=== PATIENT | male | born 1975 | race Hispanic/Latino ===

== ENCOUNTER 2017-02-05 20:37 | Inpatient (IN) | payer OTHER ==
[2017-02-05 20:38] VITALS: BMI 32.7
[2017-02-05] MEDS ORDERED: Albuterol-Ipratrop 3 mg / 0.5 (3 ml) UD ONE (20:44)
--- NOTE | 2017-02-05 20:50 | C.PDOC ---
History Of Present Illness Patient presents to the emergency room with worsening shortness of breath and wheezing that started today. Patient has been intubated 5x previously for acute asthma. Patient denies any chest pain, headaches, dizziness, fever, chills, nausea, vomiting, diarrhea, or any other complaints. Time Seen by Provider: 02/05/17 20:46 Chief Complaint (Nursing): Respiratory Distress History Per: Patient History/Exam Limitations: no limitations Onset/Duration Of Symptoms: Hrs (Today) Current Symptoms Are (Timing): Worse Associated Symptoms: denies: Sputum Production, Fever, Hives, Itching, Chest Pain Preciptating Factors: Other (History of Asthma). denies: Fever Severity: Severe Pain Scale Rating Of: 9 Recent travel outside of the [place]: No Past Medical History Reviewed: Historical Data, Nursing Documentation, Vital Signs Vital Signs: Last Vital Signs Temp 99.7 F H 02/05/17 21:03 Pulse 112 H 02/05/17 21:25 Resp 21 02/05/17 21:03 BP 134/73 02/05/17 21:03 Pulse Ox 98 02/05/17 21:20 - Medical History PMH: Asthma, Bronchitis, Fractures (8 ACL reconstructions), Hypothyroidism, Kidney Stones, Peripheral Edema, Pneumonia, Pulmonary Embolism, Chronic Kidney Disease, Seizures, Sleep Apnea, TIA Denies: HIV - [facility] Procedures CENTRAL VENOUS CATHETER PLACEMENT WITH GUIDANCE (06/27/15) INJECT/INFUSE NEC (05/01/15) INSERTION OF INFUSION DEV INTO SUP VENA CAVA, PERC APPROACH (06/04/16) INSPECTION OF LARYNX, ENDO (06/04/16) INTRODUCTION OF ANTI-INFLAM INTO RESP TRACT, VIA OPENING (11/07/16) NEBULIZER THERAPY (06/27/15) REMOVAL OF INFUSION DEV FROM GREAT VESSEL, PARTY HOST APPROACH (11/07/16) Family History: States: Unknown Family Hx - Social History Hx Tobacco Use: No Hx Alcohol Use: No Hx Substance Use: No - Immunization History Hx Tetanus Toxoid Vaccination: No Hx Influenza Vaccination: No Hx Pneumococcal Vaccination: No Review Of Systems Constitutional: Negative for: Fever, Chills Cardiovascular: Negative for: Chest Pain Respiratory: Positive for: Shortness of Breath, Wheezing Gastrointestinal: Negative for: Nausea, Vomiting, Diarrhea Neurological: Negative for: Headache, Dizziness Physical Exam - Physical Exam Appears: In Acute Distress (Acute respiratory distress) Skin: Warm, Dry Neck: Normal ROM, No Midline Cervical Tenderness, No Paracervical Tenderness, Supple Chest: Symmetrical, No Deformity, No Tenderness Cardiovascular: Other (Tachycardic) Respiratory: Decreased Breath Sounds, Wheezing (Throughout) Gastrointestinal/Abdominal: Soft, No Tenderness, No Guarding, No Rebound Extremity: Normal ROM, No Tenderness, Pedal Edema, No Calf Tenderness (Trace), No Deformity Neurological/Psych: Oriented x3, Normal Speech, Normal Cognition ED Course And Treatment - Laboratory Results Result Diagrams: 02/05/17 20:57 02/05/17 20:57 ECG: Interpreted By Me, Viewed By Me ECG Rhythm: Sinus Rhythm (100), Nonspecific Changes O2 Sat by Pulse Oximetry: 98 Pulse Ox Interpretation: Normal - Radiology CXR: Interpreted by Me, Viewed By Me CXR Interpretation: Yes: Other (unuchanged from 11/21/16). No: Infiltrates, Fracture, Pnemothorax Progress Note: blood work, nebs, steroids, bipap. spoke with dr abbasi - icu- will came and see the pt at bedside. dr abbasi will take the pt to icu Critical Care Time - Critical Care Note Total Time (in mins): 30 Documented critical care: time excludes all time spent performing seperately billable procedures. Disposition Discussed With : Ella Perez Comment: accepted the pt on his service and took over the care at 10:21 PM Doctor Will See Patient In The: ED Counseled Patient/Family Regarding: Studies Performed, Diagnosis - Disposition Disposition: HOSPITALIZED Disposition Time: 20:51 Condition: CRITICAL - POA Present On Arrival: Poor Glycemic Control - Clinical Impression Clinical Impression: Asthma with status asthmaticus - Scribe Statement The provider has reviewed the documentation as recorded by the Chalo Vazquez Provider Scribe Attestation: All medical record entries made by the Roxanaibsharifa were at my direction and personally dictated by me. I have reviewed the chart and agree that the record accurately reflects my personal performance of the history, physical exam, medical decision making, and the department course for this patient. I have also personally directed, reviewed, and agree with the discharge instructions and disposition. Decision To Admit - Pt Status Changed To: Hospital Disposition Of: Inpatient - Admit Certification Admit to Inpatient:: After my assessment, the patient will require hospitalization for at least two midnights. This is because of the severity of symptoms shown, intensity of services needed, and/or the medical risk in this patient being treated as an outpatient. - InPatient: Physician Admission Certification:: After my assessment, the patient will require hospitalization for at least two midnights. This is because of the severity of symptoms shown, intensity of services needed, and/or the medical risk in this patient being treated as an outpatient. - . Bed Request Type: ICU Admitting Physician: Ella Perez Patient Diagnosis: Asthma with status asthmaticus
[2017-02-05] MEDS ORDERED: Sodium Chloride 0.9% 1,000 ML IV ONE (20:51)
[2017-02-05 21:04] LABS: BASO # 0.1 K/uL (0.0-0.2); BASO % 0.8 % (0.0-2.0); EOS # 0.7 K/uL (0.0-0.7); EOS % 6.6 % (0.0-4.0); HEMATOCRIT 44.3 % (35.0-51.0); LYMPH # 3.7 K/uL (1.0-4.3); LYMPH % 34.5 % (20.0-40.0); MEAN CELL VOLUME 87.6 fL (80.0-94.0); MEAN CORPUSCULAR HEMOGLOBIN 29.2 pg (27.0-31.0); MEAN CORPUSCULAR HGB CONC 33.3 g/dL (33.0-37.0); MEAN PLATELET VOLUME 8.9 fL (7.2-11.7); MONO % 9.5 % (0.0-10.0); RED CELL DISTRIBUTION WIDTH 13.8 % (11.5-14.5); WHITE BLOOD COUNT 10.9 K/uL (4.8-10.8)
[2017-02-05 21:09] LABS: CHLORIDE 97 mmol/L (98-107)
[2017-02-05 21:10] LABS: POTASSIUM 3.7 mmol/L (3.6-5.2); SODIUM 134 mmol/L (132-148)
[2017-02-05] MEDS: Albuterol-Ipratrop 3 mg / 0.5 (3 ml) UD IH SCH ×3 (21:10→21:20)
[2017-02-05 21:12] LABS: ALB/GLOB RATIO 1.4 (1.0-2.1); AST/SGOT 26 U/L (17-59); BILIRUBIN,TOTAL 0.7 mg/dL (0.2-1.3); CARBON DIOXIDE 25 mmol/L (22-30); GFR AFRICAN-AMERICAN > 60; TOTAL PROTEIN 7.6 g/dL (6.3-8.3)
[2017-02-05 21:13] LABS: ALKALINE PHOSPHATASE 60 U/L (38-126); ALT/SGPT 29 U/L (21-72); BLOOD UREA NITROGEN 11 mg/dL (9-20); CALCIUM 8.8 mg/dl (8.6-10.4); GLUCOSE,RANDOM 154 mg/dL (75-110); MAGNESIUM 2.2 mg/dL (1.6-2.3)
[2017-02-05 21:56] LABS: VENOUS BLOOD GAS PCO2 38 mmHg (40-60); VENOUS BLOOD PH 7.43 (7.32-7.43)
--- NOTE | 2017-02-05 22:25 | CP.PCM.CON ---
History of Present Illness - History of Present Illness History of Present Illness: 41 YOM with h/o B asthma with 6 intubations in the past came to ER with c/o SOB which was getting worse for almost a week. N fever, mild dry cough , non- productive. He was tachypnic in ER, wheezing, was put on BiPAP and received dueneb and steroid, slightly better but still SOB. Review of Systems - Review of Systems Systems not reviewed;Unavailable: Respiratory Distress - Constitutional Constitutional: As Per HPI - EENT Eyes: As Per HPI Nose/Mouth/Throat: As Per HPI - Cardiovascular Cardiovascular: As Per HPI - Respiratory Respiratory: Dyspnea - Gastrointestinal Gastrointestinal: As Per HPI Past Patient History - Tetanus Immunizations Tetanus Immunization: Unknown - Past Medical History & Family History Past Medical History?: Yes - Past Social History Smoking Status: Never Smoked - CARDIAC Hx Peripheral Edema: Yes - PULMONARY Hx Asthma: Yes Hx Bronchitis: Yes Hx Pneumonia: Yes Hx Pulmonary Embolism: Yes Hx Sleep Apnea: Yes - NEUROLOGICAL Hx Seizures: Yes Hx Transient Ischemic Attacks (TIA): Yes - HEENT Hx HEENT Problems: No - RENAL Hx Chronic Kidney Disease: Yes Hx Kidney Stones: Yes - ENDOCRINE/METABOLIC Hx Hypothyroidism: Yes - HEMATOLOGICAL/ONCOLOGICAL Hx Human Immunodeficiency Virus (HIV): No - INTEGUMENTARY Hx Dermatological Problems: No - MUSCULOSKELETAL/RHEUMATOLOGICAL Hx Fractures: Yes (8 ACL reconstructions) - GASTROINTESTINAL Hx Gastrointestinal Disorders: No - GENITOURINARY/GYNECOLOGICAL Hx Genitourinary Disorders: No - PSYCHIATRIC Hx Substance Use: No - SURGICAL HISTORY Hx Musculoskeletal Surgery: Yes (R knee, L knee (8 knee sx)) Hx Thyroidectomy: Yes (CA+) Other/Comment: CA removal, tracheostomy x3, intubation - ANESTHESIA Hx Anesthesia: Yes Hx Anesthesia Reactions: No Hx Malignant Hyperthermia: No Meds Allergies/Adverse Reactions: Allergies Allergy/AdvReac Type Severity Reaction Status Date / Time aspirin Allergy ANAPHYLAXIS Verified 06/26/16 19:18 onions Allergy Severe throat Uncoded 06/26/16 19:18 swelling Physical Exam - Head Exam Head Exam: ATRAUMATIC - Eye Exam Eye Exam: Normal appearance - ENT Exam ENT Exam: Mucous Membranes Moist - Neck Exam Neck exam: Positive for: Full Rom - Respiratory Exam Respiratory Exam: Prolonged Expiratory Phase, Rhonchi, Wheezes - Cardiovascular Exam Cardiovascular Exam: Tachycardia, REGULAR RHYTHM Results - Vital Signs Recent Vital Signs: Last Vital Signs Temp 99.7 F H 02/05/17 21:03 Pulse 112 H 02/05/17 21:25 Resp 21 02/05/17 21:03 BP 134/73 02/05/17 21:03 Pulse Ox 98 02/05/17 21:20 - Labs Result Diagrams: 02/05/17 20:57 02/05/17 20:57 Labs: Laboratory Results - last 24 hr 02/05/17 02/05/17 20:57 21:50 WBC 10.9 H RBC 5.06 Hgb 14.8 Hct 44.3 MCV 87.6 MCH 29.2 MCHC 33.3 RDW 13.8 Plt Count 272 MPV 8.9 Neut % (Auto) 48.6 L Lymph % (Auto) 34.5 [place] % (Auto) 9.5 Eos % (Auto) 6.6 H Baso % (Auto) 0.8 Neut # 5.3 Lymph # 3.7 [place] # 1.0 H Eos # 0.7 Baso # 0.1 PT 11.4 INR 1.0 pO2 111 H VBG pH 7.43 VBG pCO2 38 L VBG HCO3 25.7 VBG Total CO2 26.4 VBG O2 Sat (Calc) 98.2 H VBG Base Excess 1.0 VBG Potassium 3.4 L Glucose 201 H Lactate 1.9 FiO2 21.0 Sodium 134 136.0 Potassium 3.7 Chloride 97 L 104.0 Carbon Dioxide 25 Anion Gap 16 BUN 11 Creatinine 1.1 Est GFR ( Amer) > 60 Est GFR (Non-Af Amer) > 60 Random Glucose 154 H Calcium 8.8 Magnesium 2.2 Total Bilirubin 0.7 AST 26 ALT 29 Alkaline Phosphatase 60 Total Protein 7.6 Albumin 4.5 Globulin 3.2 Albumin/Globulin Ratio 1.4 Venous Blood Potassium 3.4 L Assessment & Plan - Assessment and Plan (Free Text) Assessment: Resp failure Exacerbation of Bronchial asthma h/o PE Plan: Bipap CXR and labs reviewed Transfer to ICU Duoneb In steroids Mag sulphate 2 gm DVT prophylaxis, Lovenox.
--- NOTE | 2017-02-05 23:11 | CP.PCM.HP ---
History of Present Illness - History of Present Illness History of Present Illness: 41 with asthma, ? thyroid malignancy, presented with progressive dyspnea, impending respiratory failure, multiple intubation in the past, advised the ICU team, the pt should be transfered to the hospitalist, was admitted under my name by mistake, will be transferred as per protocol Present on Admission - Present on Admission Any Indicators Present on Admission: No Review of Systems - Constitutional Constitutional: Anorexia, Weakness - EENT Eyes: absent: Discharge Ears: absent: Ear Discharge Nose/Mouth/Throat: Nasal Congestion. absent: Epistaxis - Cardiovascular Cardiovascular: absent: Acrocyanosis, Chest Pain, Diaphoresis, Palpitations, Syncope - Respiratory Respiratory: Cough, Dyspnea. absent: Hemoptysis - Gastrointestinal Gastrointestinal: absent: Abdominal Pain, Diarrhea, Vomiting - Genitourinary Genitourinary: absent: Change in Urinary Stream Past Patient History - Tetanus Immunizations Tetanus Immunization: Unknown - Past Medical History & Family History Past Medical History?: Yes - Past Social History Smoking Status: Never Smoked - CARDIAC Hx Peripheral Edema: Yes - PULMONARY Hx Asthma: Yes Hx Bronchitis: Yes Hx Pneumonia: Yes Hx Pulmonary Embolism: Yes Hx Sleep Apnea: Yes - NEUROLOGICAL Hx Seizures: Yes Hx Transient Ischemic Attacks (TIA): Yes - HEENT Hx HEENT Problems: No - RENAL Hx Chronic Kidney Disease: Yes Hx Kidney Stones: Yes - ENDOCRINE/METABOLIC Hx Hypothyroidism: Yes - HEMATOLOGICAL/ONCOLOGICAL Hx Human Immunodeficiency Virus (HIV): No - INTEGUMENTARY Hx Dermatological Problems: No - MUSCULOSKELETAL/RHEUMATOLOGICAL Hx Fractures: Yes (8 ACL reconstructions) - GASTROINTESTINAL Hx Gastrointestinal Disorders: No - GENITOURINARY/GYNECOLOGICAL Hx Genitourinary Disorders: No - PSYCHIATRIC Hx Substance Use: No - SURGICAL HISTORY Hx Musculoskeletal Surgery: Yes (R knee, L knee (8 knee sx)) Hx Thyroidectomy: Yes (CA+) Other/Comment: CA removal, tracheostomy x3, intubation - ANESTHESIA Hx Anesthesia: Yes Hx Anesthesia Reactions: No Hx Malignant Hyperthermia: No Meds Allergies/Adverse Reactions: Allergies Allergy/AdvReac Type Severity Reaction Status Date / Time aspirin Allergy ANAPHYLAXIS Verified 06/26/16 19:18 onions Allergy Severe throat Uncoded 06/26/16 19:18 swelling Physical Exam - Constitutional Appears: Non-toxic - Head Exam Head Exam: ATRAUMATIC - Eye Exam Eye Exam: EOMI - ENT Exam ENT Exam: Mucous Membranes Moist - Neck Exam Neck exam: Negative for: Lymphadenopathy, Thyromegaly - Respiratory Exam Respiratory Exam: Clear to Auscultation Bilateral. absent: Rales - Cardiovascular Exam Cardiovascular Exam: REGULAR RHYTHM. absent: Systolic Murmur - GI/Abdominal Exam GI & Abdominal Exam: Normal Bowel Sounds. absent: Organomegaly - Rectal Exam Rectal Exam: Deferred - Extremities Exam Extremities exam: Positive for: normal capillary refill. Negative for: calf tenderness - Neurological Exam Neurological exam: Alert, Oriented x3 - Psychiatric Exam Psychiatric exam: Normal Mood - Skin Skin Exam: Dry Results - Vital Signs Recent Vital Signs: Last Vital Signs Temp 97.8 F 02/05/17 22:36 Pulse 74 02/05/17 22:36 Resp 18 02/05/17 22:36 BP 125/82 02/05/17 22:36 Pulse Ox 97 02/05/17 22:36 - Labs Result Diagrams: 02/06/17 13:00 02/06/17 13:00 Assessment & Plan (1) Asthma with status asthmaticus Status: Acute (2) Asthma exacerbation Status: Acute Priority: High (3) Respiratory failure Status: Acute Decision To Admit - Pt Status Changed To: Hospital Disposition Of: Inpatient - Admit Certification Admit to Inpatient:: After my assessment, the patient will require hospitalization for at least two midnights. This is because of the severity of symptoms shown, intensity of services needed, and/or the medical risk in this patient being treated as an outpatient. - InPatient: Physician Admission Certification:: yes - . Bed Request Type: ICU
[2017-02-05] MEDS: MethylPREDNISolone 40 mg Vial IVP SCH (23:48)
[2017-02-06] MEDS: Albuterol-Ipratrop 3 mg / 0.5 (3 ml) UD INH PRN ×3 (00:12→07:52)
[2017-02-06] MEDS: MethylPREDNISolone 40 mg Vial IVP SCH (05:05)
--- NOTE | 2017-02-06 07:37 | CP.CCUPN ---
<Cj Hayes - Last Filed: 02/06/17 19:40> CCU Subjective - Physician Review Subjective (Free Text): 02/06/17 07:37 Pt seen and examined at bedside. Pt found sitting up in chair without Bipap attached. Pt reports breathing greatly improved from last night. It should be noted pt has been very difficult with staff. Last night he refused bipap, cannula on presentation. During the day he refused blood draws and accuchecks. Pt admits not taking diabetes medications for 6 months. He will be restarted on Metformin, with accuchecks Q4H. He denies shortness of breath, chest pain, abdominal, nausea, or vomiting. Critical Care Time Spent (in minutes): 30 CCU Objective - Vital Signs / Intake & Output Vital Signs (Last 4 hours): Vital Signs Temp Pulse Resp BP Pulse Ox 02/06/17 06:02 97 F L 02/06/17 05:40 94 H 25 H 117/94 H 02/06/17 05:02 99 H 22 98 02/06/17 05:00 98 H 14 98 02/06/17 04:38 95 H 25 H 120/71 02/06/17 04:23 92 H 21 100 02/06/17 04:18 89 21 135/81 100 02/06/17 04:10 89 Intake and Output (Last 8hrs): Intake & Output 02/05/17 02/06/17 02/06/17 22:59 06:59 14:59 Intake Total 680 100 Balance 680 100 Weight 254 lb Intake: Oral 680 100 Other: # Voids Urine, Voided 1 - Physical Exam Narrative Physical Exam (Free Text): 02/06/17 20:06 Overweight body habitus noted Head: Positive for: Atraumatic, Normocephalic Pupils: Positive for: PERRL Extroacular Muscles: Positive for: EOMI Conjunctiva: Positive for: Normal Mouth: Positive for: Moist Mucous Membranes Respiratory/Chest: Positive for: Good Air Exchange, Wheezes (improved, expiratory, lung multani). Negative for: Respiratory Distress, Accessory Muscle Use, Rales Cardiovascular: Positive for: Regular Rate and Rhythm, Normal S1, S2 Abdomen: Positive for: Normal Bowel Sounds. Negative for: Tenderness, Distention Upper Extremity: Positive for: Normal Inspection Lower Extremity: Positive for: Normal Inspection Neurological: Positive for: CN II-XII Intact, Speech Normal Skin: Positive for: Warm, Dry Psychiatric: Positive for: Alert, Oriented x 3 - Medications Active Medications: Active Medications Generic Name Dose Route Start Last Admin Trade Name Freq PRN Reason Stop Dose Admin Acetaminophen 650 mg 02/06/17 00:41 Tylenol 325mg Tab PO Q4 PRN Pain, moderate (4-7) Albuterol/Ipratropium 3 ml 02/05/17 22:51 02/06/17 04:14 Duoneb 3 Mg/0.5 Mg (3 Ml) Ud INH 3 ml RQ2 PRN Administration Shortness of Breath Enoxaparin Sodium 40 mg 02/06/17 10:00 Lovenox SC DAILY ALON Famotidine 20 mg 02/06/17 10:00 Pepcid PO BID ALON Methylprednisolone 40 mg 02/06/17 00:00 02/06/17 05:05 Solu-Medrol IVP 40 mg Q6 ALON Administration Review of Systems - Constitutional Constitutional: absent: Fever, Chills - EENT Eyes: absent: Change in Vision Ears: absent: Decreased Hearing - Cardiovascular Cardiovascular: absent: Chest Pain, Chest Pain at Rest, Dyspnea, Dyspnea on Exertion - Respiratory Respiratory: absent: Dyspnea, Dyspnea on Exertion, Wheezing (minor, much improved) - Gastrointestinal Gastrointestinal: absent: Vomiting - Genitourinary Genitourinary: absent: Dysuria - Musculoskeletal Musculoskeletal: absent: Back Pain, Numbness, Tingling - Integumentary Integumentary: absent: Wounds - Neurological Neurological: absent: Dizziness, Tingling, Weakness - Psychiatric Psychiatric: absent: Anxiety, Depression - Endocrine Endocrine: absent: Fatigue Critical Care Progress Note - Nutrition Nutrition: Nutrition Category Date Time Status Heart Healthy Diet [DIET] Diets 02/06/17 Breakfast Active Assessment/Plan - Assessment and Plan (Free Text) Assessment: 41 year old male, with PMHx of asthma, bronchitis, hypothyroidism, PE, who presents to in ED with exacerbation of asthma. Pt has history of 5 intubations, with 3 prior trachs. Placed on Bipap, duoneb and steroids. Plan: Neuro: AAOx3 Pulm: History of PE - Restart home Xarelto Asthma exacerbation: - history of 5 prior intubations CXR (02/05/17): mild venous congestion. Right hilar prominence. 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 Gauthier Plan discussed with Dr. Mosley on Rounds Cj Hayes, PGY-1 <Olman Mosley - Last Filed: 02/07/17 23:37> CCU Objective - Vital Signs / Intake & Output Vital Signs (Last 4 hours): Vital Signs Temp Pulse Resp BP Pulse Ox 02/07/17 20:51 104 H 02/07/17 19:45 98.9 F 106 H 20 131/74 96 Intake and Output (Last 8hrs): Intake & Output 02/07/17 02/07/17 02/08/17 14:59 22:59 06:59 Intake Total 1105 1190 Balance 1105 1190 Intake: IV 0 Intake, IV Amount 505 300 Right Hand 505 300 Oral 600 240 Tube Feeding 650 - Medications Active Medications: Active Medications Generic Name Dose Route Start Last Admin Trade Name Freq PRN Reason Stop Dose Admin Acetaminophen 650 mg 02/06/17 00:41 Tylenol 325mg Tab PO Q4 PRN Pain, moderate (4-7) Albuterol Sulfate 2.5 mg 02/06/17 10:29 02/06/17 14:47 Albuterol 0.083% Inhal [place] (2.5 Mg/3 Ml) Ud IH 2.5 mg RQ4 PRN Administration Shortness of Breath Albuterol/Ipratropium 3 ml 02/06/17 12:00 02/07/17 20:03 Duoneb 3 Mg/0.5 Mg (3 Ml) Ud INH 3 ml RQ4 ALON Administration Famotidine 20 mg 02/06/17 10:00 02/07/17 18:04 Pepcid PO 20 mg BID ALON Administration Fluticasone Propionate 1 spr 02/07/17 16:30 02/07/17 21:47 Flonase DYLAN 1 spr Q12 ALON Administration Glipizide 10 mg 02/06/17 16:30 Glucotrol Xl PO ACBD ALON Sodium Chloride 1,000 mls @ 100 mls/hr 02/07/17 09:45 02/07/17 21:00 Sodium Chloride 0.9% IV 100 mls/hr .Q10H ALON Administration Insulin Glargine 20 unit 02/07/17 13:30 02/07/17 13:30 Lantus SC 20 u ACB ALON Administration Insulin Glargine 30 unit 02/07/17 22:00 02/07/17 21:48 Lantus SC 30 units HS ALON Administration Insulin Human Regular 0 unit 02/06/17 19:16 02/07/17 21:53 Novolin R SC 3 unit ACHS ALON Administration Protocol Levothyroxine Sodium 400 mcg 02/06/17 10:30 02/07/17 07:37 Synthroid PO 400 mcg DAILY@0630 ALON Administration Metformin HCl 1,000 mg 02/06/17 19:00 02/07/17 18:03 Glucophage PO 1,000 mg BID ALON Administration Methylprednisolone 20 mg 02/07/17 08:00 02/07/17 21:55 Solu-Medrol IVP 20 mg Q8 ALON Administration Mometasone Furoate 2 puff 02/06/17 10:30 02/07/17 20:02 Asmanex Twisthaler 220 Mcg IH 2 puff RQ12 ALON Administration Rivaroxaban 20 mg 02/06/17 10:45 02/07/17 10:13 Xarelto PO 20 mg DAILY ALON Administration Fluticasone/Salmeterol 1 puff 02/06/17 10:00 02/07/17 20:02 Advair Diskus 250/50 INH 1 puff RQ12 ALON Administration - Patient Studies Lab Studies: Microbiology Studies 02/05/17 22:43 MRSA Culture (Admit) - Final Nose MRSA NOT DETECTED Lab Studies 04/02/07/17 02/07/17 Range/Units 21:10 16:45 11:34 WBC (4.8-10.8) K/uL RBC (4.40-5.90) Mil/uL Hgb (12.0-18.0) g/dL Hct (35.0-51.0) % MCV (80.0-94.0) fL MCH (27.0-31.0) pg MCHC (33.0-37.0) g/dL RDW (11.5-14.5) % Plt Count (130-400) K/uL MPV (7.2-11.7) fL Neut % (Auto) (50.0-75.0) % Lymph % (Auto) (20.0-40.0) % [place] % (Auto) (0.0-10.0) % Eos % (Auto) (0.0-4.0) % Baso % (Auto) (0.0-2.0) % Neut # (1.8-7.0) K/uL Lymph # (1.0-4.3) K/uL [place] # (0.0-0.8) K/uL Eos # (0.0-0.7) K/uL Baso # (0.0-0.2) K/uL Neutrophils % (Manual) (50-75) % Lymphocytes % (Manual) (20-40) % Monocytes % (Manual) (0-10) % Platelet Estimate (NORMAL) Large Platelets Sodium (132-148) mmol/L Potassium (3.6-5.2) mmol/L Chloride (98-107) mmol/L Carbon Dioxide (22-30) mmol/L Anion Gap (10-20) BUN (9-20) mg/dL Creatinine (0.8-1.5) MG/DL Est GFR ( Amer) Est GFR (Non-Af Amer) POC Glucose (mg/dL) 367 H 374 H 418 H* (65-110) mg/dL Random Glucose (75-110) mg/dL Calcium (8.6-10.4) mg/dl Phosphorus (2.5-4.5) mg/dL Magnesium (1.6-2.3) mg/dL Total Bilirubin (0.2-1.3) mg/dL AST (17-59) U/L ALT (21-72) U/L Alkaline Phosphatase (38-126) U/L Total Protein (6.3-8.3) g/dL Albumin (3.5-5.0) g/dL Globulin (2.2-3.9) gm/dL Albumin/Globulin Ratio (1.0-2.1) 02/07/17 02/07/17 02/07/17 Range/Units 09:38 06:44 05:29 WBC 18.0 H D (4.8-10.8) K/uL RBC 5.23 (4.40-5.90) Mil/uL Hgb 15.0 (12.0-18.0) g/dL Hct 46.5 (35.0-51.0) % MCV 89.0 (80.0-94.0) fL MCH 28.8 (27.0-31.0) pg MCHC 32.3 L (33.0-37.0) g/dL RDW 14.1 (11.5-14.5) % Plt Count 285 (130-400) K/uL MPV 9.4 (7.2-11.7) fL Neut % (Auto) 86.6 H (50.0-75.0) % Lymph % (Auto) 9.2 L (20.0-40.0) % [place] % (Auto) 3.6 (0.0-10.0) % Eos % (Auto) 0.0 (0.0-4.0) % Baso % (Auto) 0.6 (0.0-2.0) % Neut # 15.6 H (1.8-7.0) K/uL Lymph # 1.7 (1.0-4.3) K/uL [place] # 0.7 (0.0-0.8) K/uL Eos # 0.0 (0.0-0.7) K/uL Baso # 0.1 (0.0-0.2) K/uL Neutrophils % (Manual) 87 H (50-75) % Lymphocytes % (Manual) 9 L (20-40) % Monocytes % (Manual) 4 (0-10) % Platelet Estimate Normal (NORMAL) Large Platelets Present Sodium 135 (132-148) mmol/L Potassium 4.2 (3.6-5.2) mmol/L Chloride 99 (98-107) mmol/L Carbon Dioxide 18 L (22-30) mmol/L Anion Gap 22 H (10-20) BUN 18 (9-20) mg/dL Creatinine 1.2 (0.8-1.5) MG/DL Est GFR ( Amer) > 60 Est GFR (Non-Af Amer) > 60 POC Glucose (mg/dL) 345 H 371 H (65-110) mg/dL Random Glucose 354 H (75-110) mg/dL Calcium 10.3 (8.6-10.4) mg/dl Phosphorus 3.8 (2.5-4.5) mg/dL Magnesium 2.4 H (1.6-2.3) mg/dL Total Bilirubin 0.7 (0.2-1.3) mg/dL AST 24 (17-59) U/L ALT 32 (21-72) U/L Alkaline Phosphatase 64 (38-126) U/L Total Protein 8.3 (6.3-8.3) g/dL Albumin 4.9 (3.5-5.0) g/dL Globulin 3.4 (2.2-3.9) gm/dL Albumin/Globulin Ratio 1.4 (1.0-2.1) 02/07/17 02/07/17 02/07/17 Range/Units 03:35 01:21 00:26 WBC (4.8-10.8) K/uL RBC (4.40-5.90) Mil/uL Hgb (12.0-18.0) g/dL Hct (35.0-51.0) % MCV (80.0-94.0) fL MCH (27.0-31.0) pg MCHC (33.0-37.0) g/dL RDW (11.5-14.5) % Plt Count (130-400) K/uL MPV (7.2-11.7) fL Neut % (Auto) (50.0-75.0) % Lymph % (Auto) (20.0-40.0) % [place] % (Auto) (0.0-10.0) % Eos % (Auto) (0.0-4.0) % Baso % (Auto) (0.0-2.0) % Neut # (1.8-7.0) K/uL Lymph # (1.0-4.3) K/uL [place] # (0.0-0.8) K/uL Eos # (0.0-0.7) K/uL Baso # (0.0-0.2) K/uL Neutrophils % (Manual) (50-75) % Lymphocytes % (Manual) (20-40) % Monocytes % (Manual) (0-10) % Platelet Estimate (NORMAL) Large Platelets Sodium (132-148) mmol/L Potassium (3.6-5.2) mmol/L Chloride (98-107) mmol/L Carbon Dioxide (22-30) mmol/L Anion Gap (10-20) BUN (9-20) mg/dL Creatinine (0.8-1.5) MG/DL Est GFR ( Amer) Est GFR (Non-Af Amer) POC Glucose (mg/dL) 364 H 361 H 307 H (65-110) mg/dL Random Glucose (75-110) mg/dL Calcium (8.6-10.4) mg/dl Phosphorus (2.5-4.5) mg/dL Magnesium (1.6-2.3) mg/dL Total Bilirubin (0.2-1.3) mg/dL AST (17-59) U/L ALT (21-72) U/L Alkaline Phosphatase (38-126) U/L Total Protein (6.3-8.3) g/dL Albumin (3.5-5.0) g/dL Globulin (2.2-3.9) gm/dL Albumin/Globulin Ratio (1.0-2.1) Laboratory Results - last 24 hr 02/07/17 02/07/17 02/07/17 00:26 01:21 03:35 WBC RBC Hgb Hct MCV MCH MCHC RDW Plt Count MPV Neut % (Auto) Lymph % (Auto) [place] % (Auto) Eos % (Auto) Baso % (Auto) Neut # Lymph # [place] # Eos # Baso # Neutrophils % (Manual) Lymphocytes % (Manual) Monocytes % (Manual) Platelet Estimate Large Platelets Sodium Potassium Chloride Carbon Dioxide Anion Gap BUN Creatinine Est GFR ( Amer) Est GFR (Non-Af Amer) POC Glucose (mg/dL) 307 H 361 H 364 H Random Glucose Calcium Phosphorus Magnesium Total Bilirubin AST ALT Alkaline Phosphatase Total Protein Albumin Globulin Albumin/Globulin Ratio 02/07/17 02/07/17 02/07/17 05:29 06:44 09:38 WBC 18.0 H D RBC 5.23 Hgb 15.0 Hct 46.5 MCV 89.0 MCH 28.8 MCHC 32.3 L RDW 14.1 Plt Count 285 MPV 9.4 Neut % (Auto) 86.6 H Lymph % (Auto) 9.2 L [place] % (Auto) 3.6 Eos % (Auto) 0.0 Baso % (Auto) 0.6 Neut # 15.6 H Lymph # 1.7 [place] # 0.7 Eos # 0.0 Baso # 0.1 Neutrophils % (Manual) 87 H Lymphocytes % (Manual) 9 L Monocytes % (Manual) 4 Platelet Estimate Normal Large Platelets Present Sodium 135 Potassium 4.2 Chloride 99 Carbon Dioxide 18 L Anion Gap 22 H BUN 18 Creatinine 1.2 Est GFR ( Amer) > 60 Est GFR (Non-Af Amer) > 60 POC Glucose (mg/dL) 371 H 345 H Random Glucose 354 H Calcium 10.3 Phosphorus 3.8 Magnesium 2.4 H Total Bilirubin 0.7 AST 24 ALT 32 Alkaline Phosphatase 64 Total Protein 8.3 Albumin 4.9 Globulin 3.4 Albumin/Globulin Ratio 1.4 02/07/17 02/07/17 02/07/17 11:34 16:45 21:10 WBC RBC Hgb Hct MCV MCH MCHC RDW Plt Count MPV Neut % (Auto) Lymph % (Auto) [place] % (Auto) Eos % (Auto) Baso % (Auto) Neut # Lymph # [place] # Eos # Baso # Neutrophils % (Manual) Lymphocytes % (Manual) Monocytes % (Manual) Platelet Estimate Large Platelets Sodium Potassium Chloride Carbon Dioxide Anion Gap BUN Creatinine Est GFR ( Amer) Est GFR (Non-Af Amer) POC Glucose (mg/dL) 418 H* 374 H 367 H Random Glucose Calcium Phosphorus Magnesium Total Bilirubin AST ALT Alkaline Phosphatase Total Protein Albumin Globulin Albumin/Globulin Ratio Critical Care Progress Note - Nutrition Nutrition: Nutrition Category Date Time Status Heart Healthy Diet [DIET] Diets 02/06/17 Breakfast Active Attending/Attestation - Attestation I have personally seen and examined this patient.: Yes I have fully participated in the care of the patient.: Yes I have reviewed all pertinent clinical information: Yes Notes (Text): Today: Monday, February 06, 2017 The Patient was seen and examined at the bedside, Medical records reviewed, all clinical/lab/hemodynamic/radiographic data were reviewed and management issues were discussed and formulated, Events reviewed Pain issues, skin care, head of the bed elevation, glycemic control were addressed. Agree with above treatment plans as transcribed in Dr. Hayes note
--- NOTE | 2017-02-06 08:26 | RAD ---
PROCEDURE: CHEST RADIOGRAPH, 1 VIEW HISTORY: SOB COMPARISON: 11/21/2016 FINDINGS: LUNGS: Mild venous congestion. Right hilar prominence. PLEURA: No pneumothorax or pleural fluid seen. CARDIOVASCULAR: Normal. OSSEOUS STRUCTURES: No significant abnormalities. VISUALIZED UPPER ABDOMEN: Normal. OTHER FINDINGS: None. IMPRESSION: Mild venous congestion. Right hilar prominence.
[2017-02-06] MEDS: Enoxaparin 40 mg Syringe SC SCH ×2 (10:26→10:49)
[2017-02-06] MEDS ORDERED: Albuterol 0.083% Inhal Sol (2.5 mg/3 mL) UD IH PRN (10:29)
[2017-02-06] MEDS: Mometasone 220 mcg/puff-14 puff Inh IH SCH ×2 (11:34→19:53)
[2017-02-06] MEDS: Albuterol-Ipratrop 3 mg / 0.5 (3 ml) UD INH SCH ×3 (11:35→23:52)
[2017-02-06] MEDS: Fluticasone-Salmeterol 250-50mcg Diskus INH SCH ×2 (11:37→19:53)
--- NOTE | 2017-02-06 11:46 | CARD ---
APPROVED REPORT EKG Measurement Heart [id number] <Conclusion> Normal sinus rhythm Septal infarct, age undetermined Abnormal ECG
[2017-02-06] MEDS: Levothyroxine 200 MCG TAB PO SCH (12:03)
[2017-02-06] MEDS: (Novolin R) Insulin Human Regular 100 units/ml vial SC SCH ×3 (12:15→21:28)
[2017-02-06 13:07] LABS: BASO % 0.4 % (0.0-2.0); HEMATOCRIT 47.6 % (35.0-51.0); LYMPH # 1.1 K/uL (1.0-4.3); LYMPH % 9.6 % (20.0-40.0); MEAN CORPUSCULAR HEMOGLOBIN 29.1 pg (27.0-31.0); MEAN CORPUSCULAR HGB CONC 32.5 g/dL (33.0-37.0); MONO # 0.3 K/uL (0.0-0.8); MONO % 2.3 % (0.0-10.0); PLATELET COUNT 279 K/uL (130-400)
[2017-02-06 13:08] LABS: MEAN CELL VOLUME 89.7 fL (80.0-94.0)
[2017-02-06 13:19] LABS: CHLORIDE 96 mmol/L (98-107); POTASSIUM 4.4 mmol/L (3.6-5.2); SODIUM 133 mmol/L (132-148)
[2017-02-06 13:21] LABS: ALB/GLOB RATIO 1.4 (1.0-2.1); ALKALINE PHOSPHATASE 69 U/L (38-126); AST/SGOT 33 U/L (17-59); BILIRUBIN,TOTAL 0.8 mg/dL (0.2-1.3); CARBON DIOXIDE 15 mmol/L (22-30); GFR AFRICAN-AMERICAN > 60; TOTAL PROTEIN 8.7 g/dL (6.3-8.3)
[2017-02-06 13:22] LABS: ALT/SGPT 33 U/L (21-72); BLOOD UREA NITROGEN 12 mg/dL (9-20); CALCIUM 10.3 mg/dl (8.6-10.4); MAGNESIUM 2.4 mg/dL (1.6-2.3); PHOSPHOROUS 3.6 mg/dL (2.5-4.5)
[2017-02-06 13:29] LABS: GLUCOSE,RANDOM 572 mg/dL (75-110)
[2017-02-06 14:00] LABS: NEUTROPHIL 87 % (50-75); TOTAL CELLS COUNTED 100
[2017-02-06] MEDS ORDERED: GlipiZIDE 10 mg SR Tab PO SCH (16:30)
[2017-02-06] MEDS ORDERED: Insulin Human Regular 100 UNIT in Sodium Chloride 0.9% 99 ML IV SCH (20:15)
[2017-02-06] MEDS ORDERED: Insulin Detemir 100 units/ml Vial (Levemir) SC SCH (22:00)
[2017-02-07] MEDS: Albuterol-Ipratrop 3 mg / 0.5 (3 ml) UD INH SCH ×5 (03:14→20:03)
[2017-02-07] MEDS: (Novolin R) Insulin Human Regular 100 units/ml vial SC SCH ×4 (07:30→21:53)
[2017-02-07] MEDS: Levothyroxine 200 MCG TAB PO SCH (07:37)
[2017-02-07] MEDS: Fluticasone-Salmeterol 250-50mcg Diskus INH SCH ×2 (08:23→20:02)
[2017-02-07] MEDS: Mometasone 220 mcg/puff-14 puff Inh IH SCH ×2 (08:24→20:02)
[2017-02-07] MEDS: MethylPREDNISolone 40 mg Vial IVP SCH ×3 (08:30→21:55)
[2017-02-07 09:41] LABS: BASO # 0.1 K/uL (0.0-0.2); BASO % 0.6 % (0.0-2.0); HEMATOCRIT 46.5 % (35.0-51.0); LYMPH # 1.7 K/uL (1.0-4.3); LYMPH % 9.2 % (20.0-40.0); MEAN CORPUSCULAR HEMOGLOBIN 28.8 pg (27.0-31.0); MEAN CORPUSCULAR HGB CONC 32.3 g/dL (33.0-37.0); MEAN PLATELET VOLUME 9.4 fL (7.2-11.7); MONO # 0.7 K/uL (0.0-0.8); MONO % 3.6 % (0.0-10.0); PLATELET COUNT 285 K/uL (130-400); RED CELL DISTRIBUTION WIDTH 14.1 % (11.5-14.5)
--- NOTE | 2017-02-07 09:43 | CP.CCUPN ---
CCU Subjective - Physician Review Events Since Last Encounter (Free Text): 02/07/17 09:41 Patient was refusing any drips at this time, and he was refusing also today blood works. After multiple discussions with the patient he agreed to have a PICC line. Urgent PICC line was done on the right forearm, but there was some problem in positioning the PICC line in mid chest. With the use of positioning device the PICC line was not able to advance to be on the midchest region. But the PICC line was left in place, and a good blood return noted, chest x-ray ordered Currently patient is blood sugar is still elevated, the drip is off, labs ordered today, we'll wait for the blood works and after that we will decide whether should the patient be on insulin. We'll check the x-ray. Spoke to the patient in details will follow the patient CCU Objective - Vital Signs / Intake & Output Vital Signs (Last 4 hours): Vital Signs Temp Pulse Resp BP Pulse Ox 02/07/17 08:00 96.9 F L 110 H 17 140/74 99 02/07/17 07:00 72 15 02/07/17 06:11 60 16 02/07/17 06:00 100 H 20 Intake and Output (Last 8hrs): Intake & Output 02/06/17 02/07/17 02/07/17 22:59 06:59 14:59 Intake Total 1200 200 0 Output Total 600 Balance 600 200 0 Intake: IV 0 0 0 Oral 1200 200 Output: Urine 600 Urine, Voided 600 Other: # Voids Urine, Voided 1 1 # Bowel Movements 0 - Physical Exam Head: Positive for: Atraumatic, Normocephalic Pupils: Positive for: PERRL Extroacular Muscles: Positive for: EOMI Conjunctiva: Positive for: Normal Mouth: Positive for: Moist Mucous Membranes Respiratory/Chest: Positive for: Good Air Exchange, Wheezes (improved, expiratory, lung multani). Negative for: Respiratory Distress, Accessory Muscle Use, Rales Cardiovascular: Positive for: Regular Rate and Rhythm, Normal S1, S2 Abdomen: Positive for: Normal Bowel Sounds. Negative for: Tenderness, Distention Upper Extremity: Positive for: Normal Inspection Lower Extremity: Positive for: Normal Inspection Neurological: Positive for: CN II-XII Intact, Speech Normal Skin: Positive for: Warm, Dry Psychiatric: Positive for: Alert, Oriented x 3 - Medications Active Medications: Active Medications Generic Name Dose Route Start Last Admin Trade Name Freq PRN Reason Stop Dose Admin Acetaminophen 650 mg 02/06/17 00:41 Tylenol 325mg Tab PO Q4 PRN Pain, moderate (4-7) Albuterol Sulfate 2.5 mg 02/06/17 10:29 02/06/17 14:47 Albuterol 0.083% Inhal [place]ille (2.5 Mg/3 Ml) Ud IH 2.5 mg RQ4 PRN Administration Shortness of Breath Albuterol/Ipratropium 3 ml 02/06/17 12:00 02/07/17 08:24 Duoneb 3 Mg/0.5 Mg (3 Ml) Ud INH 3 ml RQ4 ALON Administration Famotidine 20 mg 02/06/17 10:00 02/06/17 18:59 Pepcid PO Not Given BID ALON Glipizide 10 mg 02/06/17 16:30 Glucotrol Xl PO ACBD ALON Insulin Human Regular 100 unit 100 mls @ 2 mls/hr 02/06/17 20:15 02/07/17 07:16 / Sodium Chloride IV 0 units/kg/min .Q24H ALON Titration Protocol Sodium Chloride 1,000 mls @ 100 mls/hr 02/07/17 09:45 Sodium Chloride 0.9% IV .Q10H ALON Insulin Detemir 30 unit 02/06/17 22:00 02/06/17 22:50 Levemir SC 30 unit HS ALON Administration Insulin Human Regular 0 unit 02/06/17 19:16 02/06/17 21:28 Novolin R SC Not Given ACHS ALON Protocol Levothyroxine Sodium 400 mcg 02/06/17 10:30 02/07/17 07:37 Synthroid PO 400 mcg DAILY@0630 ALON Administration Metformin HCl 1,000 mg 02/06/17 19:00 02/06/17 19:04 Glucophage PO 1,000 mg BID ALON Administration Methylprednisolone 20 mg 02/07/17 08:00 Solu-Medrol IVP Q8 ALON Mometasone Furoate 2 puff 02/06/17 10:30 02/07/17 08:24 Asmanex Twisthaler 220 Mcg IH 2 puff RQ12 ALON Administration Rivaroxaban 20 mg 02/06/17 10:45 02/06/17 12:15 Xarelto PO 20 mg DAILY ALON Administration Fluticasone/Salmeterol 1 puff 02/06/17 10:00 02/07/17 08:23 Advair Diskus 250/50 INH 1 puff RQ12 ALON Administration - Patient Studies Lab Studies: Lab Studies 02/07/17 02/07/17 02/07/17 Range/Units 06:44 05:29 03:35 WBC (4.8-10.8) K/uL RBC (4.40-5.90) Mil/uL Hgb (12.0-18.0) g/dL Hct (35.0-51.0) % MCV (80.0-94.0) fL MCH (27.0-31.0) pg MCHC (33.0-37.0) g/dL RDW (11.5-14.5) % Plt Count (130-400) K/uL MPV (7.2-11.7) fL Neut % (Auto) (50.0-75.0) % Lymph % (Auto) (20.0-40.0) % [place] % (Auto) (0.0-10.0) % Eos % (Auto) (0.0-4.0) % Baso % (Auto) (0.0-2.0) % Neut # (1.8-7.0) K/uL Lymph # (1.0-4.3) K/uL [place] # (0.0-0.8) K/uL Eos # (0.0-0.7) K/uL Baso # (0.0-0.2) K/uL Neutrophils % (Manual) (50-75) % Lymphocytes % (Manual) (20-40) % Monocytes % (Manual) (0-10) % Platelet Estimate (NORMAL) RBC Morphology Sodium (132-148) mmol/L Potassium (3.6-5.2) mmol/L Chloride (98-107) mmol/L Carbon Dioxide (22-30) mmol/L Anion Gap (10-20) BUN (9-20) mg/dL Creatinine (0.8-1.5) MG/DL Est GFR ( Amer) Est GFR (Non-Af Amer) POC Glucose (mg/dL) 345 H 371 H 364 H (65-110) mg/dL Random Glucose (75-110) mg/dL Hemoglobin A1c (4.2-6.5) % Calcium (8.6-10.4) mg/dl Phosphorus (2.5-4.5) mg/dL Magnesium (1.6-2.3) mg/dL Total Bilirubin (0.2-1.3) mg/dL AST (17-59) U/L ALT (21-72) U/L Alkaline Phosphatase (38-126) U/L Total Protein (6.3-8.3) g/dL Albumin (3.5-5.0) g/dL Globulin (2.2-3.9) gm/dL Albumin/Globulin Ratio (1.0-2.1) Free T4 (0.78-2.19) ng/dL TSH 3rd Generation (0.46-4.68) mIU/L 02/07/17 02/07/17 02/06/17 Range/Units 01:21 00:26 23:17 WBC (4.8-10.8) K/uL RBC (4.40-5.90) Mil/uL Hgb (12.0-18.0) g/dL Hct (35.0-51.0) % MCV (80.0-94.0) fL MCH (27.0-31.0) pg MCHC (33.0-37.0) g/dL RDW (11.5-14.5) % Plt Count (130-400) K/uL MPV (7.2-11.7) fL Neut % (Auto) (50.0-75.0) % Lymph % (Auto) (20.0-40.0) % [place] % (Auto) (0.0-10.0) % Eos % (Auto) (0.0-4.0) % Baso % (Auto) (0.0-2.0) % Neut # (1.8-7.0) K/uL Lymph # (1.0-4.3) K/uL [place] # (0.0-0.8) K/uL Eos # (0.0-0.7) K/uL Baso # (0.0-0.2) K/uL Neutrophils % (Manual) (50-75) % Lymphocytes % (Manual) (20-40) % Monocytes % (Manual) (0-10) % Platelet Estimate (NORMAL) RBC Morphology Sodium (132-148) mmol/L Potassium (3.6-5.2) mmol/L Chloride (98-107) mmol/L Carbon Dioxide (22-30) mmol/L Anion Gap (10-20) BUN (9-20) mg/dL Creatinine (0.8-1.5) MG/DL Est GFR ( Amer) Est GFR (Non-Af Amer) POC Glucose (mg/dL) 361 H 307 H 345 H (65-110) mg/dL Random Glucose (75-110) mg/dL Hemoglobin A1c (4.2-6.5) % Calcium (8.6-10.4) mg/dl Phosphorus (2.5-4.5) mg/dL Magnesium (1.6-2.3) mg/dL Total Bilirubin (0.2-1.3) mg/dL AST (17-59) U/L ALT (21-72) U/L Alkaline Phosphatase (38-126) U/L Total Protein (6.3-8.3) g/dL Albumin (3.5-5.0) g/dL Globulin (2.2-3.9) gm/dL Albumin/Globulin Ratio (1.0-2.1) Free T4 (0.78-2.19) ng/dL TSH 3rd Generation (0.46-4.68) mIU/L 02/06/17 02/06/17 02/06/17 Range/Units 22:15 20:01 13:00 WBC 11.0 H (4.8-10.8) K/uL RBC 5.31 (4.40-5.90) Mil/uL Hgb 15.5 (12.0-18.0) g/dL Hct 47.6 (35.0-51.0) % MCV 89.7 D (80.0-94.0) fL MCH 29.1 (27.0-31.0) pg MCHC 32.5 L (33.0-37.0) g/dL RDW 14.0 (11.5-14.5) % Plt Count 279 (130-400) K/uL MPV 9.0 (7.2-11.7) fL Neut % (Auto) 87.7 H (50.0-75.0) % Lymph % (Auto) 9.6 L (20.0-40.0) % [place] % (Auto) 2.3 (0.0-10.0) % Eos % (Auto) 0.0 (0.0-4.0) % Baso % (Auto) 0.4 (0.0-2.0) % Neut # 9.7 H (1.8-7.0) K/uL Lymph # 1.1 (1.0-4.3) K/uL [place] # 0.3 (0.0-0.8) K/uL Eos # 0.0 (0.0-0.7) K/uL Baso # 0.0 (0.0-0.2) K/uL Neutrophils % (Manual) 87 H (50-75) % Lymphocytes % (Manual) 12 L (20-40) % Monocytes % (Manual) 1 (0-10) % Platelet Estimate Normal (NORMAL) RBC Morphology Normal Sodium 133 (132-148) mmol/L Potassium 4.4 (3.6-5.2) mmol/L Chloride 96 L (98-107) mmol/L Carbon Dioxide 15 L (22-30) mmol/L Anion Gap 26 H (10-20) BUN 12 (9-20) mg/dL Creatinine 1.1 (0.8-1.5) MG/DL Est GFR ( Amer) > 60 Est GFR (Non-Af Amer) > 60 POC Glucose (mg/dL) 364 H 433 H* (65-110) mg/dL Random Glucose 572 H* D (75-110) mg/dL Hemoglobin A1c 8.3 H (4.2-6.5) % Calcium 10.3 (8.6-10.4) mg/dl Phosphorus 3.6 (2.5-4.5) mg/dL Magnesium 2.4 H (1.6-2.3) mg/dL Total Bilirubin 0.8 (0.2-1.3) mg/dL AST 33 (17-59) U/L ALT 33 (21-72) U/L Alkaline Phosphatase 69 (38-126) U/L Total Protein 8.7 H (6.3-8.3) g/dL Albumin 5.1 H (3.5-5.0) g/dL Globulin 3.6 (2.2-3.9) gm/dL Albumin/Globulin Ratio 1.4 (1.0-2.1) Free T4 0.34 L (0.78-2.19) ng/dL TSH 3rd Generation 75.50 H (0.46-4.68) mIU/L 02/06/17 Range/Units 12:08 WBC (4.8-10.8) K/uL RBC (4.40-5.90) Mil/uL Hgb (12.0-18.0) g/dL Hct (35.0-51.0) % MCV (80.0-94.0) fL MCH (27.0-31.0) pg MCHC (33.0-37.0) g/dL RDW (11.5-14.5) % Plt Count (130-400) K/uL MPV (7.2-11.7) fL Neut % (Auto) (50.0-75.0) % Lymph % (Auto) (20.0-40.0) % [place] % (Auto) (0.0-10.0) % Eos % (Auto) (0.0-4.0) % Baso % (Auto) (0.0-2.0) % Neut # (1.8-7.0) K/uL Lymph # (1.0-4.3) K/uL [place] # (0.0-0.8) K/uL Eos # (0.0-0.7) K/uL Baso # (0.0-0.2) K/uL Neutrophils % (Manual) (50-75) % Lymphocytes % (Manual) (20-40) % Monocytes % (Manual) (0-10) % Platelet Estimate (NORMAL) RBC Morphology Sodium (132-148) mmol/L Potassium (3.6-5.2) mmol/L Chloride (98-107) mmol/L Carbon Dioxide (22-30) mmol/L Anion Gap (10-20) BUN (9-20) mg/dL Creatinine (0.8-1.5) MG/DL Est GFR ( Amer) Est GFR (Non-Af Amer) POC Glucose (mg/dL) 445 H* (65-110) mg/dL Random Glucose (75-110) mg/dL Hemoglobin A1c (4.2-6.5) % Calcium (8.6-10.4) mg/dl Phosphorus (2.5-4.5) mg/dL Magnesium (1.6-2.3) mg/dL Total Bilirubin (0.2-1.3) mg/dL AST (17-59) U/L ALT (21-72) U/L Alkaline Phosphatase (38-126) U/L Total Protein (6.3-8.3) g/dL Albumin (3.5-5.0) g/dL Globulin (2.2-3.9) gm/dL Albumin/Globulin Ratio (1.0-2.1) Free T4 (0.78-2.19) ng/dL TSH 3rd Generation (0.46-4.68) mIU/L Laboratory Results - last 24 hr 02/06/17 02/06/17 02/06/17 12:08 13:00 20:01 WBC 11.0 H RBC 5.31 Hgb 15.5 Hct 47.6 MCV 89.7 D MCH 29.1 MCHC 32.5 L RDW 14.0 Plt Count 279 MPV 9.0 Neut % (Auto) 87.7 H Lymph % (Auto) 9.6 L [place] % (Auto) 2.3 Eos % (Auto) 0.0 Baso % (Auto) 0.4 Neut # 9.7 H Lymph # 1.1 [place] # 0.3 Eos # 0.0 Baso # 0.0 Neutrophils % (Manual) 87 H Lymphocytes % (Manual) 12 L Monocytes % (Manual) 1 Platelet Estimate Normal RBC Morphology Normal Sodium 133 Potassium 4.4 Chloride 96 L Carbon Dioxide 15 L Anion Gap 26 H BUN 12 Creatinine 1.1 Est GFR ( Amer) > 60 Est GFR (Non-Af Amer) > 60 POC Glucose (mg/dL) 445 H* 433 H* Random Glucose 572 H* D Hemoglobin A1c 8.3 H Calcium 10.3 Phosphorus 3.6 Magnesium 2.4 H Total Bilirubin 0.8 AST 33 ALT 33 Alkaline Phosphatase 69 Total Protein 8.7 H Albumin 5.1 H Globulin 3.6 Albumin/Globulin Ratio 1.4 Free T4 0.34 L TSH 3rd Generation 75.50 H 02/06/17 02/06/17 02/07/17 22:15 23:17 00:26 WBC RBC Hgb Hct MCV MCH MCHC RDW Plt Count MPV Neut % (Auto) Lymph % (Auto) [place] % (Auto) Eos % (Auto) Baso % (Auto) Neut # Lymph # [place] # Eos # Baso # Neutrophils % (Manual) Lymphocytes % (Manual) Monocytes % (Manual) Platelet Estimate RBC Morphology Sodium Potassium Chloride Carbon Dioxide Anion Gap BUN Creatinine Est GFR ( Amer) Est GFR (Non-Af Amer) POC Glucose (mg/dL) 364 H 345 H 307 H Random Glucose Hemoglobin A1c Calcium Phosphorus Magnesium Total Bilirubin AST ALT Alkaline Phosphatase Total Protein Albumin Globulin Albumin/Globulin Ratio Free T4 TSH 3rd Generation 02/07/17 02/07/17 02/07/17 01:21 03:35 05:29 WBC RBC Hgb Hct MCV MCH MCHC RDW Plt Count MPV Neut % (Auto) Lymph % (Auto) [place] % (Auto) Eos % (Auto) Baso % (Auto) Neut # Lymph # [place] # Eos # Baso # Neutrophils % (Manual) Lymphocytes % (Manual) Monocytes % (Manual) Platelet Estimate RBC Morphology Sodium Potassium Chloride Carbon Dioxide Anion Gap BUN Creatinine Est GFR ( Amer) Est GFR (Non-Af Amer) POC Glucose (mg/dL) 361 H 364 H 371 H Random Glucose Hemoglobin A1c Calcium Phosphorus Magnesium Total Bilirubin AST ALT Alkaline Phosphatase Total Protein Albumin Globulin Albumin/Globulin Ratio Free T4 TSH 3rd Generation 02/07/17 06:44 WBC RBC Hgb Hct MCV MCH MCHC RDW Plt Count MPV Neut % (Auto) Lymph % (Auto) [place] % (Auto) Eos % (Auto) Baso % (Auto) Neut # Lymph # [place] # Eos # Baso # Neutrophils % (Manual) Lymphocytes % (Manual) Monocytes % (Manual) Platelet Estimate RBC Morphology Sodium Potassium Chloride Carbon Dioxide Anion Gap BUN Creatinine Est GFR ( Amer) Est GFR (Non-Af Amer) POC Glucose (mg/dL) 345 H Random Glucose Hemoglobin A1c Calcium Phosphorus Magnesium Total Bilirubin AST ALT Alkaline Phosphatase Total Protein Albumin Globulin Albumin/Globulin Ratio Free T4 TSH 3rd Generation Fingerstick Blood Sugar Results: 345 Critical Care Progress Note - Nutrition Nutrition: Nutrition Category Date Time Status Heart Healthy Diet [DIET] Diets 02/06/17 Breakfast Active
[2017-02-07 09:53] LABS: CHLORIDE 99 mmol/L (98-107); SODIUM 135 mmol/L (132-148)
[2017-02-07 09:54] LABS: POTASSIUM 4.2 mmol/L (3.6-5.2)
[2017-02-07 09:56] LABS: ALB/GLOB RATIO 1.4 (1.0-2.1); ALKALINE PHOSPHATASE 64 U/L (38-126); AST/SGOT 24 U/L (17-59); BILIRUBIN,TOTAL 0.7 mg/dL (0.2-1.3); BLOOD UREA NITROGEN 18 mg/dL (9-20); CARBON DIOXIDE 18 mmol/L (22-30); GFR AFRICAN-AMERICAN > 60; GLUCOSE,RANDOM 354 mg/dL (75-110); PHOSPHOROUS 3.8 mg/dL (2.5-4.5); TOTAL PROTEIN 8.3 g/dL (6.3-8.3)
[2017-02-07 09:57] LABS: ALT/SGPT 32 U/L (21-72); CALCIUM 10.3 mg/dl (8.6-10.4); MAGNESIUM 2.4 mg/dL (1.6-2.3)
--- NOTE | 2017-02-07 09:57 | RAD ---
HISTORY: picc COMPARISON: Comparison 02/05/2017 FINDINGS: LUNGS: Right-sided PICC line present which terminates over the medial aspect right clavicle. No active pulmonary disease. PLEURA: No significant pleural effusion identified, no pneumothorax apparent. CARDIOVASCULAR: Normal. OSSEOUS STRUCTURES: No significant abnormalities. VISUALIZED UPPER ABDOMEN: Normal. OTHER FINDINGS: None. IMPRESSION: Right-sided PICC line present which terminates over the medial aspect right clavicle. No active pulmonary disease.
[2017-02-07] MEDS: Sodium Chloride 0.9% 1,000 ML IV SCH ×2 (10:14→21:00)
[2017-02-07 10:20] LABS: NEUTROPHIL 87 % (50-75); TOTAL CELLS COUNTED 100
[2017-02-07 10:21] LABS: LARGE PLATELETS PRESENT
--- NOTE | 2017-02-07 11:20 | CP.PCM.PN ---
<Vinod Atkinson H - Last Filed: 02/07/17 15:19> Subjective - Date & Time of Evaluation Date of Evaluation: 02/07/17 Time of Evaluation: 13:00 - Subjective Subjective: Dr. Alfaro service: Patient seen and examined during rounds with primary medical attending. He is sitting up in chair comfortable. A PICC line was placed this morning. He is complaining of having multiple admissions to ICU and intubation for asthma. He says he was doing well for about 2 months until recently when the wheather changed. He is also complaining that "no finds out why he has asthma triggers" . He says his asthma is triggered by any changes in the weather. He complains of pain from the PICC line insertion site as well. Objective - Vital Signs/Intake and Output Vital Signs (last 24 hours): Temp Pulse Resp BP Pulse Ox 96.9 F L 110 H 17 140/74 99 02/07/17 08:00 02/07/17 08:00 02/07/17 08:00 02/07/17 08:00 02/07/17 08:00 Intake and Output: 02/07/17 02/07/17 06:59 18:59 Intake Total 900 5 Balance 900 5 - Medications Medications: Current Medications Acetaminophen (Tylenol 325mg Tab) 650 mg PO Q4 PRN PRN Reason: Pain, moderate (4-7) Albuterol Sulfate (Albuterol 0.083% Inhal [place] (2.5 Mg/3 Ml) Ud) 2.5 mg IH RQ4 PRN PRN Reason: Shortness of Breath Last Admin: 02/06/17 14:47 Dose: 2.5 mg Albuterol/Ipratropium (Duoneb 3 Mg/0.5 Mg (3 Ml) Ud) 3 ml INH RQ4 ALON Last Admin: 02/07/17 08:24 Dose: 3 ml Famotidine (Pepcid) 20 mg PO BID ALON Last Admin: 02/07/17 10:13 Dose: 20 mg Glipizide (Glucotrol Xl) 10 mg PO ACBD [facility] Insulin Human Regular 100 unit (/ Sodium Chloride) 100 mls @ 2 mls/hr IV .Q24H ALON PRN Reason: Protocol Last Titration: 02/07/17 07:16 Dose: 0 units/kg/min Sodium Chloride (Sodium Chloride 0.9%) 1,000 mls @ 100 mls/hr IV .Q10H [facility] Last Admin: 02/07/17 10:14 Dose: 100 mls/hr Insulin Detemir (Levemir) 30 unit SC HS [facility] Last Admin: 02/06/17 22:50 Dose: 30 unit Insulin Human Regular (Novolin R) 0 unit SC ACHS [facility] PRN Reason: Protocol Last Admin: 02/07/17 07:30 Dose: Not Given Levothyroxine Sodium (Synthroid) 400 mcg PO DAILY@0630 [facility] Last Admin: 02/07/17 07:37 Dose: 400 mcg Metformin HCl (Glucophage) 1,000 mg PO BID [facility] Last Admin: 02/07/17 10:13 Dose: 1,000 mg Methylprednisolone (Solu-Medrol) 20 mg IVP Q8 [facility] Last Admin: 02/07/17 08:30 Dose: Not Given Mometasone Furoate (Asmanex Twisthaler 220 Mcg) 2 puff IH RQ12 [facility] Last Admin: 02/07/17 08:24 Dose: 2 puff Rivaroxaban (Xarelto) 20 mg PO DAILY [facility] Last Admin: 02/07/17 10:13 Dose: 20 mg Fluticasone/Salmeterol (Advair Diskus 250/50) 1 puff INH RQ12 [facility] Last Admin: 02/07/17 08:23 Dose: 1 puff - Labs Labs: 02/07/17 09:38 02/07/17 09:38 PT 11.4 SECONDS (9.7-12.2) 02/05/17 20:57 INR 1.0 02/05/17 20:57 - Constitutional Appears: Non-toxic, No Acute Distress - Head Exam Head Exam: ATRAUMATIC, NORMAL INSPECTION, NORMOCEPHALIC - Eye Exam Eye Exam: Normal appearance Pupil Exam: NORMAL ACCOMODATION - Respiratory Exam Respiratory Exam: Clear to Ausculation Bilateral. absent: Rales, Rhonchi Additional comments: speaking in complete sentences - Cardiovascular Exam Cardiovascular Exam: REGULAR RHYTHM, RRR, +S1, +S2. absent: Gallop, Rubs - GI/Abdominal Exam GI & Abdominal Exam: Soft. absent: Tenderness - Extremities Exam Extremities Exam: Normal Inspection - Back Exam Back Exam: NORMAL INSPECTION - Neurological Exam Neurological Exam: Alert, Awake, Oriented x3 - Psychiatric Exam Psychiatric exam: Normal Affect, Normal Mood - Skin Skin Exam: Normal Color, Warm Assessment and Plan - Assessment and Plan (Free Text) Assessment: 1. [place] exerbation Transferred out of ICU yesterday, on Tele. Patient was transferred to ICU on IV steroids, duoneb 3ml, Advair. Seems to be controlled now, he was talking loud and in full sentences. 2. History of PE Patient is on Xarelto. 3. Hypothryoidism continue his home thyroid medicine, synthroid 440mcg 4. DM Continue current medication, patient is on Lantus twice a day, metformin 1000mg bid, and glipizide 10mg, accu checks with sliding scale. blood sugars have been high in part due the IV steroids 4. Prophylatic measure on Xarelto On pepcid <Alberto Alfaro - Last Filed: 03/11/17 15:16> Objective - Vital Signs/Intake and Output Vital Signs (last 24 hours): Temp Pulse Resp BP Pulse Ox 97.1 F L 98 H 21 150/90 96 02/18/17 15:15 02/18/17 15:15 02/18/17 15:15 02/18/17 15:15 02/18/17 15:15 - Labs Labs: 02/17/17 12:10 02/17/17 12:10 PT 11.4 SECONDS (9.7-12.2) 02/05/17 20:57 INR 1.0 02/05/17 20:57 Attending/Attestation - Attestation I have personally seen and examined this patient.: Yes I have fully participated in the care of the patient.: Yes I have reviewed all pertinent clinical information, including history, physical exam and plan: Yes Notes (Text): Patient seen and examined with the resident. Agree with the resident's evaluation, assessment and plan. Asthma exacerbation Transferred out of ICU yesterday, on Tele. controlled now, he was talking loud and in full sentences. History of PE Patient is on Xarelto.
[2017-02-07] MEDS ORDERED: Insulin Detemir 100 units/ml Vial (Levemir) SC ONE (13:00)
[2017-02-07] MEDS: (Lantus) Insulin Glargine, Recombinant SC SCH ×2 (13:30→21:48)
[2017-02-07] MEDS: Fluticasone Nasal 50 mcg/Spray NAS SCH ×2 (16:33→21:47)
[2017-02-08] MEDS: Albuterol-Ipratrop 3 mg / 0.5 (3 ml) UD INH SCH ×6 (00:14→20:26)
[2017-02-08] MEDS: Sodium Chloride 0.9% 1,000 ML IV SCH ×2 (05:45→15:45)
[2017-02-08] MEDS: MethylPREDNISolone 40 mg Vial IVP SCH ×3 (06:05→21:52)
[2017-02-08] MEDS: Levothyroxine 200 MCG TAB PO SCH ×2 (06:58→07:00)
[2017-02-08] MEDS: (Novolin R) Insulin Human Regular 100 units/ml vial SC SCH ×4 (07:30→21:50)
[2017-02-08] MEDS: (Lantus) Insulin Glargine, Recombinant SC SCH ×2 (07:30→21:51)
[2017-02-08] MEDS: Fluticasone-Salmeterol 250-50mcg Diskus INH SCH (07:49)
[2017-02-08] MEDS: Mometasone 220 mcg/puff-14 puff Inh IH SCH ×2 (07:49→20:26)
--- NOTE | 2017-02-08 09:20 | CP.PCM.PN ---
Subjective - Date & Time of Evaluation Date of Evaluation: 02/08/17 Time of Evaluation: 09:10 - Subjective Subjective: Medical Attending Note Follow-up: Asthma, severe persistent, status asthmaticus, Hurthle cell malignancy, pulmonary embolus, uncontrolled diabetes Patient seen and examined. Patient transferred out from the ICU yesterday. Patient has PICC line over the right upper extremity. Patient reports his asthma has been uncontrolled, was free of hospitalizations for 2 months, but has been hospitalized at least 5 times this year and requiring intubations. Patient reports his asthma acts up, which he believes is due to weather change. 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 Patient reports he has two clots in the lung. Patient reports he is not diabetic but needs further education given is constant hospitalizations requiring IV use. ROS: denies headache, productive, non-bloody cough, shortness of breathe, pleuritic chest pain, denies nausea, denies vomitting, denies abdominal pain, denies nausea, denies vomitting, denies constipation, denies diarrhea. Objective - Vital Signs/Intake and Output Vital Signs (last 24 hours): Temp Pulse Resp BP Pulse Ox 98.7 F 68 20 138/75 97 02/08/17 08:00 02/08/17 08:00 02/08/17 08:00 02/08/17 08:00 02/08/17 08:00 Intake and Output: 02/08/17 02/08/17 06:59 18:59 Intake Total 880 Balance 880 - Medications Medications: Current Medications Acetaminophen (Tylenol 325mg Tab) 650 mg PO Q4 PRN PRN Reason: Pain, moderate (4-7) Albuterol Sulfate (Albuterol 0.083% Inhal [place] (2.5 Mg/3 Ml) Ud) 2.5 mg IH RQ4 PRN PRN Reason: Shortness of Breath Last Admin: 02/06/17 14:47 Dose: 2.5 mg Albuterol/Ipratropium (Duoneb 3 Mg/0.5 Mg (3 Ml) Ud) 3 ml INH RQ4 ALON Last Admin: 02/08/17 07:49 Dose: Not Given Famotidine (Pepcid) 20 mg PO BID ALON Last Admin: 02/08/17 09:04 Dose: 20 mg Glipizide (Glucotrol Xl) 10 mg PO ACBD [facility] Sodium Chloride (Sodium Chloride 0.9%) 1,000 mls @ 100 mls/hr IV .Q10H [facility] Last Admin: 02/08/17 05:45 Dose: Not Given Insulin Glargine (Lantus) 20 unit SC ACB [facility] Last Admin: 02/08/17 07:30 Dose: 20 u Insulin Glargine (Lantus) 30 unit SC HS [facility] Last Admin: 02/07/17 21:48 Dose: 30 units Insulin Human Regular (Novolin R) 0 unit SC ACHS [facility] PRN Reason: Protocol Last Admin: 02/08/17 07:30 Dose: 12 unit Levothyroxine Sodium (Synthroid) 400 mcg PO DAILY@0630 [facility] Last Admin: 02/08/17 07:00 Dose: 400 mcg Metformin HCl (Glucophage) 1,000 mg PO BID [facility] Last Admin: 02/08/17 09:03 Dose: 1,000 mg Methylprednisolone (Solu-Medrol) 20 mg IVP Q8 [facility] Last Admin: 02/08/17 06:05 Dose: 20 mg Mometasone Furoate (Asmanex Twisthaler 220 Mcg) 2 puff IH RQ12 [facility] Last Admin: 02/08/17 07:49 Dose: Not Given Rivaroxaban (Xarelto) 20 mg PO DAILY [facility] Last Admin: 02/08/17 09:04 Dose: 20 mg Fluticasone/Salmeterol (Advair Diskus 500/50) 1 puff INH RQ12 [facility] - Labs Labs: 02/07/17 09:38 02/07/17 09:38 PT 11.4 SECONDS (9.7-12.2) 02/05/17 20:57 INR 1.0 02/05/17 20:57 - Constitutional Appears: Non-toxic, In Acute Distress, Older Than Stated Age - Head Exam Head Exam: NORMAL INSPECTION - Eye Exam Eye Exam: EOMI Pupil Exam: PERRL - ENT Exam ENT Exam: Mucous Membranes Dry - Respiratory Exam Respiratory Exam: Decreased Breath Sounds, Rhonchi, Wheezes. absent: Respiratory Distress, Stridor - Cardiovascular Exam Cardiovascular Exam: REGULAR RHYTHM, +S1, +S2 - GI/Abdominal Exam GI & Abdominal Exam: Soft, Normal Bowel Sounds. absent: Distended, Firm, Guarding, Rigid, Tenderness, Rebound - Extremities Exam Extremities Exam: absent: Pedal Edema, Tenderness Additional comments: right upper extremity-PICC line - Neurological Exam Neurological Exam: Alert, Awake, Oriented x3 - Psychiatric Exam Psychiatric exam: Agitated, Normal Affect, Normal Mood - Skin Skin Exam: Dry, Normal Color, Warm Assessment and Plan - Assessment and Plan (Free Text) Assessment: 1) Status Asthmaticus Severe persistent asthma * History of multiple intubations * Patient's asthma uncontrolled by nebulizer treatments * Solumedrol 20mg IV Q 8 hours * Increase Advair 500/50 Q 12hours * Duonebs Q4hour PRN * Momentsone 2 puff inhaled Q 12hours * Transferred out from ICU, 02/07/17 2) Pulmonary Embolus * Xarelto 20mg PO daily 3) Steroid induced diabetes * [id number]: 8.7 * Uncontrolled * Metformin 1000mg PO Bid * Patient refuses to have accuechecks QAC and HS; he does not want to have finger pricks for blood; will allow for after lunch and after dinner to adjust his levemir * Geological Engineer referral 4) Hypothyroidism * Synthroid 400mcg PO qAM 5) Prophylactic measure * Xarelto 20mg PO daily for DVT ppx * Pepcid 20mg PO bid for gi ppx * PT eval * PICC line- RIGHT upper extremity (prior hx of cocaine use- patient inappropriate for port consideration)
[2017-02-08] MEDS ORDERED: Insulin Detemir 100 units/ml Vial (Levemir) SC SCH (12:45)
--- NOTE | 2017-02-08 13:16 | RAD ---
HISTORY: picc line COMPARISON: No prior. FINDINGS: LUNGS: Right-sided PICC line with tip seen overlying the medial aspect of the right clavicle Mild bibasilar atelectasis PLEURA: No significant pleural effusion identified, no pneumothorax apparent. CARDIOVASCULAR: Normal. OSSEOUS STRUCTURES: No significant abnormalities. VISUALIZED UPPER ABDOMEN: Normal. OTHER FINDINGS: None. IMPRESSION: Right-sided PICC line with tip seen overlying the medial aspect of the right clavicle Mild bibasilar atelectasis
[2017-02-08] MEDS: Fluticasone-Salmeterol 500-50mcg Diskus INH SCH (20:25)
[2017-02-09] MEDS: Albuterol-Ipratrop 3 mg / 0.5 (3 ml) UD INH SCH ×8 (00:14→23:50)
[2017-02-09] MEDS: Sodium Chloride 0.9% 1,000 ML IV SCH ×2 (01:45→11:48)
[2017-02-09] MEDS: MethylPREDNISolone 40 mg Vial IVP SCH (06:35)
[2017-02-09] MEDS: Levothyroxine 200 MCG TAB PO SCH (06:40)
[2017-02-09] MEDS: (Lantus) Insulin Glargine, Recombinant SC SCH ×2 (07:36→22:21)
[2017-02-09] MEDS: (Novolin R) Insulin Human Regular 100 units/ml vial SC SCH ×4 (07:37→22:20)
[2017-02-09] MEDS: Fluticasone-Salmeterol 500-50mcg Diskus INH SCH ×2 (10:27→19:52)
[2017-02-09] MEDS: Mometasone 220 mcg/puff-14 puff Inh IH SCH ×2 (10:29→19:52)
[2017-02-09] MEDS ORDERED: Lidocaine 1% Inj (20ml) ONE (12:39)
--- NOTE | 2017-02-09 12:42 | CP.PCM.PN ---
<Maagly Kwongeverton - Last Filed: 02/09/17 17:49> Subjective - Date & Time of Evaluation Date of Evaluation: 02/09/17 Time of Evaluation: 09:12 - Subjective Subjective: PGY 1 Medicine Note- Dr. Gutierres's service Pt seen and examined in no apparent disterss. Patient agitated over malfunctioning PICC line. He states that the line stopped functioning whereupon the nursing team was unable to draw blood or flush the line. Patient was reassured that the matter would be looked into and settled. Patient still having difficultly taking in deep breaths. Patient has a cough associated with taking in deep breaths. Patient admits to shortness of breath at rest and with activity. Patient denies fevers, chills, n/v/d/c/cp,palpitations, paresthesias or headaches at this time. Objective - Vital Signs/Intake and Output Vital Signs (last 24 hours): Temp Pulse Resp BP Pulse Ox 98.2 F 82 20 118/78 95 02/09/17 02:50 02/09/17 02:50 02/09/17 02:50 02/09/17 02:50 02/09/17 02:50 Intake and Output: 02/09/17 02/09/17 06:59 18:59 Intake Total 850 Balance 850 - Medications Medications: Current Medications Acetaminophen (Tylenol 325mg Tab) 650 mg PO Q4 PRN PRN Reason: Pain, moderate (4-7) Albuterol Sulfate (Albuterol 0.083% Inhal Tenn[place] (2.5 Mg/3 Ml) Ud) 2.5 mg IH RQ4 PRN PRN Reason: Shortness of Breath Last Admin: 02/06/17 14:47 Dose: 2.5 mg Albuterol/Ipratropium (Duoneb 3 Mg/0.5 Mg (3 Ml) Ud) 3 ml INH RQ4 [facility] Last Admin: 02/09/17 11:28 Dose: 3 ml Famotidine (Pepcid) 20 mg PO BID [facility] Last Admin: 02/09/17 10:59 Dose: Not Given Glipizide (Glucotrol Xl) 10 mg PO ACBD [facility] Sodium Chloride (Sodium Chloride 0.9%) 1,000 mls @ 100 mls/hr IV .Q10H [facility] Last Admin: 02/09/17 11:48 Dose: Not Given Insulin Glargine (Lantus) 20 unit SC ACB [facility] Last Admin: 02/09/17 07:36 Dose: Not Given Insulin Glargine (Lantus) 30 unit SC HS [facility] Last Admin: 02/08/17 21:51 Dose: 30 units Insulin Human Regular (Novolin R) 0 unit SC ACHS [facility] PRN Reason: Protocol Last Admin: 02/09/17 11:22 Dose: Not Given Levothyroxine Sodium (Synthroid) 400 mcg PO DAILY@0630 [facility] Last Admin: 02/09/17 06:40 Dose: 400 mcg Metformin HCl (Glucophage) 1,000 mg PO BID [facility] Last Admin: 02/09/17 10:57 Dose: 1,000 mg Methylprednisolone (Solu-Medrol) 20 mg IVP Q8 [facility] Last Admin: 02/09/17 06:35 Dose: 20 mg Mometasone Furoate (Asmanex Twisthaler 220 Mcg) 2 puff IH RQ12 [facility] Last Admin: 02/09/17 10:29 Dose: 2 puff Prednisone (Prednisone Tab) 40 mg PO DAILY [facility] Last Admin: 02/09/17 12:16 Dose: 40 mg Rivaroxaban (Xarelto) 20 mg PO DAILY [facility] Last Admin: 02/09/17 10:57 Dose: 20 mg Fluticasone/Salmeterol (Advair Diskus 500/50) 1 puff INH RQ12 [facility] Last Admin: 02/09/17 10:27 Dose: 1 puff - Labs Labs: 02/07/17 09:38 02/07/17 09:38 PT 11.4 SECONDS (9.7-12.2) 02/05/17 20:57 INR 1.0 02/05/17 20:57 - Constitutional Appears: No Acute Distress - Head Exam Head Exam: ATRAUMATIC, NORMAL INSPECTION, NORMOCEPHALIC - Eye Exam Eye Exam: EOMI, Normal appearance, PERRL Pupil Exam: NORMAL ACCOMODATION - ENT Exam ENT Exam: Mucous Membranes Moist, Normal Exam - Neck Exam Neck Exam: Full ROM - Respiratory Exam Respiratory Exam: Rhonchi, Wheezes. absent: NORMAL BREATHING PATTERN - Cardiovascular Exam Cardiovascular Exam: +S1, +S2 - GI/Abdominal Exam GI & Abdominal Exam: Soft, Normal Bowel Sounds - Extremities Exam Extremities Exam: Full ROM, Normal Capillary Refill - Back Exam Back Exam: Full ROM - Neurological Exam Neurological Exam: Alert, Awake, CN II-XII Intact, Oriented x3 - Psychiatric Exam Psychiatric exam: Normal Affect, Normal Mood - Skin Skin Exam: Intact, Normal Color, Warm Assessment and Plan - Assessment and Plan (Free Text) Assessment: 1) Severe persistent asthma * History of multiple intubations * Patient's asthma uncontrolled by nebulizer treatments * Solumedrol 20mg IV Q 8 hours held due to malfunctioning PICC line. Patient given Prednisone 40 mg daily. Will switch back to Solumedrol once line is functioning * Increase Advair 500/50 Q 12hours * Duonebs Q4hour PRN * Mometasone 2 puff inhaled Q 12hours * Transferred out from ICU, 02/07/17 * Consult to Dr. Gauthier (Pulm) - F/U recommendations 2) Pulmonary Embolus * Xarelto 20mg PO daily 3) Steroid induced diabetes * [id number]: 8.7 * Uncontrolled * Metformin 1000mg PO Bid * Patient refuses to have accuchecks QAC and HS; he does not want to have finger pricks for blood; will allow for after lunch and after dinner to adjust his levemir. Patient states that his sugar is elevated solely because of corticosteroid administration. * Lantus 20 units ACB and 30 units SC HS * [employer] referral 4) Hypothyroidism * Synthroid 400mcg PO qAM 5) Prophylactic measure * Xarelto 20mg PO daily for DVT ppx * Pepcid 20mg PO bid for gi ppx * PT eval * PICC line- RIGHT upper extremity changed by IR 02/09/17 <Markel Gutierres - Last Filed: 02/10/17 16:20> Objective - Vital Signs/Intake and Output Vital Signs (last 24 hours): Temp Pulse Resp BP Pulse Ox 98.2 F 82 20 129/74 97 02/10/17 00:00 02/10/17 00:46 02/10/17 00:00 02/10/17 00:00 02/10/17 00:00 Intake and Output: 02/10/17 02/10/17 06:59 18:59 Intake Total 1015 Balance 1015 - Medications Medications: Current Medications Acetaminophen (Tylenol 325mg Tab) 650 mg PO Q4 PRN PRN Reason: Pain, moderate (4-7) Albuterol Sulfate (Albuterol 0.083% Inhal [place] (2.5 Mg/3 Ml) Ud) 2.5 mg IH RQ4 PRN PRN Reason: Shortness of Breath Last Admin: 02/06/17 14:47 Dose: 2.5 mg Albuterol/Ipratropium (Duoneb 3 Mg/0.5 Mg (3 Ml) Ud) 3 ml INH RQ4 [facility] Last Admin: 02/10/17 11:19 Dose: 3 ml Budesonide (Pulmicort Respules) 0.5 mg INH RQ12 [facility] Famotidine (Pepcid) 20 mg PO BID [facility] Last Admin: 02/10/17 10:45 Dose: Not Given Glipizide (Glucotrol Xl) 10 mg PO ACBD [facility] Insulin Glargine (Lantus) 20 unit SC ACB [facility] Last Admin: 02/10/17 08:50 Dose: 20 u Insulin Glargine (Lantus) 30 unit SC HS [facility] Last Admin: 02/09/17 22:21 Dose: 30 units Insulin Human Regular (Novolin R) 0 unit SC ACHS [facility] PRN Reason: Protocol Last Admin: 02/10/17 12:12 Dose: 10 unit Levothyroxine Sodium (Synthroid) 400 mcg PO DAILY@0630 [facility] Last Admin: 02/09/17 06:40 Dose: 400 mcg Metformin HCl (Glucophage) 1,000 mg PO BID [facility] Last Admin: 02/10/17 10:43 Dose: 1,000 mg Methylprednisolone (Solu-Medrol) 20 mg IVP Q8 [facility] Last Admin: 02/10/17 14:50 Dose: 20 mg Mometasone Furoate (Asmanex Twisthaler 220 Mcg) 2 puff IH RQ12 [facility] Last Admin: 02/10/17 10:00 Dose: 2 puff Montelukast Sodium (Singulair) 10 mg PO HS [facility] Rivaroxaban (Xarelto) 20 mg PO DAILY [facility] Last Admin: 02/10/17 10:43 Dose: 20 mg - Labs Labs: 02/10/17 07:10 02/10/17 07:10 PT 11.4 SECONDS (9.7-12.2) 02/05/17 20:57 INR 1.0 02/05/17 20:57 Attending/Attestation - Attestation I have personally seen and examined this patient.: Yes I have fully participated in the care of the patient.: Yes I have reviewed all pertinent clinical information, including history, physical exam and plan: Yes Notes (Text): 02/10/17 16:19 Patient was seen and examined at bedside with the resident Patient still having extensive wheezing. We will continue IV steroids PICC line to be replaced. We will request pulmonary evaluation Continue Xarelto for history for PE I discussed the plan of care with the resident and agree with the above history and physical and assessment/plan by the resident.
--- NOTE | 2017-02-09 13:02 | PCM.SURG1 ---
Surgeon's Initial Post Op Note - Surgeon's Notes Surgeon: Jerry Solis MD Teacher Vocal: NONE Type of Anesthesia: Local Pre-Operative Diagnosis: Non functional PICC, poor venous access Operative Findings: Right basilic vein picc, tip in subclavian. Post-Operative Diagnosis: Non functional PICC, poor venous access Operation Performed: Right picc exchange. A new single lumen picc placed, 44 cm. Tip in SVC. Specimen/Specimens Removed: NONE Estimated Blood Loss: EBL {In ML}: 0 Blood Products Given: N/A Drains Used: No Drains Post-Op Condition: Fair Date of Surgery/Procedure: 02/09/17 Time of Surgery/Procedure: 13:00
--- NOTE | 2017-02-09 14:37 | RAD ---
PROCEDURE: Date of procedure: 02/09/2017 Procedure: 1. Right arm PICC exchange for a new single-lumen PICC 2. PICC tip confirmation with spot radiograph and is in the superior vena cava Medications: 4cc 1 percent lidocaine Total Fluoro time: 11.2 seconds Radiation: 0.5627 mGym2 EBL: 0 cc HISTORY: Poor venous access, nonfunctional right arm PICC TECHNIQUE: Following informed consent and procedure time-out, the patient was placed supine on the interventional table. The right arm the existing dual-lumen PICC were prepped and draped in the usual sterile fashion. Fluoroscopic image showed the existing PICC within the subclavian vein. The PICC was removed over a guidewire exchanged for a peel-away sheath. The length of the new single-lumen PICC was cut to 44 centimeters and advanced through the peel-away sheath over the wire. There is some difficulty advancing the PICC centrally. With some effort, the PICC was position with tip of the PICC in the superior vena cava. The PICC was functional. The PICC was secured to patient's skin. A dressing was applied. IMPRESSION: Exchange of right arm PICC for a new single-lumen 4 Divehi PICC trimmed to 44 centimeters. Tip of PICC is in the superior vena cava.
[2017-02-09 20:30] LABS: BASO # 0.1 K/uL (0.0-0.2); BASO % 0.3 % (0.0-2.0); HEMATOCRIT 44.1 % (35.0-51.0); LYMPH # 1.5 K/uL (1.0-4.3); LYMPH % 10.2 % (20.0-40.0); MEAN CELL VOLUME 88.6 fL (80.0-94.0); MEAN CORPUSCULAR HGB CONC 32.7 g/dL (33.0-37.0); MEAN PLATELET VOLUME 9.5 fL (7.2-11.7); MONO # 0.7 K/uL (0.0-0.8); RED CELL DISTRIBUTION WIDTH 14.4 % (11.5-14.5); WHITE BLOOD COUNT 14.7 K/uL (4.8-10.8)
[2017-02-09 20:34] LABS: CHLORIDE 90 mmol/L (98-107); POTASSIUM 4.1 mmol/L (3.6-5.2); SODIUM 134 mmol/L (132-148)
[2017-02-09 20:36] LABS: GFR AFRICAN-AMERICAN > 60
[2017-02-09 20:37] LABS: ALB/GLOB RATIO 1.5 (1.0-2.1); ALKALINE PHOSPHATASE 60 U/L (38-126); ALT/SGPT 35 U/L (21-72); AST/SGOT 17 U/L (17-59); BILIRUBIN,TOTAL 0.8 mg/dL (0.2-1.3); BLOOD UREA NITROGEN 25 mg/dL (9-20); CALCIUM 9.6 mg/dl (8.6-10.4); CARBON DIOXIDE 27 mmol/L (22-30); TOTAL PROTEIN 7.6 g/dL (6.3-8.3)
[2017-02-09 20:38] LABS: MAGNESIUM 2.2 mg/dL (1.6-2.3)
[2017-02-09 20:40] LABS: GLUCOSE,RANDOM 418 mg/dL (75-110)
[2017-02-10] MEDS: Albuterol-Ipratrop 3 mg / 0.5 (3 ml) UD INH SCH ×6 (00:41→19:39)
[2017-02-10] MEDS: Levothyroxine 200 MCG TAB PO SCH (06:30)
[2017-02-10 07:36] LABS: BASO % 0.1 % (0.0-2.0); EOS % 0.2 % (0.0-4.0); LYMPH # 3.3 K/uL (1.0-4.3); LYMPH % 26.5 % (20.0-40.0); MEAN CELL VOLUME 88.2 fL (80.0-94.0); MEAN CORPUSCULAR HEMOGLOBIN 29.3 pg (27.0-31.0); MEAN CORPUSCULAR HGB CONC 33.2 g/dL (33.0-37.0); MEAN PLATELET VOLUME 9.2 fL (7.2-11.7); MONO # 0.9 K/uL (0.0-0.8); MONO % 7.5 % (0.0-10.0); RED CELL DISTRIBUTION WIDTH 14.1 % (11.5-14.5); WHITE BLOOD COUNT 12.3 K/uL (4.8-10.8)
--- NOTE | 2017-02-10 07:42 | CP.PCM.PN ---
<Sandra Kwong - Last Filed: 02/10/17 21:21> Subjective - Date & Time of Evaluation Date of Evaluation: 02/10/17 Time of Evaluation: 06:22 - Subjective Subjective: PGY 1 Medicine Progress Note- Dr. Gutierres's service Pt seen and examined in no apparent acute distress. Patient's PICC line was exchanged yesterday and now functioning. Patient states that he has trouble sleeping through the night due to shortness of breath and cough. Otherwise, patient denies chest pain, palpitations, nausea, vomiting, diarrhea, constipation or urinary changes at this time. Objective - Vital Signs/Intake and Output Vital Signs (last 24 hours): Temp Pulse Resp BP Pulse Ox 98.2 F 82 20 129/74 97 02/10/17 00:00 02/10/17 00:46 02/10/17 00:00 02/10/17 00:00 02/10/17 00:00 Intake and Output: 02/10/17 02/10/17 06:59 18:59 Intake Total 700 Balance 700 - Medications Medications: Current Medications Acetaminophen (Tylenol 325mg Tab) 650 mg PO Q4 PRN PRN Reason: Pain, moderate (4-7) Albuterol Sulfate (Albuterol 0.083% Inhal [place] (2.5 Mg/3 Ml) Ud) 2.5 mg IH RQ4 PRN PRN Reason: Shortness of Breath Last Admin: 02/06/17 14:47 Dose: 2.5 mg Albuterol/Ipratropium (Duoneb 3 Mg/0.5 Mg (3 Ml) Ud) 3 ml INH RQ4 [facility] Last Admin: 02/10/17 07:31 Dose: 3 ml Famotidine (Pepcid) 20 mg PO BID [facility] Last Admin: 02/09/17 18:35 Dose: Not Given Glipizide (Glucotrol Xl) 10 mg PO ACBD [facility] Insulin Glargine (Lantus) 20 unit SC ACB [facility] Last Admin: 02/09/17 07:36 Dose: Not Given Insulin Glargine (Lantus) 30 unit SC HS [facility] Last Admin: 02/09/17 22:21 Dose: 30 units Insulin Human Regular (Novolin R) 0 unit SC ACHS [facility] PRN Reason: Protocol Last Admin: 02/09/17 22:20 Dose: 2 unit Levothyroxine Sodium (Synthroid) 400 mcg PO DAILY@0630 [facility] Last Admin: 02/09/17 06:40 Dose: 400 mcg Metformin HCl (Glucophage) 1,000 mg PO BID [facility] Last Admin: 02/09/17 18:30 Dose: 1,000 mg Methylprednisolone (Solu-Medrol) 20 mg IVP Q8 [facility] Last Admin: 02/09/17 06:35 Dose: 20 mg Mometasone Furoate (Asmanex Twisthaler 220 Mcg) 2 puff IH RQ12 [facility] Last Admin: 02/09/17 19:52 Dose: 2 puff Prednisone (Prednisone Tab) 40 mg PO DAILY [facility] Last Admin: 02/09/17 12:16 Dose: 40 mg Rivaroxaban (Xarelto) 20 mg PO DAILY [facility] Last Admin: 02/09/17 10:57 Dose: 20 mg Fluticasone/Salmeterol (Advair Diskus 500/50) 1 puff INH RQ12 [facility] Last Admin: 02/09/17 19:52 Dose: 1 puff - Labs Labs: 02/09/17 20:18 02/09/17 20:18 PT 11.4 SECONDS (9.7-12.2) 02/05/17 20:57 INR 1.0 02/05/17 20:57 - Constitutional Appears: Non-toxic, No Acute Distress - Head Exam Head Exam: ATRAUMATIC, NORMAL INSPECTION, NORMOCEPHALIC - Eye Exam Eye Exam: EOMI, Normal appearance, PERRL Pupil Exam: NORMAL ACCOMODATION, PERRL - ENT Exam ENT Exam: Mucous Membranes Moist - Neck Exam Neck Exam: Full ROM, Normal Inspection - Respiratory Exam Respiratory Exam: Decreased Breath Sounds, Wheezes. absent: Chest Wall Tenderness, Respiratory Distress, Stridor - Cardiovascular Exam Cardiovascular Exam: +S1, +S2 - GI/Abdominal Exam GI & Abdominal Exam: Soft, Normal Bowel Sounds - Extremities Exam Extremities Exam: Full ROM, Normal Capillary Refill, Normal Inspection - Back Exam Back Exam: Full ROM - Neurological Exam Neurological Exam: Alert, Awake, CN II-XII Intact, Oriented x3 - Psychiatric Exam Psychiatric exam: Anxious, Normal Affect, Normal Mood - Skin Skin Exam: Dry, Intact, Normal Color, Warm Assessment and Plan - Assessment and Plan (Free Text) Assessment: 1) Severe persistent asthma * History of multiple intubations * Patient's asthma uncontrolled by nebulizer treatments * Solumedrol 20mg IV Q 8 hours continued * Advair 500/50 Q 12hours * Duonebs Q4hour PRN * Mometasone 2 puff inhaled Q 12hours * Transferred out from ICU, 02/07/17 * Consult to Dr. Gauthier (Pulm) - Patient to begin budesonide and singulair and check IgE levels. F/U 2) Pulmonary Embolus * Xarelto 20mg PO daily 3) Steroid induced diabetes * [id number]: 8.7 * Uncontrolled * Metformin 1000mg PO Bid * Patient refuses to have accuchecks QAC and HS; he does not want to have finger pricks for blood; will allow for after lunch and after dinner to adjust his levemir. Patient states that his sugar is elevated solely because of corticosteroid administration. * Lantus 20 units ACB and 30 units SC HS * Crypt[employer] Support Specialist referral * Endocrinology consult placed for further management 4) Hypothyroidism * Synthroid 400mcg PO qAM * F/U Endocrinology recommendations 5) Prophylactic measure * Xarelto 20mg PO daily for DVT ppx * Pepcid 20mg PO bid * PICC line- RIGHT upper extremity changed by IR 02/09/17 <Markel Gutierres - Last Filed: 02/11/17 17:56> Objective - Vital Signs/Intake and Output Vital Signs (last 24 hours): Temp Pulse Resp BP Pulse Ox 98.2 F 78 20 151/97 H 20 L 02/11/17 08:19 02/11/17 10:31 02/10/17 00:00 02/11/17 08:19 02/11/17 08:19 Intake and Output: 02/11/17 02/11/17 06:59 18:59 Intake Total 2415 400.5 Balance 2415 400.5 - Medications Medications: Current Medications Acetaminophen (Tylenol 325mg Tab) 650 mg PO Q4 PRN PRN Reason: Pain, moderate (4-7) Last Admin: 02/11/17 11:39 Dose: 650 mg Albuterol/Ipratropium (Duoneb 3 Mg/0.5 Mg (3 Ml) Ud) 3 ml INH RQ4 [facility] Last Admin: 02/11/17 16:31 Dose: 3 ml Budesonide (Pulmicort Respules) 0.5 mg INH RQ12 [facility] Last Admin: 02/11/17 09:06 Dose: 0.5 mg Famotidine (Pepcid) 20 mg PO BID [facility] Last Admin: 02/11/17 09:31 Dose: Not Given Glipizide (Glucotrol Xl) 10 mg PO ACBD [facility] Insulin Aspart (Novolog) 0 unit SC ACHS [facility] PRN Reason: Protocol Last Admin: 02/11/17 16:48 Dose: 5 unit Insulin Aspart (Novolog) 20 unit SC AC [facility] Last Admin: 02/11/17 16:47 Dose: 20 unit Insulin Glargine (Lantus) 44 unit SC HS [facility] Levothyroxine Sodium (Synthroid) 400 mcg PO DAILY@0630 [facility] Last Admin: 02/11/17 06:15 Dose: 400 mcg Metformin HCl (Glucophage) 1,000 mg PO BID [facility] Last Admin: 02/11/17 09:31 Dose: Not Given Methylprednisolone (Solu-Medrol) 20 mg IVP Q8 [facility] Last Admin: 02/11/17 14:00 Dose: 20 mg Mometasone Furoate (Asmanex Twisthaler 220 Mcg) 2 puff IH RQ12 [facility] Last Admin: 02/11/17 09:05 Dose: 2 puff Montelukast Sodium (Singulair) 10 mg PO HS [facility] Last Admin: 02/10/17 21:44 Dose: 10 mg Rivaroxaban (Xarelto) 20 mg PO DAILY [facility] Last Admin: 02/11/17 09:31 Dose: 20 mg - Labs Labs: 02/11/17 06:30 02/11/17 06:30 PT 11.4 SECONDS (9.7-12.2) 02/05/17 20:57 INR 1.0 02/05/17 20:57 Attending/Attestation - Attestation I have personally seen and examined this patient.: Yes I have fully participated in the care of the patient.: Yes I have reviewed all pertinent clinical information, including history, physical exam and plan: Yes Notes (Text): 02/11/17 17:55 Patient was seen and examined at bedside with the resident Still complains of wheezing Pulmonary evaluation seen and appreciated Continue current management I discussed the plan of care with the resident and I agree with the above history and physical and assessment/plan but the resident.
[2017-02-10 08:18] LABS: CHLORIDE 92 mmol/L (98-107); POTASSIUM 3.8 mmol/L (3.6-5.2); SODIUM 134 mmol/L (132-148)
[2017-02-10 08:19] LABS: GFR AFRICAN-AMERICAN > 60
[2017-02-10 08:20] LABS: ALB/GLOB RATIO 1.4 (1.0-2.1); ALKALINE PHOSPHATASE 60 U/L (38-126); ALT/SGPT 30 U/L (21-72); BLOOD UREA NITROGEN 23 mg/dL (9-20); GLUCOSE,RANDOM 305 mg/dL (75-110); PHOSPHOROUS 4.5 mg/dL (2.5-4.5); TOTAL PROTEIN 7.1 g/dL (6.3-8.3)
[2017-02-10 08:21] LABS: CALCIUM 9.4 mg/dl (8.6-10.4); MAGNESIUM 2.3 mg/dL (1.6-2.3)
[2017-02-10 08:42] LABS: AST/SGOT 16 U/L (17-59); BILIRUBIN,TOTAL 0.5 mg/dL (0.2-1.3); CARBON DIOXIDE 30 mmol/L (22-30)
[2017-02-10] MEDS: (Novolin R) Insulin Human Regular 100 units/ml vial SC SCH ×5 (08:49→21:42)
[2017-02-10] MEDS: (Lantus) Insulin Glargine, Recombinant SC SCH ×2 (08:50→21:40)
[2017-02-10] MEDS: Mometasone 220 mcg/puff-14 puff Inh IH SCH ×2 (10:00→19:41)
[2017-02-10] MEDS: Fluticasone-Salmeterol 500-50mcg Diskus INH SCH (10:00)
[2017-02-10] MEDS: MethylPREDNISolone 40 mg Vial IVP SCH ×2 (14:50→21:27)
--- NOTE | 2017-02-10 16:53 | CP.PCM.CON ---
History of Present Illness - History of Present Illness History of Present Illness: Reason for consultation: Asthma extubation 41 year old male, with PMHx of asthma, bronchitis, hypothyroidism, PE, who presented to ED with exacerbation of asthma. Pt has history of 5 intubations, with 3 prior trachs. Initially admitted to ICU and Placed on Bipap, duoneb and steroids. Patient was later transferred to floor as he was refusing BiPAP and blood work and was hindering treatment. Patient states that his breathing is better but still has dry cough and on and off shortness of breath and wheezing. Review of Systems - Review of Systems All systems: reviewed and no additional remarkable complaints except (Shortness of breath and dry cough) Past Patient History - Tetanus Immunizations Tetanus Immunization: Unknown - Past Medical History & Family History Past Medical History?: Yes - Past Social History Smoking Status: Never Smoked - CARDIAC Hx Peripheral Edema: Yes - PULMONARY Hx Asthma: Yes Hx Bronchitis: Yes Hx Pneumonia: Yes Hx Pulmonary Embolism: Yes Hx Sleep Apnea: Yes - NEUROLOGICAL Hx Seizures: Yes Hx Transient Ischemic Attacks (TIA): Yes - HEENT Hx HEENT Problems: No - RENAL Hx Chronic Kidney Disease: Yes Hx Kidney Stones: Yes - ENDOCRINE/METABOLIC Hx Hypothyroidism: Yes - HEMATOLOGICAL/ONCOLOGICAL Hx Human Immunodeficiency Virus (HIV): No - INTEGUMENTARY Hx Dermatological Problems: No - MUSCULOSKELETAL/RHEUMATOLOGICAL Hx Fractures: Yes (8 ACL reconstructions) - GASTROINTESTINAL Hx Gastrointestinal Disorders: No - GENITOURINARY/GYNECOLOGICAL Hx Genitourinary Disorders: No - PSYCHIATRIC Hx Substance Use: No - SURGICAL HISTORY Hx Musculoskeletal Surgery: Yes (R knee, L knee (8 knee sx)) Hx Thyroidectomy: Yes (CA+) Other/Comment: CA removal, tracheostomy x3, intubation - ANESTHESIA Hx Anesthesia: Yes Hx Anesthesia Reactions: No Hx Malignant Hyperthermia: No Meds Allergies/Adverse Reactions: Allergies Allergy/AdvReac Type Severity Reaction Status Date / Time aspirin Allergy ANAPHYLAXIS Verified 06/26/16 19:18 onions Allergy Severe throat Uncoded 06/26/16 19:18 swelling - Medications Medications: Current Medications Acetaminophen (Tylenol 325mg Tab) 650 mg PO Q4 PRN PRN Reason: Pain, moderate (4-7) Albuterol Sulfate (Albuterol 0.083% Inhal [place] (2.5 Mg/3 Ml) Ud) 2.5 mg IH RQ4 PRN PRN Reason: Shortness of Breath Last Admin: 04/21/17 14:47 Dose: 2.5 mg Albuterol/Ipratropium (Duoneb 3 Mg/0.5 Mg (3 Ml) Ud) 3 ml INH RQ4 [facility] Last Admin: 02/10/17 16:22 Dose: 3 ml Budesonide (Pulmicort Respules) 0.5 mg INH RQ12 [facility] Famotidine (Pepcid) 20 mg PO BID [facility] Last Admin: 02/10/17 10:45 Dose: Not Given Glipizide (Glucotrol Xl) 10 mg PO ACBD [facility] Insulin Glargine (Lantus) 20 unit SC ACB [facility] Last Admin: 02/10/17 08:50 Dose: 20 u Insulin Glargine (Lantus) 30 unit SC HS [facility] Last Admin: 02/09/17 22:21 Dose: 30 units Insulin Human Regular (Novolin R) 0 unit SC ACHS [facility] PRN Reason: Protocol Last Admin: 02/10/17 12:12 Dose: 10 unit Levothyroxine Sodium (Synthroid) 400 mcg PO DAILY@0630 [facility] Last Admin: 02/09/17 06:40 Dose: 400 mcg Metformin HCl (Glucophage) 1,000 mg PO BID [facility] Last Admin: 02/10/17 10:43 Dose: 1,000 mg Methylprednisolone (Solu-Medrol) 20 mg IVP Q8 [facility] Last Admin: 02/10/17 14:50 Dose: 20 mg Mometasone Furoate (Asmanex Twisthaler 220 Mcg) 2 puff IH RQ12 [facility] Last Admin: 02/10/17 10:00 Dose: 2 puff Montelukast Sodium (Singulair) 10 mg PO HS [facility] Rivaroxaban (Xarelto) 20 mg PO DAILY [facility] Last Admin: 02/10/17 10:43 Dose: 20 mg Physical Exam - Constitutional Appears: No Acute Distress - Head Exam Head Exam: ATRAUMATIC, NORMOCEPHALIC - Eye Exam Eye Exam: Normal appearance - ENT Exam ENT Exam: Mucous Membranes Moist - Neck Exam Neck exam: Positive for: Normal Inspection - Respiratory Exam Respiratory Exam: Clear to Auscultation Bilateral - Cardiovascular Exam Cardiovascular Exam: REGULAR RHYTHM - GI/Abdominal Exam GI & Abdominal Exam: Normal Bowel Sounds, Soft - Extremities Exam Extremities exam: Positive for: normal inspection - Neurological Exam Neurological exam: Alert, Oriented x3 Results - Vital Signs Recent Vital Signs: Last Vital Signs Temp 98.2 F 02/10/17 00:00 Pulse 82 02/10/17 00:46 Resp 20 02/10/17 00:00 BP 129/74 02/10/17 00:00 Pulse Ox 97 02/10/17 00:00 - Labs Result Diagrams: 02/10/17 07:10 02/10/17 07:10 Labs: Laboratory Results - last 24 hr 02/09/17 02/09/17 02/09/17 17:04 20:18 20:18 WBC 14.7 H RBC 4.98 Hgb 14.4 Hct 44.1 MCV 88.6 MCH 29.0 MCHC 32.7 L RDW 14.4 Plt Count 266 MPV 9.5 Neut % (Auto) 84.5 H Lymph % (Auto) 10.2 L [place] % (Auto) 5.0 Eos % (Auto) 0.0 Baso % (Auto) 0.3 Neut # 12.4 H Lymph # 1.5 [place] # 0.7 Eos # 0.0 Baso # 0.1 Sodium 134 Potassium 4.1 Chloride 90 L Carbon Dioxide 27 Anion Gap 21 H BUN 25 H Creatinine 1.2 Est GFR ( Amer) > 60 Est GFR (Non-Af Amer) > 60 POC Glucose (mg/dL) 410 H* Random Glucose 418 H* Calcium 9.6 Phosphorus Magnesium 2.2 Total Bilirubin 0.8 AST 17 D ALT 35 Alkaline Phosphatase 60 Total Protein 7.6 Albumin 4.5 Globulin 3.0 Albumin/Globulin Ratio 1.5 Free T4 Total T3 TSH 3rd Generation 02/09/17 02/10/17 02/10/17 22:01 06:27 07:10 WBC RBC Hgb Hct MCV MCH MCHC RDW Plt Count MPV Neut % (Auto) Lymph % (Auto) [place] % (Auto) Eos % (Auto) Baso % (Auto) Neut # Lymph # [place] # Eos # Baso # Sodium 134 Potassium 3.8 Chloride 92 L Carbon Dioxide 30 Anion Gap 16 BUN 23 H Creatinine 0.9 Est GFR ( Amer) > 60 Est GFR (Non-Af Amer) > 60 POC Glucose (mg/dL) 308 H 297 H Random Glucose 305 H Calcium 9.4 Phosphorus 4.5 Magnesium 2.3 Total Bilirubin 0.5 AST 16 L ALT 30 Alkaline Phosphatase 60 Total Protein 7.1 Albumin 4.1 Globulin 3.0 Albumin/Globulin Ratio 1.4 Free T4 Total T3 1.05 L TSH 3rd Generation 56.20 H 02/10/17 02/10/17 02/10/17 07:10 11:26 11:45 WBC 12.3 H RBC 4.77 Hgb 13.9 Hct 42.0 MCV 88.2 MCH 29.3 MCHC 33.2 RDW 14.1 Plt Count 220 MPV 9.2 Neut % (Auto) 65.7 Lymph % (Auto) 26.5 [place] % (Auto) 7.5 Eos % (Auto) 0.2 Baso % (Auto) 0.1 Neut # 8.1 H Lymph # 3.3 [place] # 0.9 H Eos # 0.0 Baso # 0.0 Sodium Potassium Chloride Carbon Dioxide Anion Gap BUN Creatinine Est GFR ( Amer) Est GFR (Non-Af Amer) POC Glucose (mg/dL) 373 H Random Glucose Calcium Phosphorus Magnesium Total Bilirubin AST ALT Alkaline Phosphatase Total Protein Albumin Globulin Albumin/Globulin Ratio Free T4 1.11 Total T3 TSH 3rd Generation 02/10/17 16:28 WBC RBC Hgb Hct MCV MCH MCHC RDW Plt Count MPV Neut % (Auto) Lymph % (Auto) [place] % (Auto) Eos % (Auto) Baso % (Auto) Neut # Lymph # [place] # Eos # Baso # Sodium Potassium Chloride Carbon Dioxide Anion Gap BUN Creatinine Est GFR ( Amer) Est GFR (Non-Af Amer) POC Glucose (mg/dL) 378 H Random Glucose Calcium Phosphorus Magnesium Total Bilirubin AST ALT Alkaline Phosphatase Total Protein Albumin Globulin Albumin/Globulin Ratio Free T4 Total T3 TSH 3rd Generation Assessment & Plan (1) Asthma exacerbation Status: Acute Priority: High Comment: Continue IV steroids, nebulizer treatment. Started on budesonide and Singulair. Check IgE level. Consider psychiatric evaluation (2) Pulmonary emboli Status: Chronic Comment: Continue xarelto
[2017-02-10] MEDS: Budesonide 0.5 mg/2 ml Inhal Susp UD INH SCH (19:39)
[2017-02-11] MEDS: Albuterol-Ipratrop 3 mg / 0.5 (3 ml) UD INH SCH ×7 (00:23→23:31)
[2017-02-11] MEDS: Levothyroxine 200 MCG TAB PO SCH (06:15)
[2017-02-11] MEDS: MethylPREDNISolone 40 mg Vial IVP SCH ×3 (06:15→21:39)
[2017-02-11 06:51] LABS: BASO # 0.1 K/uL (0.0-0.2); BASO % 0.4 % (0.0-2.0); LYMPH # 2.5 K/uL (1.0-4.3); LYMPH % 15.7 % (20.0-40.0); MEAN CELL VOLUME 88.3 fL (80.0-94.0); MEAN CORPUSCULAR HEMOGLOBIN 28.8 pg (27.0-31.0); MEAN CORPUSCULAR HGB CONC 32.6 g/dL (33.0-37.0); MEAN PLATELET VOLUME 9.1 fL (7.2-11.7); MONO % 6.4 % (0.0-10.0); RED CELL DISTRIBUTION WIDTH 14.2 % (11.5-14.5); WHITE BLOOD COUNT 15.7 K/uL (4.8-10.8)
--- NOTE | 2017-02-11 07:25 | CP.PCM.PN ---
<ElenitaAnavicky - Last Filed: 02/11/17 15:06> Subjective - Date & Time of Evaluation Date of Evaluation: 02/11/17 Time of Evaluation: 07:52 - Subjective Subjective: PGY 1 Medicine Note- Dr. Gutierres's service Pt seen and examined in no acute distress. Patient states that he is still having breathing discomfort. He states that he is having trouble using duonebs because his nostrils are blocked. He states that his Purchasing And Fiscal Clerk Dr. Leos was present yesterday to see him. Patient denies subjective fevers or chills, chest pain, nausea, vomiting, diarrhea, constipation, urinary changes or headaches at this time. Objective - Vital Signs/Intake and Output Vital Signs (last 24 hours): Temp Pulse Resp BP Pulse Ox 98.2 F 82 20 129/74 97 02/10/17 00:00 02/11/17 00:23 02/10/17 00:00 02/10/17 00:00 02/10/17 00:00 Intake and Output: 02/11/17 02/11/17 06:59 18:59 Intake Total 1999 Balance 1999 - Medications Medications: Current Medications Acetaminophen (Tylenol 325mg Tab) 650 mg PO Q4 PRN PRN Reason: Pain, moderate (4-7) Albuterol Sulfate (Albuterol 0.083% Inhal [place] (2.5 Mg/3 Ml) Ud) 2.5 mg IH RQ4 PRN PRN Reason: Shortness of Breath Last Admin: 02/06/17 14:47 Dose: 2.5 mg Albuterol/Ipratropium (Duoneb 3 Mg/0.5 Mg (3 Ml) Ud) 3 ml INH RQ4 [facility] Last Admin: 02/11/17 04:00 Dose: Not Given Budesonide (Pulmicort Respules) 0.5 mg INH RQ12 [facility] Last Admin: 02/10/17 19:39 Dose: 0.5 mg Famotidine (Pepcid) 20 mg PO BID [facility] Last Admin: 02/10/17 17:49 Dose: Not Given Glipizide (Glucotrol Xl) 10 mg PO ACBD [facility] Insulin Aspart (Novolog) 12 unit SC AC [facility] Insulin Aspart (Novolog) 0 unit SC ACHS [facility] PRN Reason: Protocol Insulin Glargine (Lantus) 44 unit SC HS [facility] Levothyroxine Sodium (Synthroid) 400 mcg PO DAILY@0630 [facility] Last Admin: 02/11/17 06:15 Dose: 400 mcg Metformin HCl (Glucophage) 1,000 mg PO BID [facility] Last Admin: 02/10/17 18:24 Dose: 1,000 mg Methylprednisolone (Solu-Medrol) 20 mg IVP Q8 [facility] Last Admin: 02/11/17 06:15 Dose: 20 mg Mometasone Furoate (Asmanex Twisthaler 220 Mcg) 2 puff IH RQ12 [facility] Last Admin: 02/10/17 19:41 Dose: 2 puff Montelukast Sodium (Singulair) 10 mg PO HS [facility] Last Admin: 02/10/17 21:44 Dose: 10 mg Rivaroxaban (Xarelto) 20 mg PO DAILY [facility] Last Admin: 02/10/17 10:43 Dose: 20 mg - Labs Labs: 02/11/17 06:30 02/10/17 07:10 PT 11.4 SECONDS (9.7-12.2) 02/05/17 20:57 INR 1.0 02/05/17 20:57 - Constitutional Appears: Non-toxic, No Acute Distress - Head Exam Head Exam: ATRAUMATIC, NORMAL INSPECTION, NORMOCEPHALIC - Eye Exam Eye Exam: EOMI, Normal appearance, PERRL Pupil Exam: NORMAL ACCOMODATION, PERRL - ENT Exam ENT Exam: Mucous Membranes Moist, Normal Exam - Neck Exam Neck Exam: Full ROM, Normal Inspection - Respiratory Exam Respiratory Exam: absent: Chest Wall Tenderness, Decreased Breath Sounds, Rales , Wheezes, Respiratory Distress, Stridor Additional comments: decreased inspiratory efforts - Cardiovascular Exam Cardiovascular Exam: REGULAR RHYTHM, +S1, +S2 - GI/Abdominal Exam GI & Abdominal Exam: Soft, Normal Bowel Sounds - Extremities Exam Extremities Exam: Full ROM, Normal Capillary Refill, Normal Inspection - Back Exam Back Exam: Full ROM, NORMAL INSPECTION - Neurological Exam Neurological Exam: Alert, Awake, CN II-XII Intact, Oriented x3 - Psychiatric Exam Psychiatric exam: Anxious, Normal Affect, Normal Mood - Skin Skin Exam: Dry, Intact, Normal Color, Warm Assessment and Plan - Assessment and Plan (Free Text) Assessment: 1) Severe persistent asthma * History of multiple intubations * Patient's asthma uncontrolled by nebulizer treatments * Solumedrol 20mg IV Q 8 hours * Advair 500/50 Q 12hours * Duonebs Q4hour PRN * Mometasone 2 puff inhaled Q 12hours * Transferred out from ICU, 02/07/17 * Consult to Dr. Gauthier (Pulm) - Patient to begin budesonide and singulair and check IgE levels. F/U 2) Pulmonary Embolus * Xarelto 20mg PO daily 3) Steroid induced diabetes * [id number]: 8.7 * Uncontrolled * Metformin 1000mg PO Bid * Insulin combination modified: Novolog 12 units SC TID before meals; 44 units SC HS. Thyroid studies, Low dose ISS as well. * Automated [employer] Instructor referral for diabetic education regarding diet and exercise. * F/U Dr. Leos recommendations 4) Hypothyroidism * Synthroid 400mcg PO qAM * F/U Endocrinology recommendations 5) Prophylactic measure * Xarelto 20mg PO daily for DVT ppx * Pepcid 20mg PO bid * PICC line- RIGHT upper extremity changed by IR 02/09/17 <Markel Gutierres - Last Filed: 02/11/17 18:12> Objective - Vital Signs/Intake and Output Vital Signs (last 24 hours): Temp Pulse Resp BP Pulse Ox 98.2 F 78 20 151/97 H 20 L 02/11/17 08:19 02/11/17 10:31 02/10/17 00:00 02/11/17 08:19 02/11/17 08:19 Intake and Output: 02/11/17 02/11/17 06:59 18:59 Intake Total 2415 400.5 Balance 2415 400.5 - Medications Medications: Current Medications Acetaminophen (Tylenol 325mg Tab) 650 mg PO Q4 PRN PRN Reason: Pain, moderate (4-7) Last Admin: 02/11/17 11:39 Dose: 650 mg Albuterol/Ipratropium (Duoneb 3 Mg/0.5 Mg (3 Ml) Ud) 3 ml INH RQ4 [facility] Last Admin: 02/11/17 16:31 Dose: 3 ml Budesonide (Pulmicort Respules) 0.5 mg INH RQ12 [facility] Last Admin: 02/11/17 09:06 Dose: 0.5 mg Famotidine (Pepcid) 20 mg PO BID [facility] Last Admin: 02/11/17 18:10 Dose: Not Given Glipizide (Glucotrol Xl) 10 mg PO ACBD [facility] Insulin Aspart (Novolog) 0 unit SC ACHS [facility] PRN Reason: Protocol Last Admin: 02/11/17 16:48 Dose: 5 unit Insulin Aspart (Novolog) 20 unit SC AC [facility] Last Admin: 02/11/17 16:47 Dose: 20 unit Insulin Glargine (Lantus) 44 unit SC HS [facility] Levothyroxine Sodium (Synthroid) 400 mcg PO DAILY@0630 [facility] Last Admin: 02/11/17 06:15 Dose: 400 mcg Metformin HCl (Glucophage) 1,000 mg PO BID [facility] Last Admin: 02/11/17 18:09 Dose: Not Given Methylprednisolone (Solu-Medrol) 20 mg IVP Q8 [facility] Last Admin: 02/11/17 14:00 Dose: 20 mg Mometasone Furoate (Asmanex Twisthaler 220 Mcg) 2 puff IH RQ12 [facility] Last Admin: 02/11/17 09:05 Dose: 2 puff Montelukast Sodium (Singulair) 10 mg PO HS [facility] Last Admin: 02/10/17 21:44 Dose: 10 mg Rivaroxaban (Xarelto) 20 mg PO DAILY [facility] Last Admin: 02/11/17 09:31 Dose: 20 mg - Labs Labs: 02/11/17 06:30 02/11/17 06:30 PT 11.4 SECONDS (9.7-12.2) 02/05/17 20:57 INR 1.0 02/05/17 20:57 Attending/Attestation - Attestation I have personally seen and examined this patient.: Yes I have fully participated in the care of the patient.: Yes I have reviewed all pertinent clinical information, including history, physical exam and plan: Yes Notes (Text): 02/11/17 18:12 Patient was seen and examined at bedside with the resident Pulmonary and endocrinology evaluation seen in appreciated Patient's blood sugars still uncontrolled However patient is noncompliant with some medication and refuses to take the them Discharge planning likely in the next 24 hours if the patient is medically stable
[2017-02-11 07:39] LABS: CHLORIDE 90 mmol/L (98-107)
[2017-02-11 07:40] LABS: POTASSIUM 4.2 mmol/L (3.6-5.2); SODIUM 134 mmol/L (132-148)
[2017-02-11 07:41] LABS: ALB/GLOB RATIO 1.4 (1.0-2.1); BILIRUBIN,TOTAL 0.7 mg/dL (0.2-1.3); CARBON DIOXIDE 30 mmol/L (22-30); CHOLESTEROL 218 mg/dL (0-199); GFR AFRICAN-AMERICAN > 60; TOTAL PROTEIN 7.6 g/dL (6.3-8.3)
[2017-02-11 07:42] LABS: ALKALINE PHOSPHATASE 64 U/L (38-126); ALT/SGPT 30 U/L (21-72); AST/SGOT 19 U/L (17-59); BLOOD UREA NITROGEN 24 mg/dL (9-20); CALCIUM 9.7 mg/dl (8.6-10.4); PHOSPHOROUS 4.9 mg/dL (2.5-4.5)
[2017-02-11 07:43] LABS: MAGNESIUM 2.5 mg/dL (1.6-2.3); T4 7.92 ug/dL (5.5-11.0)
[2017-02-11 08:13] LABS: GLUCOSE,RANDOM 429 mg/dL (75-110)
[2017-02-11] MEDS: (Novolog) Insulin Aspart, Recombinant 100 u/ml 10 ml vial SC SCH ×7 (08:26→21:37)
[2017-02-11] MEDS: Mometasone 220 mcg/puff-14 puff Inh IH SCH ×2 (09:05→19:59)
[2017-02-11] MEDS: Budesonide 0.5 mg/2 ml Inhal Susp UD INH SCH ×2 (09:06→19:56)
--- NOTE | 2017-02-11 09:57 | CON ---
DATE: 02/10/2017 ROOM: 351 This is a 41-year-old male with known history of type 2 diabetes and hypertension and underlying thyr oid carcinoma and presenting here with progressive shortness of breath and evaluated to have acute re spiratory insufficiency and was admitted to ICU and followed closely for hemodynamic monitoring, and is being referred now for endocrine evaluation of recent marked hyperglycemic accelerations related t o the intercurrent IV steroid therapy as given. PAST MEDICAL HISTORY: As mentioned above, history of type 2 diabetes, controlled on a dual oral hypo glycemic drug therapy taken at home. He was actually seen by me at [facility] a few months ago. As mentioned, he is currently on Invokamet taken twice daily and Onglyza at 5 mg once daily. 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 History of chronic asthmatic bronchitis and has had multiple admissions for acute respiratory failure and multiple endotracheal intubations. History of hypertension, mostly noted in the hospital, but i s not on any kind of antihypertensive medication at this time. History of obstructive sleep apnea, c urrently not using his CPAP mask at home, history of seizure disorder, again off his anti-seizure med ications. Admits to a prior transient ischemic attack with no residual weakness. Also, history of m ultiple knee surgeries including reconstructive surgery from multiple ACL tears and repairs. FAMILY HISTORY: Positive for hypertension and diabetes. SOCIAL HISTORY: The patient has a supportive family. No known substance use. REVIEW OF SYSTEMS: As mentioned above, admits to generalized body weakness with easy fatigability an d tiredness and suboptimal energy level. Also admits to episodic dizziness and lightheadedness with bifrontal headaches, worse in the last few days prior to admission. No recent visual changes noted o therwise. No chest pains or palpitations, but admits to progressive shortness of breath initially on exertion and then at rest with associated bronchorrhea and upper respiratory congestion and pleuriti c pain as noted. His oral intake is variable and suboptimal, especially with recent nausea, dyspepsi a, and vague upper abdominal pains. Also, admits to persistent nocturia and polyuria as noted. PHYSICAL EXAMINATION: GENERAL: This is an overweight male, in no apparent distress. VITAL SIGNS: Blood pressure of 140/80, pulse of 88 beats per minute, regular, temperature 99, respir ations 20. Height is 5 feet 11 inches, weight is 254 pounds. HEENT: Head normocephalic. Eyes anicteric with pink conjunctivae. Fundoscopy not possible at this time. Ears, nose and throat otherwise normal. NECK: Supple. The thyroid bed is flat with no palpable thyroid mass or nodule and no cervical adeno fortunato noted. HEART: Adynamic precordium. S1, S2 is rapid and regular. LUNGS: Show scattered rhonchi. ABDOMEN: Obese, soft with positive bowel sounds. EXTREMITIES: No peripheral edema. Pulses are +2 bilaterally. LABORATORIES: His hemoglobin is 13.9, hematocrit of 42, MCV 88, platelets 220, WBCs 12.3. Chemistri es showed a BUN of 23, sodium 134, potassium 3.8, chloride 92, CO2 is 30, glucose is 305, creatinine is 0.9. His TSH is 56.20 with a free T4 of 1.11. His hemoglobin A1c was 8.3%. ASSESSMENT: This is a 41-year-old male with uncontrolled and decompensated type 2 insulin-requiring diabetes related to the intercurrent IV steroid therapy with expected increased insulin resistance an d further impaired glucose tolerance thereof on the background of suboptimal metabolic control of his diabetic condition on a dual oral hypoglycemic drug therapy as given and taken on the outpatient. Vannessa skaggs presents here with acute exacerbation of asthmatic bronchitis and with underlying chronic obstructi ve pulmonary disease and obstructive sleep apnea with underlying morbid obesity as noted. He also cabrera s significant history of surgical hypothyroidism related to a total thyroidectomy undertaken for benito huber of thyroid carcinoma, i.e., Hurthle cell carcinoma and received radioactive iodine ablation po stoperatively as noted. At this time, he continues to be overtly hypothyroid, both historically, cli nically, and biochemically as noted thereof, either related to a poor adherence to his levothyroxine replacement therapy or a subtherapeutic thyroid replacement therapy. PLAN OF MANAGEMENT: As discussed with the patient and the staff, we will modify his current insulin regimen and he usually gets insulin therapy only for inpatient diabetic management with the intercurr ent IV steroid therapy as given. Although with the elevated A1c levels, he may need basal insulin ov ernight for outpatient diabetic management. We will switch him over to a more physiologic insulin dr ug combination for inpatient diabetic management and add prandial insulin with NovoLog to be given as 12 units subQ t.i.d. before meals as ordered. We will modify the coverage scale using NovoLog insul in to obviate hypoglycemia and detailed orders have been given. We will discontinue the morning Lant us and keep him only on the bedtime Lantus as basal insulin given at the higher dose of 44 units subQ at bedtime daily as ordered. We will obtain serial chemistries and supplement accordingly as needed . We will also obtain a thyroglobulin panel with repeat thyroid studies and adjust his dose regimen accordingly. We will initiate diabetic education and dietary instructions also at the time of this a dmission, especially to emphasize weight loss efforts and healthier food choices accordingly. We tomas hightower follow. Torrie Leos MD cc: [id number] TT: 02/11/2017 09:56:52 Confirmation # [id number] Dictation # [id number] en
[2017-02-11] MEDS: (Lantus) Insulin Glargine, Recombinant SC SCH (21:38)
[2017-02-12] MEDS: Albuterol-Ipratrop 3 mg / 0.5 (3 ml) UD INH SCH ×6 (03:15→23:36)
[2017-02-12] MEDS: Levothyroxine 200 MCG TAB PO SCH (06:30)
[2017-02-12] MEDS: MethylPREDNISolone 40 mg Vial IVP SCH ×2 (06:32→13:17)
--- NOTE | 2017-02-12 07:11 | PN ---
DATE: 02/11/2017 LOCATION: Room 351. This is a 41-year-old male with recent uncontrolled type 2 insulin-requiring diabetes mellitus now be ing followed closely for metabolic management because of supervening hyperglycemic accelerations with the initiation of IV steroid therapy for management of acute asthmatic bronchitis and with underlyin g bronchospasm. His glycemic levels today have ranged from 367-400 mg/dL. It was 302 at bedtime las t night. The latest chemistries showed a BUN of 24, sodium 134, potassium 4.2, chloride 90, CO2 30, glucose 429 and creatinine 0.9. His latest thyroid study showed a T4 of 7.92 with a TSH of 22.80, mu ch lower as noted thereof. He admits to ____ DICTATION ENDS HERE. Torrie Leos MD cc: [id number] TT: 02/11/2017 16:45:40 Confirmation # [id number] Dictation # [id number] tn
--- NOTE | 2017-02-12 07:12 | PN ---
DATE: 02/11/2017 ROOM: 351. ASSESSMENT: This is a 41-year-old male with uncontrolled type 2 insulin-requiring diabetes related t o the intercurrent IV steroid therapy with supervening hyperglycemic accelerations from the increased insulin resistance thereof. He also has significant history of surgical hypothyroidism related to a prior total thyroidectomy and radioactive iodine ablation postoperatively. He is currently hypothyr oid clinically and biochemically related to poor adherence to his levothyroxine medication. PLAN OF MANAGEMENT: We will modify his basal and bolus insulin regimen and increase the NovoLog to 2 0 units subQ t.i.d. before meals to start at dinnertime today as ordered. We will also increase the basal insulin with Lantus to be given as 44 units subQ at bedtime daily as ordered. We will titrate incrementally as indicated to optimize metabolic control. We will also continue the low-dose correct ion scale using NovoLog insulin as given. We will obtain serial chemistries and supplement according ly as needed. We will follow. Torrie Leos MD cc: [id number] TT: 02/11/2017 16:49:00 Confirmation # [id number] Dictation # [id number] tn
[2017-02-12 07:26] LABS: CHLORIDE 92 mmol/L (98-107); POTASSIUM 4.1 mmol/L (3.6-5.2); SODIUM 133 mmol/L (132-148)
[2017-02-12 07:28] LABS: AST/SGOT 16 U/L (17-59); BILIRUBIN,TOTAL 0.9 mg/dL (0.2-1.3); CARBON DIOXIDE 27 mmol/L (22-30); GFR AFRICAN-AMERICAN > 60
[2017-02-12 07:29] LABS: ALB/GLOB RATIO 1.3 (1.0-2.1); ALKALINE PHOSPHATASE 78 U/L (38-126); ALT/SGPT 30 U/L (21-72); BLOOD UREA NITROGEN 25 mg/dL (9-20); CALCIUM 9.5 mg/dl (8.6-10.4); PHOSPHOROUS 4.7 mg/dL (2.5-4.5); TOTAL PROTEIN 7.9 g/dL (6.3-8.3)
[2017-02-12 07:30] LABS: MAGNESIUM 2.5 mg/dL (1.6-2.3)
[2017-02-12 07:35] LABS: BASO # 0.1 K/uL (0.0-0.2); BASO % 0.5 % (0.0-2.0); HEMATOCRIT 46.2 % (35.0-51.0); LYMPH # 2.5 K/uL (1.0-4.3); MEAN CELL VOLUME 88.9 fL (80.0-94.0); MEAN CORPUSCULAR HEMOGLOBIN 29.5 pg (27.0-31.0); MEAN CORPUSCULAR HGB CONC 33.1 g/dL (33.0-37.0); MEAN PLATELET VOLUME 9.5 fL (7.2-11.7); MONO # 0.9 K/uL (0.0-0.8); RED CELL DISTRIBUTION WIDTH 14.3 % (11.5-14.5)
[2017-02-12] MEDS: Budesonide 0.5 mg/2 ml Inhal Susp UD INH SCH ×2 (07:37→19:02)
[2017-02-12 07:38] LABS: GLUCOSE,RANDOM 415 mg/dL (75-110)
[2017-02-12] MEDS: (Novolog) Insulin Aspart, Recombinant 100 u/ml 10 ml vial SC SCH ×7 (08:28→21:51)
[2017-02-12] MEDS: Mometasone 220 mcg/puff-14 puff Inh IH SCH ×2 (11:15→19:02)
--- NOTE | 2017-02-12 11:25 | CP.PCM.PN ---
Subjective - Date & Time of Evaluation Date of Evaluation: 02/12/17 Time of Evaluation: 11:20 - Subjective Subjective: Patient seen and examined. Sitting comfortably in no acute distress but complaining of dyspnea on minimal activity, laughing, talking Patient concerned about elevated glucose and frequent urination Denies fever or chills, denies chest pain Objective - Vital Signs/Intake and Output Vital Signs (last 24 hours): Temp Pulse Resp BP Pulse Ox 97.6 F 101 H 20 141/90 98 02/12/17 08:07 02/12/17 08:07 02/12/17 08:07 02/12/17 08:07 02/12/17 08:07 Intake and Output: 02/12/17 02/12/17 06:59 18:59 Intake Total 315 Balance 315 - Medications Medications: Current Medications Acetaminophen (Tylenol 325mg Tab) 650 mg PO Q4 PRN PRN Reason: Pain, moderate (4-7) Last Admin: 02/11/17 11:39 Dose: 650 mg Albuterol/Ipratropium (Duoneb 3 Mg/0.5 Mg (3 Ml) Ud) 3 ml INH RQ4 [facility] Last Admin: 02/12/17 11:15 Dose: 3 ml Budesonide (Pulmicort Respules) 0.5 mg INH RQ12 [facility] Last Admin: 02/12/17 07:37 Dose: Not Given Famotidine (Pepcid) 20 mg PO BID [facility] Last Admin: 02/12/17 09:57 Dose: Not Given Glipizide (Glucotrol Xl) 10 mg PO ACBD [facility] Insulin Aspart (Novolog) 0 unit SC ACHS [facility] PRN Reason: Protocol Last Admin: 02/12/17 08:28 Dose: 5 unit Insulin Aspart (Novolog) 20 unit SC AC [facility] Last Admin: 02/12/17 08:28 Dose: 20 unit Insulin Glargine (Lantus) 44 unit SC HS [facility] Last Admin: 02/11/17 21:38 Dose: 44 units Levothyroxine Sodium (Synthroid) 400 mcg PO DAILY@0630 [facility] Last Admin: 02/12/17 06:30 Dose: 400 mcg Metformin HCl (Glucophage) 1,000 mg PO BID [facility] Last Admin: 02/12/17 09:57 Dose: Not Given Methylprednisolone (Solu-Medrol) 20 mg IVP Q8 [facility] Last Admin: 02/12/17 06:32 Dose: 20 mg Mometasone Furoate (Asmanex Twisthaler 220 Mcg) 2 puff IH RQ12 [facility] Last Admin: 02/12/17 11:15 Dose: Not Given Montelukast Sodium (Singulair) 10 mg PO HS [facility] Last Admin: 02/11/17 21:43 Dose: 10 mg Rivaroxaban (Xarelto) 20 mg PO DAILY [facility] Last Admin: 02/12/17 10:43 Dose: 20 mg - Labs Labs: 02/12/17 06:51 02/12/17 06:51 PT 11.4 SECONDS (9.7-12.2) 02/05/17 20:57 INR 1.0 02/05/17 20:57 - Head Exam Head Exam: ATRAUMATIC, NORMOCEPHALIC - Eye Exam Eye Exam: Normal appearance - ENT Exam ENT Exam: Mucous Membranes Moist - Neck Exam Neck Exam: Normal Inspection - Respiratory Exam Respiratory Exam: Decreased Breath Sounds - Cardiovascular Exam Cardiovascular Exam: REGULAR RHYTHM - GI/Abdominal Exam GI & Abdominal Exam: Soft, Normal Bowel Sounds - Extremities Exam Extremities Exam: Normal Inspection - Neurological Exam Neurological Exam: Alert, Oriented x3 Assessment and Plan (1) Asthma exacerbation Assessment & Plan: Change IV steroids to by mouth prednisone Continue Singulair nebulizer treatment and inhaled steroids Patient is candidate for monoclonal antibody treatment as outpatient and will need Ige level and allergy test Patient advised to follow-up with his administrative hearing officer Glycemic control Status: Acute (2) Pulmonary emboli Status: Chronic
--- NOTE | 2017-02-12 13:50 | PN ---
DATE: 02/12/2017 ROOM: 351 This is a 41-year-old male with recent uncontrolled type 2 insulin-requiring diabetes, now being foll owed closely for metabolic management because of marked hyperglycemic accelerations with the intercur rent IV steroid therapy as given for management of acute bronchospasm from underlying asthmatic bronc hitis and obstructive sleep apnea. His glycemic levels are fluctuating as noted and the glucose values have ranged from 258-373 and 412 mg/dL. His latest chemistries include a BUN of 25, sodium 133, potassium 4.1, chloride 92, CO2 27 an d glucose 415 as noted. So at this time, we will hold off modifying his basal and bolus insulin regimen to allow for dose equ ilibration and keep him on the same NovoLog given as 20 units subQ t.i.d. before meals as ordered. W e will continue the Lantus given as 44 units subQ at bedtime daily as given. We will titrate increme ntally as indicated to optimize metabolic control. We will obtain serial chemistries and supplement accordingly as needed. Moreover, we will also continue his levothyroxine replacement therapy given a t the higher dose of 400 mcg daily, although may increase the dosing regimen as the remaining of the thyroid preparation has been started in advance. We will obtain serial chemistries and supplement ac cordingly as needed. We will follow. Torrie Leos MD cc: [id number] TT: 02/12/2017 13:50:11 Confirmation # [id number] Dictation # [id number] en
--- NOTE | 2017-02-12 18:08 | CP.PCM.PN ---
<Sandra Kwong - Last Filed: 02/12/17 21:24> Subjective - Date & Time of Evaluation Date of Evaluation: 02/12/17 Time of Evaluation: 10:52 - Subjective Subjective: PGY 1 Medicine Note- Dr. Gutierres's service Patient seen and examined bedside. Patient states that he still has trouble taking in deep breaths. He states that he has spontaneous spasms at any given moment. Patient argumentative and interruptive at times during conversation. Medical management discussed with patient who angrily demanded to know why he would be discharged so soon. Patient agitated over not being able to keep PICC line in place at the appropriate discharge time. It was explained to patient, hospital policy regarding who can and cannot be discharged with PICC lines. Patient denies symptoms other than that associated with dyspnea off and on. Objective - Vital Signs/Intake and Output Vital Signs (last 24 hours): Temp Pulse Resp BP Pulse Ox 98 F 101 H 22 167/81 H 95 02/12/17 15:05 02/12/17 15:05 02/12/17 15:05 02/12/17 15:05 02/12/17 15:05 Intake and Output: 02/12/17 02/12/17 06:59 18:59 Intake Total 315 365 Balance 315 365 - Medications Medications: Current Medications Acetaminophen (Tylenol 325mg Tab) 650 mg PO Q4 PRN PRN Reason: Pain, moderate (4-7) Last Admin: 02/11/17 11:39 Dose: 650 mg Albuterol/Ipratropium (Duoneb 3 Mg/0.5 Mg (3 Ml) Ud) 3 ml INH RQ4 [facility] Last Admin: 02/12/17 16:01 Dose: 3 ml Budesonide (Pulmicort Respules) 0.5 mg INH RQ12 [facility] Last Admin: 02/12/17 07:37 Dose: Not Given Famotidine (Pepcid) 20 mg PO BID [facility] Last Admin: 02/12/17 18:00 Dose: Not Given Glipizide (Glucotrol Xl) 10 mg PO ACBD [facility] Insulin Aspart (Novolog) 0 unit SC ACHS [facility] PRN Reason: Protocol Last Admin: 02/12/17 16:57 Dose: 4 unit Insulin Aspart (Novolog) 20 unit SC AC [facility] Last Admin: 02/12/17 16:50 Dose: 20 unit Insulin Glargine (Lantus) 44 unit SC HS [facility] Last Admin: 02/11/17 21:38 Dose: 44 units Levothyroxine Sodium (Synthroid) 400 mcg PO DAILY@0630 [facility] Last Admin: 02/12/17 06:30 Dose: 400 mcg Metformin HCl (Glucophage) 1,000 mg PO BID [facility] Last Admin: 02/12/17 18:01 Dose: Not Given Mometasone Furoate (Asmanex Twisthaler 220 Mcg) 2 puff IH RQ12 [facility] Last Admin: 02/12/17 11:15 Dose: Not Given Montelukast Sodium (Singulair) 10 mg PO HS [facility] Last Admin: 02/11/17 21:43 Dose: 10 mg Prednisone (Prednisone Tab) 40 mg PO DAILY [facility] Last Admin: 02/12/17 17:56 Dose: 40 mg Rivaroxaban (Xarelto) 20 mg PO DAILY [facility] Last Admin: 02/12/17 10:43 Dose: 20 mg - Labs Labs: 02/12/17 06:51 02/12/17 06:51 PT 11.4 SECONDS (9.7-12.2) 02/05/17 20:57 INR 1.0 02/05/17 20:57 - Constitutional Appears: No Acute Distress - Head Exam Head Exam: ATRAUMATIC, NORMAL INSPECTION, NORMOCEPHALIC - Eye Exam Eye Exam: EOMI, Normal appearance, PERRL - ENT Exam ENT Exam: Mucous Membranes Moist - Neck Exam Neck Exam: Full ROM - Respiratory Exam Respiratory Exam: NORMAL BREATHING PATTERN. absent: Rales, Rhonchi, Wheezes, Respiratory Distress Additional comments: decreased inspiratory effort - Cardiovascular Exam Cardiovascular Exam: +S1, +S2 - GI/Abdominal Exam GI & Abdominal Exam: Soft, Normal Bowel Sounds - Extremities Exam Extremities Exam: Full ROM, Normal Inspection - Back Exam Back Exam: Full ROM - Neurological Exam Neurological Exam: Alert, Awake, Normal Gait, Oriented x3 - Skin Skin Exam: Dry, Intact, Normal Color, Warm Assessment and Plan - Assessment and Plan (Free Text) Assessment: 1) Severe persistent asthma * History of multiple intubations * Patient's asthma uncontrolled by nebulizer treatments * Solumedrol 20mg IV Q 8 hours tapered to Prednisone 40 mg PO daily * Advair 500/50 Q 12hours * Duonebs Q4hour PRN * Mometasone 2 puff inhaled Q 12hours * Consult to Dr. Gauthier (Pulm) - Patient to begin budesonide and singulair and check IgE levels. F/U * Patient is candidate for monoclonal antibody treatment as outpatient and will need Ige level and allergy test and follow up with [employer] 2) Pulmonary Embolus * Xarelto 20mg PO daily 3) Steroid induced diabetes * [id number]: 8.7 * Uncontrolled * Metformin 1000mg PO Bid * Insulin combination modified: Novolog 12 units SC TID before meals; 44 units SC HS. Thyroid studies, Low dose ISS as well. * Poultry Scalder referral for diabetic education regarding diet and exercise. * F/U Dr. Leos recommendations 4) Hypothyroidism * Synthroid 400mcg PO qAM * F/U Endocrinology recommendations 5) Prophylactic measure * Xarelto 20mg PO daily for DVT ppx * Pepcid 20mg PO bid * PICC line- RIGHT upper extremity changed by IR 02/09/17 Discharge planning considerations. <Markel Gutierres - Last Filed: 02/13/17 16:28> Objective - Vital Signs/Intake and Output Vital Signs (last 24 hours): Temp Pulse Resp BP Pulse Ox 97.5 F L 115 H 20 147/101 H 95 02/13/17 08:33 02/13/17 15:55 02/13/17 08:33 02/13/17 08:33 02/13/17 08:33 Intake and Output: 02/13/17 02/13/17 06:59 18:59 Intake Total 240 280 Balance 240 280 - Medications Medications: Current Medications Acetaminophen (Tylenol 325mg Tab) 650 mg PO Q4 PRN PRN Reason: Pain, moderate (4-7) Last Admin: 02/13/17 14:46 Dose: 650 mg Albuterol/Ipratropium (Duoneb 3 Mg/0.5 Mg (3 Ml) Ud) 3 ml INH RQ4 [facility] Last Admin: 02/13/17 15:53 Dose: 3 ml Budesonide (Pulmicort Respules) 0.5 mg INH RQ12 [facility] Last Admin: 02/13/17 09:03 Dose: 0.5 mg Famotidine (Pepcid) 20 mg PO BID [facility] Last Admin: 02/13/17 09:39 Dose: Not Given Glipizide (Glucotrol Xl) 10 mg PO ACBD [facility] Insulin Aspart (Novolog) 0 unit SC ACHS [facility] PRN Reason: Protocol Last Admin: 02/13/17 11:57 Dose: 6 unit Insulin Aspart (Novolog) 24 unit SC AC [facility] Insulin Glargine (Lantus) 50 unit SC HS [facility] Levothyroxine Sodium (Synthroid) 400 mcg PO DAILY@0630 [facility] Last Admin: 02/13/17 06:04 Dose: 400 mcg Metformin HCl (Glucophage) 1,000 mg PO BID [facility] Last Admin: 02/13/17 09:39 Dose: Not Given Mometasone Furoate (Asmanex Twisthaler 220 Mcg) 2 puff IH RQ12 [facility] Last Admin: 02/13/17 10:24 Dose: 2 puff Montelukast Sodium (Singulair) 10 mg PO HS [facility] Last Admin: 02/12/17 21:47 Dose: 10 mg Prednisone (Prednisone Tab) 40 mg PO DAILY [facility] Last Admin: 02/13/17 09:39 Dose: 40 mg Rivaroxaban (Xarelto) 20 mg PO DAILY [facility] Last Admin: 02/13/17 09:39 Dose: 20 mg - Labs Labs: 02/13/17 06:20 02/13/17 06:20 PT 11.4 SECONDS (9.7-12.2) 02/05/17 20:57 INR 1.0 02/05/17 20:57 Attending/Attestation - Attestation I have personally seen and examined this patient.: Yes I have fully participated in the care of the patient.: Yes I have reviewed all pertinent clinical information, including history, physical exam and plan: Yes Notes (Text): 02/13/17 16:22 Patient was seen and examined at bedside with the resident. This is a late computer entry Patient appeared comfortable without any shortness of breath. Patient is ambulating in the hallway all day long. On examination patient has poor inspiratory effort but he is unwilling to take deep breaths. Patient does not have any wheezing on auscultation. He is able to communicate in full sentences. Patient was informed that as per the recommendations of [employer] he will be started on oral prednisone and IV steroids will be stopped Patient became very argumentative and the he wanted to know why he would not be able to stay in the hospital for a much longer period Patient was also informed the PICC line will be removed upon discharge at which patient became very argumentative and stated that he wants to go with a PICC line Patient informed me that he has had this issue at other hospitals also and at one of the hospitals Police was called when he refused the PICC line to be taken out. It was explained to the patient in detail that he cannot be discharged with a PICC line unless it is indicated. I discussed with the pulmonology and patient is stable for starting on oral prednisone and possible discharge if remains stable. I discussed the plan of care with the resident and agree with the above history and physical and assessment/plan by the resident
[2017-02-12] MEDS: (Lantus) Insulin Glargine, Recombinant SC SCH (21:46)
[2017-02-13] MEDS ORDERED: (Novolog) Insulin Aspart, Recombinant 100 u/ml 10 ml vial SC SCH (02:50)
[2017-02-13] MEDS: Albuterol-Ipratrop 3 mg / 0.5 (3 ml) UD INH SCH ×7 (03:17→23:48)
[2017-02-13] MEDS: Levothyroxine 200 MCG TAB PO SCH (06:04)
[2017-02-13 06:42] LABS: BASO % 0.1 % (0.0-2.0); HEMATOCRIT 43.8 % (35.0-51.0); LYMPH # 2.4 K/uL (1.0-4.3); LYMPH % 14.3 % (20.0-40.0); MEAN CELL VOLUME 88.5 fL (80.0-94.0); MEAN CORPUSCULAR HEMOGLOBIN 29.4 pg (27.0-31.0); MEAN CORPUSCULAR HGB CONC 33.2 g/dL (33.0-37.0); MONO % 6.1 % (0.0-10.0); RED CELL DISTRIBUTION WIDTH 14.4 % (11.5-14.5); WHITE BLOOD COUNT 16.5 K/uL (4.8-10.8)
[2017-02-13 07:31] LABS: CHLORIDE 92 mmol/L (98-107); POTASSIUM 4.2 mmol/L (3.6-5.2); SODIUM 133 mmol/L (132-148)
[2017-02-13 07:33] LABS: GFR AFRICAN-AMERICAN > 60
[2017-02-13 07:34] LABS: ALB/GLOB RATIO 1.3 (1.0-2.1); ALKALINE PHOSPHATASE 62 U/L (38-126); ALT/SGPT 26 U/L (21-72); AST/SGOT 20 U/L (17-59); BILIRUBIN,TOTAL 0.7 mg/dL (0.2-1.3); BLOOD UREA NITROGEN 25 mg/dL (9-20); CALCIUM 9.3 mg/dl (8.6-10.4); CARBON DIOXIDE 27 mmol/L (22-30); MAGNESIUM 2.5 mg/dL (1.6-2.3); PHOSPHOROUS 4.8 mg/dL (2.5-4.5); TOTAL PROTEIN 6.8 g/dL (6.3-8.3)
[2017-02-13] MEDS: (Novolog) Insulin Aspart, Recombinant 100 u/ml 10 ml vial SC SCH ×7 (08:14→21:29)
[2017-02-13 08:17] LABS: GLUCOSE,RANDOM 469 mg/dL (75-110)
[2017-02-13] MEDS: Budesonide 0.5 mg/2 ml Inhal Susp UD INH SCH ×2 (09:03→19:17)
[2017-02-13] MEDS: Mometasone 220 mcg/puff-14 puff Inh IH SCH ×2 (10:24→19:17)
--- NOTE | 2017-02-13 13:30 | PN ---
DATE: 02/13/2017 ROOM: 351 This is a 41-year-old male with recent uncontrolled type 2 insulin-requiring diabetes, now being foll owed closely for metabolic management. He was previously on IV steroid therapy and today has been sw itched over to oral steroids with prednisone given as 40 mg once daily as noted. Supervening hypergl ycemic accelerations have been noted and has been given insulin therapy only for inpatient diabetic m anagement. His glucose values today have ranged from 294-301 and 392 mg/dL. His latest chemistry showed a BUN o f 25, sodium 133, potassium 4.2, chloride 92, CO2 27, glucose 469 and creatinine 0.9. So at this time, we will modify once again his basal and bolus insulin regimen and increase the NovoL og to 24 units subQ t.i.d. before meals to start today as ordered. We will also increase the Lantus to 50 units subQ at bedtime daily to start tonight. We will obtain serial chemistries and supplement accordingly as needed. We will repeat the thyroid studies and if he continues to be moderately hypo thyroid, then we will titrate his dose once again to a higher regimen of 475 mcg daily as indicated f or the levothyroxine replacement therapy. We will follow and advise accordingly. Torrie Leos MD cc: [phone] TT: 02/13/2017 13:29:43 Confirmation # [id number] Dictation # [id number] en
[2017-02-13] MEDS: (Lantus) Insulin Glargine, Recombinant SC SCH (21:28)
--- NOTE | 2017-02-13 21:37 | CP.PCM.PN ---
<ElenitaAnavicky - Last Filed: 02/13/17 21:38> Subjective - Date & Time of Evaluation Date of Evaluation: 02/13/17 Time of Evaluation: 11:25 - Subjective Subjective: PGY 1 Medicine Note- Dr. Gutierres's service Patient seen and examined in no acute distress. Patient stated that he was experiencing bronchospasms. Patient was administered duonebs treatment to help facilitate breathing. Patient complained of pain in his side associated with bronchospasms for which he was asked to request pain medication ( tylenol). Patient did not ask until being spoken to by the medical team. Patient continued to complain about not receiving adequate treatment. Patient witnessed walking around the floor continuously all throughout the day. When patient was approached about discharge planning, patient stated that he did not want to leave because he still felt that he needed more therapy. Patient was made aware that medical workup and treatment from a hospital standpoint was complete. Patient refused to be discharged. Patient stated that he was planning on leaving with PICC line. Patient was instructed that he no longer has need for a PICC line; however he adamantly stated that he would end up in another hospital within a matter of 48-72 hours and would need the use of a PICC. Hospital policy was relayed to the patient on at least three occasions regarding criteria for patient being discharged with use of a PICC line. Nurse night supervisor , head nurse, charge nurse and security made aware. Patient refused to allow removal of PICC line. Patient denied any other associated symptoms besides that of bronchospasm. Objective - Vital Signs/Intake and Output Vital Signs (last 24 hours): Temp Pulse Resp BP Pulse Ox 98.4 F 109 H 20 149/85 96 02/13/17 16:00 02/13/17 16:00 02/13/17 16:00 02/13/17 16:00 02/13/17 16:00 Intake and Output: 02/13/17 02/14/17 18:59 06:59 Intake Total 280 Balance 280 - Medications Medications: Current Medications Acetaminophen (Tylenol 325mg Tab) 650 mg PO Q4 PRN PRN Reason: Pain, moderate (4-7) Last Admin: 02/13/17 14:46 Dose: 650 mg Albuterol/Ipratropium (Duoneb 3 Mg/0.5 Mg (3 Ml) Ud) 3 ml INH RQ4 [facility] Last Admin: 02/13/17 19:17 Dose: 3 ml Budesonide (Pulmicort Respules) 0.5 mg INH RQ12 [facility] Last Admin: 02/13/17 19:17 Dose: 0.5 mg Famotidine (Pepcid) 20 mg PO BID [facility] Last Admin: 02/13/17 17:37 Dose: Not Given Glipizide (Glucotrol Xl) 10 mg PO ACBD [facility] Insulin Aspart (Novolog) 0 unit SC ACHS [facility] PRN Reason: Protocol Last Admin: 02/13/17 21:29 Dose: Not Given Insulin Aspart (Novolog) 24 unit SC AC [facility] Last Admin: 02/13/17 17:36 Dose: 24 unit Insulin Glargine (Lantus) 50 unit SC HS [facility] Last Admin: 02/13/17 21:28 Dose: 50 u Levothyroxine Sodium (Synthroid) 400 mcg PO DAILY@0630 [facility] Last Admin: 02/13/17 06:04 Dose: 400 mcg Metformin HCl (Glucophage) 1,000 mg PO BID [facility] Last Admin: 02/13/17 17:37 Dose: Not Given Mometasone Furoate (Asmanex Twisthaler 220 Mcg) 2 puff IH RQ12 [facility] Last Admin: 02/13/17 19:17 Dose: 2 puff Montelukast Sodium (Singulair) 10 mg PO HS [facility] Last Admin: 02/13/17 21:29 Dose: 10 mg Prednisone (Prednisone Tab) 40 mg PO DAILY [facility] Last Admin: 02/13/17 09:39 Dose: 40 mg Rivaroxaban (Xarelto) 20 mg PO DAILY [facility] Last Admin: 02/13/17 09:39 Dose: 20 mg - Labs Labs: 02/13/17 06:20 02/13/17 06:20 PT 11.4 SECONDS (9.7-12.2) 02/05/17 20:57 INR 1.0 02/05/17 20:57 - Constitutional Appears: Non-toxic, No Acute Distress - Head Exam Head Exam: ATRAUMATIC, NORMAL INSPECTION, NORMOCEPHALIC - Eye Exam Eye Exam: EOMI, Normal appearance, PERRL - ENT Exam ENT Exam: Mucous Membranes Moist - Neck Exam Neck Exam: Full ROM - Respiratory Exam Respiratory Exam: NORMAL BREATHING PATTERN. absent: Decreased Breath Sounds, Rales, Rhonchi, Wheezes, Respiratory Distress - Cardiovascular Exam Cardiovascular Exam: +S1, +S2 - GI/Abdominal Exam GI & Abdominal Exam: Soft, Normal Bowel Sounds - Extremities Exam Extremities Exam: Full ROM, Normal Capillary Refill - Neurological Exam Neurological Exam: Alert, Awake, CN II-XII Intact, Oriented x3 - Psychiatric Exam Psychiatric exam: Agitated, Anxious - Skin Skin Exam: Dry, Intact, Normal Color, Warm Assessment and Plan - Assessment and Plan (Free Text) Assessment: 1) Severe persistent asthma * History of multiple intubations * Patient's asthma uncontrolled by nebulizer treatments * Patient currently not symptomatic on examination * Solumedrol 20mg IV Q 8 hours tapered to Prednisone 40 mg PO daily * Advair 500/50 Q 12hours * Duonebs Q4hour PRN * Mometasone 2 puff inhaled Q 12hours * Consult to Dr. Gauthier (Pulm) - Patient to begin budesonide and singulair and check IgE levels. F/U * Patient is candidate for monoclonal antibody treatment as outpatient and will need Ige level and allergy test and follow up with manager benefit * Tylenol PRN for pain relief 2) Pulmonary Embolus * Xarelto 20mg PO daily 3) Steroid induced diabetes * [id number]: 8.7 * Uncontrolled * Metformin 1000mg PO Bid * Insulin combination modified: Novolog 12 units SC TID before meals; 44 units SC HS. Thyroid studies, Low dose ISS as well. * Diamond Merchant referral for diabetic education regarding diet and exercise. * F/U Dr. Leos recommendations 4) Hypothyroidism * Synthroid 400mcg PO qAM * F/U Endocrinology recommendations 5) Prophylactic measure * Xarelto 20mg PO daily for DVT ppx * Pepcid 20mg PO bid * PICC line- RIGHT upper extremity changed by IR 02/09/[address] however patient refusing to leave without PICC line. Nursing night supervisor alerted. <Markel Gutierres - Last Filed: 02/14/17 08:47> Objective - Vital Signs/Intake and Output Vital Signs (last 24 hours): Temp Pulse Resp BP Pulse Ox 98.4 F 72 20 122/76 97 02/14/17 08:14 02/14/17 08:14 02/14/17 08:14 02/14/17 08:14 02/14/17 08:14 - Medications Medications: Current Medications Acetaminophen (Tylenol 325mg Tab) 650 mg PO Q4 PRN PRN Reason: Pain, moderate (4-7) Last Admin: 02/13/17 14:46 Dose: 650 mg Albuterol/Ipratropium (Duoneb 3 Mg/0.5 Mg (3 Ml) Ud) 3 ml INH RQ4 [facility] Last Admin: 02/14/17 08:24 Dose: 3 ml Budesonide (Pulmicort Respules) 0.5 mg INH RQ12 [facility] Last Admin: 02/14/17 08:24 Dose: 0.5 mg Famotidine (Pepcid) 20 mg PO BID [facility] Last Admin: 02/13/17 17:37 Dose: Not Given Glipizide (Glucotrol Xl) 10 mg PO ACBD [facility] Insulin Aspart (Novolog) 0 unit SC ACHS [facility] PRN Reason: Protocol Last Admin: 02/13/17 21:29 Dose: Not Given Insulin Aspart (Novolog) 24 unit SC AC [facility] Last Admin: 02/13/17 17:36 Dose: 24 unit Insulin Glargine (Lantus) 50 unit SC [facility] Last Admin: 02/13/17 21:28 Dose: 50 u Levothyroxine Sodium (Synthroid) 400 mcg PO DAILY@0630 [facility] Last Admin: 02/14/17 05:53 Dose: 400 mcg Metformin HCl (Glucophage) 1,000 mg PO BID [facility] Last Admin: 02/13/17 17:37 Dose: Not Given Mometasone Furoate (Asmanex Twisthaler 220 Mcg) 2 puff IH RQ12 [facility] Last Admin: 02/14/17 08:24 Dose: 2 puff Montelukast Sodium (Singulair) 10 mg PO HS [facility] Last Admin: 02/13/17 21:29 Dose: 10 mg Prednisone (Prednisone Tab) 40 mg PO DAILY [facility] Last Admin: 02/13/17 09:39 Dose: 40 mg Rivaroxaban (Xarelto) 20 mg PO DAILY [facility] Last Admin: 02/13/17 09:39 Dose: 20 mg - Labs Labs: 02/13/17 06:20 02/13/17 06:20 PT 11.4 SECONDS (9.7-12.2) 02/05/17 20:57 INR 1.0 02/05/17 20:57 Assessment and Plan (1) Asthma exacerbation Assessment & Plan: Clinically improving. Patient is on oral prednisone. Patient is on DuoNeb treatment as needed. Patient is ambulating in the hallway without any problems. He is able to speak in full sentences No wheezing on auscultation. Pulmonary signed off. Status: Acute (2) DM2 (diabetes mellitus, type 2) Assessment & Plan: Patient continues to have hyperglycemia. He is noncompliant with his medication. Refuses the some medication. Endocrinology is on board. Status: Chronic (3) Pulmonary emboli Assessment & Plan: Patient is on Xarelto. Status: Chronic - Assessment and Plan (Free Text) Plan: Patient is cleared for discharge. Discharge order was placed. All prescriptions given to the patient. However patient refused to leave because he wants to leave with the PICC line. Patient was counseled that there is no indication to send him home with the PICC line. Security was called because patient was disruptive and refused to take the PICC line out. However patient adamantly refused and did not want anybody to touch him to take the PICC line out. Patient refused to be discharged. Hospital administration notified.
[2017-02-14] MEDS: Albuterol-Ipratrop 3 mg / 0.5 (3 ml) UD INH SCH ×5 (04:45→19:57)
[2017-02-14] MEDS: Levothyroxine 200 MCG TAB PO SCH (05:53)
[2017-02-14] MEDS: Budesonide 0.5 mg/2 ml Inhal Susp UD INH SCH ×2 (08:24→19:57)
[2017-02-14] MEDS: Mometasone 220 mcg/puff-14 puff Inh IH SCH ×2 (08:24→19:55)
--- NOTE | 2017-02-14 09:23 | CP.PCM.PN ---
<RocMartha winchester - Last Filed: 02/14/17 09:48> Subjective - Date & Time of Evaluation Date of Evaluation: 02/14/17 Time of Evaluation: 09:23 - Subjective Subjective: Patient seen and examined at bedside. Per nursing, patient refusing accuchecks. He is requesting accuchecks be done through the PICC line in place. Patient also is refusing all oral agents inclusing Glucophage and Glipizide. Patient states he continues to experience cough and and spasms of his chest upon taking deep breaths. He denies chest andrews. Patient states he is able to ambulate without issue but needs to take short breaths. He is able to talk comfortably at bedside and appears to exaggerate cough when asked to deeply inspire. It was mentioned to the patient that PICC line would need to be removed upon discharge. Patient became quite agitated when subject was discussed and refused to explain why he does not want PICC line removed. Will decrease prednisone dose today. Objective - Vital Signs/Intake and Output Vital Signs (last 24 hours): Temp Pulse Resp BP Pulse Ox 98.4 F 72 20 122/76 97 02/14/17 08:14 02/14/17 08:14 02/14/17 08:14 02/14/17 08:14 02/14/17 08:14 - Medications Medications: Current Medications Acetaminophen (Tylenol 325mg Tab) 650 mg PO Q4 PRN PRN Reason: Pain, moderate (4-7) Last Admin: 02/13/17 14:46 Dose: 650 mg Albuterol/Ipratropium (Duoneb 3 Mg/0.5 Mg (3 Ml) Ud) 3 ml INH RQ4 [facility] Last Admin: 02/14/17 08:24 Dose: 3 ml Budesonide (Pulmicort Respules) 0.5 mg INH RQ12 [facility] Last Admin: 02/14/17 08:24 Dose: 0.5 mg Famotidine (Pepcid) 20 mg PO BID [facility] Last Admin: 02/14/17 09:15 Dose: Not Given Glipizide (Glucotrol Xl) 10 mg PO ACBD [facility] Insulin Aspart (Novolog) 0 unit SC ACHS [facility] PRN Reason: Protocol Last Admin: 02/13/17 21:29 Dose: Not Given Insulin Aspart (Novolog) 24 unit SC AC [facility] Last Admin: 02/13/17 17:36 Dose: 24 unit Insulin Glargine (Lantus) 50 unit SC HS [facility] Last Admin: 02/13/17 21:28 Dose: 50 u Levothyroxine Sodium (Synthroid) 400 mcg PO DAILY@0630 [facility] Last Admin: 02/14/17 05:53 Dose: 400 mcg Metformin HCl (Glucophage) 1,000 mg PO BID [facility] Last Admin: 02/14/17 09:15 Dose: Not Given Mometasone Furoate (Asmanex Twisthaler 220 Mcg) 2 puff IH RQ12 [facility] Last Admin: 02/14/17 08:24 Dose: 2 puff Montelukast Sodium (Singulair) 10 mg PO HS [facility] Last Admin: 02/13/17 21:29 Dose: 10 mg Prednisone (Prednisone Tab) 40 mg PO DAILY [facility] Last Admin: 02/13/17 09:39 Dose: 40 mg Rivaroxaban (Xarelto) 20 mg PO DAILY [facility] Last Admin: 02/13/17 09:39 Dose: 20 mg - Labs Labs: 02/13/17 06:20 02/13/17 06:20 PT 11.4 SECONDS (9.7-12.2) 02/05/17 20:57 INR 1.0 02/05/17 20:57 - Constitutional Appears: Non-toxic, No Acute Distress - Head Exam Head Exam: ATRAUMATIC, NORMAL INSPECTION, NORMOCEPHALIC - Eye Exam Eye Exam: EOMI, Normal appearance - ENT Exam ENT Exam: Mucous Membranes Moist - Neck Exam Neck Exam: Full ROM, Normal Inspection - Respiratory Exam Respiratory Exam: Wheezes. absent: Decreased Breath Sounds Additional comments: mild expiratory wheezing. - Cardiovascular Exam Cardiovascular Exam: Tachycardia, +S1, +S2 - GI/Abdominal Exam GI & Abdominal Exam: Soft, Normal Bowel Sounds. absent: Guarding, Tenderness - Extremities Exam Extremities Exam: Normal Inspection - Neurological Exam Neurological Exam: Alert, Awake, Oriented x3 - Psychiatric Exam Psychiatric exam: Agitated - Skin Skin Exam: Intact, Normal Color Assessment and Plan - Assessment and Plan (Free Text) Assessment: (1) Asthma exacerbation Assessment & Plan: Clinically improved. Patient is ambulating in the hallway without issue and able to speak in full sentences. Minimal expiratory wheeze on examination. Plan to decrease prednisone to 20 mg po daily Continue Duoneb INH RQ4 [facility] for shortness of breath Continue on Pulmicort 0.5 mg INH RQ12 [facility], Asmanez Twisthaler 220 mcg 1 puff IH RQ12 [facility], and Singulair 10 mg po HS [facility] Pulmonology, Dr. Gauthier, signed off case. Will continue to monitor Status: Acute (2) DM2 (diabetes mellitus, type 2) Assessment & Plan: Most recent blood sugar 286 (02/13/17 at 21:13) Patient refusing accuchecks and requesting they be performed through PICC line. Patient also refusing Glucophage. Novolog 24 unit SC AC [facility] unable to be administered Also on Novolog sliding scale, Lantus 50 U SC HS, Glipizide 10 mg po ACBD, and Glucophage 1000 mg po BID [facility] Status: Chronic (3) Pulmonary emboli Assessment & Plan: Patient is on Xarelto 20 mg po daily. Status: Chronic (4) Prophylaxis On Xarelto Pepcid 20 mg po BID (5) Dispo Patient medically stable for discharge. Prescriptions in the chart. Patient refusing to leave as he wants to be discharged with PICC line. Patient continues to become agitated when PICC line issue is discussed. Instructed nursing to document if patient giving issues. <Willie Garcia - Last Filed: 02/14/17 11:01> Objective - Vital Signs/Intake and Output Vital Signs (last 24 hours): Temp Pulse Resp BP Pulse Ox 98.4 F 72 20 122/76 97 02/14/17 08:14 02/14/17 08:14 02/14/17 08:14 02/14/17 08:14 02/14/17 08:14 - Medications Medications: Current Medications Acetaminophen (Tylenol 325mg Tab) 650 mg PO Q4 PRN PRN Reason: Pain, moderate (4-7) Last Admin: 02/13/17 14:46 Dose: 650 mg Albuterol/Ipratropium (Duoneb 3 Mg/0.5 Mg (3 Ml) Ud) 3 ml INH RQ4 [facility] Last Admin: 02/14/17 08:24 Dose: 3 ml Budesonide (Pulmicort Respules) 0.5 mg INH RQ12 [facility] Last Admin: 02/14/17 08:24 Dose: 0.5 mg Famotidine (Pepcid) 20 mg PO BID [facility] Last Admin: 02/14/17 09:15 Dose: Not Given Glipizide (Glucotrol Xl) 10 mg PO ACBD [facility] Insulin Aspart (Novolog) 0 unit SC ACHS [facility] PRN Reason: Protocol Last Admin: 02/13/17 21:29 Dose: Not Given Insulin Aspart (Novolog) 24 unit SC AC [facility] Last Admin: 02/13/17 17:36 Dose: 24 unit Insulin Glargine (Lantus) 50 unit SC HS [facility] Last Admin: 02/13/17 21:28 Dose: 50 u Levothyroxine Sodium (Synthroid) 400 mcg PO DAILY@0630 [facility] Last Admin: 02/14/17 05:53 Dose: 400 mcg Metformin HCl (Glucophage) 1,000 mg PO BID [facility] Last Admin: 02/14/17 09:15 Dose: Not Given Mometasone Furoate (Asmanex Twisthaler 220 Mcg) 2 puff IH RQ12 [facility] Last Admin: 02/14/17 08:24 Dose: 2 puff Montelukast Sodium (Singulair) 10 mg PO [facility] Last Admin: 02/13/17 21:29 Dose: 10 mg Prednisone (Prednisone Tab) 40 mg PO DAILY [facility] Last Admin: 02/14/17 09:28 Dose: 40 mg Rivaroxaban (Xarelto) 20 mg PO DAILY [facility] Last Admin: 02/14/17 09:28 Dose: 20 mg - Labs Labs: 02/13/17 06:20 02/13/17 06:20 PT 11.4 SECONDS (9.7-12.2) 02/05/17 20:57 INR 1.0 02/05/17 20:57 Attending/Attestation - Attestation I have personally seen and examined this patient.: Yes I have fully participated in the care of the patient.: Yes I have reviewed all pertinent clinical information, including history, physical exam and plan: Yes Notes (Text): 02/14/17 10:54 Medical Attending: Patient was seen and examined by me. I saw the patient with the emergency medical service manager. The patient was on his lab top computer watching a movie. He did not appear to be in any acute distress when we walked into the room and as we began talking and discussing he started to have coughing and reported he did not feel well. On exam he was not wheezing and he was moving air very well. Per my understanding the patient has been observed walking on the floor without any problems. Patient reports he is also walking and doing ok. From what I am being told, the patient is refusing lab work and refusing most medications except for prednisone PO as well as his anticoagulation. There is concern with reguard to the PICC - line - the patient is not allowing for the removal of the PICC line. He wants to leave WITH the PICC line and previously we explained that it would not be safe to leave with the PICC line. Currently he is not on any IV medications, he is not allowing lab draws. He wants the PICC left in and is refusing to leave. I explained to the patient that this is very concerning. Patient explained he was very frustrated with this as it has been an issue raised up before and he didn't want to talk more about it. Because this is a weekend and I am not here tommorow will not further discuss the issue today. He is NOT in any acute distress when I saw him. Not wheezing and appears very stable on exam. He wanted to watch his movie on his laptop. Will need advise of case workers. Also need help of psychiatrist as well. thank you Willie Garcia
[2017-02-14] MEDS: (Novolog) Insulin Aspart, Recombinant 100 u/ml 10 ml vial SC SCH ×6 (12:26→21:40)
--- NOTE | 2017-02-14 12:42 | PN ---
DATE: 02/14/2017 ROOM: 351. SUBJECTIVE: This is a 41-year-old male with recent uncontrolled type 2 insulin-requiring diabetes no w being followed closely for metabolic management. His glycemic levels are fluctuating, but much imp roved at this time and the latest chemistries showed a BUN of 25, sodium 133, potassium 4.2, chloride 92, CO2 27, glucose 469 and creatinine 0.9. His glucose values today have ranged from 172-286 mg/dL . So at this time, we will continue the same modified basal and bolus insulin regimen as the patient has been taken off IV steroid therapy and switched over to prednisone given as 40 mg once daily as o rdered. We will continue his Lantus given at 50 units subQ at bedtime daily as given. We will also continue the NovoLog given as 24 units subQ t.i.d. before meals as ordered. We will titrate incremen tally as indicated to optimize metabolic control. We will follow. Torrie Leos MD cc: [id number] TT: 02/14/2017 12:42:02 Confirmation # [id number] Dictation # [id number]
[2017-02-14] MEDS: (Lantus) Insulin Glargine, Recombinant SC SCH (21:39)
[2017-02-15] MEDS: Albuterol-Ipratrop 3 mg / 0.5 (3 ml) UD INH SCH ×6 (00:35→19:40)
--- NOTE | 2017-02-15 05:03 | CP.PCM.PN ---
<Ayad Garcia - Last Filed: 02/15/17 04:59> Subjective - Date & Time of Evaluation Date of Evaluation: 02/15/17 Time of Evaluation: 04:59 - Subjective Subjective: PGY-1 Medicine Progress Note for Dr. Gutierres/ Patient seen and examined at bedside. Patient refusing accuchecks and all oral medications. Patient continues to complain of cough. Patient likes to exaggerate cough during exam. PICC line will need to be removed upon discharge but patient becomes agitated when discussing this issue. ROS limited due to cooperation from patient. Objective - Vital Signs/Intake and Output Vital Signs (last 24 hours): Temp Pulse Resp BP Pulse Ox 98.1 F 109 H 20 106/69 96 02/15/17 00:00 02/15/17 00:00 02/15/17 00:00 02/15/17 00:00 02/15/17 00:00 Intake and Output: 02/14/17 02/15/17 18:59 06:59 Intake Total 500 Balance 500 - Medications Medications: Current Medications Acetaminophen (Tylenol 325mg Tab) 650 mg PO Q4 PRN PRN Reason: Pain, moderate (4-7) Last Admin: 02/13/17 14:46 Dose: 650 mg Albuterol/Ipratropium (Duoneb 3 Mg/0.5 Mg (3 Ml) Ud) 3 ml INH RQ4 [facility] Last Admin: 02/15/17 04:18 Dose: Not Given Budesonide (Pulmicort Respules) 0.5 mg INH RQ12 [facility] Last Admin: 02/14/17 19:57 Dose: 0.5 mg Famotidine (Pepcid) 20 mg PO BID [facility] Last Admin: 02/14/17 17:45 Dose: Not Given Glipizide (Glucotrol Xl) 10 mg PO ACBD [facility] Insulin Aspart (Novolog) 0 unit SC ACHS [facility] PRN Reason: Protocol Last Admin: 02/14/17 21:40 Dose: Not Given Insulin Aspart (Novolog) 24 unit SC AC [facility] Last Admin: 02/14/17 17:10 Dose: Not Given Insulin Glargine (Lantus) 50 unit SC HS [facility] Last Admin: 02/14/17 21:39 Dose: Not Given Levothyroxine Sodium (Synthroid) 400 mcg PO DAILY@0630 [facility] Last Admin: 02/14/17 05:53 Dose: 400 mcg Metformin HCl (Glucophage) 1,000 mg PO BID [facility] Last Admin: 02/14/17 17:45 Dose: Not Given Mometasone Furoate (Asmanex Twisthaler 220 Mcg) 2 puff IH RQ12 [facility] Last Admin: 02/14/17 19:55 Dose: 2 puff Montelukast Sodium (Singulair) 10 mg PO [facility] Last Admin: 02/14/17 21:35 Dose: 10 mg Prednisone (Prednisone Tab) 40 mg PO DAILY [facility] Last Admin: 02/14/17 09:28 Dose: 40 mg Rivaroxaban (Xarelto) 20 mg PO DAILY [facility] Last Admin: 02/14/17 09:28 Dose: 20 mg - Labs Labs: 02/13/17 06:20 02/13/17 06:20 PT 11.4 SECONDS (9.7-12.2) 02/05/17 20:57 INR 1.0 02/05/17 20:57 - Constitutional Appears: No Acute Distress - Head Exam Head Exam: ATRAUMATIC, NORMOCEPHALIC - Eye Exam Eye Exam: EOMI, Normal appearance Pupil Exam: PERRL - ENT Exam ENT Exam: Mucous Membranes Moist - Neck Exam Neck Exam: Normal Inspection - Respiratory Exam Respiratory Exam: Wheezes, NORMAL BREATHING PATTERN - Cardiovascular Exam Cardiovascular Exam: Tachycardia, +S1, +S2 - GI/Abdominal Exam GI & Abdominal Exam: Soft, Normal Bowel Sounds. absent: Tenderness - Extremities Exam Extremities Exam: Normal Inspection - Back Exam Back Exam: absent: CVA tenderness (L), CVA tenderness (R) - Neurological Exam Neurological Exam: Alert, Awake, Oriented x3 - Psychiatric Exam Psychiatric exam: Agitated - Skin Skin Exam: Dry, Intact, Warm Assessment and Plan - Assessment and Plan (Free Text) Plan: (1) Asthma exacerbation Assessment & Plan: Clinically improved. Patient is ambulating in the hallway without issue and able to speak in full sentences. Minimal expiratory wheeze on examination. Plan to decrease prednisone to 20 mg po daily Continue Duoneb INH RQ4 [facility] for shortness of breath Continue on Pulmicort 0.5 mg INH RQ12 [facility], Asmanez Twisthaler 220 mcg 1 puff IH RQ12 [facility], and Singulair 10 mg po [facility] Pulmonology, Dr. Gauthier, signed off case. Will continue to monitor (2) DM2 (diabetes mellitus, type 2) Assessment & Plan: Most recent blood sugar 286 (02/13/17 at 21:13) Patient refusing accuchecks and requesting they be performed through PICC line. Patient also refusing Glucophage. Novolog 24 unit SC AC [facility] unable to be administered Also on Novolog sliding scale, Lantus 50 U SC HS, Glipizide 10 mg po ACBD, and Glucophage 1000 mg po BID [facility] (3) Pulmonary emboli Assessment & Plan: Patient is on Xarelto 20 mg po daily. (4) Prophylaxis On Xarelto Pepcid 20 mg po BID Disposition Patient medically stable for discharge. Prescriptions in the chart. Patient refusing to leave as he wants to be discharged with PICC line. Patient continues to become agitated when PICC line issue is discussed. Instructed nursing to document if patient giving issues. <Tara Montanez V - Last Filed: 02/15/17 14:47> Objective - Vital Signs/Intake and Output Vital Signs (last 24 hours): Temp Pulse Resp BP Pulse Ox 97.8 F 108 H 20 153/92 H 98 02/15/17 08:00 02/15/17 08:00 02/15/17 08:00 02/15/17 08:00 02/15/17 08:00 Intake and Output: 02/15/17 02/15/17 06:59 18:59 Intake Total 500 Balance 500 - Medications Medications: Current Medications Acetaminophen (Tylenol 325mg Tab) 650 mg PO Q4 PRN PRN Reason: Pain, moderate (4-7) Last Admin: 02/13/17 14:46 Dose: 650 mg Albuterol/Ipratropium (Duoneb 3 Mg/0.5 Mg (3 Ml) Ud) 3 ml INH RQ4 [facility] Last Admin: 02/15/17 12:56 Dose: 3 ml Budesonide (Pulmicort Respules) 0.5 mg INH RQ12 [facility] Last Admin: 02/15/17 08:46 Dose: 0.5 mg Famotidine (Pepcid) 20 mg PO BID [facility] Last Admin: 02/15/17 09:19 Dose: Not Given Glipizide (Glucotrol Xl) 10 mg PO ACBD [facility] Insulin Aspart (Novolog) 0 unit SC ACHS [facility] PRN Reason: Protocol Last Admin: 02/15/17 12:26 Dose: Not Given Insulin Aspart (Novolog) 24 unit SC AC [facility] Last Admin: 02/15/17 12:26 Dose: Not Given Insulin Glargine (Lantus) 50 unit SC HS [facility] Last Admin: 02/14/17 21:39 Dose: Not Given Levothyroxine Sodium (Synthroid) 400 mcg PO DAILY@0630 [facility] Last Admin: 02/15/17 06:32 Dose: 400 mcg Metformin HCl (Glucophage) 1,000 mg PO BID [facility] Last Admin: 02/15/17 09:19 Dose: Not Given Mometasone Furoate (Asmanex Twisthaler 220 Mcg) 2 puff IH RQ12 [facility] Last Admin: 02/15/17 08:46 Dose: 2 puff Montelukast Sodium (Singulair) 10 mg PO HS [facility] Last Admin: 02/14/17 21:35 Dose: 10 mg Prednisone (Prednisone Tab) 40 mg PO DAILY [facility] Stop: 02/16/17 23:59 Last Admin: 02/15/17 12:21 Dose: 40 mg - Labs Labs: 02/13/17 06:20 02/15/17 06:52 PT 11.4 SECONDS (9.7-12.2) 02/05/17 20:57 INR 1.0 02/05/17 20:57 Attending/Attestation - Attestation I have personally seen and examined this patient.: Yes I have fully participated in the care of the patient.: Yes I have reviewed all pertinent clinical information, including history, physical exam and plan: Yes Notes (Text): Patient seen, examined, and case discussed with day-time resident. Patient seen this morning. Patient is quite comfortable at bedside. I had a madeleine discussion with the patient this morning regarding his asthma, pulmonary embolus, diabetes, and hypothyroidism as well as his PICC line. Discussed with patient, that if he continues to keep the PICC line in spite of not needing it, he poses risks to himself including bacteremia, sepsis, and clots and those clots dislodging and spreading to other parts of the body. He reports understanding that risk. He reports "I need to protect myself. I know my body. When I leave the hospital, I will come back in 24-36 hours because of my asthma." I discussed with him, he is currently on PO steroid and he is much stabilized compared to my last meeting with him last Thursday. Essence also explained to him if we can try to make his outpatient pulmonary appointment such that he feels comfortable leaving the hospital, he permits us to do so in order to remove the PICC. I have specifically told him, he cannot leave with the PICC line. I have also explained to the patient, regardless on how he believes he has gotten diabetes "I am not born with it", I explained to him we need to treat him as a diabetic and there are risk factors associated including immunocomprised, stroke, heart attack, kidney failure, neuropathy, and blindness and he is has a strong associated given his obesity, family hx, and needing IV steroids. Patient has showed me the bottle which he takes a Invokana with Metfomin combination and with Januvia. In terms of his asthma, I have also clearly stated to him, as per pulmonary he is stable for discharge, but he may need a medication called omalizumab and further allergy testing as outpatient. Patient understands. Will follow-up with his pulm (Dr. Ryder) to see if possible to obtain pulm appointment for outpatient. Patient reports he will permit us to remove PICC line if he has an appointment in hand. 1) Status Asthmaticus Severe persistent asthma * History of multiple intubations * Patient's asthma uncontrolled by nebulizer treatments * Solumedrol 20mg IV Q 8 hours * Increase Advair 500/50 Q 12hours * Duonebs 3ml Q4hour lennie * Pulmicort 0.5mg inhaled Q 12hours * Momentsone 2 puff inhaled Q 12hours * Transferred out from ICU, 02/07/17 * Dr. Gauthier (pulm) on board-->help appreciated * Start Claritin 10mg PO daily * Prednisone 40mg PO daily (active since 02/12-02/16) 2) Pulmonary Embolus * Xarelto 20mg PO daily 3) Steroid induced diabetes * [id number]: 8.7 * Uncontrolled * Metformin 1000mg PO Bid * Novolog 24 units subq AC * Novolog sliding scale * Lantus 50 units subqHS * Patient refuses to have accuechecks QAC and HS; he does not want to have finger pricks for blood; will allow for after lunch and after dinner to adjust his levemir * [employer] referral * Patient does not believe he has diabetes. Believes it is all due to steroids. 4) Hypothyroidism * Synthroid 400mcg PO qAM * TSH elevated 5) Prophylactic measure * Xarelto 20mg PO daily for DVT ppx * Pepcid 20mg PO bid for gi ppx * PICC line- RIGHT upper extremity (prior hx of cocaine use- patient inappropriate for port consideration) Disposition: * Patient has been uncooperative during hospitalization. * Patient has been formally discharged since 02/13/17. * Patient will not permit us to remove PICC from right upper extremity; in- spite of discussing risks associated with PICC line to the point in which secruity had to be involved. * Patient cannot leave with PICC line. Will attempt to schedule pulm appointment outpatient.
[2017-02-15] MEDS: Levothyroxine 200 MCG TAB PO SCH (06:32)
[2017-02-15 07:17] LABS: CHLORIDE 92 mmol/L (98-107); SODIUM 134 mmol/L (132-148)
[2017-02-15 07:18] LABS: POTASSIUM 4.3 mmol/L (3.6-5.2)
[2017-02-15 07:20] LABS: ALB/GLOB RATIO 1.3 (1.0-2.1); ALKALINE PHOSPHATASE 68 U/L (38-126); AST/SGOT 17 U/L (17-59); BILIRUBIN,TOTAL 0.7 mg/dL (0.2-1.3); BLOOD UREA NITROGEN 23 mg/dL (9-20); CARBON DIOXIDE 31 mmol/L (22-30); GFR AFRICAN-AMERICAN > 60; TOTAL PROTEIN 7.3 g/dL (6.3-8.3)
[2017-02-15 07:21] LABS: ALT/SGPT 31 U/L (21-72); CALCIUM 9.1 mg/dl (8.6-10.4); GLUCOSE,RANDOM 397 mg/dL (75-110)
[2017-02-15 07:35] LABS: T4 9.19 ug/dL (5.5-11.0)
[2017-02-15] MEDS: (Novolog) Insulin Aspart, Recombinant 100 u/ml 10 ml vial SC SCH ×7 (08:20→21:42)
[2017-02-15] MEDS: Mometasone 220 mcg/puff-14 puff Inh IH SCH ×2 (08:46→19:40)
[2017-02-15] MEDS: Budesonide 0.5 mg/2 ml Inhal Susp UD INH SCH ×2 (08:46→19:40)
--- NOTE | 2017-02-15 10:59 | PN ---
DATE: 02/15/2017 ENDO FOLLOWUP NOTE ROOM: 351. SUBJECTIVE: This is a 41-year-old male with recent uncontrolled type 2 insulin-requiring diabetes re lated to the intercurrent IV steroid therapy, which has since then been switched to oral steroids, an d is now being followed closely for metabolic management. The patient also has been extremely uncoop erative and belligerent in terms of adherence to the prescribed insulin regimen in the hospital. He actually has been refusing the insulin therapy despite the hyperglycemic fluctuations related to the transient surge from the steroid therapy as given. LABORATORY DATA: His glucose values have ranged from 286-344 mg/dL. The latest chemistry showed a B UN of 23, sodium 134, potassium 4.3, chloride 92, CO2 of 31, glucose 397, and creatinine 0.9. So, at this time, we will hold off the insulin dose modifications, as the patient actually has been u ncooperative with insulin dosing regimen as recommended. We will continue the NovoLog given as 24 un its a.c. meals as ordered with Lantus given at 50 units subQ at bedtime daily as given. We will resu me his oral hypoglycemic therapy on the outpatient as his glycemic levels improve accordingly. We wi ll follow. Torrie Leos MD cc: [id number] TT: 02/15/2017 10:59:07 Confirmation # [id number] Dictation # [id number]
[2017-02-15] MEDS: (Lantus) Insulin Glargine, Recombinant SC SCH (21:41)
[2017-02-16] MEDS: Albuterol-Ipratrop 3 mg / 0.5 (3 ml) UD INH SCH ×7 (01:20→23:51)
[2017-02-16] MEDS ORDERED: DiphenhydrAMINE 12.5 mg/5 ml LIQ UD (5 ml) PO STA (03:36)
[2017-02-16] MEDS: Levothyroxine 200 MCG TAB PO SCH (06:06)
[2017-02-16] MEDS: (Novolog) Insulin Aspart, Recombinant 100 u/ml 10 ml vial SC SCH ×7 (08:05→23:21)
[2017-02-16] MEDS: Mometasone 220 mcg/puff-14 puff Inh IH SCH ×2 (11:20→19:13)
[2017-02-16] MEDS: Budesonide 0.5 mg/2 ml Inhal Susp UD INH SCH ×2 (11:20→19:11)
--- NOTE | 2017-02-16 11:47 | CP.PCM.PN ---
<Martha Faulkner - Last Filed: 02/16/17 18:48> Subjective - Date & Time of Evaluation Date of Evaluation: 02/16/17 Time of Evaluation: 11:47 - Subjective Subjective: Patient seen and examined at bedside. Patient reports swelling and discomfort to his left ear and throat. He states it is significantly tender when pressure is applied and reports throbbing pain. Patient admits to discomfort with eating solid food. He is tolerating liquid fine. He denies fever and chills but is concerned due to his clinical presentation. Patient is able to speak in full sentences without difficulty. He denies chest pain, shortness of breath, wheezing, abdominal pain, nausea, vomiting, and lower extremity edema. Objective - Vital Signs/Intake and Output Vital Signs (last 24 hours): Temp Pulse Resp BP Pulse Ox 98.3 F 89 20 133/93 H 100 02/16/17 00:00 02/16/17 00:00 02/16/17 00:00 02/16/17 00:00 02/16/17 00:00 Intake and Output: 02/16/17 02/16/17 06:59 18:59 Intake Total 450 Balance 450 - Medications Medications: Current Medications Acetaminophen (Tylenol 325mg Tab) 650 mg PO Q4 PRN PRN Reason: Pain, moderate (4-7) Last Admin: 02/15/17 20:27 Dose: 650 mg Albuterol/Ipratropium (Duoneb 3 Mg/0.5 Mg (3 Ml) Ud) 3 ml INH RQ4 ALON Last Admin: 02/16/17 11:20 Dose: 3 ml Budesonide (Pulmicort Respules) 0.5 mg INH RQ12 ALON Last Admin: 02/16/17 11:20 Dose: 0.5 mg Famotidine (Pepcid) 20 mg PO BID ALON Last Admin: 02/16/17 10:53 Dose: Not Given Glipizide (Glucotrol Xl) 10 mg PO ACBD ALON Insulin Aspart (Novolog) 0 unit SC ACHS ALON PRN Reason: Protocol Last Admin: 02/16/17 11:15 Dose: 4 unit Insulin Aspart (Novolog) 24 unit SC AC ALON Last Admin: 02/16/17 11:15 Dose: 24 unit Insulin Glargine (Lantus) 50 unit SC HS [facility] Last Admin: 02/15/17 21:41 Dose: Not Given Levothyroxine Sodium (Synthroid) 400 mcg PO DAILY@0630 [facility] Last Admin: 02/16/17 06:06 Dose: 400 mcg Loratadine (Claritin) 10 mg PO DAILY [facility] Last Admin: 02/16/17 10:53 Dose: 10 mg Metformin HCl (Glucophage) 1,000 mg PO BID [facility] Last Admin: 02/16/17 10:53 Dose: Not Given Mometasone Furoate (Asmanex Twisthaler 220 Mcg) 2 puff IH RQ12 [facility] Last Admin: 02/16/17 11:20 Dose: 2 puff Montelukast Sodium (Singulair) 10 mg PO HS [facility] Last Admin: 02/15/17 21:38 Dose: 10 mg Prednisone (Prednisone Tab) 40 mg PO DAILY [facility] Stop: 02/16/17 23:59 Last Admin: 02/16/17 10:54 Dose: 40 mg Rivaroxaban (Xarelto) 20 mg PO DAILY [facility] Last Admin: 02/16/17 11:02 Dose: 20 mg - Labs Labs: 02/13/17 06:20 02/15/17 06:52 PT 11.4 SECONDS (9.7-12.2) 02/05/17 20:57 INR 1.0 02/05/17 20:57 - Constitutional Appears: Non-toxic, No Acute Distress - Head Exam Head Exam: ATRAUMATIC, NORMAL INSPECTION, NORMOCEPHALIC - Eye Exam Eye Exam: EOMI, Normal appearance, PERRL - ENT Exam ENT Exam: Mucous Membranes Moist - Neck Exam Neck Exam: Lymphadenopathy, Tenderness Additional comments: significant tender lymphadenopathy to left submandibular region - Respiratory Exam Respiratory Exam: Clear to Ausculation Bilateral, NORMAL BREATHING PATTERN. absent: Rales, Rhonchi, Wheezes - Cardiovascular Exam Cardiovascular Exam: +S1, +S2. absent: Tachycardia - GI/Abdominal Exam GI & Abdominal Exam: Soft, Normal Bowel Sounds. absent: Tenderness - Extremities Exam Extremities Exam: Normal Inspection. absent: Pedal Edema, Tenderness - Back Exam Back Exam: NORMAL INSPECTION - Neurological Exam Neurological Exam: Alert, Awake, Oriented x3 - Psychiatric Exam Psychiatric exam: Normal Affect, Normal Mood - Skin Skin Exam: Intact, Normal Color, Warm Assessment and Plan - Assessment and Plan (Free Text) Assessment: (1) Asthma exacerbation Clinically improved. Patient is ambulating in the hallway without issue and able to speak in full sentences. Minimal expiratory wheeze on examination. Started Claritin 10 mg po daily Prednisone to 20 mg po daily (started on 02/14). Patient was on Prednisone 40 mg po daily (started on 02/12) Continue Duoneb INH RQ4 ALON for shortness of breath Continue on Pulmicort 0.5 mg INH RQ12 ALON, Asmanez Twisthaler 220 mcg 1 puff IH RQ12 [facility], and Singulair 10 mg po HS [facility] Pulmonology, Dr. Gauthier, signed off case. Will continue to monitor (2) DM2 (diabetes mellitus, type 2) Most recent blood sugar 297 Patient refusing accuchecks and requesting they be performed through PICC line. Patient also refusing Glucophage. Novolog 24 unit SC AC ALON unable to be administered On Novolog sliding scale, Lantus 60U SC HS, Novolog 30 unit SC AC, Glipizide 10 mg po ACBD, and Glucophage 1000 mg po BID ALON Patient believes diabetes is secondary to steroids Carpet Repairer referral (3) Hypothyroidism TSH 40.40 Discussed with Lighting Technician consulted, Dr. Leos, who knows patient well. Recommended Synthroid 475 mcg po AM. (4) Painful Lymphadenopathy Leukocytosis of 12.0, LDH 494, CRP elevated to 10.41, ESR 15 Started on Zosyn 3.375 gm IVPB Q6H Start Cepachol lozenges PRN Consulted ENT, Dr. Matta, to assess patient f/u Soft Tissue Neck CT (5) Pulmonary emboli Patient is on Xarelto 20 mg po daily. (6) Prophylaxis On Xarelto Pepcid 20 mg po BID Disposition Uncooperative patient throughout hospitalization. Patient agreeable to leave when medically stable. Follow-up appointment with Credit Verification Clerk, Dr. Ryder scheduled for February 23 at 2: 15 PM. <Tara Montanez V - Last Filed: 05/18/17 20:29> Objective - Vital Signs/Intake and Output Vital Signs (last 24 hours): Temp Pulse Resp BP Pulse Ox 98 F 100 H 21 134/85 96 02/16/17 17:34 02/16/17 17:34 02/16/17 17:34 02/16/17 17:34 02/16/17 17:34 - Medications Medications: Current Medications Acetaminophen (Tylenol 325mg Tab) 650 mg PO Q4 PRN PRN Reason: Pain, moderate (4-7) Last Admin: 02/16/17 17:25 Dose: 650 mg Albuterol/Ipratropium (Duoneb 3 Mg/0.5 Mg (3 Ml) Ud) 3 ml INH RQ4 [facility] Last Admin: 02/16/17 19:10 Dose: 3 ml Benzocaine/Menthol (Cepacol Sore Throat) 1 brad MT Q6H PRN PRN Reason: Sore Throat Budesonide (Pulmicort Respules) 0.5 mg INH RQ12 [facility] Last Admin: 02/16/17 19:11 Dose: 0.5 mg Famotidine (Pepcid) 20 mg PO BID [facility] Last Admin: 02/16/17 19:31 Dose: Not Given Glipizide (Glucotrol Xl) 10 mg PO ACBD [facility] Piperacillin Sod/Tazobactam (Sod 3.375 gm/ Sodium Chloride) 100 mls @ 200 mls/ hr IVPB Q6 [facility] Last Admin: 02/16/17 19:31 Dose: 200 mls/hr Insulin Aspart (Novolog) 0 unit SC ACHS [facility] PRN Reason: Protocol Last Admin: 02/16/17 18:12 Dose: 6 unit Insulin Aspart (Novolog) 30 unit SC AC [facility] Last Admin: 02/16/17 18:13 Dose: 30 unit Insulin Glargine (Lantus) 60 unit SC [facility] Levothyroxine Sodium (Synthroid) 400 mcg PO DAILY@0630 [facility] Levothyroxine Sodium (Synthroid) 75 mcg PO DAILY@0630 [facility] Loratadine (Claritin) 10 mg PO DAILY [facility] Last Admin: 02/16/17 10:53 Dose: 10 mg Metformin HCl (Glucophage) 1,000 mg PO BID [facility] Last Admin: 02/16/17 19:31 Dose: Not Given Mometasone Furoate (Asmanex Twisthaler 220 Mcg) 2 puff IH RQ12 [facility] Last Admin: 02/16/17 19:13 Dose: 2 puff Montelukast Sodium (Singulair) 10 mg PO HS [facility] Last Admin: 02/15/17 21:38 Dose: 10 mg Prednisone (Prednisone Tab) 40 mg PO DAILY [facility] Stop: 02/16/17 23:59 Last Admin: 02/16/17 10:54 Dose: 40 mg Rivaroxaban (Xarelto) 20 mg PO DAILY [facility] Last Admin: 02/16/17 11:02 Dose: 20 mg - Labs Labs: 02/16/17 11:45 02/16/17 11:45 PT 11.4 SECONDS (9.7-12.2) 02/05/17 20:57 INR 1.0 02/05/17 20:57 Attending/Attestation - Attestation I have personally seen and examined this patient.: Yes I have fully participated in the care of the patient.: Yes I have reviewed all pertinent clinical information, including history, physical exam and plan: Yes Notes (Text): This is a late computer entry for 02/16/17. Patient seen, examined, and case discussed with day-time resident. Discussed and agree with the assessment/plan by the resident. Patient noting painful lymphadenopathy on exam. ENT consult. Ordered for imaging CT neck and started on IV abx. Patient has pulmonary appointment setup for discharge planning. Assessment/Plan (1) Asthma exacerbation (2) DM2 (diabetes mellitus, type 2) (3) Hypothyroidism (4) Painful Lymphadenopathy (5) Pulmonary emboli
[2017-02-16 13:17] LABS: BASO % 0.3 % (0.0-2.0); EOS # 0.2 K/uL (0.0-0.7); EOS % 1.4 % (0.0-4.0); HEMATOCRIT 46.2 % (35.0-51.0); LYMPH # 3.6 K/uL (1.0-4.3); LYMPH % 29.9 % (20.0-40.0); MEAN CELL VOLUME 87.6 fL (80.0-94.0); MEAN CORPUSCULAR HEMOGLOBIN 29.1 pg (27.0-31.0); MEAN CORPUSCULAR HGB CONC 33.2 g/dL (33.0-37.0); MONO # 0.7 K/uL (0.0-0.8); MONO % 6.2 % (0.0-10.0)
[2017-02-16 13:28] LABS: CHLORIDE 93 mmol/L (98-107)
[2017-02-16 13:29] LABS: POTASSIUM 4.1 mmol/L (3.6-5.2); SODIUM 133 mmol/L (132-148)
[2017-02-16 13:31] LABS: ALB/GLOB RATIO 1.2 (1.0-2.1); ALKALINE PHOSPHATASE 71 U/L (38-126); AST/SGOT 20 U/L (17-59); BILIRUBIN,TOTAL 0.8 mg/dL (0.2-1.3); BLOOD UREA NITROGEN 24 mg/dL (9-20); CARBON DIOXIDE 27 mmol/L (22-30); GFR AFRICAN-AMERICAN > 60; TOTAL PROTEIN 7.5 g/dL (6.3-8.3)
[2017-02-16 13:32] LABS: ALT/SGPT 26 U/L (21-72); CALCIUM 8.8 mg/dl (8.6-10.4); GLUCOSE,RANDOM 366 mg/dL (75-110)
[2017-02-16] MEDS: Piperacillin/Tazobact 3.375 GM in Sodium Chloride 100 ML IVPB SCH ×2 (13:55→19:31)
[2017-02-16] MEDS ORDERED: Iodixanol 320 MG/ML 100 ML BOTTLE IV ONE (16:18)
[2017-02-16] MEDS: (Lantus) Insulin Glargine, Recombinant SC SCH (23:20)
[2017-02-17] MEDS: Piperacillin/Tazobact 3.375 GM in Sodium Chloride 100 ML IVPB SCH ×4 (00:15→18:00)
[2017-02-17] MEDS: Albuterol-Ipratrop 3 mg / 0.5 (3 ml) UD INH SCH ×5 (03:08→20:29)
[2017-02-17] MEDS: Levothyroxine 75 MCG TAB PO SCH (06:30)
[2017-02-17] MEDS: Levothyroxine 200 MCG TAB PO SCH (06:30)
[2017-02-17] MEDS: (Novolog) Insulin Aspart, Recombinant 100 u/ml 10 ml vial SC SCH ×7 (08:11→22:00)
[2017-02-17] MEDS: Mometasone 220 mcg/puff-14 puff Inh IH SCH ×2 (08:32→20:28)
[2017-02-17] MEDS: Budesonide 0.5 mg/2 ml Inhal Susp UD INH SCH ×2 (08:33→20:29)
--- NOTE | 2017-02-17 09:12 | CP.PCM.PN ---
Addendum entered and electronically signed by Phuc Egan DO 02/17/17 18:23 : spoke with Dr. Disla who states there is no evidence of swelling on CT and is likely sinusitis. Pt. can go home on appropriate antibiotics. Original Note: <LucieMartha - Last Filed: 02/17/17 16:31> Subjective - Date & Time of Evaluation Date of Evaluation: 02/17/17 Time of Evaluation: 09:09 - Subjective Subjective: Patient seen and examined at bedside. He continues to complain of throbbing pain to his left mandible. Patient states he can only tolerate eating soft foods. He states his breathing is comfortable and denies shortness of breath. Patient also complains of right sided chest pain exacerbated with raising his right arm where PICC line is placed. He denies fever, chills, weakness, abdominal pain, nausea, vomiting, diarrhea, and constipation. Patient states he is ambulating well. He is agreeable to have PICC line discontinued following his last dose of IV antibiotics. Objective - Vital Signs/Intake and Output Vital Signs (last 24 hours): Temp Pulse Resp BP Pulse Ox 97.9 F 80 20 139/82 98 02/17/17 07:37 02/17/17 07:37 02/17/17 07:37 02/17/17 07:37 02/17/17 07:37 Intake and Output: 02/17/17 02/17/17 06:59 18:59 Intake Total 600 Balance 600 - Medications Medications: Current Medications Acetaminophen (Tylenol 325mg Tab) 650 mg PO Q4 PRN PRN Reason: Pain, moderate (4-7) Last Admin: 02/16/17 17:25 Dose: 650 mg Albuterol/Ipratropium (Duoneb 3 Mg/0.5 Mg (3 Ml) Ud) 3 ml INH RQ4 ALON Last Admin: 02/17/17 08:33 Dose: 3 ml Benzocaine/Menthol (Cepacol Sore Throat) 1 brad MT Q6H PRN PRN Reason: Sore Throat Budesonide (Pulmicort Respules) 0.5 mg INH RQ12 [facility] Last Admin: 02/17/17 08:33 Dose: 0.5 mg Famotidine (Pepcid) 20 mg PO BID [facility] Last Admin: 02/16/17 19:31 Dose: Not Given Glipizide (Glucotrol Xl) 10 mg PO ACBD [facility] Piperacillin Sod/Tazobactam (Sod 3.375 gm/ Sodium Chloride) 100 mls @ 200 mls/ hr IVPB Q6 [facility] Last Admin: 02/17/17 05:00 Dose: 200 mls/hr Insulin Aspart (Novolog) 0 unit SC ACHS [facility] PRN Reason: Protocol Last Admin: 02/17/17 08:11 Dose: 3 unit Insulin Aspart (Novolog) 30 unit SC AC [facility] Last Admin: 02/17/17 08:13 Dose: 30 unit Insulin Glargine (Lantus) 60 unit SC [facility] Last Admin: 02/16/17 23:20 Dose: 60 u Levothyroxine Sodium (Synthroid) 400 mcg PO DAILY@0630 [facility] Last Admin: 02/17/17 06:30 Dose: 400 mcg Levothyroxine Sodium (Synthroid) 75 mcg PO DAILY@0630 [facility] Last Admin: 02/17/17 06:30 Dose: 75 mcg Loratadine (Claritin) 10 mg PO DAILY [facility] Last Admin: 02/16/17 10:53 Dose: 10 mg Metformin HCl (Glucophage) 1,000 mg PO BID [facility] Last Admin: 02/16/17 19:31 Dose: Not Given Mometasone Furoate (Asmanex Twisthaler 220 Mcg) 2 puff IH RQ12 [facility] Last Admin: 02/17/17 08:32 Dose: 2 puff Montelukast Sodium (Singulair) 10 mg PO [facility] Last Admin: 02/16/17 22:52 Dose: 10 mg Rivaroxaban (Xarelto) 20 mg PO DAILY [facility] Last Admin: 02/16/17 11:02 Dose: 20 mg - Labs Labs: 02/16/17 11:45 02/16/17 11:45 PT 11.4 SECONDS (9.7-12.2) 02/05/17 20:57 INR 1.0 02/05/17 20:57 - Constitutional Appears: Non-toxic, No Acute Distress - Head Exam Head Exam: ATRAUMATIC, NORMAL INSPECTION, NORMOCEPHALIC - Eye Exam Eye Exam: EOMI, Normal appearance - ENT Exam ENT Exam: Mucous Membranes Moist - Neck Exam Additional comments: fullness noted to left mandible, no nodularity noted, tender to palpation. - Respiratory Exam Respiratory Exam: Clear to Ausculation Bilateral, NORMAL BREATHING PATTERN. absent: Rales, Rhonchi, Wheezes - Cardiovascular Exam Cardiovascular Exam: +S1, +S2. absent: Tachycardia - GI/Abdominal Exam GI & Abdominal Exam: Soft, Normal Bowel Sounds. absent: Tenderness - Extremities Exam Extremities Exam: Normal Inspection. absent: Pedal Edema, Tenderness - Neurological Exam Neurological Exam: Alert, Awake, Oriented x3 - Psychiatric Exam Psychiatric exam: Normal Affect, Normal Mood - Skin Skin Exam: Intact, Normal Color Assessment and Plan - Assessment and Plan (Free Text) Assessment: (1) Asthma exacerbation Clinically improved. Patient is ambulating in the hallway without issue and able to speak in full sentences. Minimal expiratory wheeze on examination. Started Claritin 10 mg po daily Prednisone to 20 mg po daily (started on 02/14). Patient was on Prednisone 40 mg po daily (started on 02/12) Continue Duoneb INH RQ4 [facility]ON for shortness of breath Continue on Pulmicort 0.5 mg INH RQ12 [facility], Asmanez Twisthaler 220 mcg 1 puff IH RQ12 [facility], and Singulair 10 mg po HS [facility] Pulmonology, Dr. Gauthier, signed off case. Will continue to monitor (2) Uncontrolled DM2 (diabetes mellitus, type 2) Related to intercurrent IV steroid therapy Most recent blood sugar 246 Patient refusing accuchecks and requesting they be performed through PICC line. Patient also refusing Glucophage. Continue Novolog 30 unit SC AC ALON and Lantus 60 U SC HS Hold oral agents Glipizide 10 mg po ACBD and Glucophage 1000 mg po BID ALON. Will restart as outpatient Patient believes diabetes is secondary to steroids Storage Worker referral (3) Hypothyroidism TSH 40.40 Discussed with Poultry Farmer Meat consulted, Dr. Leos, who knows patient well. Recommended Synthroid 475 mcg po AM. Consider PET Scan as outpatient as patient has history of thyroid cancer (4) Painful Lymphadenopathy Afebrile. Leukocytosis of 16.2 LDH 494, CRP elevated to 10.41, ESR 15 (02/16) Started on Zosyn 3.375 gm IVPB Q6H Start Cepachol lozenges PRN Consulted ENT, Dr. Matta, to assess patient Soft Tissue Neck CT - Thpo-dj-tqhddlvo symmetrical enlargement of the palatine tonsils without evidence of phlegmon or abscess formation. Mild diffuse mucosal thickening and enhancement seen in the nasopharynx. Mild thickening of the retropharyngeal soft tissue without evidence of fluid collection/abscess. Almost complete opacification of the right maxillary sinus and partial opacification of the right ethmoid. No evidence of mass lesion or significant lymphadenopathy in the neck. (5) Pulmonary emboli Patient is on Xarelto 20 mg po daily. (6) Right Chest Pain STAT EKG - sinus tachycardia rte of 116 STAT RAFY - negative CXR: Right PICC line with tip extending to the cavoatrial junction. Mild venous congestion. Right hilar prominence. discontinue PICC line after last dose of antibiotics (7) Prophylaxis On Xarelto Pepcid 20 mg po BID Disposition Uncooperative patient throughout hospitalization. Patient agreeable to leave when medically stable. Follow-up appointment with Hot Metal Mixer Operator, Dr. Ryder scheduled for February 23 at 2: 15 PM. <Alberto Alfaro - Last Filed: 03/20/17 10:20> Objective - Vital Signs/Intake and Output Vital Signs (last 24 hours): Temp Pulse Resp BP Pulse Ox 97.1 F L 98 H 21 150/90 96 02/18/17 15:15 02/18/17 15:15 02/18/17 15:15 02/18/17 15:15 02/18/17 15:15 - Labs Labs: 02/17/17 12:10 02/17/17 12:10 PT 11.4 SECONDS (9.7-12.2) 02/05/17 20:57 INR 1.0 02/05/17 20:57 Attending/Attestation - Attestation I have personally seen and examined this patient.: Yes I have fully participated in the care of the patient.: Yes I have reviewed all pertinent clinical information, including history, physical exam and plan: Yes Notes (Text): Patient seen and examined with the resident. Agree with the resident's evaluation, assessment and plan. Asthma exacerbation Uncontrolled DM2 (diabetes mellitus, type 2) Sinusitis
[2017-02-17] MEDS: Benzocaine/Menthol (Cepacol) Lozenge MT PRN (10:03)
--- NOTE | 2017-02-17 12:06 | CT ---
PROCEDURE: CT NECK WITH CONTRAST HISTORY: neck swelling COMPARISON: None TECHNIQUE: CT of the neck with intravenous contrast. Coronal and sagittal reformats generated. Intravenous contrast dose: 100 mL of Visipaque 320 Radiation dose: DLP 550.4 mGy-cm This CT exam was performed using one or more of the following dose reduction techniques: Automated exposure control, adjustment of the mA and/or kV according to patient size, and/or use of iterative reconstruction technique. FINDINGS: NASOPHARYNX: Mild thickening of the posterior wall of the nasopharynx is noted. SUPRAHYOID NECK: Ugmp-bv-dpnslhww symmetrical enlargement of the tonsils. Mild thickening of the retropharyngeal soft tissue associated with mild edema. No evidence of discrete abscess formation. Mild mucosal thickening and enhancement of the oropharynx. INFRAHYOID NECK: Mild diffuse mucosal thickening of the larynx, hypopharynx, and supraglottic space. Vocal cords intact. MASS: No evidence of discrete mass or abscess formation. GLANDS: Parotid and submandibular glands unremarkable. Normal size thyroid gland, without nodule. LYMPH NODES: Normal. No lymphadenopathy. CERVICAL SPINE: No fracture or focal lesion. VASCULAR STRUCTURES: Unremarkable. OTHER FINDINGS: There is almost complete opacification of the right mastoid and mucosal thickening of the right ethmoid sinuses. IMPRESSION: Vxui-xd-jmgrrwom symmetrical enlargement of the palatine tonsils without evidence of phlegmon or abscess formation. Mild diffuse mucosal thickening and enhancement seen in the nasopharynx. Correlate clinically for infectious process. Mild thickening of the retropharyngeal soft tissue without evidence of fluid collection/abscess. Almost complete opacification of the right maxillary sinus and partial opacification of the right ethmoid. Correlate clinically for sinusitis. No evidence of mass lesion or significant lymphadenopathy in the neck. Preliminary report was submitted by virtual Radiology.
--- NOTE | 2017-02-17 12:08 | CON ---
DATE: 02/17/2017 REASON FOR CONSULTATION: Left neck pain. HISTORY OF PRESENT ILLNESS: This is a 41-year-old male who complains of a multiple day history of le ft neck pain with edema, is constant, moderate in intensity with some dysphagia. PAST MEDICAL HISTORY: As noted in the chart by me. MEDICATIONS: As noted on the chart by me. The pain is constant. PHYSICAL EXAMINATION: EXTERNAL NOSE AND EARS: No masses, no lesions, no erythema, no edema. INTERNAL NOSE: Deviated septum. No masses, no lesions, no erythema, no edema. HEAD: Atraumatic, normocephalic. FACE: Good facial movements bilaterally. CONSTITUTIONAL: Well developed, well nourished. COMMUNICATION: Communicates very appropriately. ORAL CAVITY AND OROPHARYNX: No masses, no lesions, no erythema, no edema. LIPS AND GUMS: No masses, no lesions, no erythema, no edema. NECK: Supple, no edema palpated. The patient has pain behind the angle of the mandible on the left . He states that his face is swollen; however, I cannot palpate any difference between the left face and the right face as far as swelling goes and no overlying erythema. LYMPH NODES: No lymphadenopathy of the neck. THYROID: No thyromegaly, no goiter. ASSESSMENT: 1. Neck pain. 2. Deviated septum. PLAN: The patient had a CAT scan, awaiting the CAT scan results to see if there is any pathology in the neck on the CAT scan. Luis Alberto Matta MD cc: [id number] TT: 02/17/2017 12:08:38 Confirmation # [id number] Dictation # [id number]
[2017-02-17 12:17] LABS: BASO # 0.1 K/uL (0.0-0.2); BASO % 0.7 % (0.0-2.0); EOS # 0.2 K/uL (0.0-0.7); HEMATOCRIT 45.1 % (35.0-51.0); LYMPH % 18.3 % (20.0-40.0); MEAN CELL VOLUME 87.3 fL (80.0-94.0); MEAN CORPUSCULAR HEMOGLOBIN 29.3 pg (27.0-31.0); MEAN CORPUSCULAR HGB CONC 33.5 g/dL (33.0-37.0); MEAN PLATELET VOLUME 8.8 fL (7.2-11.7); MONO # 1.1 K/uL (0.0-0.8); MONO % 6.8 % (0.0-10.0); RED CELL DISTRIBUTION WIDTH 14.2 % (11.5-14.5); WHITE BLOOD COUNT 16.2 K/uL (4.8-10.8)
[2017-02-17 12:25] LABS: CHLORIDE 96 mmol/L (98-107); SODIUM 134 mmol/L (132-148)
[2017-02-17 12:28] LABS: ALB/GLOB RATIO 1.3 (1.0-2.1); ALKALINE PHOSPHATASE 64 U/L (38-126); ALT/SGPT 33 U/L (21-72); AST/SGOT 19 U/L (17-59); BILIRUBIN,TOTAL 0.7 mg/dL (0.2-1.3); BLOOD UREA NITROGEN 20 mg/dL (9-20); CARBON DIOXIDE 27 mmol/L (22-30); GFR AFRICAN-AMERICAN > 60; GLUCOSE,RANDOM 305 mg/dL (75-110); TOTAL PROTEIN 7.5 g/dL (6.3-8.3)
[2017-02-17 12:29] LABS: CALCIUM 8.9 mg/dl (8.6-10.4)
[2017-02-17] MEDS ORDERED: Dexamethasone 4 mg/1 ml IV ONE (14:31)
--- NOTE | 2017-02-17 15:11 | RAD ---
HISTORY: PICC line placement COMPARISON: 02/08/2017 FINDINGS: LUNGS: Right PICC line with tip extending to the cavoatrial junction. Mild venous congestion. Right hilar prominence. PLEURA: No significant pleural effusion identified, no pneumothorax apparent. CARDIOVASCULAR: Normal. OSSEOUS STRUCTURES: No significant abnormalities. VISUALIZED UPPER ABDOMEN: Normal. OTHER FINDINGS: None. IMPRESSION: Right PICC line with tip extending to the cavoatrial junction. Mild venous congestion. Right hilar prominence.
[2017-02-17] MEDS ORDERED: Albuterol-Ipratrop 3 mg / 0.5 (3 ml) UD INH STA (15:15)
--- NOTE | 2017-02-17 15:27 | PN ---
DATE: 02/17/2017 ROOM: 351 This is a 41-year-old male with recent uncontrolled type 2 insulin-requiring diabetes, now being leon la for asthmatic bronchitis with IV steroid therapy and expected hyperglycemic accelerations as note d thereof. 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 He continues to have persistent hypothyroidism and recent dose adjustments hav e been undertaken for his levothyroxine replacement therapy. His latest chemistries showed a BUN of 20, sodium 134, potassium 4.0, chloride 96, CO2 27, glucose 30 5 and creatinine 0.8. His glucose levels have ranged from 246-297 mg/dL. So at this time, will continue the same basal and bolus insulin regimen as given with Lantus given at the modified dose of 60 units subQ at bedtime daily as ordered. Will continue the NovoLog given as 30 units subQ t.i.d. before meals as given. He also has modified levothyroxine dosing at 475 mcg onc e every morning as given and ordered. Will continue the low-dose correction scale using NovoLog insu viral as given. His IV steroids actually have been discontinued at this time and should expect near no rmalization of his glycemic fluctuations over the next few days as noted. Will follow and advise acc ordingly. ADDENDUM: Actually the patient does not use any insulin therapy at home and actually uses a dual ora l hypoglycemic drug combination as mentioned in the previous progress note. So will obtain serial ch emistries and supplement accordingly as needed. Will follow. Torrie Leos MD cc: [id number] TT: 02/17/2017 15:27:21 Confirmation # [id number] Dictation # [id number] roselia
--- NOTE | 2017-02-17 19:30 | OP ---
PROCEDURE DATE: 02/17/2017 PREOPERATIVE DIAGNOSIS: Sinusitis. POSTOPERATIVE DIAGNOSIS: Sinusitis. PROCEDURE: Nasal endoscopy. SIGNIFICANT FINDINGS: Pus noted coming from the right middle meatus. DESCRIPTION OF PROCEDURE: The patient was placed in a seated position. The nose was decongested using Afrin. The scope was inserted in the right and left nasal cavity, passed along the inferior and middle meatus on both sides. Yellow discharge was noted coming from the right middle meatus. There is erythema and edema of the tissue on the right. No masses or lesions were noted. The scope was removed. The patient tolerated procedure well. Luis Alberto Matta MD cc: [id number] TT: 02/17/2017 19:29:47 nelson ORTIZ
[2017-02-17] MEDS: (Lantus) Insulin Glargine, Recombinant SC SCH (22:00)
[2017-02-18] MEDS: Piperacillin/Tazobact 3.375 GM in Sodium Chloride 100 ML IVPB SCH ×3 (00:06→13:05)
[2017-02-18] MEDS: Albuterol-Ipratrop 3 mg / 0.5 (3 ml) UD INH SCH ×4 (00:53→11:27)
[2017-02-18] MEDS: Benzocaine/Menthol (Cepacol) Lozenge MT PRN (04:52)
[2017-02-18] MEDS: Levothyroxine 200 MCG TAB PO SCH (05:30)
[2017-02-18] MEDS: Levothyroxine 75 MCG TAB PO SCH (05:30)
[2017-02-18] MEDS: (Novolog) Insulin Aspart, Recombinant 100 u/ml 10 ml vial SC SCH ×4 (09:30→12:51)
--- NOTE | 2017-02-18 10:50 | CARD ---
APPROVED REPORT EKG Measurement Heart [id number] <Conclusion> Sinus tachycardia Nonspecific T wave abnormality Abnormal ECG
[2017-02-18] MEDS: Mometasone 220 mcg/puff-14 puff Inh IH SCH (11:23)
[2017-02-18] MEDS: Budesonide 0.5 mg/2 ml Inhal Susp UD INH SCH (11:26)
--- NOTE | 2017-02-18 15:31 | PN ---
DATE: 02/18/2017 ROOM: 351. SUBJECTIVE: This is a 41-year-old male with recent uncontrolled type 2 insulin-requiring diabetes, p resenting here with acute exacerbation of COPD and asthmatic bronchitis and was started on IV steroid therapy and has since then been taken off steroids at this time. He also has significant history of surgical hypothyroidism related to a prior total thyroidectomy and radioactive iodine ablation for m anagement of thyroid carcinoma. He remains clinically and biochemically hypothyroid at this time and the latest thyroid study showed a T4 of 9.19 with a TSH of 40.40. The latest chemistries showed a B UN of 20, sodium 134, potassium 4.0, chloride 96, CO2 27, glucose 305 and creatinine 0.8. So, at thi s time, we will continue the same basal and bolus insulin regimen to allow for dose equilibration and keep him on the Lantus taken as 60 units subQ at bedtime daily as ordered. We will continue the Nov oLog given as 30 units subQ t.i.d. before meals as given. We will titrate incrementally as indicated to optimize metabolic control. We will follow. Torrie Leos MD cc: [id number] TT: 02/18/2017 15:30:49 Confirmation # [id number] Dictation # [id number] nelson
[2017-02-18 16:48] VITALS: BP 150/90; PULSE 98; RESP 21; TEMP 97.1; O2SAT 96
--- NOTE | 2017-02-18 20:58 | CP.PCM.DIS ---
<Martha Faulkner - Last Filed: 02/18/17 21:12> Provider - Provider Date of Admission: 02/05/17 22:19 Attending physician: Markel Gutierres MD Consults: Endocrinology: Dr. Leos Interventional Radiology: Dr. Solis ENT: Dr. Matta Pulmonology: Dr. Gauthier Time Spent in preparation of Discharge (in minutes): 31 Diagnosis - Discharge Diagnosis (1) Asthma exacerbation Status: Acute Priority: High (2) Asthma with status asthmaticus Status: Acute (3) Respiratory failure Status: Acute (4) DM2 (diabetes mellitus, type 2) Status: Chronic (5) Hypothyroidism Status: Chronic (6) Pulmonary emboli Status: Chronic Hospital Course - Lab Results Lab Results: Micro Results 02/07/17 20:20 Naris MRSA Culture - Final MRSA NOT DETECTED 02/05/17 22:43 Nose MRSA Culture (Admit) - Final MRSA NOT DETECTED Most Recent Lab Values WBC 16.2 K/uL (4.8-10.8) H 02/17/17 12:10 RBC 5.17 Mil/uL (4.40-5.90) 02/17/17 12:10 Hgb 15.1 g/dL (12.0-18.0) 02/17/17 12:10 Hct 45.1 % (35.0-51.0) 02/17/17 12:10 MCV 87.3 fL (80.0-94.0) 02/17/17 12:10 MCH 29.3 pg (27.0-31.0) 02/17/17 12:10 MCHC 33.5 g/dL (33.0-37.0) 02/17/17 12:10 RDW 14.2 % (11.5-14.5) 02/17/17 12:10 Plt Count 249 K/uL (130-400) 02/17/17 12:10 MPV 8.8 fL (7.2-11.7) 02/17/17 12:10 Neut % (Auto) 73.2 % (50.0-75.0) 02/17/17 12:10 Lymph % (Auto) 18.3 % (20.0-40.0) L 02/17/17 12:10 [place] % (Auto) 6.8 % (0.0-10.0) 02/17/17 12:10 Eos % (Auto) 1.0 % (0.0-4.0) 02/17/17 12:10 Baso % (Auto) 0.7 % (0.0-2.0) 02/17/17 12:10 Neut # 11.8 K/uL (1.8-7.0) H 02/17/17 12:10 Lymph # 3.0 K/uL (1.0-4.3) 02/17/17 12:10 [place] # 1.1 K/uL (0.0-0.8) H 02/17/17 12:10 Eos # 0.2 K/uL (0.0-0.7) 02/17/17 12:10 Baso # 0.1 K/uL (0.0-0.2) 02/17/17 12:10 Neutrophils % (Manual) 87 % (50-75) H 02/07/17 09:38 Lymphocytes % (Manual) 9 % (20-40) L 02/07/17 09:38 Monocytes % (Manual) 4 % (0-10) 02/07/17 09:38 Platelet Estimate Normal (NORMAL) 02/07/17 09:38 Large Platelets Present 02/07/17 09:38 RBC Morphology Normal 02/06/17 13:00 ESR 15 mm/hr (0-15) 02/16/17 11:45 PT 11.4 SECONDS (9.7-12.2) 02/05/17 20:57 INR 1.0 02/05/17 20:57 pO2 111 mm/Hg (30-55) H 02/05/17 21:50 VBG pH 7.43 (7.32-7.43) 02/05/17 21:50 VBG pCO2 38 mmHg (40-60) L 02/05/17 21:50 VBG HCO3 25.7 mmol/L 02/05/17 21:50 VBG Total CO2 26.4 mmol/L (22-28) 02/05/17 21:50 VBG O2 Sat (Calc) 98.2 % (40-65) H 02/05/17 21:50 VBG Base Excess 1.0 mmol/L (0.0-2.0) 02/05/17 21:50 VBG Potassium 3.4 mmol/L (3.6-5.2) L 02/05/17 21:50 Sodium 136.0 mmol/l (132-148) 02/05/17 21:50 Chloride 104.0 mmol/L (98-107) 02/05/17 21:50 Glucose 201 mg/dl (75-110) H 02/05/17 21:50 Lactate 1.9 mmol/L (0.7-2.1) 02/05/17 21:50 FiO2 21.0 % 02/05/17 21:50 Sodium 134 mmol/L (132-148) 02/17/17 12:10 Potassium 4.0 mmol/L (3.6-5.2) 02/17/17 12:10 Chloride 96 mmol/L (98-107) L 02/17/17 12:10 Carbon Dioxide 27 mmol/L (22-30) 02/17/17 12:10 Anion Gap 15 (10-20) 02/17/17 12:10 BUN 20 mg/dL (9-20) 02/17/17 12:10 Creatinine 0.8 MG/DL (0.8-1.5) 02/17/17 12:10 Est GFR ( Amer) > 60 02/17/17 12:10 Est GFR (Non-Af Amer) > 60 02/17/17 12:10 POC Glucose (mg/dL) 297 mg/dL (65-110) H 02/17/17 11:58 Random Glucose 305 mg/dL (75-110) H 02/17/17 12:10 Hemoglobin A1c 8.3 % (4.2-6.5) H 02/06/17 13:00 Calcium 8.9 mg/dl (8.6-10.4) 02/17/17 12:10 Phosphorus 4.8 mg/dL (2.5-4.5) H 02/13/17 06:20 Magnesium 2.5 mg/dL (1.6-2.3) H 02/13/17 06:20 Total Bilirubin 0.7 mg/dL (0.2-1.3) 02/17/17 12:10 AST 19 U/L (17-59) 02/17/17 12:10 ALT 33 U/L (21-72) 02/17/17 12:10 Alkaline Phosphatase 64 U/L (38-126) 02/17/17 12:10 Lactate Dehydrogenase 494 U/L (313-618) 02/16/17 11:45 Total Creatine Kinase 29 U/L (55-170) L 02/17/17 14:44 CK-MB (Mass) < 0.22 ng/mL (0.0-3.38) 02/17/17 14:44 Troponin I, Quant < 0.0120 ng/mL (0.00-0.120) 02/17/17 14:44 C-React Prot High Sens 10.41 mg/L (1.00-3.00) H 02/16/17 11:45 Total Protein 7.5 g/dL (6.3-8.3) 02/17/17 12:10 Albumin 4.2 g/dL (3.5-5.0) 02/17/17 12:10 Globulin 3.3 gm/dL (2.2-3.9) 02/17/17 12:10 Albumin/Globulin Ratio 1.3 (1.0-2.1) 02/17/17 12:10 Triglycerides 136 mg/dL (0-149) 02/11/17 06:30 Cholesterol 218 mg/dL (0-199) H 02/11/17 06:30 LDL Cholesterol Direct 121 mg/dL (0-129) 02/11/17 06:30 HDL Cholesterol 69 mg/dL (30-70) 02/11/17 06:30 Free T4 1.11 ng/dL (0.78-2.19) 02/10/17 11:45 Thyroxine (T4) 9.19 ug/dL (5.5-11.0) 02/15/17 06:52 Total T3 1.05 nmol/L (1.49-2.60) L 02/10/17 07:10 Thyroglobulin, Quant <0.1 ng/mL (2.8-40.9) L 02/11/17 06:30 TSH 3rd Generation 40.40 mIU/L (0.46-4.68) H 02/15/17 06:52 Venous Blood Potassium 3.4 mmol/L (3.6-5.2) L 02/05/17 21:50 IgE 38 kU/L (<dh=677) 02/11/17 13:45 Thyroglobulin Antibody <1 IU/mL (< OR = 1) 02/11/17 06:30 - Hospital Course Hospital Course: On initial presentation: 41 with asthma, ? thyroid malignancy, presented with progressive dyspnea, impending respiratory failure, multiple intubation in the past, advised the ICU team, the pt should be transfered to the hospitalist, was admitted under my name by mistake, will be transferred as per protocol Hospital course was complicated due to patient being difficult and refusing proper care. Hospital Day 1 - ICU: Pt found sitting up in chair without Bipap attached. Pt reports breathing greatly improved from last night. It should be noted pt has been very difficult with staff. Last night he refused bipap, cannula on presentation. During the day he refused blood draws and accuchecks. Pt admits to not taking diabetes medications for 6 months. He will be restarted on Metformin, with accuchecks Q4H. He denies shortness of breath, chest pain, abdominal, nausea, or vomiting. Patient was transferred out of ICU on 02/07/17. Hospital Day 2 - Patient was refusing any drips at this time, and he was refusing also today blood works. After multiple discussions with the patient he agreed to have a PICC line. Urgent PICC line was done on the right forearm, but there was some problem in positioning the PICC line in mid chest. With the use of positioning device the PICC line was not able to advance to be on the midchest region. But the PICC line was left in place, and a good blood return noted, chest x-ray ordered Hospital Day 5 - Patient agitated over malfunctioning PICC line. He states that the line stopped functioning whereupon the nursing team was unable to draw blood or flush the line. Patient was reassured that the matter would be looked into and settled. Patient still having difficultly taking in deep breaths. Patient has a cough associated with taking in deep breaths. Patient admits to shortness of breath at rest and with activity. PICC line was changed by IR. Hospital Day 8 - Patient states that he still has trouble taking in deep breaths. He states that he has spontaneous spasms at any given moment. Patient argumentative and interruptive at times during conversation. Medical management discussed with patient who angrily demanded to know why he would be discharged so soon. Patient agitated over not being able to keep PICC line in place at the appropriate discharge time. It was explained to patient, hospital policy regarding who can and cannot be discharged with PICC lines. Patient denies symptoms other than that associated with dyspnea off and on. Hospital Day 9 - When patient was approached about discharge planning, patient stated that he did not want to leave because he still felt that he needed more therapy. Patient was made aware that medical workup and treatment from a hospital standpoint was complete. Patient refused to be discharged. Patient stated that he was planning on leaving with PICC line. Patient was instructed that he no longer has need for a PICC line; however he adamantly stated that he would end up in another hospital within a matter of 48-72 hours and would need the use of a PICC. Hospital policy was relayed to the patient on at least three occasions regarding criteria for patient being discharged with use of a PICC line. Nurse retail chain store area supervisor, head nurse, charge nurse and security made aware. Patient refused to allow removal of PICC line. Hospital Day 10 - Patient seen and examined at bedside. Per nursing, patient refusing accuchecks. He is requesting accuchecks be done through the PICC line in place. Patient also is refusing all oral agents inclusing Glucophage and Glipizide. Patient states he continues to experience cough and and spasms of his chest upon taking deep breaths. He denies chest andrews. Patient states he is able to ambulate without issue but needs to take short breaths. He is able to talk comfortably at bedside and appears to exaggerate cough when asked to deeply inspire. It was mentioned to the patient that PICC line would need to be removed upon discharge. Patient became quite agitated when subject was discussed and refused to explain why he does not want PICC line removed. Will decrease prednisone dose today. Hospital Day 11 - Patient is agreeable to have PICC line removed once a follow- up appointment is made with his engine service repairer, Dr. Jerry Ryder. Asthma exacerbation Patient has a history of 5 prior intubations CXR (02/05/17): mild venous congestion. Right hilar prominence. (see full report) 02 sat: 98% on Room Air Admitted to ICU. He was started on Duonebs Q4H, Solu-medrol IV (tapered slowly), Advair 250/[address] of home Symbicort, and restarted on home medicine Asmanex 220mcg 2 puff Q12H. Patient eventually was taken off IV steroids and started on oral prednisone taper. Patient was transferred out of ICU and to telemetry on 02/07/17. Budesonide and Singulair started on 02/10/17 per engine service repairer, Dr. Gauthier. IgE levels ordered. It was determined patient is candidate for monoclonal antibody treatment as outpatient and will need follow-up with his engine service repairer for IgE level and allergy testing. 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 Random glucose of 572. Was restarted on Metformin 1000 mg po BID and RISS high protocol Accuchecks q4h As sugars continued to be elevated, patient was placed on Lantus BID, Novolog ACTID, and Glipizide 20 mg po daily. Levels were increased per Payroll Examiner, Dr. Leos's recommendations. Line Supervisor referral Patient refused accuchecks. Patient believes his sugars are elevated solely due to glucocorticosteroid administration. Patient to see Dr. Leos following discharge. Sinusitis Afebrile. Leukocytosis of 16.2 LDH 494, CRP elevated to 10.41, ESR 15 (5/1) Started on Zosyn 3.375 gm IVPB Q6H Start Cepachol lozenges PRN Consulted ENT, Dr. Matta, to assess patient Nasal endoscopy was performed by Dr. Matta. Recommended discharge with 10 day course of Augmentin. Soft Tissue Neck CT - [id number] symmetrical enlargement of the palatine tonsils without evidence of phlegmon or abscess formation. Mild diffuse mucosal thickening and enhancement seen in the nasopharynx. Mild thickening of the retropharyngeal soft tissue without evidence of fluid collection/abscess. Almost complete opacification of the right maxillary sinus and partial opacification of the right ethmoid. No evidence of mass lesion or significant lymphadenopathy in the neck. History of Hurthle Cell Malignancy of Thyroid Gland Patient was restarted on Thyroxine 400 mcg daily Had multiple therapies including chemotherapy and clinical trials. TSH 40.40. Per Dr. Leos, Synthroid dose increased to 475 mcg daily. History of Pulmonary Embolism Patient restarted on home medication Xarelto Please note this is a summary of hospital course. For full details, please see patient chart. Discharge Instructions Patient is medically stable for discharge. Patient instructed to go to follow-up appointment with Diet Attendant, Dr. Ryder , scheduled for February 23 at 2:15 PM. Patient instructed to follow-up with Payroll Examiner, Dr. Leos, outpatient within one week of discharge. Instructions explained to patient on several occasions. Patient instructed to follow-up with Ear, Nose and Throat, Dr. Matta, within one week of discharge from hospital to re-evaluate sinusitis. Patient provided with prescriptions for Advair diskus, Singulair, Metformin, Levothyroxine, Claritin, and Augmentin. Patient instructed to take Augmentin 875 mg-125 mg tab by mouth twice daily for 10 days (total of 20 pills) Patient instructed to take Synthroid 475 mg tab by mouth daily as per Payroll Examiner, Dr. Leos. Patient was ambulating without difficulty to and from room with no signs of apparent respiratory distress. Patient instructed to return to the emergency room if recur. Patient given detailed instructions at bedside. Patient understands and agrees. - Date & Time of H&P Date of H&P: 02/05/17 Time of H&P: 07:37 Discharge Exam - Head Exam Head Exam: ATRAUMATIC, NORMAL INSPECTION, NORMOCEPHALIC - Eye Exam Eye Exam: EOMI, Normal appearance, PERRL Pupil Exam: PERRL - ENT Exam ENT Exam: Mucous Membranes Moist Additional comments: swelling to left jaw, no lymphadenopathy - Neck Exam Additional comments: surgical scar present s/p thyroidectomy - Respiratory Exam Respiratory Exam: Clear to PA & Lateral, NORMAL BREATHING PATTERN. absent: Rales, Rhonchi, Wheezes - Cardiovascular Exam Cardiovascular Exam: Tachycardia, +S1, +S2 - GI/Abdominal Exam GI & Abdominal Exam: Normal Bowel Sounds, Soft, Unremarkable - Extremities Exam Extremities exam: full ROM, pedal pulses present - Neurological Exam Neurological exam: Alert, CN II-XII Intact, Oriented x3 - Psychiatric Exam Psychiatric exam: Normal Affect - Skin Skin Exam: Intact, Warm Discharge Plan - Discharge Medications Prescriptions: Amoxicillin/Clavulanate [Augmentin 875 MG-125 MG] 1 tab PO BID #20 tab Fluticasone/Salmeterol 500/50 [Advair Diskus 500/50] 1 puff INH RQ12 #1 unit Levothyroxine [Synthroid] 75 mcg PO DAILY@0630 #30 tab Levothyroxine [Synthroid] 400 mcg PO ACB #30 tab Loratadine [Claritin] 10 mg PO DAILY #30 tab MetFORMIN [glucoPHAGE] 1,000 mg PO BIDWM #60 tab Montelukast [Singulair] 10 mg PO HS #30 tab predniSONE [predniSONE Tab] See Taper PO DAILY #30 tab - Follow Up Plan Condition: CRITICAL Disposition: HOME/ ROUTINE Instructions: Prednisone (By mouth), Montelukast (By mouth), Fluticasone/ Salmeterol (By breathing), Asthma (DC), Diabetic Foot Care (DC), Meal Planning with Diabetes Exchanges (DC) Additional Instructions: Patient is medically stable for discharge. Patient instructed to go to follow-up appointment with Diet Attendant, Dr. Ryder , scheduled for February 23 at 2:15 PM. Patient instructed to follow-up with Payroll Examiner, Dr. Leos, outpatient within one week of discharge. Instructions explained to patient on several occasions. Patient instructed to follow-up with Ear, Nose and Throat, Dr. Matta, within one week of discharge from hospital to re-evaluate sinusitis. Patient provided with prescriptions for Advair diskus, Singulair, Metformin, Levothyroxine, Claritin, and Augmentin. Patient instructed to take Augmentin 875 mg-125 mg tab by mouth twice daily for 10 days (total of 20 pills) Patient instructed to take Synthroid 475 mg tab by mouth daily as per Payroll Examiner, Dr. Leos. Patient was ambulating without difficulty to and from room with no signs of apparent respiratory distress. Patient instructed to return to the emergency room if recur. Patient given detailed instructions at bedside. Patient understands and agrees. Referrals: Brandon Gauthier MD [Staff Provider] - Torrie Leos MD [Medical Doctor] - <Alberto Alfaro - Last Filed: 03/20/17 10:32> Provider - Provider Date of Admission: 02/05/17 22:19 Attending physician: Markel Gutierres MD Hospital Course - Lab Results Lab Results: Micro Results 02/07/17 20:20 Naris MRSA Culture - Final MRSA NOT DETECTED 02/05/17 22:43 Nose MRSA Culture (Admit) - Final MRSA NOT DETECTED Most Recent Lab Values WBC 16.2 K/uL (4.8-10.8) H 02/17/17 12:10 RBC 5.17 Mil/uL (4.40-5.90) 02/17/17 12:10 Hgb 15.1 g/dL (12.0-18.0) 02/17/17 12:10 Hct 45.1 % (35.0-51.0) 02/17/17 12:10 MCV 87.3 fL (80.0-94.0) 02/17/17 12:10 MCH 29.3 pg (27.0-31.0) 02/17/17 12:10 MCHC 33.5 g/dL (33.0-37.0) 02/17/17 12:10 RDW 14.2 % (11.5-14.5) 02/17/17 12:10 Plt Count 249 K/uL (130-400) 02/17/17 12:10 MPV 8.8 fL (7.2-11.7) 02/17/17 12:10 Neut % (Auto) 73.2 % (50.0-75.0) 02/17/17 12:10 Lymph % (Auto) 18.3 % (20.0-40.0) L 02/17/17 12:10 [place] % (Auto) 6.8 % (0.0-10.0) 02/17/17 12:10 Eos % (Auto) 1.0 % (0.0-4.0) 02/17/17 12:10 Baso % (Auto) 0.7 % (0.0-2.0) 02/17/17 12:10 Neut # 11.8 K/uL (1.8-7.0) H 02/17/17 12:10 Lymph # 3.0 K/uL (1.0-4.3) 02/17/17 12:10 [place] # 1.1 K/uL (0.0-0.8) H 02/17/17 12:10 Eos # 0.2 K/uL (0.0-0.7) 02/17/17 12:10 Baso # 0.1 K/uL (0.0-0.2) 02/17/17 12:10 Neutrophils % (Manual) 87 % (50-75) H 02/07/17 09:38 Lymphocytes % (Manual) 9 % (20-40) L 02/07/17 09:38 Monocytes % (Manual) 4 % (0-10) 02/07/17 09:38 Platelet Estimate Normal (NORMAL) 02/07/17 09:38 Large Platelets Present 02/07/17 09:38 RBC Morphology Normal 02/06/17 13:00 ESR 15 mm/hr (0-15) 02/16/17 11:45 PT 11.4 SECONDS (9.7-12.2) 02/05/17 20:57 INR 1.0 02/05/17 20:57 pO2 111 mm/Hg (30-55) H 02/05/17 21:50 VBG pH 7.43 (7.32-7.43) 02/05/17 21:50 VBG pCO2 38 mmHg (40-60) L 02/05/17 21:50 VBG HCO3 25.7 mmol/L 02/05/17 21:50 VBG Total CO2 26.4 mmol/L (22-28) 02/05/17 21:50 VBG O2 Sat (Calc) 98.2 % (40-65) H 02/05/17 21:50 VBG Base Excess 1.0 mmol/L (0.0-2.0) 02/05/17 21:50 VBG Potassium 3.4 mmol/L (3.6-5.2) L 02/05/17 21:50 Sodium 136.0 mmol/l (132-148) 02/05/17 21:50 Chloride 104.0 mmol/L (98-107) 02/05/17 21:50 Glucose 201 mg/dl (75-110) H 02/05/17 21:50 Lactate 1.9 mmol/L (0.7-2.1) 02/05/17 21:50 FiO2 21.0 % 02/05/17 21:50 Sodium 134 mmol/L (132-148) 02/17/17 12:10 Potassium 4.0 mmol/L (3.6-5.2) 02/17/17 12:10 Chloride 96 mmol/L (98-107) L 02/17/17 12:10 Carbon Dioxide 27 mmol/L (22-30) 02/17/17 12:10 Anion Gap 15 (10-20) 02/17/17 12:10 BUN 20 mg/dL (9-20) 02/17/17 12:10 Creatinine 0.8 MG/DL (0.8-1.5) 02/17/17 12:10 Est GFR ( Amer) > 60 02/17/17 12:10 Est GFR (Non-Af Amer) > 60 02/17/17 12:10 POC Glucose (mg/dL) 297 mg/dL (65-110) H 02/17/17 11:58 Random Glucose 305 mg/dL (75-110) H 02/17/17 12:10 Hemoglobin A1c 8.3 % (4.2-6.5) H 02/06/17 13:00 Calcium 8.9 mg/dl (8.6-10.4) 02/17/17 12:10 Phosphorus 4.8 mg/dL (2.5-4.5) H 02/13/17 06:20 Magnesium 2.5 mg/dL (1.6-2.3) H 02/13/17 06:20 Total Bilirubin 0.7 mg/dL (0.2-1.3) 02/17/17 12:10 AST 19 U/L (17-59) 02/17/17 12:10 ALT 33 U/L (21-72) 02/17/17 12:10 Alkaline Phosphatase 64 U/L (38-126) 02/17/17 12:10 Lactate Dehydrogenase 494 U/L (313-618) 02/16/17 11:45 Total Creatine Kinase 29 U/L (55-170) L 02/17/17 14:44 CK-MB (Mass) < 0.22 ng/mL (0.0-3.38) 02/17/17 14:44 Troponin I, Quant < 0.0120 ng/mL (0.00-0.120) 02/17/17 14:44 C-React Prot High Sens 10.41 mg/L (1.00-3.00) H 02/16/17 11:45 Total Protein 7.5 g/dL (6.3-8.3) 02/17/17 12:10 Albumin 4.2 g/dL (3.5-5.0) 02/17/17 12:10 Globulin 3.3 gm/dL (2.2-3.9) 02/17/17 12:10 Albumin/Globulin Ratio 1.3 (1.0-2.1) 02/17/17 12:10 Triglycerides 136 mg/dL (0-149) 02/11/17 06:30 Cholesterol 218 mg/dL (0-199) H 02/11/17 06:30 LDL Cholesterol Direct 121 mg/dL (0-129) 02/11/17 06:30 HDL Cholesterol 69 mg/dL (30-70) 02/11/17 06:30 Free T4 1.11 ng/dL (0.78-2.19) 02/10/17 11:45 Thyroxine (T4) 9.19 ug/dL (5.5-11.0) 02/15/17 06:52 Total T3 1.05 nmol/L (1.49-2.60) L 02/10/17 07:10 Thyroglobulin, Quant <0.1 ng/mL (2.8-40.9) L 02/11/17 06:30 TSH 3rd Generation 40.40 mIU/L (0.46-4.68) H 02/15/17 06:52 Venous Blood Potassium 3.4 mmol/L (3.6-5.2) L 02/05/17 21:50 IgE 38 kU/L (<rl=174) 02/11/17 13:45 Thyroglobulin Antibody <1 IU/mL (< OR = 1) 02/11/17 06:30 Attending/Attestation - Attestation I have personally seen and examined this patient.: Yes I have fully participated in the care of the patient.: Yes I have reviewed all pertinent clinical information, including history, physical exam and plan: Yes Notes (Text): Patient seen and examined with the resident. Agree with the resident's evaluation, assessment and plan. Follow-up with Dr. Jerry Ryder. 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 Leos following discharge. Sinusitis Nasal endoscopy was performed by Dr. Matta. Recommended discharge with 10 day course of Augmentin.
--- NOTE | 2017-02-20 07:08 | PN ---
DATE: 02/16/2017 ROOM: ____ This is a 41-year-old male with recent uncontrolled type 2 insulin-requiring diabetes, related to the ____ steroid therapy as given and at this time, ____ switched over to oral steroids ____ given as __ __ mg once daily as given as noted. ____ levels are fluctuating ____ 281-297 mg/dL. ____. ____ repeat thyroid ____ for ____ 9.19 ____. ____ modify ____ levothyroxine replacement therapy to a higher dose of ____ mcg once daily as ordered. We will titrate incrementally as indicated to optimi ze ____ highly recommended that patient follow up ____ initial ____ thyroidectomy and followed by ___ _ ablation therapy. The patient ____ procedure ____ and ____ underlying ____ thyroid ____. We will also modify his basal and bolus insulin regimen and increase the Lantus to ____ bedtime daily ____. We will also increase the Novolin to ____ units subQ t.i.d. before meals as ordered. We will titrate incrementally as indicated to optimize metabolic control. We will follow. Torrie Leos MD cc: [id number] TT: 02/16/2017 15:44:56 Confirmation # [id number] Dictation # [id number]
== END 2017-02-18 20:08 | disposition home or self-care (01) | DRG 538 ==
LOC: C.ER 20:37 → C.9I 22:19 → C.3T 02-07 19:45
PROVIDERS: ADMIT Internal Medicine; ATTEND Internal Medicine
PROC: 5A09557 Assistance with Respiratory Ventilation, Greater than 96 Consecutive Hours, Continuous Positive Airway Pressure (ICD-10-PCS; 2017-02-05)
PROC: 02HV33Z Insertion of Infusion Device into Superior Vena Cava, Percutaneous Approach (ICD-10-PCS; 2017-02-07)
PROC: 02PY33Z Removal of Infusion Device from Great Vessel, Percutaneous Approach (ICD-10-PCS; 2017-02-09)
PROC: 02HV33Z Insertion of Infusion Device into Superior Vena Cava, Percutaneous Approach (ICD-10-PCS; 2017-02-09)
PROC: 09JY4ZZ Inspection of Sinus, Percutaneous Endoscopic Approach (ICD-10-PCS; principal; 2017-02-17)
DX: J96.90 Respiratory failure, unspecified, unspecified whether with hypoxia or hypercapnia (principal); I26.99 Other pulmonary embolism without acute cor pulmonale; J45.52 Severe persistent asthma with status asthmaticus; J45.902 Unspecified asthma with status asthmaticus; E11.22 Type 2 diabetes mellitus with diabetic chronic kidney disease; J44.1 Chronic obstructive pulmonary disease with (acute) exacerbation; N18.9 Chronic kidney disease, unspecified; E11.65 Type 2 diabetes mellitus with hyperglycemia; T82.598A Other mechanical complication of other cardiac and vascular devices and implants, initial encounter; J32.8 Other chronic sinusitis; I12.9 Hypertensive chronic kidney disease with stage 1 through stage 4 chronic kidney disease, or unspecified chronic kidney disease; E03.9 Hypothyroidism, unspecified; Z86.73 Personal history of transient ischemic attack (TIA), and cerebral infarction without residual deficits; G47.30 Sleep apnea, unspecified; Z79.4 Long term (current) use of insulin; Z85.850 Personal history of malignant neoplasm of thyroid; J34.2 Deviated nasal septum; Y83.8 Other surgical procedures as the cause of abnormal reaction of the patient, or of later complication, without mention of misadventure at the time of the procedure; Z91.14 Patient's other noncompliance with medication regimen

== ENCOUNTER 2018-01-06 17:18 | Inpatient (IN) | payer OTHER ==
[2018-01-06] MEDS ORDERED: Sodium Chloride 0.9% 1,000 ML IV ONE ×2 (17:35→20:08)
[2018-01-06] MEDS ORDERED: Albuterol-Ipratrop 3 mg / 0.5 (3 ml) UD INH STA ×4 (17:35→18:06)
[2018-01-06] MEDS ORDERED: Magnesium Sulfate 1 gm in D5W 1 GM/100 ML BAG IVPB ONE ×2 (17:36→18:04)
--- NOTE | 2018-01-06 17:49 | C.PDOC ---
History Of Present Illness 42-year-old male, PMHx includes Follicular cell carcinoma (currently not on any chemo or radiation), Asthma and prior intubations, presents to the emergency department with complaints of shortness of breath. Patient states he has been experiencing three-day duration of shortness of breath and chest tightness that has been gradually worsening, resulting in him coming to ED today for evaluation. States this feels like prior asthma exacerbations. Denies nausea/ vomiting, fevers, chills, back pain or any other associated symptoms. No other complaints at this time. Time Seen by Provider: 01/06/18 17:25 Chief Complaint (Nursing): Shortness Of Breath History Per: Patient History/Exam Limitations: no limitations Past Medical History Reviewed: Historical Data, Nursing Documentation, Vital Signs Vital Signs: Last Vital Signs Temp 97.8 F 01/07/18 08:13 Pulse 87 01/07/18 09:05 Resp 20 01/07/18 08:13 BP 104/61 01/07/18 08:13 Pulse Ox 100 01/07/18 08:13 - Medical History PMH: Asthma, Bronchitis, Fractures (8 ACL reconstructions), Hypercholesterolemia , Hypothyroidism, Kidney Stones, Malignancy (Throat), Peripheral Edema, Pneumonia, Pulmonary Embolism, Chronic Kidney Disease, Seizures, Sleep Apnea, TIA - [facility] Procedures ASSISTANCE WITH RESPIRATORY VENTILATION, >96 HRS, CPAP (02/05/17) CENTRAL VENOUS CATHETER PLACEMENT WITH GUIDANCE (06/27/15) INJECT/INFUSE NEC (05/01/15) INSERTION OF ENDOTRACHEAL AIRWAY INTO TRACHEA, VIA OPENING (04/13/17) INSERTION OF INFUSION DEV INTO SUP VENA CAVA, PERC APPROACH (02/05/17) INSPECTION OF LARYNX, ENDO (06/04/16) INSPECTION OF SINUS, PERCUTANEOUS ENDOSCOPIC APPROACH (02/05/17) INTRODUCTION OF ANTI-INFLAM INTO RESP TRACT, VIA OPENING (07/23/17) INTRODUCTION OF SERUM/TOX/VACCINE INTO MUSCLE, PERC APPROACH (07/23/17) NEBULIZER THERAPY (06/27/15) REMOVAL OF INFUSION DEV FROM GREAT VESSEL, PATIENT ACCESS REGISTRAR APPROACH (11/07/16) REMOVAL OF INFUSION DEVICE FROM GREAT VESSEL, PERC APPROACH (02/05/17) RESPIRATORY VENTILATION, 24-96 CONSECUTIVE HOURS (04/13/17) Family History: States: No Known Family Hx - Social History Hx Tobacco Use: No Hx Alcohol Use: No Hx Substance Use: No - Immunization History Hx Tetanus Toxoid Vaccination: No Hx Influenza Vaccination: Yes Hx Pneumococcal Vaccination: Yes Review Of Systems Constitutional: Negative for: Fever Cardiovascular: Negative for: Chest Pain, Palpitations Respiratory: Positive for: Shortness of Breath, Wheezing Musculoskeletal: Negative for: Back Pain Skin: Negative for: Rash Neurological: Negative for: Weakness, Numbness, Headache, Dizziness Physical Exam - Physical Exam Appears: Non-toxic, No Acute Distress Skin: Normal Color, Warm, Dry, No Rash Head: Normacephalic Eye(s): bilateral: PERRL Nose: Normal Oral Mucosa: Moist Lips: Normal Appearing Neck: Normal ROM Cardiovascular: Rhythm Regular, No Murmur Respiratory: No Decreased Breath Sounds, No Accessory Muscle Use, Wheezing (B/L expiratory) Gastrointestinal/Abdominal: Normal Exam, Bowel Sounds, Soft Extremity: Normal ROM, No Deformity, No Swelling Neurological/Psych: Oriented x3, Normal Speech ED Course And Treatment - Laboratory Results Result Diagrams: 01/06/18 18:10 01/07/18 03:36 O2 Sat by Pulse Oximetry: 96 Medical Decision Making Medical Decision Making: Plan: * Labs * Chest X-Ray * EKG * IVFs, Solu-Medrol, Duoneb x2 * Peak Flow * UA * Reassess and Disposition Case discussed with Dr Leigh, states he will admit patient for asthma exacerbation and hyperglycemia. Disposition Discussed With .: Wong Leigh Jr. Doctor Will See Patient In The: Hospital Counseled Patient/Family Regarding: Studies Performed, Diagnosis, Need For Followup - Disposition Disposition: HOSPITALIZED Disposition Time: 18:54 Condition: FAIR - Clinical Impression Clinical Impression: Asthma, Hyperglycemia - Scribe Statement The provider has reviewed the documentation as recorded by the Scribe (Meng Montanez) All medical record entries made by the Scribe were at my direction and personally dictated by me. I have reviewed the chart and agree that the record accurately reflects my personal performance of the history, physical exam, medical decision making, and the department course for this patient. I have also personally directed, reviewed, and agree with the discharge instructions and disposition.
[2018-01-06] MEDS ORDERED: Albuterol-Ipratrop 3 mg / 0.5 (3 ml) UD ONE (18:06)
[2018-01-06 18:13] LABS: BASO # 0.1 K/uL (0.0-0.2); EOS # 0.3 K/uL (0.0-0.7); EOS % 3.5 % (0.0-4.0); HEMOGLOBIN 16.1 g/dL (12.0-18.0); LYMPH # 2.4 K/uL (1.0-4.3); LYMPH % 29.1 % (20.0-40.0); MEAN CORPUSCULAR HEMOGLOBIN 31.5 pg (27.0-31.0); MEAN PLATELET VOLUME 9.7 fL (7.2-11.7); MONO # 0.4 K/uL (0.0-0.8); MONO % 4.6 % (0.0-10.0); NEUT # 5.1 K/uL (1.8-7.0); NEUT % 61.8 % (50.0-75.0); RBC 5.11 Mil/uL (4.40-5.90); RED CELL DISTRIBUTION WIDTH 13.1 % (11.5-14.5); WHITE BLOOD COUNT 8.2 K/uL (4.8-10.8)
[2018-01-06 18:21] LABS: PROTHROMBIN TIME 11.3 SECONDS (9.7-12.2)
[2018-01-06 18:21] LABS: ABG ALLEN TEST POS; ARTERIAL BLOOD GAS HCO3 22.2 mmol/L (21-28); ARTERIAL BLOOD GAS O2 SAT 98.8 % (95-98); ARTERIAL BLOOD GAS PCO2 33 mm/Hg (35-45); ARTERIAL BLOOD GAS PO2 137 mm/Hg (80-100); ARTERIAL BLOOD GAS TCO2 21.4 mmol/L (22-28)
[2018-01-06 18:39] LABS: ALB/GLOB RATIO 1.2 (1.0-2.1); ALBUMIN 4.7 g/dL (3.5-5.0); ALT/SGPT 37 U/L (21-72); AST/SGOT 23 U/L (17-59); BLOOD UREA NITROGEN 16 mg/dL (9-20); CALCIUM 10.1 mg/dl (8.6-10.4); GFR AFRICAN-AMERICAN > 60; GFR NON-AFRICAN AMERICAN > 60
--- NOTE | 2018-01-06 18:44 | RAD ---
PROCEDURE: CHEST RADIOGRAPH, 1 VIEW HISTORY: SOB COMPARISON: 02/17/2017 FINDINGS: LUNGS: Clear. PLEURA: No pneumothorax or pleural fluid seen. CARDIOVASCULAR: Normal. OSSEOUS STRUCTURES: No significant abnormalities. VISUALIZED UPPER ABDOMEN: Normal. OTHER FINDINGS: None. IMPRESSION: No active disease.
[2018-01-06 18:51] LABS: FREE T4 < 0.07 ng/dL (0.78-2.19)
[2018-01-06] MEDS ORDERED: (Novolin R) Insulin Human Regular 100 units/ml vial IV ONE ×4 (18:52→22:28)
[2018-01-06 19:01] LABS: SQUAMOUS EPITHIAL 1 /hpf (0-5); URINE BACTERIA OCC (<OCC); URINE BILIRUBIN NEGATIVE (NEGATIVE); URINE BLOOD NEGATIVE (NEGATIVE); URINE CLARITY Clear (Clear); URINE GLUCOSE (UA) 3+ mg/dL (Normal); URINE LEUKOCYTE ESTERASE TRACE Leu/uL (Negative); URINE PROTEIN 1+ mg/dL (NEGATIVE); URINE UROBILINOGEN NORMAL mg/dL (0.2-1.0)
[2018-01-06 19:02] LABS: URINE COLOR STRAW (YELLOW)
[2018-01-06 19:02] LABS: B-TYPE NATRIURETIC PEPTIDE < 11.1 pg/mL (0-450)
[2018-01-06] MEDS: Sodium Chloride 0.9% 1,000 ML IV SCH (19:03)
[2018-01-06] MEDS ORDERED: (Novolin R) Insulin Human Regular 100 units/ml vial ONE ×4 (19:07→22:37)
[2018-01-06] MEDS ORDERED: (Novolin R) Insulin Human Regular 100 units/ml vial SC ONE (20:15)
[2018-01-06] MEDS ORDERED: (Novolin R) Insulin Human Regular 100 units/ml vial IV STA (20:15)
[2018-01-06] MEDS ORDERED: Albuterol-Ipratrop 3 mg / 0.5 (3 ml) UD INH PRN (20:21)
[2018-01-06] MEDS ORDERED: Sodium Chloride 0.9% 1,000 ML ONE ×2 (21:10→22:24)
[2018-01-06] MEDS: Sodium Chloride 0.45% 1,000 ML IV SCH (21:13)
--- NOTE | 2018-01-06 21:39 | CP.PCM.HP ---
History of Present Illness - History of Present Illness History of Present Illness: CC: asthma exacerbation, increased urination HPI: Patient is a 42y/o M with PMHx of DMII, asthma (9 intubations), TIA (2013) , PE (2015), follicular cell carcinoma of the thyroid in 2012, hypothyroidism who presents today for worsening asthma. Patient said the past few days his asthma has been getting worse because of the weather and today he had to use 6 nebulizer treatments and then came into the ED. Patient has had an extensive asthma history and has been intubated 9x, last time being in October for 4 days. Patient also admits to increase in urination. This started 10 days ago and he says he has pain during urination. The color of the urine has been yellow or clear. Patient has also been having nausea with no vomiting. Patient has been very thirsty and is drinking a lot of water everyday. Patient has had very high sugars in the past but says he "does not have diabetes, just his sugars go up when he takes steroids." Patient was recently prescribed a Medrol dose pack which he finished over the weekend. Patient says he checks his sugars about once a week. This past week he said his sugars were in the 200s. Patient says he is not taking any medications for his blood sugar at home. Patient has been hospitalized for sugars >1000 about 5 years ago. Patient also admits to chronic constipation. Patient denies headache, blurry vision, chest pain, abdominal pain. PMD: Dr. Murray Endo: Dr. Leos Allergies: Aspirin- anaphylaxis PMHx: DMII, asthma (9 intubations), TIA (2013), PE (2016) Psurg: follicular cell carcinoma of thyroid in 2011, intubated 9x, trach in 2014 8 reconstructions of R knee, 2 L knee reconstructions PMHx: Grandmother-breast [place] Social: denies tobacco, alcohol, or drugs. Lives alone. works as a [employer] Home meds: asthma medications which he is unsure about including Albuterol, Symbicort, Flovent, Proventil takes Xarelto 20g daily and Levothyroxine 400mcg daily Present on Admission - Present on Admission Any Indicators Present on Admission: No History of DVT/PE: Yes History of Uncontrolled Diabetes: Yes Urinary Catheter: No Decubitus Ulcer Present: No Review of Systems - Constitutional Constitutional: absent: Fever, Increased Appetite, Weight Gain, Weight Loss, Weakness - EENT Eyes: absent: Blurred Vision - Cardiovascular Cardiovascular: Dyspnea. absent: Chest Pain, Leg Edema - Respiratory Respiratory: Cough, Dyspnea, Wheezing - Gastrointestinal Gastrointestinal: Constipation, Nausea. absent: Diarrhea, Vomiting - Genitourinary Genitourinary: Dysuria, Urinary Frequency - Musculoskeletal Musculoskeletal: absent: Numbness, Tingling - Integumentary Integumentary: absent: Rash - Endocrine Endocrine: Polydipsia, Polyuria Past Patient History - Tetanus Immunizations Tetanus Immunization: Unknown - Past Medical History & Family History Past Medical History?: Yes - Past Social History Smoking Status: Never Smoked - CARDIAC Hx Hypercholesterolemia: Yes Hx Peripheral Edema: Yes - PULMONARY Hx Asthma: Yes Hx Bronchitis: Yes Hx Pneumonia: Yes Hx Pulmonary Embolism: Yes Hx Sleep Apnea: Yes - NEUROLOGICAL Hx Seizures: Yes Hx Transient Ischemic Attacks (TIA): Yes - HEENT Hx HEENT Problems: Yes Other/Comment: Thyroid Ca - RENAL Hx Chronic Kidney Disease: Yes Hx Kidney Stones: Yes - ENDOCRINE/METABOLIC Hx Hypothyroidism: Yes - HEMATOLOGICAL/ONCOLOGICAL Hx Human Immunodeficiency Virus (HIV): No - INTEGUMENTARY Hx Dermatological Problems: No - MUSCULOSKELETAL/RHEUMATOLOGICAL Hx Fractures: Yes (8 ACL reconstructions) - GASTROINTESTINAL Hx Gastrointestinal Disorders: No - GENITOURINARY/GYNECOLOGICAL Hx Genitourinary Disorders: No - PSYCHIATRIC Hx Substance Use: No - SURGICAL HISTORY Hx Surgeries: Yes Hx Musculoskeletal Surgery: Yes (R knee, L knee (8 knee sx)) Hx Thyroidectomy: Yes (CA+) Other/Comment: tracheostomy x3, intubation - ANESTHESIA Hx Anesthesia: Yes Hx Anesthesia Reactions: No Hx Malignant Hyperthermia: No Meds Allergies/Adverse Reactions: Allergies Allergy/AdvReac Type Severity Reaction Status Date / Time aspirin Allergy ANAPHYLAXIS Verified 07/23/17 18:14 onions Allergy Severe throat Uncoded 07/23/17 18:14 swelling Physical Exam - Constitutional Appears: Non-toxic, No Acute Distress - Head Exam Head Exam: ATRAUMATIC, NORMAL INSPECTION, NORMOCEPHALIC - Eye Exam Eye Exam: EOMI, Normal appearance - ENT Exam ENT Exam: Mucous Membranes Dry - Respiratory Exam Respiratory Exam: Wheezes Additional comments: wheezing throughout b/l - Cardiovascular Exam Cardiovascular Exam: Tachycardia, RRR, +S1, +S2 - GI/Abdominal Exam GI & Abdominal Exam: Normal Bowel Sounds, Soft. absent: Tenderness - Extremities Exam Extremities exam: Positive for: normal inspection. Negative for: pedal edema, tenderness - Neurological Exam Neurological exam: Alert, Oriented x3 - Psychiatric Exam Psychiatric exam: Normal Affect, Normal Mood - Skin Skin Exam: Intact, Normal Color, Warm Results - Vital Signs Recent Vital Signs: Last Vital Signs Temp 98.1 F 01/06/18 17:26 Pulse 108 H 01/06/18 20:45 Resp 16 01/06/18 20:45 BP 130/81 01/06/18 20:45 Pulse Ox 98 01/06/18 20:45 - Labs Result Diagrams: 01/06/18 18:10 01/06/18 18:10 Labs: Laboratory Results - last 24 hr 01/06/18 01/06/18 01/06/18 18:10 18:10 18:10 WBC 8.2 RBC 5.11 Hgb 16.1 Hct 46.0 MCV 90.0 D MCH 31.5 H MCHC 35.0 RDW 13.1 Plt Count 273 MPV 9.7 Neut % (Auto) 61.8 Lymph % (Auto) 29.1 [place] % (Auto) 4.6 Eos % (Auto) 3.5 Baso % (Auto) 1.0 Neut # (Auto) 5.1 Lymph # (Auto) 2.4 [place] # (Auto) 0.4 Eos # (Auto) 0.3 Baso # (Auto) 0.1 PT 11.3 INR 1.0 APTT 28 Puncture Site pCO2 pO2 HCO3 ABG pH ABG Total CO2 ABG O2 Saturation ABG Base Excess Kole Test ABG Potassium A-a O2 Difference Respiratory Index Glucose Lactate Liter Flow FiO2 Crit Value Called To Crit Value Called By Crit Value Read Back Blood Gas Notified Time Sodium 129 L Potassium 4.0 Chloride 90 L Carbon Dioxide 20 L Anion Gap 24 H BUN 16 Creatinine 1.1 Est GFR ( Amer) > 60 Est GFR (Non-Af Amer) > 60 POC Glucose (mg/dL) Random Glucose 651 H* D Calcium 10.1 Total Bilirubin 1.1 AST 23 ALT 37 Alkaline Phosphatase 92 Troponin I < 0.0120 NT-Pro-B Natriuret Pep < 11.1 Total Protein 8.4 H Albumin 4.7 Globulin 3.8 Albumin/Globulin Ratio 1.2 Free T4 TSH 3rd Generation Arterial Blood Potassium Urine Color Urine Clarity Urine pH Ur Specific [place] Urine Protein Urine Glucose (UA) Urine Ketones Urine Blood Urine Nitrate Urine Bilirubin Urine Urobilinogen Ur Leukocyte Esterase Urine WBC (Auto) Urine RBC (Auto) Ur Squamous Epith Cells Urine Bacteria Urine Yeast (Budding) 01/06/18 01/06/18 01/06/18 18:10 18:15 18:49 WBC RBC Hgb Hct MCV MCH MCHC RDW Plt Count MPV Neut % (Auto) Lymph % (Auto) [place] % (Auto) Eos % (Auto) Baso % (Auto) Neut # (Auto) Lymph # (Auto) [place] # (Auto) Eos # (Auto) Baso # (Auto) PT INR APTT Puncture Site Lra pCO2 33 L pO2 137 H HCO3 22.2 ABG pH 7.40 ABG Total CO2 21.4 L ABG O2 Saturation 98.8 H ABG Base Excess -3.6 L Kole Test Pos ABG Potassium 3.3 L A-a O2 Difference 78.0 Respiratory Index 0.6 Glucose 635 H* D Lactate 1.0 Liter Flow 4.0 FiO2 36.0 Crit Value Called To Dr handy Crit Value Called By [facility] Crit Value Read Back Y Blood Gas Notified Time 1820 Sodium 132.0 Potassium Chloride 96.0 L Carbon Dioxide Anion Gap BUN Creatinine Est GFR ( Amer) Est GFR (Non-Af Amer) POC Glucose (mg/dL) Random Glucose Calcium Total Bilirubin AST ALT Alkaline Phosphatase Troponin I NT-Pro-B Natriuret Pep Total Protein Albumin Globulin Albumin/Globulin Ratio Free T4 < 0.07 L TSH 3rd Generation 149.00 H Arterial Blood Potassium 3.3 L Urine Color Straw Urine Clarity Clear Urine pH 5.0 Ur Specific [place] 1.030 Urine Protein 1+ H Urine Glucose (UA) 3+ H Urine Ketones 1+ H Urine Blood Negative Urine Nitrate Negative Urine Bilirubin Negative Urine Urobilinogen Normal Ur Leukocyte Esterase Trace Urine WBC (Auto) 10 H Urine RBC (Auto) 3 Ur Squamous Epith Cells 1 Urine Bacteria Occ H Urine Yeast (Budding) Rare H 01/06/18 19:56 WBC RBC Hgb Hct MCV MCH MCHC RDW Plt Count MPV Neut % (Auto) Lymph % (Auto) [place] % (Auto) Eos % (Auto) Baso % (Auto) Neut # (Auto) Lymph # (Auto) [place] # (Auto) Eos # (Auto) Baso # (Auto) PT INR APTT Puncture Site pCO2 pO2 HCO3 ABG pH ABG Total CO2 ABG O2 Saturation ABG Base Excess Kole Test ABG Potassium A-a O2 Difference Respiratory Index Glucose Lactate Liter Flow FiO2 Crit Value Called To Crit Value Called By Crit Value Read Back Blood Gas Notified Time Sodium Potassium Chloride Carbon Dioxide Anion Gap BUN Creatinine Est GFR ( Amer) Est GFR (Non-Af Amer) POC Glucose (mg/dL) > 500 H* Random Glucose Calcium Total Bilirubin AST ALT Alkaline Phosphatase Troponin I NT-Pro-B Natriuret Pep Total Protein Albumin Globulin Albumin/Globulin Ratio Free T4 TSH 3rd Generation Arterial Blood Potassium Urine Color Urine Clarity Urine pH Ur Specific [place] Urine Protein Urine Glucose (UA) Urine Ketones Urine Blood Urine Nitrate Urine Bilirubin Urine Urobilinogen Ur Leukocyte Esterase Urine WBC (Auto) Urine RBC (Auto) Ur Squamous Epith Cells Urine Bacteria Urine Yeast (Budding) Assessment & Plan - Assessment and Plan (Free Text) Assessment: Asthma Exacerbation Duonebs q4h prn Advair diskus 500/50 1 puff INH [id number] Prednisone 20mg po one dose DMII 24 u total given in ED Lantus 20u sc HS ISS-high accuchecks achs 1/2NS @ 170cc/hr f/u HgA1C Hypothyroidism continue home medication 400mcg po daily f/u TSH, free T4 HTN Lisinopril 20mg po daily Hx PE continue Xarelto 20mg po daily Prophylaxis SCDs, Pepcid 20 mg po daily
[2018-01-06] MEDS ORDERED: (Lantus) Insulin Glargine, Recombinant SC ONE (21:43)
[2018-01-06] MEDS ORDERED: (Lantus) Insulin Glargine, Recombinant SC SCH (22:00)
[2018-01-06] MEDS ORDERED: (Novolin R) Insulin Human Regular 100 units/ml vial SC SCH (22:00)
[2018-01-07] MEDS ORDERED: (Novolin R) Insulin Human Regular 100 units/ml vial IV ONE ×2 (00:16→01:41)
[2018-01-07] MEDS ORDERED: (Novolin R) Insulin Human Regular 100 units/ml vial IV STA ×2 (00:47→01:44)
[2018-01-07] MEDS: Sodium Chloride 0.45% 1,000 ML IV SCH ×2 (01:46→08:58)
[2018-01-07] MEDS ORDERED: (Novolin R) Insulin Human Regular 100 units/ml vial SC ONE (03:34)
[2018-01-07 04:03] LABS: ALB/GLOB RATIO 1.3 (1.0-2.1); ALBUMIN 4.4 g/dL (3.5-5.0); ALT/SGPT 27 U/L (21-72); AST/SGOT 18 U/L (17-59); BLOOD UREA NITROGEN 14 mg/dL (9-20); CALCIUM 8.1 mg/dl (8.6-10.4); GFR AFRICAN-AMERICAN > 60; GFR NON-AFRICAN AMERICAN > 60
[2018-01-07] MEDS: Sodium Chloride 0.9% 1,000 ML IV SCH ×4 (06:03→23:10)
[2018-01-07] MEDS ORDERED: Levothyroxine 200 MCG TAB PO SCH ×2 (06:30→09:15)
[2018-01-07] MEDS: (Novolin R) Insulin Human Regular 100 units/ml vial SC ONE ×2 (06:33→06:45)
[2018-01-07] MEDS: (Novolin R) Insulin Human Regular 100 units/ml vial SC SCH ×4 (06:57→10:45)
[2018-01-07] MEDS: Fluticasone-Salmeterol 500-50mcg Diskus INH SCH (10:18)
[2018-01-07] MEDS ORDERED: Insulin Human Regular 100 UNIT in Sodium Chloride 0.9% 99 ML IV SCH ×4 (11:00→14:14)
[2018-01-07] MEDS: Albuterol-Ipratrop 3 mg / 0.5 (3 ml) UD INH SCH ×3 (11:20→19:56)
[2018-01-07] MEDS ORDERED: Sodium Chloride 0.45% 1,000 ML IV SCH (11:30)
--- NOTE | 2018-01-07 12:23 | CP.PCM.CON ---
<Cielo Connell - Last Filed: 01/07/18 18:46> History of Present Illness - History of Present Illness History of Present Illness: ICU Consult Note: Patient is a 42 year old male with past medical history of DM2, asthma (9 intubations, 2 trachs), TIA in 2013, PE in 2015, hypothyroidism (s/p thyroidectomy secondary to follicular cell carcinoma 2012) initially came to [facility] for worsening shortness of breath since Thursday. Patient also reports having polyuria that started 2 weeks ago. Patient has also been having nausea with no vomiting. Patient has been very thirsty and is drinking a lot of water everyday. Patient has had very high sugars in the past but says he "does not have diabetes, just his sugars go up when he takes steroids." Patient was recently prescribed a Medrol dose pack which he finished over the weekend. Patient says he checks his sugars about once a week. This past week he said his sugars were in the 200s. Patient says he is not taking any medications for his blood sugar at home. ICU was consulted for elevated blood sugars on the floor. Patient was refusing insulin. Patient also admits to photophobia, vision changes , nausea, polydipsia, testicular pain. 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 Past Patient History - Tetanus Immunizations Tetanus Immunization: Unknown - Past Medical History & Family History Past Medical History?: Yes - Past Social History Smoking Status: Never Smoked - CARDIAC Hx Hypercholesterolemia: Yes Hx Peripheral Edema: Yes - PULMONARY Hx Asthma: Yes Hx Bronchitis: Yes Hx Pneumonia: Yes Hx Pulmonary Embolism: Yes Hx Sleep Apnea: Yes - NEUROLOGICAL Hx Seizures: Yes Hx Transient Ischemic Attacks (TIA): Yes - HEENT Hx HEENT Problems: Yes Other/Comment: Thyroid Ca - RENAL Hx Chronic Kidney Disease: Yes Hx Kidney Stones: Yes - ENDOCRINE/METABOLIC Hx Hypothyroidism: Yes - HEMATOLOGICAL/ONCOLOGICAL Hx Blood Transfusions: No Hx Human Immunodeficiency Virus (HIV): No - INTEGUMENTARY Hx Dermatological Problems: No - MUSCULOSKELETAL/RHEUMATOLOGICAL Hx Fractures: Yes (8 ACL reconstructions) - GASTROINTESTINAL Hx Gastrointestinal Disorders: No - GENITOURINARY/GYNECOLOGICAL Hx Genitourinary Disorders: No - PSYCHIATRIC Hx Substance Use: No - SURGICAL HISTORY Hx Surgeries: Yes Hx Musculoskeletal Surgery: Yes (R knee, L knee (8 knee sx)) Hx Thyroidectomy: Yes (CA+) Other/Comment: tracheostomy x3, intubation - ANESTHESIA Hx Anesthesia: Yes Hx Anesthesia Reactions: No Hx Malignant Hyperthermia: No Meds Allergies/Adverse Reactions: Allergies Allergy/AdvReac Type Severity Reaction Status Date / Time aspirin Allergy ANAPHYLAXIS Verified 07/23/17 18:14 onions Allergy Severe throat Uncoded 07/23/17 18:14 swelling - Medications Medications: Current Medications Albuterol/Ipratropium (Duoneb 3 Mg/0.5 Mg (3 Ml) Ud) 3 ml INH RQ4 [facility] Last Admin: 01/07/18 11:20 Dose: 3 ml Famotidine (Pepcid) 20 mg PO DAILY [facility] Last Admin: 01/07/18 10:44 Dose: Not Given Sodium Chloride (Sodium Chloride 0.9%) 1,000 mls @ 200 mls/hr IV .Q5H [facility] Insulin Human Regular 100 unit (/ Sodium Chloride) 100 mls @ 9.61 mls/hr IV .[id number] ALON; 0.1 UNIT/KG/HR PRN Reason: Protocol Insulin Glargine (Lantus) 20 unit SC HS [facility] Last Admin: 01/06/18 21:48 Dose: 20 units Levothyroxine Sodium (Levothyroxine) 500 mcg IV DAILY [facility] Potassium Chloride (Potassium Chloride Oral Soln) 40 meq PO Q4H [facility] Stop: 01/07/18 20:31 Potassium Phos/Sodium Phos (Neutra-Phos) 2 pkt PO Q8H [facility] Rivaroxaban (Xarelto) 20 mg PO DAILY [facility] Last Admin: 01/07/18 10:59 Dose: 20 mg Fluticasone/Salmeterol (Advair Diskus 500/50) 1 puff INH RQ12 [facility] Last Admin: 01/07/18 10:18 Dose: Not Given Physical Exam - Skin Additional comments: - Constitutional Appears: No Acute Distress - Head Exam Head Exam: ATRAUMATIC, NORMAL INSPECTION, NORMOCEPHALIC - Eye Exam Eye Exam: EOMI, Normal appearance - ENT Exam ENT Exam: Mucous Membranes Moist - Neck Exam Neck Exam: Full ROM. absent: Tenderness, Thyromegaly - Respiratory Exam Respiratory Exam: Clear to Ausculation Bilateral, NORMAL BREATHING PATTERN. absent: Accessory Muscle Use - Cardiovascular Exam Cardiovascular Exam: REGULAR RHYTHM, +S1, +S2 - GI/Abdominal Exam GI & Abdominal Exam: Soft. absent: Tenderness - Extremities Exam Extremities Exam: Full ROM, Normal Capillary Refill, Normal Inspection. absent : Pedal Edema - Back Exam Back Exam: Full ROM - Neurological Exam Neurological Exam: Awake, CN II-XII Intact - Psychiatric Exam Psychiatric exam: Normal Affect, Normal Mood - Skin Skin Exam: Dry, Intact, Normal Color, Warm Results - Vital Signs Recent Vital Signs: Last Vital Signs Temp 97.8 F 01/07/18 08:13 Pulse 87 01/07/18 09:05 Resp 20 01/07/18 08:13 BP 104/61 01/07/18 08:13 Pulse Ox 96 01/07/18 09:27 - Labs Result Diagrams: 01/07/18 16:40 01/07/18 16:40 Labs: Laboratory Results - last 24 hr 01/06/18 01/06/18 01/06/18 18:10 18:10 18:10 WBC 8.2 RBC 5.11 Hgb 16.1 Hct 46.0 MCV 90.0 D MCH 31.5 H MCHC 35.0 RDW 13.1 Plt Count 273 MPV 9.7 Neut % (Auto) 61.8 Lymph % (Auto) 29.1 Lee % (Auto) 4.6 Eos % (Auto) 3.5 Baso % (Auto) 1.0 Neut # (Auto) 5.1 Lymph # (Auto) 2.4 Lee # (Auto) 0.4 Eos # (Auto) 0.3 Baso # (Auto) 0.1 PT 11.3 INR 1.0 APTT 28 Puncture Site pCO2 pO2 HCO3 ABG pH ABG Total CO2 ABG O2 Saturation ABG Base Excess Kole Test ABG Potassium A-a O2 Difference Respiratory Index Glucose Lactate Liter Flow FiO2 Crit Value Called To Crit Value Called By Crit Value Read Back Blood Gas Notified Time Sodium 129 L Potassium 4.0 Chloride 90 L Carbon Dioxide 20 L Anion Gap 24 H BUN 16 Creatinine 1.1 Est GFR ( Amer) > 60 Est GFR (Non-Af Amer) > 60 POC Glucose (mg/dL) Random Glucose 651 H* D Calcium 10.1 Total Bilirubin 1.1 AST 23 ALT 37 Alkaline Phosphatase 92 Troponin I < 0.0120 NT-Pro-B Natriuret Pep < 11.1 Total Protein 8.4 H Albumin 4.7 Globulin 3.8 Albumin/Globulin Ratio 1.2 Free T4 TSH 3rd Generation Arterial Blood Potassium Urine Color Urine Clarity Urine pH Ur Specific [place] Urine Protein Urine Glucose (UA) Urine Ketones Urine Blood Urine Nitrate Urine Bilirubin Urine Urobilinogen Ur Leukocyte Esterase Urine WBC (Auto) Urine RBC (Auto) Ur Squamous Epith Cells Urine Bacteria Urine Yeast (Budding) 01/06/18 01/06/18 01/06/18 18:10 18:15 18:49 WBC RBC Hgb Hct MCV MCH MCHC RDW Plt Count MPV Neut % (Auto) Lymph % (Auto) Lee % (Auto) Eos % (Auto) Baso % (Auto) Neut # (Auto) Lymph # (Auto) Lee # (Auto) Eos # (Auto) Baso # (Auto) PT INR APTT Puncture Site Lra pCO2 33 L pO2 137 H HCO3 22.2 ABG pH 7.40 ABG Total CO2 21.4 L ABG O2 Saturation 98.8 H ABG Base Excess -3.6 L Kole Test Pos ABG Potassium 3.3 L A-a O2 Difference 78.0 Respiratory Index 0.6 Glucose 635 H* D Lactate 1.0 Liter Flow 4.0 FiO2 36.0 Crit Value Called To Dr handy Crit Value Called By [facility] Crit Value Read Back Y Blood Gas Notified Time 1820 Sodium 132.0 Potassium Chloride 96.0 L Carbon Dioxide Anion Gap BUN Creatinine Est GFR ( Amer) Est GFR (Non-Af Amer) POC Glucose (mg/dL) Random Glucose Calcium Total Bilirubin AST ALT Alkaline Phosphatase Troponin I NT-Pro-B Natriuret Pep Total Protein Albumin Globulin Albumin/Globulin Ratio Free T4 < 0.07 L TSH 3rd Generation 149.00 H Arterial Blood Potassium 3.3 L Urine Color Straw Urine Clarity Clear Urine pH 5.0 Ur Specific [place] 1.030 Urine Protein 1+ H Urine Glucose (UA) 3+ H Urine Ketones 1+ H Urine Blood Negative Urine Nitrate Negative Urine Bilirubin Negative Urine Urobilinogen Normal Ur Leukocyte Esterase Trace Urine WBC (Auto) 10 H Urine RBC (Auto) 3 Ur Squamous Epith Cells 1 Urine Bacteria Occ H Urine Yeast (Budding) Rare H 01/06/18 01/06/18 01/06/18 19:56 20:58 22:22 WBC RBC Hgb Hct MCV MCH MCHC RDW Plt Count MPV Neut % (Auto) Lymph % (Auto) Lee % (Auto) Eos % (Auto) Baso % (Auto) Neut # (Auto) Lymph # (Auto) Lee # (Auto) Eos # (Auto) Baso # (Auto) PT INR APTT Puncture Site pCO2 pO2 HCO3 ABG pH ABG Total CO2 ABG O2 Saturation ABG Base Excess Kole Test ABG Potassium A-a O2 Difference Respiratory Index Glucose Lactate Liter Flow FiO2 Crit Value Called To Crit Value Called By Crit Value Read Back Blood Gas Notified Time Sodium Potassium Chloride Carbon Dioxide Anion Gap BUN Creatinine Est GFR ( Amer) Est GFR (Non-Af Amer) POC Glucose (mg/dL) > 500 H* > 500 H* > 500 H* Random Glucose Calcium Total Bilirubin AST ALT Alkaline Phosphatase Troponin I NT-Pro-B Natriuret Pep Total Protein Albumin Globulin Albumin/Globulin Ratio Free T4 TSH 3rd Generation Arterial Blood Potassium Urine Color Urine Clarity Urine pH Ur Specific [place] Urine Protein Urine Glucose (UA) Urine Ketones Urine Blood Urine Nitrate Urine Bilirubin Urine Urobilinogen Ur Leukocyte Esterase Urine WBC (Auto) Urine RBC (Auto) Ur Squamous Epith Cells Urine Bacteria Urine Yeast (Budding) 01/06/18 01/07/18 01/07/18 23:59 01:20 03:18 WBC RBC Hgb Hct MCV MCH MCHC RDW Plt Count MPV Neut % (Auto) Lymph % (Auto) Lee % (Auto) Eos % (Auto) Baso % (Auto) Neut # (Auto) Lymph # (Auto) Lee # (Auto) Eos # (Auto) Baso # (Auto) PT INR APTT Puncture Site pCO2 pO2 HCO3 ABG pH ABG Total CO2 ABG O2 Saturation ABG Base Excess Kole Test ABG Potassium A-a O2 Difference Respiratory Index Glucose Lactate Liter Flow FiO2 Crit Value Called To Crit Value Called By Crit Value Read Back Blood Gas Notified Time Sodium Potassium Chloride Carbon Dioxide Anion Gap BUN Creatinine Est GFR ( Amer) Est GFR (Non-Af Amer) POC Glucose (mg/dL) 491 H* 447 H* 389 H Random Glucose Calcium Total Bilirubin AST ALT Alkaline Phosphatase Troponin I NT-Pro-B Natriuret Pep Total Protein Albumin Globulin Albumin/Globulin Ratio Free T4 TSH 3rd Generation Arterial Blood Potassium Urine Color Urine Clarity Urine pH Ur Specific [place] Urine Protein Urine Glucose (UA) Urine Ketones Urine Blood Urine Nitrate Urine Bilirubin Urine Urobilinogen Ur Leukocyte Esterase Urine WBC (Auto) Urine RBC (Auto) Ur Squamous Epith Cells Urine Bacteria Urine Yeast (Budding) 01/07/18 01/07/18 01/07/18 03:36 05:02 09:29 WBC RBC Hgb Hct MCV MCH MCHC RDW Plt Count MPV Neut % (Auto) Lymph % (Auto) Lee % (Auto) Eos % (Auto) Baso % (Auto) Neut # (Auto) Lymph # (Auto) Lee # (Auto) Eos # (Auto) Baso # (Auto) PT INR APTT Puncture Site pCO2 pO2 HCO3 ABG pH ABG Total CO2 ABG O2 Saturation ABG Base Excess Kole Test ABG Potassium A-a O2 Difference Respiratory Index Glucose Lactate Liter Flow FiO2 Crit Value Called To Crit Value Called By Crit Value Read Back Blood Gas Notified Time Sodium 135 Potassium 4.1 Chloride 96 L Carbon Dioxide 20 L Anion Gap 23 H BUN 14 Creatinine 1.1 Est GFR ( Amer) > 60 Est GFR (Non-Af Amer) > 60 POC Glucose (mg/dL) 409 H* > 500 H* Random Glucose 379 H Calcium 8.1 L Total Bilirubin 0.9 AST 18 ALT 27 Alkaline Phosphatase 66 Troponin I NT-Pro-B Natriuret Pep Total Protein 7.7 Albumin 4.4 Globulin 3.4 Albumin/Globulin Ratio 1.3 Free T4 TSH 3rd Generation Arterial Blood Potassium Urine Color Urine Clarity Urine pH Ur Specific [place] Urine Protein Urine Glucose (UA) Urine Ketones Urine Blood Urine Nitrate Urine Bilirubin Urine Urobilinogen Ur Leukocyte Esterase Urine WBC (Auto) Urine RBC (Auto) Ur Squamous Epith Cells Urine Bacteria Urine Yeast (Budding) Assessment & Plan - Assessment and Plan (Free Text) Assessment: Patient is a 42 year old male with past medical history of DM type 2, asthma, TIA, PE, hypothyroidism was admitted for worsening shortness of breath now with refractory DKA requiring insulin drip. Transferred to the ICU for closer monitoring. Neurology: -Patient is AAOx3 -He has a history of TIA in the past -No acute issues at this time Cardiology: -Continue 1/2 NS @ 200cc/hr -F/U lipid panel, hga1c Respiratory: -Patient with history of asthma, pulmonary embolism -CXR 01/06: showing no acute disease -Duonebs Q4H ALON -Fluticasone/Salmeterol 500/50 1 puff Q12H -Pulmonology on consult, Dr Gauthier, help appreciated Renal: -No acute issues at this time -Potassium 40meq PO Q4H x 3 doses -Neutro phos 2pkt PO Q8H Endocrine: -Accuchecks >500 on the floors -Patient transferred to the ICU for DKA -Will monitor serial CMPs until anion gap closes -Continue Insulin drip -Continue Levothyroxine 500mcg IV daily -F/U TSH, Free T4, thyroglobulin -Diet: Carbohydrate consistent -Endocrine on consult, Dr Leos, help appreciated Infectious Disease: -F/U blood cx, urine cx GI/DVT ppx: -Xarelto 20mg PO daily -Pepcid 20mg PO daily <Casa Sullivan - Last Filed: 01/08/18 17:07> Meds - Medications Medications: Current Medications Albuterol/Ipratropium (Duoneb 3 Mg/0.5 Mg (3 Ml) Ud) 3 ml INH RQ4 [facility] Last Admin: 01/08/18 15:41 Dose: Not Given Famotidine (Pepcid) 20 mg PO DAILY [facility] Last Admin: 01/08/18 11:04 Dose: Not Given Sodium Chloride (Sodium Chloride 0.9%) 1,000 mls @ 125 mls/hr IV .Q8H [facility] Last Admin: 01/08/18 09:45 Dose: Not Given Ceftriaxone Sodium 1 gm/ (Sodium Chloride) 100 mls @ 100 mls/hr IVPB Q24H [facility] PRN Reason: Protocol Stop: 01/12/18 11:29 Last Admin: 01/08/18 11:05 Dose: 100 mls/hr Insulin Aspart (Novolog) 14 unit SC ACTID [facility] Last Admin: 01/08/18 16:33 Dose: 14 unit Insulin Glargine (Lantus) 30 unit SC HS [facility] Levothyroxine Sodium (Synthroid) 500 mcg IVP DAILY [facility] Last Admin: 01/08/18 10:13 Dose: 500 mcg Potassium Chloride (Potassium Chloride Oral Soln) 40 meq PO Q6H [facility] Stop: 01/08/18 20:16 Last Admin: 01/08/18 14:15 Dose: Not Given Potassium Phos/Sodium Phos (Neutra-Phos) 2 pkt PO Q8 [facility] Last Admin: 01/08/18 14:06 Dose: Not Given Rivaroxaban (Xarelto) 20 mg PO DAILY [facility] Last Admin: 01/08/18 10:06 Dose: 20 mg Fluticasone/Salmeterol (Advair Diskus 500/50) 1 puff INH RQ12 [facility] Last Admin: 01/08/18 07:35 Dose: 1 puff Results - Vital Signs Recent Vital Signs: Last Vital Signs Temp 98.6 F 01/08/18 12:32 Pulse 68 01/08/18 06:00 Resp 18 01/08/18 06:00 BP 119/67 01/08/18 05:39 Pulse Ox 97 01/08/18 06:00 - Labs Result Diagrams: 01/08/18 04:45 01/08/18 04:45 Labs: Laboratory Results - last 24 hr 01/07/18 01/07/18 01/07/18 18:03 20:10 21:41 WBC RBC Hgb Hct MCV MCH MCHC RDW Plt Count MPV Neut % (Auto) Lymph % (Auto) Lee % (Auto) Eos % (Auto) Baso % (Auto) Neut # (Auto) Lymph # (Auto) Lee # (Auto) Eos # (Auto) Baso # (Auto) Sodium Potassium Chloride Carbon Dioxide Anion Gap BUN Creatinine Est GFR ( Amer) Est GFR (Non-Af Amer) POC Glucose (mg/dL) 287 H 336 H 375 H Random Glucose Calcium Phosphorus Magnesium Total Bilirubin AST ALT Alkaline Phosphatase Total Protein Albumin Globulin Albumin/Globulin Ratio Triglycerides Cholesterol LDL Cholesterol Direct HDL Cholesterol Thyroxine (T4) TSH 3rd Generation 01/07/18 01/08/18 01/08/18 23:52 02:22 04:23 WBC RBC Hgb Hct MCV MCH MCHC RDW Plt Count MPV Neut % (Auto) Lymph % (Auto) Lee % (Auto) Eos % (Auto) Baso % (Auto) Neut # (Auto) Lymph # (Auto) Lee # (Auto) Eos # (Auto) Baso # (Auto) Sodium Potassium Chloride Carbon Dioxide Anion Gap BUN Creatinine Est GFR ( Amer) Est GFR (Non-Af Amer) POC Glucose (mg/dL) 348 H 278 H 227 H Random Glucose Calcium Phosphorus Magnesium Total Bilirubin AST ALT Alkaline Phosphatase Total Protein Albumin Globulin Albumin/Globulin Ratio Triglycerides Cholesterol LDL Cholesterol Direct HDL Cholesterol Thyroxine (T4) TSH 3rd Generation 01/08/18 01/08/18 01/08/18 04:45 04:45 04:45 WBC 9.0 RBC 4.09 L Hgb 12.8 Hct 36.7 MCV 89.8 MCH 31.4 H MCHC 34.9 RDW 13.7 Plt Count 193 MPV 10.2 Neut % (Auto) 54.6 Lymph % (Auto) 38.6 Lee % (Auto) 4.7 Eos % (Auto) 1.7 Baso % (Auto) 0.4 Neut # (Auto) 4.9 Lymph # (Auto) 3.5 Lee # (Auto) 0.4 Eos # (Auto) 0.2 Baso # (Auto) 0.0 Sodium 133 Potassium 3.2 L Chloride 100 Carbon Dioxide 19 L Anion Gap 17 BUN 16 Creatinine 1.1 Est GFR ( Amer) > 60 Est GFR (Non-Af Amer) > 60 POC Glucose (mg/dL) Random Glucose 222 H Calcium 8.3 L Phosphorus 2.9 Magnesium 1.8 Total Bilirubin 0.7 AST 21 ALT 33 Alkaline Phosphatase 46 Total Protein 6.1 L Albumin 3.5 Globulin 2.6 Albumin/Globulin Ratio 1.4 Triglycerides 135 Cholesterol 289 H LDL Cholesterol Direct 220 H HDL Cholesterol 43 Thyroxine (T4) 1.92 L TSH 3rd Generation 183.00 H 01/08/18 01/08/18 01/08/18 06:24 08:19 10:23 WBC RBC Hgb Hct MCV MCH MCHC RDW Plt Count MPV Neut % (Auto) Lymph % (Auto) Lee % (Auto) Eos % (Auto) Baso % (Auto) Neut # (Auto) Lymph # (Auto) Lee # (Auto) Eos # (Auto) Baso # (Auto) Sodium Potassium Chloride Carbon Dioxide Anion Gap BUN Creatinine Est GFR ( Amer) Est GFR (Non-Af Amer) POC Glucose (mg/dL) 159 H 169 H 245 H Random Glucose Calcium Phosphorus Magnesium Total Bilirubin AST ALT Alkaline Phosphatase Total Protein Albumin Globulin Albumin/Globulin Ratio Triglycerides Cholesterol LDL Cholesterol Direct HDL Cholesterol Thyroxine (T4) TSH 3rd Generation 03/23/18 16:19 WBC RBC Hgb Hct MCV MCH MCHC RDW Plt Count MPV Neut % (Auto) Lymph % (Auto) Lee % (Auto) Eos % (Auto) Baso % (Auto) Neut # (Auto) Lymph # (Auto) Lee # (Auto) Eos # (Auto) Baso # (Auto) Sodium Potassium Chloride Carbon Dioxide Anion Gap BUN Creatinine Est GFR ( Amer) Est GFR (Non-Af Amer) POC Glucose (mg/dL) 320 H Random Glucose Calcium Phosphorus Magnesium Total Bilirubin AST ALT Alkaline Phosphatase Total Protein Albumin Globulin Albumin/Globulin Ratio Triglycerides Cholesterol LDL Cholesterol Direct HDL Cholesterol Thyroxine (T4) TSH 3rd Generation Assessment & Plan - Assessment and Plan (Free Text) Plan: Patient seen and examined at bedside. Patient with h/o non-compliance presents to [facility] with DKA -DKA: continue IVF and insulin ggt -replace all electorlytes -continue all other home medications above resident note reviewed and verified. -will benefit from IV insulin ggt - Date & Time Date: 01/07/18 Time: 17:00
--- NOTE | 2018-01-07 12:31 | CP.PCM.PN ---
<DeisiJyothi - Last Filed: 01/07/18 15:16> Subjective - Date & Time of Evaluation Date of Evaluation: 01/07/18 Time of Evaluation: 12:28 - Subjective Subjective: Progress Note Patient seen and examined at bedside. Patient was refusing treatment and wanted to speak to Dr. Leos. It was explained to patient that his glucose levels were high and he needed to take his insulin. Dr. Leos was notified as well and contacted this resident stating she will see the patient today. Patient refusing insulin and labs this morning. Patient was seen by ICU attending after ICU consult was ordered. Patient was brought to ICU for further management. Patient denied headaches, nausea vomiting, abdominal pain. admitted to changes in vision, constipation. Objective - Vital Signs/Intake and Output Vital Signs (last 24 hours): Temp Pulse Resp BP Pulse Ox 97.8 F 87 20 104/61 96 01/07/18 08:13 01/07/18 09:05 01/07/18 08:13 01/07/18 08:13 01/07/18 09:27 Intake and Output: 01/07/18 01/07/18 06:59 18:59 Intake Total 2240 750 Output Total 1300 Balance 940 750 - Medications Medications: Current Medications Albuterol/Ipratropium (Duoneb 3 Mg/0.5 Mg (3 Ml) Ud) 3 ml INH RQ4 [facility] Last Admin: 01/07/18 11:20 Dose: 3 ml Famotidine (Pepcid) 20 mg PO DAILY [facility] Last Admin: 01/07/18 10:44 Dose: Not Given Sodium Chloride (Sodium Chloride 0.9%) 1,000 mls @ 200 mls/hr IV .Q5H [facility] Insulin Human Regular 100 unit (/ Sodium Chloride) 100 mls @ 9.61 mls/hr IV .[id number] ALON; 0.1 UNIT/KG/HR PRN Reason: Protocol Insulin Glargine (Lantus) 20 unit SC HS [facility] Last Admin: 01/06/18 21:48 Dose: 20 units Levothyroxine Sodium (Levothyroxine) 500 mcg IV DAILY [facility] Potassium Chloride (Potassium Chloride Oral Soln) 40 meq PO Q4H [facility] Stop: 01/07/18 20:31 Potassium Phos/Sodium Phos (Neutra-Phos) 2 pkt PO Q8H [facility] Rivaroxaban (Xarelto) 20 mg PO DAILY [facility] Last Admin: 01/07/18 10:59 Dose: 20 mg Fluticasone/Salmeterol (Advair Diskus 500/50) 1 puff INH RQ12 [facility] Last Admin: 01/07/18 10:18 Dose: Not Given - Labs Labs: 01/06/18 18:10 01/07/18 03:36 PT 11.3 SECONDS (9.7-12.2) 01/06/18 18:10 INR 1.0 01/06/18 18:10 APTT 28 SECONDS (21-34) 01/06/18 18:10 - Constitutional Appears: No Acute Distress - Head Exam Head Exam: ATRAUMATIC, NORMAL INSPECTION, NORMOCEPHALIC - Eye Exam Eye Exam: EOMI, Normal appearance - ENT Exam ENT Exam: Mucous Membranes Moist - Neck Exam Neck Exam: Full ROM. absent: Tenderness, Thyromegaly - Respiratory Exam Respiratory Exam: Clear to Ausculation Bilateral, NORMAL BREATHING PATTERN. absent: Accessory Muscle Use - Cardiovascular Exam Cardiovascular Exam: REGULAR RHYTHM, +S1, +S2 - GI/Abdominal Exam GI & Abdominal Exam: Soft. absent: Tenderness - Extremities Exam Extremities Exam: Full ROM, Normal Capillary Refill, Normal Inspection. absent : Pedal Edema - Back Exam Back Exam: Full ROM - Neurological Exam Neurological Exam: Awake, CN II-XII Intact - Psychiatric Exam Psychiatric exam: Normal Affect, Normal Mood - Skin Skin Exam: Dry, Intact, Normal Color, Warm Assessment and Plan - Assessment and Plan (Free Text) Assessment: patient transferred to ICU Asthma Exacerbation Duonebs q4h prn Advair diskus 500/50 1 puff INH rq12h DKA, uncontrolled IDDM accuchecks q1h f/u HgA1C f/u CMP Q6H Potassium 40meq PO Q4H x 3 doses Phosphorus/Potassuim 2pkt PO Q8H Insulin drip at 0.1u/kg/hr NS 200cc/hr Fluticasone/Salmeterol 1 puff INH RQ12H Insulin 20u SC HS Hypothyroidism home medication 400mcg po daily, held TSH elevated 500mcg PO QD, per Dr. Leos Endo Consult: Dr. Leos HTN Lisinopril 20mg po daily, held Hx PE continue Xarelto 20mg po daily Prophylaxis SCDs, Pepcid 20 mg po daily Xarelto 20mg POQD ICU consult Dr. Casa Sullivan Patient is on Bipap at home for night time Patient transferred to ICU Jyothi Lipscomb DO PGY1 <Wong Leigh Jr. - Last Filed: 01/11/18 15:46> Objective - Vital Signs/Intake and Output Vital Signs (last 24 hours): Temp Pulse Resp BP Pulse Ox 98.9 F 94 H 20 113/62 100 01/11/18 10:00 01/11/18 10:00 01/11/18 10:00 01/11/18 10:00 01/11/18 10:00 Intake and Output: 01/11/18 01/11/18 06:59 18:59 Intake Total 600 Balance 600 - Medications Medications: Current Medications Albuterol/Ipratropium (Duoneb 3 Mg/0.5 Mg (3 Ml) Ud) 3 ml INH RQ4 [facility] Last Admin: 01/11/18 11:17 Dose: 3 ml Famotidine (Pepcid) 20 mg PO DAILY [facility] Last Admin: 01/11/18 11:07 Dose: Not Given Fluticasone Propionate (Flonase) 1 spr DYLAN DAILY [facility] Last Admin: 01/11/18 11:07 Dose: Not Given Ceftriaxone Sodium 1 gm/ (Sodium Chloride) 100 mls @ 100 mls/hr IVPB Q24H [facility] PRN Reason: Protocol Stop: 01/12/18 11:29 Last Admin: 01/11/18 11:06 Dose: 100 mls/hr Sodium Chloride (Sodium Chloride 0.9%) 1,000 mls @ 100 mls/hr IV .Q10H [facility] Last Admin: 01/11/18 13:54 Dose: Not Given Insulin Aspart (Novolog) 0 unit SC ACHS [facility] Last Admin: 01/11/18 11:37 Dose: 4 unit Insulin Aspart (Novolog) 14 unit SC ACTID [facility] Last Admin: 01/11/18 11:38 Dose: 14 unit Insulin Glargine (Lantus) 40 unit SC HS [facility] Last Admin: 01/10/18 22:42 Dose: 40 u Levothyroxine Sodium (Synthroid) 500 mcg PO DAILY@0630 [facility] Last Admin: 01/11/18 08:11 Dose: 500 mcg Potassium Phos/Sodium Phos (Neutra-Phos) 2 pkt PO Q8 [facility] Last Admin: 01/11/18 13:54 Dose: Not Given Rivaroxaban (Xarelto) 20 mg PO DAILY [facility] Last Admin: 01/11/18 11:07 Dose: 20 mg Rosuvastatin Calcium (Crestor) 10 mg PO HS [facility] Last Admin: 01/10/18 22:34 Dose: Not Given Fluticasone/Salmeterol (Advair Diskus 500/50) 1 puff INH RQ12 [facility] Last Admin: 01/11/18 08:20 Dose: 1 puff Sitagliptin Phosphate (Januvia) 100 mg PO DAILY [facility] Last Admin: 01/11/18 11:07 Dose: Not Given Tamsulosin HCl (Flomax) 0.4 mg PO Q24H [facility] Last Admin: 01/10/18 17:50 Dose: 0.4 mg - Labs Labs: 01/11/18 14:19 01/11/18 08:15 PT 11.3 SECONDS (9.7-12.2) 01/06/18 18:10 INR 1.0 01/06/18 18:10 APTT 28 SECONDS (21-34) 01/06/18 18:10 Attending/Attestation - Attestation I have personally seen and examined this patient.: Yes I have fully participated in the care of the patient.: Yes I have reviewed all pertinent clinical information, including history, physical exam and plan: Yes Notes (Text): 01/11/18 15:46 Agree with resident note and plan of care
[2018-01-07] MEDS: Potassium Chloride 20 mEq/15 ml LIQ UD PO SCH ×4 (13:00→20:42)
[2018-01-07] MEDS: Potassium & Sodium Phosphate PO SCH ×2 (14:29→21:46)
--- NOTE | 2018-01-07 16:34 | RAD ---
PROCEDURE: CHEST RADIOGRAPH, 1 VIEW HISTORY: PICC line placement. COMPARISON: Comparison chest dated 01/06/2018 at 1831 hours FINDINGS: Interval placement right-sided PICC line tip in the SVC. Poor inspiration with low lung volumes, crowded bronchovascular markings and mild bibasilar atelectasis. LUNGS: Clear. PLEURA: No pneumothorax or pleural fluid seen. CARDIOVASCULAR: Normal. OSSEOUS STRUCTURES: No significant abnormalities. VISUALIZED UPPER ABDOMEN: Normal. OTHER FINDINGS: None. IMPRESSION: Interval placement right-sided PICC line as above. Poor inspiration with low lung volumes, crowded bronchovascular markings and mild bibasilar atelectasis.
[2018-01-07] MEDS ORDERED: Insulin Human Regular 100 UNIT in Sodium Chloride 0.9% 99 ML IV PRN (16:40)
[2018-01-07 16:44] LABS: BASO # 0.1 K/uL (0.0-0.2); BASO % 1.2 % (0.0-2.0); EOS # 0.1 K/uL (0.0-0.7); EOS % 0.7 % (0.0-4.0); LYMPH # 2.9 K/uL (1.0-4.3); LYMPH % 22.6 % (20.0-40.0); MEAN CELL VOLUME 89.1 fL (80.0-94.0); MEAN CORPUSCULAR HEMOGLOBIN 31.1 pg (27.0-31.0); MEAN CORPUSCULAR HGB CONC 34.9 g/dL (33.0-37.0); MEAN PLATELET VOLUME 9.5 fL (7.2-11.7); MONO # 0.6 K/uL (0.0-0.8); MONO % 4.9 % (0.0-10.0); NEUT # 8.9 K/uL (1.8-7.0); NEUT % 70.6 % (50.0-75.0); RBC 4.52 Mil/uL (4.40-5.90); RED CELL DISTRIBUTION WIDTH 13.4 % (11.5-14.5)
[2018-01-07 16:45] LABS: WHITE BLOOD COUNT 12.7 K/uL (4.8-10.8)
[2018-01-07 16:48] LABS: HEMOGLOBIN 14.1 g/dL (12.0-18.0)
[2018-01-07 16:57] LABS: ALB/GLOB RATIO 1.3 (1.0-2.1); ALBUMIN 4.2 g/dL (3.5-5.0); ALT/SGPT 25 U/L (21-72); AST/SGOT 22 U/L (17-59); BLOOD UREA NITROGEN 15 mg/dL (9-20); CALCIUM 9.3 mg/dl (8.6-10.4); GFR AFRICAN-AMERICAN > 60; GFR NON-AFRICAN AMERICAN > 60
[2018-01-07] MEDS ORDERED: (Lantus) Insulin Glargine, Recombinant SC SCH ×2 (22:00)
[2018-01-08] MEDS: Albuterol-Ipratrop 3 mg / 0.5 (3 ml) UD INH SCH ×5 (00:25→20:03)
[2018-01-08] MEDS: Sodium Chloride 0.9% 1,000 ML IV SCH ×3 (03:20→09:45)
[2018-01-08 05:03] LABS: BASO % 0.4 % (0.0-2.0); EOS # 0.2 K/uL (0.0-0.7); EOS % 1.7 % (0.0-4.0); HEMOGLOBIN 12.8 g/dL (12.0-18.0); LYMPH # 3.5 K/uL (1.0-4.3); LYMPH % 38.6 % (20.0-40.0); MEAN CELL VOLUME 89.8 fL (80.0-94.0); MEAN CORPUSCULAR HEMOGLOBIN 31.4 pg (27.0-31.0); MEAN CORPUSCULAR HGB CONC 34.9 g/dL (33.0-37.0); MEAN PLATELET VOLUME 10.2 fL (7.2-11.7); MONO # 0.4 K/uL (0.0-0.8); MONO % 4.7 % (0.0-10.0); NEUT # 4.9 K/uL (1.8-7.0); NEUT % 54.6 % (50.0-75.0); NRBC % 0.1 % (0.0-2.0); RBC 4.09 Mil/uL (4.40-5.90); RED CELL DISTRIBUTION WIDTH 13.7 % (11.5-14.5)
[2018-01-08 05:23] LABS: ALB/GLOB RATIO 1.4 (1.0-2.1); ALBUMIN 3.5 g/dL (3.5-5.0); ALT/SGPT 33 U/L (21-72); AST/SGOT 21 U/L (17-59); BLOOD UREA NITROGEN 16 mg/dL (9-20); CALCIUM 8.3 mg/dl (8.6-10.4); GFR AFRICAN-AMERICAN > 60; GFR NON-AFRICAN AMERICAN > 60
[2018-01-08 05:34] LABS: T4 1.92 ug/dL (5.5-11.0)
[2018-01-08] MEDS: Potassium & Sodium Phosphate PO SCH ×4 (06:31→22:00)
[2018-01-08] MEDS ORDERED: Potassium Chloride 20 mEq/15 ml LIQ UD PO ONE (07:15)
[2018-01-08] MEDS: Fluticasone-Salmeterol 500-50mcg Diskus INH SCH ×2 (07:35→20:04)
[2018-01-08] MEDS: Potassium Chloride 20 mEq/15 ml LIQ UD PO SCH ×5 (07:58→21:02)
[2018-01-08] MEDS: (Lantus) Insulin Glargine, Recombinant SC SCH ×2 (08:15→10:00)
[2018-01-08] MEDS: (Novolog) Insulin Aspart, Recombinant 100 u/ml 10 ml vial SC SCH ×3 (09:01→16:33)
[2018-01-08] MEDS ORDERED: Levothyroxine 500 mcg (0.5 mg) Inj IV SCH (10:00)
--- NOTE | 2018-01-08 10:06 | CARD ---
APPROVED REPORT EKG Measurement Heart [id number] <Conclusion> Normal sinus rhythm Septal infarct, age undetermined Abnormal ECG
--- NOTE | 2018-01-08 10:08 | CON ---
DATE: ENDOCRINOLOGY CONSULTATION LOCATION: ICU room 14 D. HISTORY OF PRESENT ILLNESS: This is a 42-year-old male with known history of type 2 diabetes, previously on oral hypoglycemic therapy given in combination which he eventually discontinued and has been admitted here with progressive shortness of breath and evaluated to have an acute exacerbation of asthmatic bronchitis and now transferred to ICU because of persistent hyperglycemic accelerations with early ketosis and is being referred now for endocrine evaluation and management. PAST MEDICAL HISTORY: He is really officially not my office patient as he has only been seen multiple times in [facility] for consultation over the last 5 years or so. He has his own medical doctors in the outpatient for which he follows for his medical conditions otherwise. He was previously in a combination of Lantus given as 30 units at bedtime with NovoLog given as 14 units t.i.d. with the last discharge from [facility] a year ago but which obviously he did not adhere to or follow through thereof. He was previously on a combination of Invokamet and Januvia in combination. History of hypertension, dyslipidemia, history of diabetic retinopathy and polyneuropathy and his A1c's have actually been over 10% in the previous admission as noted. 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 He also received radioactive iodine ablation therapy postoperatively and has been on a high dose levothyroxine at 400 mcg once daily as given. No recent medical followup. No any lab testing with his medical doctors since last year. History of severe osteoarthritis with multiple reconstructive knee surgical procedures in both the right and left knee as noted. FAMILY HISTORY: Positive for hypertension and diabetes. SOCIAL HISTORY: The patient has a supportive family. Lives alone. There is no known substance use. He works as a financial and retail sales advisor as noted. REVIEW OF SYSTEMS: As mentioned above, admits to generalized body weakness with progressive dizziness and lightheadedness, worse on the day of admission, also admits to visual blurring with mild frontal headaches and generalized body weakness thereof. No chest pains or palpitations but admits to progressive shortness of breath initially with exertion and then at rest with exacerbation of his asthmatic bronchitis and persistent bronchorrhea and pleuritic chest pain as noted. His oral intake has been variable with nausea, dyspepsia, and vague upper abdominal pains, also admits to marked polyuria, nocturia, polydipsia, and about a 5 pound or so weight loss. PHYSICAL EXAMINATION: GENERAL: This is an average-built male in no apparent distress. VITAL SIGNS: With the blood pressure of 150/90, pulse of 100 beats per minute regular, temperature 99, respirations 20. Height is 5 feet 10 inches, weight is 212 pounds. HEENT: Head normocephalic. Eyes are anicteric with pink conjunctivae. Funduscopy not possible at this time. Ears, nose, and throat are otherwise normal. NECK: Supple. Thyroid gland is normal in size. No carotid bruits or cervical adenopathy. CARDIOPULMONARY: Adynamic precordium. S1 and S2 is rapid and regular. LUNGS: Show scattered rhonchi. ABDOMEN: Obese, soft with positive bowel sounds. EXTREMITIES: No peripheral edema. Pulses are +2 bilaterally. LABORATORY DATA: His chemistries showed a BUN of 14, sodium 135, potassium 4.1, chloride 96, CO2 20, glucose 379 and creatinine 1.1. His glucose levels have ranged from 409 to 447 and over 500 mg/dL. His TSH was actually reported as 149.00 and a free T4 of less than 0.07. This is a 42-year-old male with uncontrolled and decompensated type 2 insulin requiring diabetes presenting here with acute exacerbation of asthmatic bronchitis and supervening marked hyperglycemic accelerations with early ketosis as noted. He also has significant and overt hypothyroidism both historically, clinically and biochemically relating to a subtherapeutic levothyroxine replacement therapy following a total thyroidectomy and radioactive iodine ablation for Hurthle cell thyroid carcinoma as mentioned ASSESSMENT: This is a 42-year-old male with uncontrolled and decompensated type 2 insulin-requiring diabetes with early ketosis and marked hyperglycemic accelerations presenting here with acute exacerbation of asthmatic bronchitis which is also a tremendous physical stressor to the body as noted which could precipitate metabolic decompensation thereof. PLAN OF MANAGEMENT: As discussed with the patient's staff, we will concur with the intensive insulin therapy to be initiated with an insulin drip infusion in the ICU as mentioned. We will also initiate vigorous IV hydration to replenish the lost fluids and electrolytes from the increased osmotic diuresis as expected thereof. We will obtain serial chemistries and supplement accordingly as needed. We will also change his oral levothyroxine to parenteral levothyroxine given as 500 mcg IV push once daily as ordered. With the marked hypothyroidism would expect impaired oral absorption of the levothyroxine medications with a marked gastric mucosal edema as expected from the near myxedema from hypothyroidism thereof. We will obtain serial chemistries and supplement accordingly as needed. Once his acidosis is improved, then we can switch him over to a more physiologic basal and bolus insulin drug combination as indicated. Hemoglobin A1c will be done control and serial thyroid studies will be ordered accordingly. We will follow with you. Torrie Leos MD
[2018-01-08] MEDS: Levothyroxine 100 mcg (0.1 mg) Inj IVP SCH (10:13)
--- NOTE | 2018-01-08 12:49 | CP.CCUPN ---
<Cielo Connell - Last Filed: 01/08/18 14:39> CCU Subjective - Physician Review Subjective (Free Text): 01/08/18 14:28 Patient seen and examined at bedside. Anion gap is closed, Patient off insulin drip. Per nursing, patient refused evening Lantus dose. Currently offers no complaints. Has a non-productive cough. CCU Objective - Vital Signs / Intake & Output Vital Signs (Last 4 hours): Vital Signs Temp 01/08/18 12:32 98.6 F 01/08/18 11:35 98.6 F Intake and Output (Last 8hrs): Intake & Output 01/07/18 01/08/18 01/08/18 22:59 06:59 14:59 Intake Total 1916.6 2133 802 Output Total 950 0 0 Balance 966.6 2133 802 Intake: IV 0 0 Intake, IV Amount 1666.6 1633 402 Right Forearm 1000 Right Upper arm 66.6 33 2 Right arm PICC 600 1600 400 Oral 250 500 400 Output: Urine 950 0 0 Urine, Voided 950 0 0 Other: # Voids Urine, Voided 1 1 # Bowel Movements 1 0 0 - Physical Exam Other physical findings (Free Text): - Constitutional Appears: No Acute Distress - Head Exam Head Exam: ATRAUMATIC, NORMAL INSPECTION, NORMOCEPHALIC - Eye Exam Eye Exam: EOMI, Normal appearance - ENT Exam ENT Exam: Mucous Membranes Moist - Neck Exam Neck Exam: Full ROM. absent: Tenderness, Thyromegaly - Respiratory Exam Respiratory Exam: Clear to Ausculation Bilateral, NORMAL BREATHING PATTERN. absent: Accessory Muscle Use - Cardiovascular Exam Cardiovascular Exam: REGULAR RHYTHM, +S1, +S2 - GI/Abdominal Exam GI & Abdominal Exam: Soft. absent: Tenderness - Extremities Exam Extremities Exam: Full ROM, Normal Capillary Refill, Normal Inspection. absent : Pedal Edema - Back Exam Back Exam: Full ROM - Neurological Exam Neurological Exam: Awake, CN II-XII Intact - Psychiatric Exam Psychiatric exam: Normal Affect, Normal Mood - Skin Skin Exam: Dry, Intact, Normal Color, Warm - Medications Active Medications: Active Medications Generic Name Dose Route Start Last Admin Trade Name Freq PRN Reason Stop Dose Admin Albuterol/Ipratropium 3 ml 01/07/18 12:00 01/08/18 07:35 Duoneb 3 Mg/0.5 Mg (3 Ml) Ud INH 3 ml RQ4 ALON Administration Famotidine 20 mg 01/07/18 10:00 01/08/18 11:04 Pepcid PO Not Given DAILY ALON Sodium Chloride 1,000 mls @ 125 mls/hr 01/08/18 09:32 01/08/18 09:45 Sodium Chloride 0.9% IV Not Given .Q8H ALON Ceftriaxone Sodium 1 gm/ 100 mls @ 100 mls/hr 01/08/18 10:30 01/08/18 11:05 Sodium Chloride IVPB 01/12/18 11:29 100 mls/hr Q24H ALON Administration Protocol Insulin Aspart 14 unit 01/08/18 07:30 01/08/18 12:16 Novolog SC 14 unit ACTID ALON Administration Insulin Glargine 40 unit 01/08/18 08:30 01/08/18 10:00 Lantus SC Not Given QAM [facility] Levothyroxine Sodium 500 mcg 01/08/18 10:15 01/08/18 10:13 Synthroid IVP 500 mcg DAILY [facility] Administration Potassium Chloride 40 meq 01/08/18 08:15 01/08/18 07:58 Potassium Chloride Oral Soln PO 01/08/18 20:16 40 meq Q6H ALON Administration Potassium Phos/Sodium Phos 2 pkt 01/07/18 14:00 01/08/18 06:31 Neutra-Phos PO Not Given Q8 ALON Rivaroxaban 20 mg 01/07/18 10:00 01/08/18 10:06 Xarelto PO 20 mg DAILY [facility] Administration Fluticasone/Salmeterol 1 puff 01/07/18 08:00 01/08/18 07:35 Advair Diskus 500/50 INH 1 puff RQ12 [facility] Administration - Patient Studies Lab Studies: Microbiology Studies 01/06/18 Unknown Urine Culture - Final Urine,Clean Catch Yeast Species 01/06/18 18:30 Blood Culture - Preliminary Blood NO GROWTH AFTER 24 HOURS 01/06/18 18:00 Blood Culture - Preliminary Blood NO GROWTH AFTER 24 HOURS Lab Studies 01/08/18 01/08/18 01/08/18 Range/Units 10:23 08:19 06:24 WBC (4.8-10.8) K/uL RBC (4.40-5.90) Mil/uL Hgb (12.0-18.0) g/dL Hct (35.0-51.0) % MCV (80.0-94.0) fL MCH (27.0-31.0) pg MCHC (33.0-37.0) g/dL RDW (11.5-14.5) % Plt Count (130-400) K/uL MPV (7.2-11.7) fL Neut % (Auto) (50.0-75.0) % Lymph % (Auto) (20.0-40.0) % [place] % (Auto) (0.0-10.0) % Eos % (Auto) (0.0-4.0) % Baso % (Auto) (0.0-2.0) % Neut # (Auto) (1.8-7.0) K/uL Lymph # (Auto) (1.0-4.3) K/uL [place] # (Auto) (0.0-0.8) K/uL Eos # (Auto) (0.0-0.7) K/uL Baso # (Auto) (0.0-0.2) K/uL Sodium (132-148) mmol/L Potassium (3.6-5.2) mmol/L Chloride (98-107) mmol/L Carbon Dioxide (22-30) mmol/L Anion Gap (10-20) BUN (9-20) mg/dL Creatinine (0.8-1.5) mg/dL Est GFR ( Amer) Est GFR (Non-Af Amer) POC Glucose (mg/dL) 245 H 169 H 159 H (65-110) mg/dL Random Glucose (75-110) mg/dL Calcium (8.6-10.4) mg/dl Phosphorus (2.5-4.5) mg/dL Magnesium (1.6-2.3) mg/dL Total Bilirubin (0.2-1.3) mg/dL AST (17-59) U/L ALT (21-72) U/L Alkaline Phosphatase (38-126) U/L Total Protein (6.3-8.3) g/dL Albumin (3.5-5.0) g/dL Globulin (2.2-3.9) gm/dL Albumin/Globulin Ratio (1.0-2.1) Triglycerides (0-149) mg/dL Cholesterol (0-199) mg/dL LDL Cholesterol Direct (0-129) mg/dL HDL Cholesterol (30-70) mg/dL Thyroxine (T4) (5.5-11.0) ug/dL TSH 3rd Generation (0.46-4.68) mIU/L 01/08/18 01/08/18 01/08/18 Range/Units 04:45 04:45 04:45 WBC 9.0 (4.8-10.8) K/uL RBC 4.09 L (4.40-5.90) Mil/uL Hgb 12.8 (12.0-18.0) g/dL Hct 36.7 (35.0-51.0) % MCV 89.8 (80.0-94.0) fL MCH 31.4 H (27.0-31.0) pg MCHC 34.9 (33.0-37.0) g/dL RDW 13.7 (11.5-14.5) % Plt Count 193 (130-400) K/uL MPV 10.2 (7.2-11.7) fL Neut % (Auto) 54.6 (50.0-75.0) % Lymph % (Auto) 38.6 (20.0-40.0) % [place] % (Auto) 4.7 (0.0-10.0) % Eos % (Auto) 1.7 (0.0-4.0) % Baso % (Auto) 0.4 (0.0-2.0) % Neut # (Auto) 4.9 (1.8-7.0) K/uL Lymph # (Auto) 3.5 (1.0-4.3) K/uL [place] # (Auto) 0.4 (0.0-0.8) K/uL Eos # (Auto) 0.2 (0.0-0.7) K/uL Baso # (Auto) 0.0 (0.0-0.2) K/uL Sodium 133 (132-148) mmol/L Potassium 3.2 L (3.6-5.2) mmol/L Chloride 100 (98-107) mmol/L Carbon Dioxide 19 L (22-30) mmol/L Anion Gap 17 (10-20) BUN 16 (9-20) mg/dL Creatinine 1.1 (0.8-1.5) mg/dL Est GFR ( Amer) > 60 Est GFR (Non-Af Amer) > 60 POC Glucose (mg/dL) (65-110) mg/dL Random Glucose 222 H (75-110) mg/dL Calcium 8.3 L (8.6-10.4) mg/dl Phosphorus 2.9 (2.5-4.5) mg/dL Magnesium 1.8 (1.6-2.3) mg/dL Total Bilirubin 0.7 (0.2-1.3) mg/dL AST 21 (17-59) U/L ALT 33 (21-72) U/L Alkaline Phosphatase 46 (38-126) U/L Total Protein 6.1 L (6.3-8.3) g/dL Albumin 3.5 (3.5-5.0) g/dL Globulin 2.6 (2.2-3.9) gm/dL Albumin/Globulin Ratio 1.4 (1.0-2.1) Triglycerides 135 (0-149) mg/dL Cholesterol 289 H (0-199) mg/dL LDL Cholesterol Direct 220 H (0-129) mg/dL HDL Cholesterol 43 (30-70) mg/dL Thyroxine (T4) 1.92 L (5.5-11.0) ug/dL TSH 3rd Generation 183.00 H (0.46-4.68) mIU/L 01/08/18 01/08/18 01/07/18 Range/Units 04:23 02:22 23:52 WBC (4.8-10.8) K/uL RBC (4.40-5.90) Mil/uL Hgb (12.0-18.0) g/dL Hct (35.0-51.0) % MCV (80.0-94.0) fL MCH (27.0-31.0) pg MCHC (33.0-37.0) g/dL RDW (11.5-14.5) % Plt Count (130-400) K/uL MPV (7.2-11.7) fL Neut % (Auto) (50.0-75.0) % Lymph % (Auto) (20.0-40.0) % [place] % (Auto) (0.0-10.0) % Eos % (Auto) (0.0-4.0) % Baso % (Auto) (0.0-2.0) % Neut # (Auto) (1.8-7.0) K/uL Lymph # (Auto) (1.0-4.3) K/uL [place] # (Auto) (0.0-0.8) K/uL Eos # (Auto) (0.0-0.7) K/uL Baso # (Auto) (0.0-0.2) K/uL Sodium (132-148) mmol/L Potassium (3.6-5.2) mmol/L Chloride (98-107) mmol/L Carbon Dioxide (22-30) mmol/L Anion Gap (10-20) BUN (9-20) mg/dL Creatinine (0.8-1.5) mg/dL Est GFR ( Amer) Est GFR (Non-Af Amer) POC Glucose (mg/dL) 227 H 278 H 348 H (65-110) mg/dL Random Glucose (75-110) mg/dL Calcium (8.6-10.4) mg/dl Phosphorus (2.5-4.5) mg/dL Magnesium (1.6-2.3) mg/dL Total Bilirubin (0.2-1.3) mg/dL AST (17-59) U/L ALT (21-72) U/L Alkaline Phosphatase (38-126) U/L Total Protein (6.3-8.3) g/dL Albumin (3.5-5.0) g/dL Globulin (2.2-3.9) gm/dL Albumin/Globulin Ratio (1.0-2.1) Triglycerides (0-149) mg/dL Cholesterol (0-199) mg/dL LDL Cholesterol Direct (0-129) mg/dL HDL Cholesterol (30-70) mg/dL Thyroxine (T4) (5.5-11.0) ug/dL TSH 3rd Generation (0.46-4.68) mIU/L 01/07/18 01/07/18 01/07/18 Range/Units 21:41 20:10 18:03 WBC (4.8-10.8) K/uL RBC (4.40-5.90) Mil/uL Hgb (12.0-18.0) g/dL Hct (35.0-51.0) % MCV (80.0-94.0) fL MCH (27.0-31.0) pg MCHC (33.0-37.0) g/dL RDW (11.5-14.5) % Plt Count (130-400) K/uL MPV (7.2-11.7) fL Neut % (Auto) (50.0-75.0) % Lymph % (Auto) (20.0-40.0) % [place] % (Auto) (0.0-10.0) % Eos % (Auto) (0.0-4.0) % Baso % (Auto) (0.0-2.0) % Neut # (Auto) (1.8-7.0) K/uL Lymph # (Auto) (1.0-4.3) K/uL [place] # (Auto) (0.0-0.8) K/uL Eos # (Auto) (0.0-0.7) K/uL Baso # (Auto) (0.0-0.2) K/uL Sodium (132-148) mmol/L Potassium (3.6-5.2) mmol/L Chloride (98-107) mmol/L Carbon Dioxide (22-30) mmol/L Anion Gap (10-20) BUN (9-20) mg/dL Creatinine (0.8-1.5) mg/dL Est GFR ( Amer) Est GFR (Non-Af Amer) POC Glucose (mg/dL) 375 H 336 H 287 H (65-110) mg/dL Random Glucose (75-110) mg/dL Calcium (8.6-10.4) mg/dl Phosphorus (2.5-4.5) mg/dL Magnesium (1.6-2.3) mg/dL Total Bilirubin (0.2-1.3) mg/dL AST (17-59) U/L ALT (21-72) U/L Alkaline Phosphatase (38-126) U/L Total Protein (6.3-8.3) g/dL Albumin (3.5-5.0) g/dL Globulin (2.2-3.9) gm/dL Albumin/Globulin Ratio (1.0-2.1) Triglycerides (0-149) mg/dL Cholesterol (0-199) mg/dL LDL Cholesterol Direct (0-129) mg/dL HDL Cholesterol (30-70) mg/dL Thyroxine (T4) (5.5-11.0) ug/dL TSH 3rd Generation (0.46-4.68) mIU/L 01/07/18 01/07/18 01/07/18 Range/Units 16:40 16:40 16:38 WBC 12.7 H D (4.8-10.8) K/uL RBC 4.52 (4.40-5.90) Mil/uL Hgb 14.1 D (12.0-18.0) g/dL Hct 40.3 (35.0-51.0) % MCV 89.1 (80.0-94.0) fL MCH 31.1 H (27.0-31.0) pg MCHC 34.9 (33.0-37.0) g/dL RDW 13.4 (11.5-14.5) % Plt Count 247 (130-400) K/uL MPV 9.5 (7.2-11.7) fL Neut % (Auto) 70.6 (50.0-75.0) % Lymph % (Auto) 22.6 (20.0-40.0) % [place] % (Auto) 4.9 (0.0-10.0) % Eos % (Auto) 0.7 (0.0-4.0) % Baso % (Auto) 1.2 (0.0-2.0) % Neut # (Auto) 8.9 H (1.8-7.0) K/uL Lymph # (Auto) 2.9 (1.0-4.3) K/uL [place] # (Auto) 0.6 (0.0-0.8) K/uL Eos # (Auto) 0.1 (0.0-0.7) K/uL Baso # (Auto) 0.1 (0.0-0.2) K/uL Sodium 134 (132-148) mmol/L Potassium 3.6 (3.6-5.2) mmol/L Chloride 97 L (98-107) mmol/L Carbon Dioxide 24 (22-30) mmol/L Anion Gap 17 (10-20) BUN 15 (9-20) mg/dL Creatinine 1.1 (0.8-1.5) mg/dL Est GFR ( Amer) > 60 Est GFR (Non-Af Amer) > 60 POC Glucose (mg/dL) 286 H (65-110) mg/dL Random Glucose 280 H (75-110) mg/dL Calcium 9.3 (8.6-10.4) mg/dl Phosphorus 2.4 L (2.5-4.5) mg/dL Magnesium 1.9 (1.6-2.3) mg/dL Total Bilirubin 1.1 (0.2-1.3) mg/dL AST 22 (17-59) U/L ALT 25 (21-72) U/L Alkaline Phosphatase 63 (38-126) U/L Total Protein 7.6 (6.3-8.3) g/dL Albumin 4.2 (3.5-5.0) g/dL Globulin 3.4 (2.2-3.9) gm/dL Albumin/Globulin Ratio 1.3 (1.0-2.1) Triglycerides (0-149) mg/dL Cholesterol (0-199) mg/dL LDL Cholesterol Direct (0-129) mg/dL HDL Cholesterol (30-70) mg/dL Thyroxine (T4) (5.5-11.0) ug/dL TSH 3rd Generation (0.46-4.68) mIU/L 01/07/18 Range/Units 14:01 WBC (4.8-10.8) K/uL RBC (4.40-5.90) Mil/uL Hgb (12.0-18.0) g/dL Hct (35.0-51.0) % MCV (80.0-94.0) fL MCH (27.0-31.0) pg MCHC (33.0-37.0) g/dL RDW (11.5-14.5) % Plt Count (130-400) K/uL MPV (7.2-11.7) fL Neut % (Auto) (50.0-75.0) % Lymph % (Auto) (20.0-40.0) % [place] % (Auto) (0.0-10.0) % Eos % (Auto) (0.0-4.0) % Baso % (Auto) (0.0-2.0) % Neut # (Auto) (1.8-7.0) K/uL Lymph # (Auto) (1.0-4.3) K/uL [place] # (Auto) (0.0-0.8) K/uL Eos # (Auto) (0.0-0.7) K/uL Baso # (Auto) (0.0-0.2) K/uL Sodium (132-148) mmol/L Potassium (3.6-5.2) mmol/L Chloride (98-107) mmol/L Carbon Dioxide (22-30) mmol/L Anion Gap (10-20) BUN (9-20) mg/dL Creatinine (0.8-1.5) mg/dL Est GFR ( Amer) Est GFR (Non-Af Amer) POC Glucose (mg/dL) > 500 H* (65-110) mg/dL Random Glucose (75-110) mg/dL Calcium (8.6-10.4) mg/dl Phosphorus (2.5-4.5) mg/dL Magnesium (1.6-2.3) mg/dL Total Bilirubin (0.2-1.3) mg/dL AST (17-59) U/L ALT (21-72) U/L Alkaline Phosphatase (38-126) U/L Total Protein (6.3-8.3) g/dL Albumin (3.5-5.0) g/dL Globulin (2.2-3.9) gm/dL Albumin/Globulin Ratio (1.0-2.1) Triglycerides (0-149) mg/dL Cholesterol (0-199) mg/dL LDL Cholesterol Direct (0-129) mg/dL HDL Cholesterol (30-70) mg/dL Thyroxine (T4) (5.5-11.0) ug/dL TSH 3rd Generation (0.46-4.68) mIU/L Laboratory Results - last 24 hr 01/07/18 01/07/18 01/07/18 14:01 16:38 16:40 WBC RBC Hgb Hct MCV MCH MCHC RDW Plt Count MPV Neut % (Auto) Lymph % (Auto) [place] % (Auto) Eos % (Auto) Baso % (Auto) Neut # (Auto) Lymph # (Auto) [place] # (Auto) Eos # (Auto) Baso # (Auto) Sodium 134 Potassium 3.6 Chloride 97 L Carbon Dioxide 24 Anion Gap 17 BUN 15 Creatinine 1.1 Est GFR ( Amer) > 60 Est GFR (Non-Af Amer) > 60 POC Glucose (mg/dL) > 500 H* 286 H Random Glucose 280 H Calcium 9.3 Phosphorus 2.4 L Magnesium 1.9 Total Bilirubin 1.1 AST 22 ALT 25 Alkaline Phosphatase 63 Total Protein 7.6 Albumin 4.2 Globulin 3.4 Albumin/Globulin Ratio 1.3 Triglycerides Cholesterol LDL Cholesterol Direct HDL Cholesterol Thyroxine (T4) TSH 3rd Generation 01/07/18 01/07/18 01/07/18 16:40 18:03 20:10 WBC 12.7 H D RBC 4.52 Hgb 14.1 D Hct 40.3 MCV 89.1 MCH 31.1 H MCHC 34.9 RDW 13.4 Plt Count 247 MPV 9.5 Neut % (Auto) 70.6 Lymph % (Auto) 22.6 [place] % (Auto) 4.9 Eos % (Auto) 0.7 Baso % (Auto) 1.2 Neut # (Auto) 8.9 H Lymph # (Auto) 2.9 [place] # (Auto) 0.6 Eos # (Auto) 0.1 Baso # (Auto) 0.1 Sodium Potassium Chloride Carbon Dioxide Anion Gap BUN Creatinine Est GFR ( Amer) Est GFR (Non-Af Amer) POC Glucose (mg/dL) 287 H 336 H Random Glucose Calcium Phosphorus Magnesium Total Bilirubin AST ALT Alkaline Phosphatase Total Protein Albumin Globulin Albumin/Globulin Ratio Triglycerides Cholesterol LDL Cholesterol Direct HDL Cholesterol Thyroxine (T4) TSH 3rd Generation 01/07/18 01/07/18 01/08/18 21:41 23:52 02:22 WBC RBC Hgb Hct MCV MCH MCHC RDW Plt Count MPV Neut % (Auto) Lymph % (Auto) [place] % (Auto) Eos % (Auto) Baso % (Auto) Neut # (Auto) Lymph # (Auto) [place] # (Auto) Eos # (Auto) Baso # (Auto) Sodium Potassium Chloride Carbon Dioxide Anion Gap BUN Creatinine Est GFR ( Amer) Est GFR (Non-Af Amer) POC Glucose (mg/dL) 375 H 348 H 278 H Random Glucose Calcium Phosphorus Magnesium Total Bilirubin AST ALT Alkaline Phosphatase Total Protein Albumin Globulin Albumin/Globulin Ratio Triglycerides Cholesterol LDL Cholesterol Direct HDL Cholesterol Thyroxine (T4) TSH 3rd Generation 01/08/18 01/08/18 01/08/18 04:23 04:45 04:45 WBC RBC Hgb Hct MCV MCH MCHC RDW Plt Count MPV Neut % (Auto) Lymph % (Auto) [place] % (Auto) Eos % (Auto) Baso % (Auto) Neut # (Auto) Lymph # (Auto) [place] # (Auto) Eos # (Auto) Baso # (Auto) Sodium 133 Potassium 3.2 L Chloride 100 Carbon Dioxide 19 L Anion Gap 17 BUN 16 Creatinine 1.1 Est GFR ( Amer) > 60 Est GFR (Non-Af Amer) > 60 POC Glucose (mg/dL) 227 H Random Glucose 222 H Calcium 8.3 L Phosphorus 2.9 Magnesium 1.8 Total Bilirubin 0.7 AST 21 ALT 33 Alkaline Phosphatase 46 Total Protein 6.1 L Albumin 3.5 Globulin 2.6 Albumin/Globulin Ratio 1.4 Triglycerides 135 Cholesterol 289 H LDL Cholesterol Direct 220 H HDL Cholesterol 43 Thyroxine (T4) 1.92 L TSH 3rd Generation 183.00 H 01/08/18 01/08/18 01/08/18 04:45 06:24 08:19 WBC 9.0 RBC 4.09 L Hgb 12.8 Hct 36.7 MCV 89.8 MCH 31.4 H MCHC 34.9 RDW 13.7 Plt Count 193 MPV 10.2 Neut % (Auto) 54.6 Lymph % (Auto) 38.6 [place] % (Auto) 4.7 Eos % (Auto) 1.7 Baso % (Auto) 0.4 Neut # (Auto) 4.9 Lymph # (Auto) 3.5 [place] # (Auto) 0.4 Eos # (Auto) 0.2 Baso # (Auto) 0.0 Sodium Potassium Chloride Carbon Dioxide Anion Gap BUN Creatinine Est GFR ( Amer) Est GFR (Non-Af Amer) POC Glucose (mg/dL) 159 H 169 H Random Glucose Calcium Phosphorus Magnesium Total Bilirubin AST ALT Alkaline Phosphatase Total Protein Albumin Globulin Albumin/Globulin Ratio Triglycerides Cholesterol LDL Cholesterol Direct HDL Cholesterol Thyroxine (T4) TSH 3rd Generation 01/08/18 10:23 WBC RBC Hgb Hct MCV MCH MCHC RDW Plt Count MPV Neut % (Auto) Lymph % (Auto) [place] % (Auto) Eos % (Auto) Baso % (Auto) Neut # (Auto) Lymph # (Auto) [place] # (Auto) Eos # (Auto) Baso # (Auto) Sodium Potassium Chloride Carbon Dioxide Anion Gap BUN Creatinine Est GFR ( Amer) Est GFR (Non-Af Amer) POC Glucose (mg/dL) 245 H Random Glucose Calcium Phosphorus Magnesium Total Bilirubin AST ALT Alkaline Phosphatase Total Protein Albumin Globulin Albumin/Globulin Ratio Triglycerides Cholesterol LDL Cholesterol Direct HDL Cholesterol Thyroxine (T4) TSH 3rd Generation Fingerstick Blood Sugar Results: 245 Critical Care Progress Note - Nutrition Nutrition: Nutrition Category Date Time Status Consistent Carbohydrate [DIET] Diets 01/07/18 Lunch Active Assessment/Plan - Assessment and Plan (Free Text) Assessment: Patient is a 42 year old male with past medical history of DM type 2, asthma, TIA, PE, hypothyroidism was admitted for worsening shortness of breath now with refractory DKA requiring insulin drip. Transferred to the ICU for closer monitoring. Neurology: -Patient is AAOx3 -He has a history of TIA in the past -No acute issues at this time Cardiology: -Continue NS @ 125cc/hr -No active issues at this time Respiratory: -Patient with history of asthma, pulmonary embolism -CXR 01/06: showing no acute disease -Continue Duonebs Q4H ALON -Fluticasone/Salmeterol 500/50 1 puff Q12H -Pulmonology on consult, Dr Gauthier, help appreciated Renal: -No acute issues at this time -Potassium 3.2 today -Potassium 40 meq PO Q6H x 3 doses -Neutro phos 2pkt PO Q8H Endocrine: -Accuchecks >500 on the floors -Patient was transferred to the ICU for DKA -Anion gap closed, insulin drip discontinued -Lantus 40 units QAM, Novolog 14 units ACTID -Accuchecks ACHS and 2 hours after meals -Continue Levothyroxine 500mcg IV daily -TSH 183, Free T4 1.93 -Diet: Carbohydrate consistent -Endocrine on consult, Dr Leos, help appreciated Infectious Disease: -Blood cx showing no growth -Rocephin 1gm IV daily x 5 days for UTI -F/U Urine culture GI/DVT ppx: -Xarelto 20mg PO daily -Pepcid 20mg PO daily <Casa Sullivan M - Last Filed: 01/08/18 17:08> CCU Objective - Vital Signs / Intake & Output Intake and Output (Last 8hrs): Intake & Output 01/08/18 01/08/18 01/08/18 06:59 14:59 22:59 Intake Total 2133 802 Output Total 0 0 Balance 2133 802 Intake: IV 0 Intake, IV Amount 1633 402 Right Upper arm 33 2 Right arm PICC 1600 400 Oral 500 400 Output: Urine 0 0 Urine, Voided 0 0 Other: # Voids Urine, Voided 1 # Bowel Movements 0 0 - Medications Active Medications: Active Medications Generic Name Dose Route Start Last Admin Trade Name Freq PRN Reason Stop Dose Admin Albuterol/Ipratropium 3 ml 01/07/18 12:00 01/08/18 15:41 Duoneb 3 Mg/0.5 Mg (3 Ml) Ud INH Not Given RQ4 ALON Famotidine 20 mg 01/07/18 10:00 01/08/18 11:04 Pepcid PO Not Given DAILY ALON Sodium Chloride 1,000 mls @ 125 mls/hr 01/08/18 09:32 01/08/18 09:45 Sodium Chloride 0.9% IV Not Given .Q8H ALON Ceftriaxone Sodium 1 gm/ 100 mls @ 100 mls/hr 01/08/18 10:30 01/08/18 11:05 Sodium Chloride IVPB 01/12/18 11:29 100 mls/hr Q24H ALON Administration Protocol Insulin Aspart 14 unit 01/08/18 07:30 01/08/18 16:33 Novolog SC 14 unit ACTID ALON Administration Insulin Glargine 30 unit 01/08/18 22:00 Lantus SC HS ALON Levothyroxine Sodium 500 mcg 01/08/18 10:15 01/08/18 10:13 Synthroid IVP 500 mcg DAILY ALON Administration Potassium Chloride 40 meq 01/08/18 08:15 01/08/18 14:15 Potassium Chloride Oral Soln PO 01/08/18 20:16 Not Given Q6H ALON Potassium Phos/Sodium Phos 2 pkt 01/07/18 14:00 01/08/18 14:06 Neutra-Phos PO Not Given Q8 ALON Rivaroxaban 20 mg 01/07/18 10:00 01/08/18 10:06 Xarelto PO 20 mg DAILY ALON Administration Fluticasone/Salmeterol 1 puff 01/07/18 08:00 01/08/18 07:35 Advair Diskus 500/50 INH 1 puff RQ12 ALON Administration - Patient Studies Lab Studies: Microbiology Studies 01/06/18 Unknown Urine Culture - Final Urine,Clean Catch Yeast Species 01/06/18 18:30 Blood Culture - Preliminary Blood NO GROWTH AFTER 24 HOURS 01/06/18 18:00 Blood Culture - Preliminary Blood NO GROWTH AFTER 24 HOURS Lab Studies 01/08/18 01/08/18 01/08/18 Range/Units 16:19 10:23 08:19 WBC (4.8-10.8) K/uL RBC (4.40-5.90) Mil/uL Hgb (12.0-18.0) g/dL Hct (35.0-51.0) % MCV (80.0-94.0) fL MCH (27.0-31.0) pg MCHC (33.0-37.0) g/dL RDW (11.5-14.5) % Plt Count (130-400) K/uL MPV (7.2-11.7) fL Neut % (Auto) (50.0-75.0) % Lymph % (Auto) (20.0-40.0) % [place] % (Auto) (0.0-10.0) % Eos % (Auto) (0.0-4.0) % Baso % (Auto) (0.0-2.0) % Neut # (Auto) (1.8-7.0) K/uL Lymph # (Auto) (1.0-4.3) K/uL [place] # (Auto) (0.0-0.8) K/uL Eos # (Auto) (0.0-0.7) K/uL Baso # (Auto) (0.0-0.2) K/uL Sodium (132-148) mmol/L Potassium (3.6-5.2) mmol/L Chloride (98-107) mmol/L Carbon Dioxide (22-30) mmol/L Anion Gap (10-20) BUN (9-20) mg/dL Creatinine (0.8-1.5) mg/dL Est GFR ( Amer) Est GFR (Non-Af Amer) POC Glucose (mg/dL) 320 H 245 H 169 H (65-110) mg/dL Random Glucose (75-110) mg/dL Calcium (8.6-10.4) mg/dl Phosphorus (2.5-4.5) mg/dL Magnesium (1.6-2.3) mg/dL Total Bilirubin (0.2-1.3) mg/dL AST (17-59) U/L ALT (21-72) U/L Alkaline Phosphatase (38-126) U/L Total Protein (6.3-8.3) g/dL Albumin (3.5-5.0) g/dL Globulin (2.2-3.9) gm/dL Albumin/Globulin Ratio (1.0-2.1) Triglycerides (0-149) mg/dL Cholesterol (0-199) mg/dL LDL Cholesterol Direct (0-129) mg/dL HDL Cholesterol (30-70) mg/dL Thyroxine (T4) (5.5-11.0) ug/dL TSH 3rd Generation (0.46-4.68) mIU/L 01/08/18 01/08/18 01/08/18 Range/Units 06:24 04:45 04:45 WBC 9.0 (4.8-10.8) K/uL RBC 4.09 L (4.40-5.90) Mil/uL Hgb 12.8 (12.0-18.0) g/dL Hct 36.7 (35.0-51.0) % MCV 89.8 (80.0-94.0) fL MCH 31.4 H (27.0-31.0) pg MCHC 34.9 (33.0-37.0) g/dL RDW 13.7 (11.5-14.5) % Plt Count 193 (130-400) K/uL MPV 10.2 (7.2-11.7) fL Neut % (Auto) 54.6 (50.0-75.0) % Lymph % (Auto) 38.6 (20.0-40.0) % [place] % (Auto) 4.7 (0.0-10.0) % Eos % (Auto) 1.7 (0.0-4.0) % Baso % (Auto) 0.4 (0.0-2.0) % Neut # (Auto) 4.9 (1.8-7.0) K/uL Lymph # (Auto) 3.5 (1.0-4.3) K/uL [place] # (Auto) 0.4 (0.0-0.8) K/uL Eos # (Auto) 0.2 (0.0-0.7) K/uL Baso # (Auto) 0.0 (0.0-0.2) K/uL Sodium (132-148) mmol/L Potassium (3.6-5.2) mmol/L Chloride (98-107) mmol/L Carbon Dioxide (22-30) mmol/L Anion Gap (10-20) BUN (9-20) mg/dL Creatinine (0.8-1.5) mg/dL Est GFR ( Amer) Est GFR (Non-Af Amer) POC Glucose (mg/dL) 159 H (65-110) mg/dL Random Glucose (75-110) mg/dL Calcium (8.6-10.4) mg/dl Phosphorus (2.5-4.5) mg/dL Magnesium (1.6-2.3) mg/dL Total Bilirubin (0.2-1.3) mg/dL AST (17-59) U/L ALT (21-72) U/L Alkaline Phosphatase (38-126) U/L Total Protein (6.3-8.3) g/dL Albumin (3.5-5.0) g/dL Globulin (2.2-3.9) gm/dL Albumin/Globulin Ratio (1.0-2.1) Triglycerides 135 (0-149) mg/dL Cholesterol 289 H (0-199) mg/dL LDL Cholesterol Direct 220 H (0-129) mg/dL HDL Cholesterol 43 (30-70) mg/dL Thyroxine (T4) 1.92 L (5.5-11.0) ug/dL TSH 3rd Generation 183.00 H (0.46-4.68) mIU/L 01/08/18 01/08/18 01/08/18 Range/Units 04:45 04:23 02:22 WBC (4.8-10.8) K/uL RBC (4.40-5.90) Mil/uL Hgb (12.0-18.0) g/dL Hct (35.0-51.0) % MCV (80.0-94.0) fL MCH (27.0-31.0) pg MCHC (33.0-37.0) g/dL RDW (11.5-14.5) % Plt Count (130-400) K/uL MPV (7.2-11.7) fL Neut % (Auto) (50.0-75.0) % Lymph % (Auto) (20.0-40.0) % [place] % (Auto) (0.0-10.0) % Eos % (Auto) (0.0-4.0) % Baso % (Auto) (0.0-2.0) % Neut # (Auto) (1.8-7.0) K/uL Lymph # (Auto) (1.0-4.3) K/uL [place] # (Auto) (0.0-0.8) K/uL Eos # (Auto) (0.0-0.7) K/uL Baso # (Auto) (0.0-0.2) K/uL Sodium 133 (132-148) mmol/L Potassium 3.2 L (3.6-5.2) mmol/L Chloride 100 (98-107) mmol/L Carbon Dioxide 19 L (22-30) mmol/L Anion Gap 17 (10-20) BUN 16 (9-20) mg/dL Creatinine 1.1 (0.8-1.5) mg/dL Est GFR ( Amer) > 60 Est GFR (Non-Af Amer) > 60 POC Glucose (mg/dL) 227 H 278 H (65-110) mg/dL Random Glucose 222 H (75-110) mg/dL Calcium 8.3 L (8.6-10.4) mg/dl Phosphorus 2.9 (2.5-4.5) mg/dL Magnesium 1.8 (1.6-2.3) mg/dL Total Bilirubin 0.7 (0.2-1.3) mg/dL AST 21 (17-59) U/L ALT 33 (21-72) U/L Alkaline Phosphatase 46 (38-126) U/L Total Protein 6.1 L (6.3-8.3) g/dL Albumin 3.5 (3.5-5.0) g/dL Globulin 2.6 (2.2-3.9) gm/dL Albumin/Globulin Ratio 1.4 (1.0-2.1) Triglycerides (0-149) mg/dL Cholesterol (0-199) mg/dL LDL Cholesterol Direct (0-129) mg/dL HDL Cholesterol (30-70) mg/dL Thyroxine (T4) (5.5-11.0) ug/dL TSH 3rd Generation (0.46-4.68) mIU/L 01/07/18 01/07/18 01/07/18 Range/Units 23:52 21:41 20:10 WBC (4.8-10.8) K/uL RBC (4.40-5.90) Mil/uL Hgb (12.0-18.0) g/dL Hct (35.0-51.0) % MCV (80.0-94.0) fL MCH (27.0-31.0) pg MCHC (33.0-37.0) g/dL RDW (11.5-14.5) % Plt Count (130-400) K/uL MPV (7.2-11.7) fL Neut % (Auto) (50.0-75.0) % Lymph % (Auto) (20.0-40.0) % [place] % (Auto) (0.0-10.0) % Eos % (Auto) (0.0-4.0) % Baso % (Auto) (0.0-2.0) % Neut # (Auto) (1.8-7.0) K/uL Lymph # (Auto) (1.0-4.3) K/uL [place] # (Auto) (0.0-0.8) K/uL Eos # (Auto) (0.0-0.7) K/uL Baso # (Auto) (0.0-0.2) K/uL Sodium (132-148) mmol/L Potassium (3.6-5.2) mmol/L Chloride (98-107) mmol/L Carbon Dioxide (22-30) mmol/L Anion Gap (10-20) BUN (9-20) mg/dL Creatinine (0.8-1.5) mg/dL Est GFR ( Amer) Est GFR (Non-Af Amer) POC Glucose (mg/dL) 348 H 375 H 336 H (65-110) mg/dL Random Glucose (75-110) mg/dL Calcium (8.6-10.4) mg/dl Phosphorus (2.5-4.5) mg/dL Magnesium (1.6-2.3) mg/dL Total Bilirubin (0.2-1.3) mg/dL AST (17-59) U/L ALT (21-72) U/L Alkaline Phosphatase (38-126) U/L Total Protein (6.3-8.3) g/dL Albumin (3.5-5.0) g/dL Globulin (2.2-3.9) gm/dL Albumin/Globulin Ratio (1.0-2.1) Triglycerides (0-149) mg/dL Cholesterol (0-199) mg/dL LDL Cholesterol Direct (0-129) mg/dL HDL Cholesterol (30-70) mg/dL Thyroxine (T4) (5.5-11.0) ug/dL TSH 3rd Generation (0.46-4.68) mIU/L 01/07/18 Range/Units 18:03 WBC (4.8-10.8) K/uL RBC (4.40-5.90) Mil/uL Hgb (12.0-18.0) g/dL Hct (35.0-51.0) % MCV (80.0-94.0) fL MCH (27.0-31.0) pg MCHC (33.0-37.0) g/dL RDW (11.5-14.5) % Plt Count (130-400) K/uL MPV (7.2-11.7) fL Neut % (Auto) (50.0-75.0) % Lymph % (Auto) (20.0-40.0) % [place] % (Auto) (0.0-10.0) % Eos % (Auto) (0.0-4.0) % Baso % (Auto) (0.0-2.0) % Neut # (Auto) (1.8-7.0) K/uL Lymph # (Auto) (1.0-4.3) K/uL [place] # (Auto) (0.0-0.8) K/uL Eos # (Auto) (0.0-0.7) K/uL Baso # (Auto) (0.0-0.2) K/uL Sodium (132-148) mmol/L Potassium (3.6-5.2) mmol/L Chloride (98-107) mmol/L Carbon Dioxide (22-30) mmol/L Anion Gap (10-20) BUN (9-20) mg/dL Creatinine (0.8-1.5) mg/dL Est GFR ( Amer) Est GFR (Non-Af Amer) POC Glucose (mg/dL) 287 H (65-110) mg/dL Random Glucose (75-110) mg/dL Calcium (8.6-10.4) mg/dl Phosphorus (2.5-4.5) mg/dL Magnesium (1.6-2.3) mg/dL Total Bilirubin (0.2-1.3) mg/dL AST (17-59) U/L ALT (21-72) U/L Alkaline Phosphatase (38-126) U/L Total Protein (6.3-8.3) g/dL Albumin (3.5-5.0) g/dL Globulin (2.2-3.9) gm/dL Albumin/Globulin Ratio (1.0-2.1) Triglycerides (0-149) mg/dL Cholesterol (0-199) mg/dL LDL Cholesterol Direct (0-129) mg/dL HDL Cholesterol (30-70) mg/dL Thyroxine (T4) (5.5-11.0) ug/dL TSH 3rd Generation (0.46-4.68) mIU/L Laboratory Results - last 24 hr 01/07/18 01/07/18 01/07/18 18:03 20:10 21:41 WBC RBC Hgb Hct MCV MCH MCHC RDW Plt Count MPV Neut % (Auto) Lymph % (Auto) [place] % (Auto) Eos % (Auto) Baso % (Auto) Neut # (Auto) Lymph # (Auto) [place] # (Auto) Eos # (Auto) Baso # (Auto) Sodium Potassium Chloride Carbon Dioxide Anion Gap BUN Creatinine Est GFR ( Amer) Est GFR (Non-Af Amer) POC Glucose (mg/dL) 287 H 336 H 375 H Random Glucose Calcium Phosphorus Magnesium Total Bilirubin AST ALT Alkaline Phosphatase Total Protein Albumin Globulin Albumin/Globulin Ratio Triglycerides Cholesterol LDL Cholesterol Direct HDL Cholesterol Thyroxine (T4) TSH 3rd Generation 01/07/18 01/08/18 01/08/18 23:52 02:22 04:23 WBC RBC Hgb Hct MCV MCH MCHC RDW Plt Count MPV Neut % (Auto) Lymph % (Auto) [place] % (Auto) Eos % (Auto) Baso % (Auto) Neut # (Auto) Lymph # (Auto) [place] # (Auto) Eos # (Auto) Baso # (Auto) Sodium Potassium Chloride Carbon Dioxide Anion Gap BUN Creatinine Est GFR ( Amer) Est GFR (Non-Af Amer) POC Glucose (mg/dL) 348 H 278 H 227 H Random Glucose Calcium Phosphorus Magnesium Total Bilirubin AST ALT Alkaline Phosphatase Total Protein Albumin Globulin Albumin/Globulin Ratio Triglycerides Cholesterol LDL Cholesterol Direct HDL Cholesterol Thyroxine (T4) TSH 3rd Generation 01/08/18 01/08/18 01/08/18 04:45 04:45 04:45 WBC 9.0 RBC 4.09 L Hgb 12.8 Hct 36.7 MCV 89.8 MCH 31.4 H MCHC 34.9 RDW 13.7 Plt Count 193 MPV 10.2 Neut % (Auto) 54.6 Lymph % (Auto) 38.6 [place] % (Auto) 4.7 Eos % (Auto) 1.7 Baso % (Auto) 0.4 Neut # (Auto) 4.9 Lymph # (Auto) 3.5 [place] # (Auto) 0.4 Eos # (Auto) 0.2 Baso # (Auto) 0.0 Sodium 133 Potassium 3.2 L Chloride 100 Carbon Dioxide 19 L Anion Gap 17 BUN 16 Creatinine 1.1 Est GFR ( Amer) > 60 Est GFR (Non-Af Amer) > 60 POC Glucose (mg/dL) Random Glucose 222 H Calcium 8.3 L Phosphorus 2.9 Magnesium 1.8 Total Bilirubin 0.7 AST 21 ALT 33 Alkaline Phosphatase 46 Total Protein 6.1 L Albumin 3.5 Globulin 2.6 Albumin/Globulin Ratio 1.4 Triglycerides 135 Cholesterol 289 H LDL Cholesterol Direct 220 H HDL Cholesterol 43 Thyroxine (T4) 1.92 L TSH 3rd Generation 183.00 H 01/08/18 01/08/1801/08/18 06:24 08:19 10:23 WBC RBC Hgb Hct MCV MCH MCHC RDW Plt Count MPV Neut % (Auto) Lymph % (Auto) [place] % (Auto) Eos % (Auto) Baso % (Auto) Neut # (Auto) Lymph # (Auto) [place] # (Auto) Eos # (Auto) Baso # (Auto) Sodium Potassium Chloride Carbon Dioxide Anion Gap BUN Creatinine Est GFR ( Amer) Est GFR (Non-Af Amer) POC Glucose (mg/dL) 159 H 169 H 245 H Random Glucose Calcium Phosphorus Magnesium Total Bilirubin AST ALT Alkaline Phosphatase Total Protein Albumin Globulin Albumin/Globulin Ratio Triglycerides Cholesterol LDL Cholesterol Direct HDL Cholesterol Thyroxine (T4) TSH 3rd Generation 01/08/18 16:19 WBC RBC Hgb Hct MCV MCH MCHC RDW Plt Count MPV Neut % (Auto) Lymph % (Auto) [place] % (Auto) Eos % (Auto) Baso % (Auto) Neut # (Auto) Lymph # (Auto) [place] # (Auto) Eos # (Auto) Baso # (Auto) Sodium Potassium Chloride Carbon Dioxide Anion Gap BUN Creatinine Est GFR ( Amer) Est GFR (Non-Af Amer) POC Glucose (mg/dL) 320 H Random Glucose Calcium Phosphorus Magnesium Total Bilirubin AST ALT Alkaline Phosphatase Total Protein Albumin Globulin Albumin/Globulin Ratio Triglycerides Cholesterol LDL Cholesterol Direct HDL Cholesterol Thyroxine (T4) TSH 3rd Generation Critical Care Progress Note - Nutrition Nutrition: Nutrition Category Date Time Status Consistent Carbohydrate [DIET] Diets 01/07/18 Lunch Active Assessment/Plan - Assessment and Plan (Free Text) Assessment: Patient seen and examined at bedside. Patient's DKA resolved with anion gap closed. -patient transitioned to sub Q insulin -endocrin follow up -continue IV abx for UTI -Patient remains hemodynamically stable. - Date & Time Date: 01/08/18 Time: 17:08
--- NOTE | 2018-01-08 18:19 | PN ---
DATE: LOCATION: In ICU, 14 B. SUBJECTIVE: This is a 42-year-old male who has recent uncontrolled type 2 insulin-requiring diabetes with supervening diabetic ketoacidosis and marked hyperglycemic accelerations, and currently still on insulin drip infusion as given and noted. His glycemic profile has improved remarkably overnight and the glucose levels have ranged today from 159 to 169 and 245 mg/dL. The latest chemistries shows a BUN of 16, sodium 133, potassium 3.2, chloride 100, CO2 19, glucose 222, creatinine 1.1. So at this time, we will discontinue the insulin drip infusion and switch him over to a more physiologic basal and bolus insulin drug combination as given. However, the basal insulin is usually given at night for blunting of the hepatic gluconeogenesis and higher fasting glucose levels in the morning. We will change his Lantus to 40 units at bedtime, to start tonight. We will also continue the NovoLog given as 14 units subcu t.i.d. before meals as ordered. We will continue the vigorous IV hydration to replenish the lost fluid electrolytes as noted. With the recent hyperglycemic accelerations, would expect marked osmotic diuresis thereof. We will obtain serial chemistries and supplement accordingly as needed. We will follow. Torrie Leos MD
[2018-01-08] MEDS ORDERED: (Lantus) Insulin Glargine, Recombinant SC SCH (22:00)
[2018-01-09] MEDS: Albuterol-Ipratrop 3 mg / 0.5 (3 ml) UD INH SCH ×6 (00:12→19:36)
[2018-01-09] MEDS: Sodium Chloride 0.9% 1,000 ML IV SCH ×4 (01:32→21:12)
[2018-01-09] MEDS: Potassium & Sodium Phosphate PO SCH ×3 (06:10→21:33)
[2018-01-09 06:43] LABS: ALB/GLOB RATIO 1.5 (1.0-2.1); ALBUMIN 3.7 g/dL (3.5-5.0); ALT/SGPT 24 U/L (21-72); AST/SGOT 18 U/L (17-59); BLOOD UREA NITROGEN 13 mg/dL (9-20); CALCIUM 8.2 mg/dl (8.6-10.4); GFR AFRICAN-AMERICAN > 60; GFR NON-AFRICAN AMERICAN > 60
[2018-01-09] MEDS ORDERED: Magnesium Sulfate 1 gm in D5W 1 GM/100 ML BAG IVPB ONE (07:28)
[2018-01-09] MEDS: Fluticasone-Salmeterol 500-50mcg Diskus INH SCH ×2 (07:29→19:36)
--- NOTE | 2018-01-09 07:29 | CP.PCM.PN ---
Subjective - Date & Time of Evaluation Date of Evaluation: 01/09/18 Time of Evaluation: 07:26 - Subjective Subjective: PGY-[address] Leigh's Service: Pt seen and examined at bedside with attending, Dr. Leigh. Nursing reports no acute events overnight. Patient reports he is still urinating profusely, with hesitation and discomfort. Patient made aware of yeast in urine culture. Admits breathing without difficulty. He denies chest pain, SOB, abdominal pain, N/V. Objective - Vital Signs/Intake and Output Vital Signs (last 24 hours): Temp Pulse Resp BP Pulse Ox 98.6 F 68 18 119/67 97 01/08/18 12:32 01/08/18 06:00 01/08/18 06:00 01/08/18 05:39 01/08/18 06:00 - Medications Medications: Current Medications Albuterol/Ipratropium (Duoneb 3 Mg/0.5 Mg (3 Ml) Ud) 3 ml INH RQ4 [facility] Last Admin: 01/09/18 03:07 Dose: Not Given Famotidine (Pepcid) 20 mg PO DAILY [facility] Last Admin: 01/08/18 11:04 Dose: Not Given Sodium Chloride (Sodium Chloride 0.9%) 1,000 mls @ 125 mls/hr IV .Q8H [facility] Last Admin: 01/09/18 01:32 Dose: Not Given Ceftriaxone Sodium 1 gm/ (Sodium Chloride) 100 mls @ 100 mls/hr IVPB Q24H [facility] PRN Reason: Protocol Stop: 01/12/18 11:29 Last Admin: 01/08/18 11:05 Dose: 100 mls/hr Insulin Aspart (Novolog) 20 unit SC ACTID [facility] Insulin Aspart (Novolog) 0 unit SC ACHS [facility] Insulin Glargine (Lantus) 30 unit SC HS [facility] Last Admin: 01/09/18 00:07 Dose: 30 units Levothyroxine Sodium (Synthroid) 500 mcg IVP DAILY [facility] Last Admin: 01/08/18 10:13 Dose: 500 mcg Potassium Phos/Sodium Phos (Neutra-Phos) 2 pkt PO Q8 [facility] Last Admin: 01/09/18 06:10 Dose: Not Given Rivaroxaban (Xarelto) 20 mg PO DAILY [facility] Last Admin: 01/08/18 10:06 Dose: 20 mg Fluticasone/Salmeterol (Advair Diskus 500/50) 1 puff INH RQ12 [facility] Last Admin: 01/08/18 20:04 Dose: 1 puff - Labs Labs: 01/08/18 04:45 01/09/18 06:14 PT 11.3 SECONDS (9.7-12.2) 01/06/18 18:10 INR 1.0 01/06/18 18:10 APTT 28 SECONDS (21-34) 01/06/18 18:10 - Additional Findings Additional findings: - Constitutional Appears: No Acute Distress - Head Exam Head Exam: ATRAUMATIC, NORMAL INSPECTION, NORMOCEPHALIC - Eye Exam Eye Exam: EOMI, Normal appearance - ENT Exam ENT Exam: Mucous Membranes Moist - Neck Exam Neck Exam: Full ROM. absent: Tenderness, Thyromegaly - Respiratory Exam Respiratory Exam: Clear to Ausculation Bilateral, NORMAL BREATHING PATTERN. absent: Accessory Muscle Use - Cardiovascular Exam Cardiovascular Exam: REGULAR RHYTHM, +S1, +S2 - GI/Abdominal Exam GI & Abdominal Exam: Soft. absent: Tenderness - Extremities Exam Extremities Exam: Full ROM, Normal Capillary Refill, Normal Inspection. absent : Pedal Edema - Back Exam Back Exam: Full ROM - Neurological Exam Neurological Exam: Awake, CN II-XII Intact - Psychiatric Exam Psychiatric exam: Normal Affect, Normal Mood - Skin Skin Exam: Dry, Intact, Normal Color, Warm Assessment and Plan - Assessment and Plan (Free Text) Plan: Asthma Exacerbation CXR 01/06: showing no acute disease - repeat 01/07: Poor inspiration w low lung volumes. Crowded bronchovascular markings and mild bibasilar atelectasis Duonebs q4h [facility] Advair diskus 500/50 1 puff INH rq12h Pulmonology on consult, Dr Gauthier, help appreciated Uncontrolled DM II Pt admits not taking DM medications at home, states sugars "never above 150 at home" A1C (07/2017): 8.6 Dr. Leos, Endo licensed tax consultant, help appreciated Lantus 50u sc HS Novolog 30 units ACTID ISS-high accuchecks achs, 2 hrs post-meals NS @ 175cc/hr Lisinopril 20mg po daily Start Crestor 10mg PO HS Lipid Panel: TG 135, T Chol 289, LDL 220, HDL 43 Hypothyroidism TSH 183, free T4 1.92 Dr Leos, Endo licensed tax consultant, help appreciated Levothyroxine 500mcg IV daily UTI UA: Occasional bacteria, budding yeast, Urine Cx (01/06/18): Yeast species Diflucan 150mg PO x 3 days Discontinue Ceftriaxone 1gm Daily (01/08/18) HTN Above goal, but lower; will monitor Lisinopril 20mg po daily Hx PE continue Xarelto 20mg po daily Proteinuria Etiology: renal damage in setting of long term care phlebotomist DM UA: 1+ protein Lisinopril 20mg po daily DKA, resolved Pt admitted to ICU Off insulin drip, anion gap close Electrolyte Abnormalities Mg 1.5, repleted Prophylaxis SCDs Pepcid 20 mg po daily No VTE indicated, pt ambulating All medical management per Dr. Leigh
[2018-01-09] MEDS: (Novolog) Insulin Aspart, Recombinant 100 u/ml 10 ml vial SC SCH ×8 (07:30→21:27)
[2018-01-09] MEDS: Levothyroxine 100 mcg (0.1 mg) Inj IVP SCH (10:00)
[2018-01-09] MEDS: Fluticasone Nasal 50 mcg/Spray NAS SCH (10:29)
[2018-01-09] MEDS ORDERED: (Novolog) Insulin Aspart, Recombinant 100 u/ml 10 ml vial SC SCH (12:00)
--- NOTE | 2018-01-09 18:17 | CP.CCUPN ---
CCU Objective - Vital Signs / Intake & Output Intake and Output (Last 8hrs): Intake & Output 01/09/18 01/09/18 01/09/18 06:59 14:59 22:59 Intake Total 2250 100 Output Total 900 Balance 1350 100 Intake: Intake, IV Amount 1250 100 Right Upper arm 1250 100 Oral 1000 Output: Urine 900 Urine, Voided 900 Other: # Voids Urine, Voided 0 - Medications Active Medications: Active Medications Generic Name Dose Route Start Last Admin Trade Name Isac PRN Reason Stop Dose Admin Albuterol/Ipratropium 3 ml 01/07/18 12:00 01/09/18 16:16 Duoneb 3 Mg/0.5 Mg (3 Ml) Ud INH 3 ml RQ4 [facility] Administration Famotidine 20 mg 01/07/18 10:00 01/09/18 10:35 Pepcid PO Not Given DAILY [facility] Fluconazole 150 mg 01/09/18 11:00 01/09/18 16:58 Diflucan PO 150 mg DAILY [facility] Administration Protocol Fluticasone Propionate 1 spr 01/09/18 10:00 01/09/18 10:29 Flonase DYLAN 1 spr DAILY [facility] Administration Ceftriaxone Sodium 1 gm/ 100 mls @ 100 mls/hr 01/08/18 10:30 01/09/18 10:41 Sodium Chloride IVPB 01/12/18 11:29 100 mls/hr Q24H [facility] Administration Protocol Sodium Chloride 1,000 mls @ 175 mls/hr 01/09/18 15:11 Sodium Chloride 0.9% IV .Q5H43M [facility] Insulin Aspart 0 unit 01/09/18 07:30 01/09/18 07:30 Novolog SC 8 unit ACHS [facility] Administration Insulin Aspart 30 unit 01/09/18 11:30 Novolog SC ACTID [facility] Insulin Glargine 50 unit 01/09/18 22:00 Lantus SC HS [facility] Levothyroxine Sodium 500 mcg 01/08/18 10:15 01/09/18 10:00 Synthroid IVP 500 mcg DAILY [facility] Administration Potassium Phos/Sodium Phos 2 pkt 01/07/18 14:00 01/09/18 14:00 Neutra-Phos PO Not Given Q8 [facility] Rivaroxaban 20 mg 01/07/18 10:00 01/09/18 10:29 Xarelto PO 20 mg DAILY [facility] Administration Rosuvastatin Calcium 10 mg 01/09/18 22:00 Crestor PO HS [facility] Fluticasone/Salmeterol 1 puff 01/07/18 08:00 01/09/18 07:29 Advair Diskus 500/50 INH 1 puff RQ12 [facility] Administration Tamsulosin HCl 0.4 mg 01/09/18 18:00 01/09/18 17:02 Flomax PO 0.4 mg Q24H [facility] Administration - Patient Studies Lab Studies: Microbiology Studies 01/06/18 18:30 Blood Culture - Preliminary Blood NO GROWTH AFTER 48 HOURS 01/06/18 18:00 Blood Culture - Preliminary Blood NO GROWTH AFTER 48 HOURS Lab Studies 01/09/18 01/09/18 01/09/18 Range/Units 16:26 16:23 11:42 Sodium (132-148) mmol/L Potassium (3.6-5.2) mmol/L Chloride (98-107) mmol/L Carbon Dioxide (22-30) mmol/L Anion Gap (10-20) BUN (9-20) mg/dL Creatinine (0.8-1.5) mg/dL Est GFR ( Amer) Est GFR (Non-Af Amer) POC Glucose (mg/dL) 265 H 239 H 421 H* (65-110) mg/dL Random Glucose (75-110) mg/dL Calcium (8.6-10.4) mg/dl Phosphorus (2.5-4.5) mg/dL Magnesium (1.6-2.3) mg/dL Total Bilirubin (0.2-1.3) mg/dL AST (17-59) U/L ALT (21-72) U/L Alkaline Phosphatase (38-126) U/L Total Protein (6.3-8.3) g/dL Albumin (3.5-5.0) g/dL Globulin (2.2-3.9) gm/dL Albumin/Globulin Ratio (1.0-2.1) Influenza Typ A,B (EIA) (NEGATIVE) 01/09/18 01/09/18 01/08/18 Range/Units 07:14 06:14 Unknown Sodium 128 L (132-148) mmol/L Potassium 4.1 (3.6-5.2) mmol/L Chloride 90 L (98-107) mmol/L Carbon Dioxide 24 (22-30) mmol/L Anion Gap 18 (10-20) BUN 13 (9-20) mg/dL Creatinine 1.0 (0.8-1.5) mg/dL Est GFR ( Amer) > 60 Est GFR (Non-Af Amer) > 60 POC Glucose (mg/dL) 477 H* (65-110) mg/dL Random Glucose 510 H* D (75-110) mg/dL Calcium 8.2 L (8.6-10.4) mg/dl Phosphorus 4.4 (2.5-4.5) mg/dL Magnesium 1.5 L (1.6-2.3) mg/dL Total Bilirubin 0.7 (0.2-1.3) mg/dL AST 18 (17-59) U/L ALT 24 (21-72) U/L Alkaline Phosphatase 47 (38-126) U/L Total Protein 6.3 (6.3-8.3) g/dL Albumin 3.7 (3.5-5.0) g/dL Globulin 2.6 (2.2-3.9) gm/dL Albumin/Globulin Ratio 1.5 (1.0-2.1) Influenza Typ A,B (EIA) Negative for flu a/b (NEGATIVE) 01/08/18 Range/Units 21:48 Sodium (132-148) mmol/L Potassium (3.6-5.2) mmol/L Chloride (98-107) mmol/L Carbon Dioxide (22-30) mmol/L Anion Gap (10-20) BUN (9-20) mg/dL Creatinine (0.8-1.5) mg/dL Est GFR ( Amer) Est GFR (Non-Af Amer) POC Glucose (mg/dL) 354 H (65-110) mg/dL Random Glucose (75-110) mg/dL Calcium (8.6-10.4) mg/dl Phosphorus (2.5-4.5) mg/dL Magnesium (1.6-2.3) mg/dL Total Bilirubin (0.2-1.3) mg/dL AST (17-59) U/L ALT (21-72) U/L Alkaline Phosphatase (38-126) U/L Total Protein (6.3-8.3) g/dL Albumin (3.5-5.0) g/dL Globulin (2.2-3.9) gm/dL Albumin/Globulin Ratio (1.0-2.1) Influenza Typ A,B (EIA) (NEGATIVE) Laboratory Results - last 24 hr 01/08/18 01/08/18 01/09/18 21:48 Unknown 06:14 Sodium 128 L Potassium 4.1 Chloride 90 L Carbon Dioxide 24 Anion Gap 18 BUN 13 Creatinine 1.0 Est GFR ( Amer) > 60 Est GFR (Non-Af Amer) > 60 POC Glucose (mg/dL) 354 H Random Glucose 510 H* D Calcium 8.2 L Phosphorus 4.4 Magnesium 1.5 L Total Bilirubin 0.7 AST 18 ALT 24 Alkaline Phosphatase 47 Total Protein 6.3 Albumin 3.7 Globulin 2.6 Albumin/Globulin Ratio 1.5 Influenza Typ A,B (EIA) Negative for flu a/b 01/09/18 01/09/18 01/09/18 07:14 11:42 16:23 Sodium Potassium Chloride Carbon Dioxide Anion Gap BUN Creatinine Est GFR ( Amer) Est GFR (Non-Af Amer) POC Glucose (mg/dL) 477 H* 421 H* 239 H Random Glucose Calcium Phosphorus Magnesium Total Bilirubin AST ALT Alkaline Phosphatase Total Protein Albumin Globulin Albumin/Globulin Ratio Influenza Typ A,B (EIA) 01/09/18 16:26 Sodium Potassium Chloride Carbon Dioxide Anion Gap BUN Creatinine Est GFR ( Amer) Est GFR (Non-Af Amer) POC Glucose (mg/dL) 265 H Random Glucose Calcium Phosphorus Magnesium Total Bilirubin AST ALT Alkaline Phosphatase Total Protein Albumin Globulin Albumin/Globulin Ratio Influenza Typ A,B (EIA) Fingerstick Blood Sugar Results: 239 Critical Care Progress Note - Nutrition Nutrition: Nutrition Category Date Time Status Consistent Carbohydrate [DIET] Diets 01/09/18 Dinner Active
--- NOTE | 2018-01-09 19:08 | PN ---
DATE: LOCATION: ICU, room 14 B. SUBJECTIVE: This is a 42-year-old male with recent uncontrolled type 2 insulin-requiring diabetes, presenting here with marked hyperglycemic accelerations and mild diabetic ketoacidosis and was transferred to ICU for closer metabolic and hemodynamic management. He also had acute exacerbation of asthmatic bronchitis as noted. His glucose levels have been extremely elevated because of the patient's refusal of the insulin regimen as recommended and prescribed. His overnight glucose levels have ranged from 354 to 477 mg/dL. The latest chemistries shows a BUN of 13, sodium 128, potassium 4.1, chloride 90, CO2 is 24, glucose is 510 mg/dL, and creatinine is 1.0. So at this time, we will modify once again his basal and bolus insulin regimen and increase the NovoLog to 30 units subcu t.i.d. before meals to start today as ordered. We will also increase the Lantus to 50 units subcu at bedtime daily, to start tonight. We will continue the low dose correction scale using NovoLog insulin as given. We will continue the IV hydration with normal saline given as 125 mL per hour as ordered. We will also continue his Levothyroxine given by 500 mg IV push once daily as ordered because of persistent marked hypothyroidism as noted. We will follow and advise accordingly. Torrie Leos MD
[2018-01-09] MEDS ORDERED: (Lantus) Insulin Glargine, Recombinant SC SCH (22:00)
[2018-01-10] MEDS: Albuterol-Ipratrop 3 mg / 0.5 (3 ml) UD INH SCH ×6 (00:23→21:10)
[2018-01-10] MEDS: Sodium Chloride 0.9% 1,000 ML IV SCH ×3 (03:06→21:01)
[2018-01-10 04:49] VITALS: RESP 20
[2018-01-10] MEDS: Potassium & Sodium Phosphate PO SCH ×3 (07:32→22:35)
[2018-01-10] MEDS: (Novolog) Insulin Aspart, Recombinant 100 u/ml 10 ml vial SC SCH ×7 (07:48→22:51)
[2018-01-10] MEDS: Fluticasone-Salmeterol 500-50mcg Diskus INH SCH ×2 (08:18→21:10)
[2018-01-10 08:23] LABS: BASO % 0.2 % (0.0-2.0); EOS # 0.4 K/uL (0.0-0.7); EOS % 4.8 % (0.0-4.0); LYMPH # 2.9 K/uL (1.0-4.3); LYMPH % 36.2 % (20.0-40.0); MEAN CELL VOLUME 90.4 fL (80.0-94.0); MEAN CORPUSCULAR HEMOGLOBIN 31.1 pg (27.0-31.0); MEAN CORPUSCULAR HGB CONC 34.4 g/dL (33.0-37.0); MEAN PLATELET VOLUME 10.8 fL (7.2-11.7); MONO # 0.6 K/uL (0.0-0.8); NEUT # 4.2 K/uL (1.8-7.0); NEUT % 51.8 % (50.0-75.0); RBC 4.82 Mil/uL (4.40-5.90); RED CELL DISTRIBUTION WIDTH 13.7 % (11.5-14.5); WHITE BLOOD COUNT 8.1 K/uL (4.8-10.8)
--- NOTE | 2018-01-10 08:26 | CP.PCM.PN ---
Subjective - Date & Time of Evaluation Date of Evaluation: 01/10/18 Time of Evaluation: 08:25 - Subjective Subjective: PGY-[address] Leigh's Service: Pt seen and examined at bedside. Nursing reports no acute events overnight. Patient found lying comfortably on BiPap machine. He states he is urinating with less pressure and his only current complaint is a "leg cramp." Nursing reports hypoglycemic reading overnight was from BG draw was inaccurate and should not be considered. Objective - Vital Signs/Intake and Output Vital Signs (last 24 hours): Temp Pulse Resp BP Pulse Ox 97.6 F 102 H 20 130/90 997 H 01/10/18 07:43 01/10/18 07:43 01/10/18 07:43 01/10/18 07:43 01/10/18 07:43 - Medications Medications: Current Medications Albuterol/Ipratropium (Duoneb 3 Mg/0.5 Mg (3 Ml) Ud) 3 ml INH RQ4 [facility] Last Admin: 01/10/18 08:00 Dose: 3 ml Famotidine (Pepcid) 20 mg PO DAILY [facility] Last Admin: 01/09/18 10:35 Dose: Not Given Fluconazole (Diflucan) 150 mg PO DAILY [facility] PRN Reason: Protocol Last Admin: 01/09/18 16:58 Dose: 150 mg Fluticasone Propionate (Flonase) 1 spr DYLAN DAILY [facility] Last Admin: 01/09/18 10:29 Dose: 1 spr Ceftriaxone Sodium 1 gm/ (Sodium Chloride) 100 mls @ 100 mls/hr IVPB Q24H [facility] PRN Reason: Protocol Stop: 01/12/18 11:29 Last Admin: 01/09/18 10:41 Dose: 100 mls/hr Sodium Chloride (Sodium Chloride 0.9%) 1,000 mls @ 175 mls/hr IV .Q5H43M [facility] Last Admin: 01/10/18 07:32 Dose: 175 mls/hr Insulin Aspart (Novolog) 0 unit SC ACHS [facility] Last Admin: 01/10/18 07:48 Dose: Not Given Insulin Aspart (Novolog) 14 unit SC ACTID [facility] Insulin Glargine (Lantus) 50 unit SC HS [facility] Last Admin: 01/09/18 21:32 Dose: 50 units Levothyroxine Sodium (Synthroid) 500 mcg IVP DAILY [facility] Last Admin: 01/09/18 10:00 Dose: 500 mcg Potassium Phos/Sodium Phos (Neutra-Phos) 2 pkt PO Q8 [facility] Last Admin: 01/10/18 07:32 Dose: 2 pkt Rivaroxaban (Xarelto) 20 mg PO DAILY [facility] Last Admin: 01/09/18 10:29 Dose: 20 mg Rosuvastatin Calcium (Crestor) 10 mg PO HS [facility] Last Admin: 01/09/18 21:36 Dose: Not Given Fluticasone/Salmeterol (Advair Diskus 500/50) 1 puff INH RQ12 [facility] Last Admin: 01/10/18 08:18 Dose: 1 puff Sitagliptin Phosphate (Januvia) 100 mg PO DAILY [facility] Tamsulosin HCl (Flomax) 0.4 mg PO Q24H [facility] Last Admin: 01/09/18 17:02 Dose: 0.4 mg - Labs Labs: 01/08/18 04:45 01/09/18 06:14 PT 11.3 SECONDS (9.7-12.2) 01/06/18 18:10 INR 1.0 01/06/18 18:10 APTT 28 SECONDS (21-34) 01/06/18 18:10 - Additional Findings Additional findings: - Constitutional Appears: No Acute Distress, Found on bipap - Head Exam Head Exam: ATRAUMATIC, NORMAL INSPECTION, NORMOCEPHALIC - Eye Exam Eye Exam: EOMI, Normal appearance - ENT Exam ENT Exam: Mucous Membranes Moist - Neck Exam Neck Exam: Full ROM. absent: Tenderness, Thyromegaly - Respiratory Exam Respiratory Exam: Clear to Ausculation Bilateral, NORMAL BREATHING PATTERN. absent: Accessory Muscle Use - Cardiovascular Exam Cardiovascular Exam: REGULAR RHYTHM, +S1, +S2 - GI/Abdominal Exam GI & Abdominal Exam: Soft. absent: Tenderness - Extremities Exam Extremities Exam: Full ROM, Normal Capillary Refill, Normal Inspection. absent : Pedal Edema - Back Exam Back Exam: Full ROM - Neurological Exam Neurological Exam: Awake, CN II-XII Intact - Psychiatric Exam Psychiatric exam: Normal Affect, Normal Mood - Skin Skin Exam: Dry, Intact, Normal Color, Warm Assessment and Plan - Assessment and Plan (Free Text) Plan: Uncontrolled DM II Pt admits not taking DM medications at home, states sugars "never above 150 at home" A1C (07/2017): 8.6 Dr. Leos, Endo insolvency consultant, help appreciated Lantus 40u sc HS Novolog 14 units ACTID Add Januvia 100mg QAM ISS-high accuchecks achs, 2 hrs post-meals NS @ 175cc/hr Lisinopril 20mg po daily Started Crestor 10mg PO HS (but pt refusing) Lipid Panel: TG 135, T Chol 289, LDL 220, HDL 43 Asthma Exacerbation CXR 01/06: showing no acute disease - repeat 01/07: Poor inspiration w low lung volumes. Crowded bronchovascular markings and mild bibasilar atelectasis Duonebs q4h [facility] Advair diskus 500/50 1 puff INH rq12h Pulmonology on consult, Dr Gauthier, help appreciated Hypothyroidism TSH 183, free T4 1.92 Dr Leos, Endo insolvency consultant, help appreciated Levothyroxine 500mcg IV daily UTI UA: Occasional bacteria, budding yeast, Urine Cx (01/06/18): Yeast species Diflucan 150mg PO x 3 days (last dose 01/11/18) Discontinue Ceftriaxone 1gm Daily (01/08/18) HTN Above goal, but lower; will monitor Lisinopril 20mg po daily Hx PE continue Xarelto 20mg po daily Proteinuria Etiology: renal damage in setting of correction DM UA: 1+ protein Lisinopril 20mg po daily DKA, resolved Pt admitted to ICU Off insulin drip, anion gap close Electrolyte Abnormalities Phos mildly elevated this AM, monitor AM Prophylaxis SCDs Pepcid 20 mg po daily No VTE indicated, pt ambulating All medical management per Dr. Leigh
[2018-01-10 08:45] LABS: ALB/GLOB RATIO 1.3 (1.0-2.1); ALBUMIN 4.4 g/dL (3.5-5.0); ALT/SGPT 31 U/L (21-72); AST/SGOT 23 U/L (17-59); BLOOD UREA NITROGEN 16 mg/dL (9-20); CALCIUM 9.5 mg/dl (8.6-10.4); GFR AFRICAN-AMERICAN > 60; GFR NON-AFRICAN AMERICAN > 60
[2018-01-10] MEDS: Levothyroxine 100 MCG TAB PO SCH ×2 (10:30→11:44)
[2018-01-10] MEDS: Fluticasone Nasal 50 mcg/Spray NAS SCH (10:45)
--- NOTE | 2018-01-10 12:16 | PN ---
DATE: Room 371. This is a 42-year-old male with recent acute exacerbation of asthmatic bronchitis with supervening mild hyperglycemic accelerations and was actually transferred to the ICU for closer metabolic followup and because of early diabetic ketoacidosis and dehydration, and since then improved clinically and metabolically as noted and has been transferred out to the telemetry unit. His glucose values have improved overnight and are ranging from 97 to 223 and 262 mg/dL. His latest chemistry showed BUN of 16, sodium 133, potassium 4.0, chloride 93, CO2 26, glucose 277, creatinine 1.1. So at this time, we will continue the modified basal and bolus insulin regimen and lower the Lantus to 40 units subcu at bedtime daily to start tonight. We will also continue the modified NovoLog given with meals to a lower dose of 14 units subcu t.i.d. before meals as ordered. We will add Januvia given as 100 mg once daily in the morning as ordered. We will also continue the low dose correction scale using NovoLog insulin as given. Moreover, his thyroid studies showed marked hypothyroidism with latest TSH of 183.00 and total T4 of 1.92, so at this time will still continue the levothyroxine, given as 500 mcg IV push daily and will repeat the thyroid studies in the morning and/or switch him over to oral levothyroxine given at a much higher dose of at least 475 mcg once daily as ordered. We will obtain serial chemistries and supplement accordingly as needed. We will follow and advise accordingly. Torrie Leos MD
[2018-01-10] MEDS ORDERED: (Lantus) Insulin Glargine, Recombinant SC SCH (22:00)
[2018-01-11] MEDS: Albuterol-Ipratrop 3 mg / 0.5 (3 ml) UD INH SCH ×6 (00:05→19:24)
[2018-01-11] MEDS: Sodium Chloride 0.9% 1,000 ML IV SCH ×2 (04:59→13:54)
[2018-01-11] MEDS: Potassium & Sodium Phosphate PO SCH ×3 (05:00→21:23)
[2018-01-11] MEDS: Levothyroxine 100 MCG TAB PO SCH (08:11)
[2018-01-11] MEDS: Fluticasone-Salmeterol 500-50mcg Diskus INH SCH ×2 (08:20→19:23)
[2018-01-11] MEDS: (Novolog) Insulin Aspart, Recombinant 100 u/ml 10 ml vial SC SCH ×7 (08:29→21:25)
[2018-01-11 08:36] LABS: ALB/GLOB RATIO 1.4 (1.0-2.1); ALBUMIN 3.9 g/dL (3.5-5.0); ALT/SGPT 22 U/L (21-72); AST/SGOT 27 U/L (17-59); BLOOD UREA NITROGEN 16 mg/dL (9-20); CALCIUM 9.4 mg/dl (8.6-10.4); GFR AFRICAN-AMERICAN > 60; GFR NON-AFRICAN AMERICAN > 60
[2018-01-11 08:54] LABS: T4 6.24 ug/dL (5.5-11.0)
[2018-01-11] MEDS: Fluticasone Nasal 50 mcg/Spray NAS SCH (11:07)
--- NOTE | 2018-01-11 11:29 | CP.PCM.PN ---
Subjective - Date & Time of Evaluation Date of Evaluation: 01/11/18 Time of Evaluation: 16:53 - Subjective Subjective: PGY-[address] Leigh No acute events noted overnight. Patient stated his breathing had improved. He again stated his sugars are due to his recent steroid use. He was told his A1C was 13.5 and was told the the symptoms of diabetes, such as urinary frequency. He was frustrated that his blood sugars were still in the 300s. Otherwise he was doing well. He was speaking in complete sentences and able to ambulate without shortness of breath. Objective - Vital Signs/Intake and Output Vital Signs (last 24 hours): Temp Pulse Resp BP Pulse Ox 97.9 F 95 H 20 120/60 96 01/11/18 00:00 01/11/18 10:00 01/11/18 00:00 01/11/18 00:00 01/11/18 00:00 - Medications Medications: Current Medications Albuterol/Ipratropium (Duoneb 3 Mg/0.5 Mg (3 Ml) Ud) 3 ml INH RQ4 [facility] Last Admin: 01/11/18 11:17 Dose: 3 ml Famotidine (Pepcid) 20 mg PO DAILY [facility] Last Admin: 01/11/18 11:07 Dose: Not Given Fluticasone Propionate (Flonase) 1 spr DYLAN DAILY [facility] Last Admin: 01/11/18 11:07 Dose: Not Given Ceftriaxone Sodium 1 gm/ (Sodium Chloride) 100 mls @ 100 mls/hr IVPB Q24H [facility] PRN Reason: Protocol Stop: 01/12/18 11:29 Last Admin: 01/11/18 11:06 Dose: 100 mls/hr Sodium Chloride (Sodium Chloride 0.9%) 1,000 mls @ 100 mls/hr IV .Q10H [facility] Last Admin: 01/11/18 04:59 Dose: Not Given Insulin Aspart (Novolog) 0 unit SC ACHS [facility] Last Admin: 01/11/18 08:29 Dose: 4 unit Insulin Aspart (Novolog) 14 unit SC ACTID [facility] Last Admin: 01/11/18 08:29 Dose: 14 unit Insulin Glargine (Lantus) 40 unit SC HS [facility] Last Admin: 01/10/18 22:42 Dose: 40 u Levothyroxine Sodium (Synthroid) 500 mcg PO DAILY@0630 [facility] Last Admin: 01/11/18 08:11 Dose: 500 mcg Potassium Phos/Sodium Phos (Neutra-Phos) 2 pkt PO Q8 [facility] Last Admin: 01/11/18 05:00 Dose: Not Given Rivaroxaban (Xarelto) 20 mg PO DAILY [facility] Last Admin: 01/11/18 11:07 Dose: 20 mg Rosuvastatin Calcium (Crestor) 10 mg PO HS [facility] Last Admin: 01/10/18 22:34 Dose: Not Given Fluticasone/Salmeterol (Advair Diskus 500/50) 1 puff INH RQ12 [facility] Last Admin: 01/11/18 08:20 Dose: 1 puff Sitagliptin Phosphate (Januvia) 100 mg PO DAILY [facility] Last Admin: 01/11/18 11:07 Dose: Not Given Tamsulosin HCl (Flomax) 0.4 mg PO Q24H [facility] Last Admin: 01/10/18 17:50 Dose: 0.4 mg - Labs Labs: 01/10/18 08:08 01/11/18 08:15 PT 11.3 SECONDS (9.7-12.2) 01/06/18 18:10 INR 1.0 01/06/18 18:10 APTT 28 SECONDS (21-34) 01/06/18 18:10 - Additional Findings Additional findings: - Constitutional Appears: No Acute Distress, Found on bipap - Head Exam Head Exam: ATRAUMATIC, NORMAL INSPECTION, NORMOCEPHALIC - Eye Exam Eye Exam: EOMI, Normal appearance - ENT Exam ENT Exam: Mucous Membranes Moist - Neck Exam Neck Exam: Full ROM. absent: Tenderness, Thyromegaly - Respiratory Exam Respiratory Exam: Clear to Ausculation Bilateral, NORMAL BREATHING PATTERN. absent: Accessory Muscle Use - Cardiovascular Exam Cardiovascular Exam: REGULAR RHYTHM, +S1, +S2 - GI/Abdominal Exam GI & Abdominal Exam: Soft. absent: Tenderness - Extremities Exam Extremities Exam: Full ROM, Normal Capillary Refill, Normal Inspection. absent : Pedal Edema - Back Exam Back Exam: Full ROM - Neurological Exam Neurological Exam: Awake, CN II-XII Intact - Psychiatric Exam Psychiatric exam: Normal Affect, Normal Mood - Skin Skin Exam: Dry, Intact, Normal Color, Warm Assessment and Plan - Assessment and Plan (Free Text) Assessment: Uncontrolled DM II Dr. Leos, Endo corporate learning consultant, help appreciated Pt admits not taking DM medications at home, states sugars "never above 150 at home" A1C 01/11/18: 13.5 * A1C 07/2017: 8.6 Lantus 40u sc HS Novolog 14 units ACTID Add Januvia 100mg QAM * pt refusing ISS-high accuchecks achs, 2 hrs post-meals NS @ 175cc/hr Lisinopril 20mg po daily Started Crestor 10mg PO HS * pt refusing Lipid Panel: TG 135, T Chol 289, LDL 220, HDL 43 Asthma Exacerbation CXR 01/06: showing no acute disease - repeat 01/07: Poor inspiration w low lung volumes. Crowded bronchovascular markings and mild bibasilar atelectasis Duonebs q4h [facility] Advair diskus 500/50 1 puff INH rq12h Pulmonology on consult, Dr Gauthier, help appreciated Peak flow today 01/11/18 was 150 Hypothyroidism TSH 183, free T4 1.92 Dr Leos, Endo corporate learning consultant, help appreciated Levothyroxine 500mcg IV daily DISCONTINUED Levothyoxine 500mcg PO QD UTI UA: Occasional bacteria, budding yeast, Urine Cx (01/06/18): Yeast species * F/U repeat Urine Cx Diflucan 150mg PO x 3 days (last dose 01/11/18) Discontinue Ceftriaxone 1gm Daily (01/08/18) HTN Above goal, but lower; will monitor Lisinopril 20mg po daily Hx PE continue Xarelto 20mg po daily Proteinuria Etiology: renal damage in setting of termination clerk DM UA: 1+ protein Lisinopril 20mg po daily DKA, resolved Pt admitted to ICU Off insulin drip, anion gap close Electrolyte Abnormalities Phos mildly elevated this AM, monitor AM Prophylaxis SCDs Pepcid 20 mg po daily No VTE indicated, pt ambulating All medical management per Dr. Leigh
[2018-01-11 14:24] LABS: BASO % 0.3 % (0.0-2.0); EOS # 0.3 K/uL (0.0-0.7); EOS % 3.8 % (0.0-4.0); HEMOGLOBIN 14.5 g/dL (12.0-18.0); LYMPH # 2.5 K/uL (1.0-4.3); LYMPH % 30.1 % (20.0-40.0); MEAN CELL VOLUME 90.4 fL (80.0-94.0); MEAN CORPUSCULAR HEMOGLOBIN 31.2 pg (27.0-31.0); MEAN CORPUSCULAR HGB CONC 34.6 g/dL (33.0-37.0); MEAN PLATELET VOLUME 9.9 fL (7.2-11.7); MONO # 0.7 K/uL (0.0-0.8); MONO % 8.5 % (0.0-10.0); NEUT # 4.8 K/uL (1.8-7.0); NEUT % 57.3 % (50.0-75.0); RBC 4.65 Mil/uL (4.40-5.90); RED CELL DISTRIBUTION WIDTH 13.7 % (11.5-14.5); WHITE BLOOD COUNT 8.4 K/uL (4.8-10.8)
[2018-01-11 20:11] LABS: THYROGLOBULIN 0.1 ng/mL (2.8-40.9)
[2018-01-11] MEDS ORDERED: (Lantus) Insulin Glargine, Recombinant SC SCH (22:00)
--- NOTE | 2018-01-11 23:25 | PN ---
DATE: ENDOCRINOLOGY FOLLOWUP NOTE LOCATION: Room 371. SUBJECTIVE: This is a 42-year-old male with recent uncontrolled type 2 insulin requiring diabetes, presenting here with acute exacerbation of asthmatic bronchitis and supervening hyperglycemic accelerations and is now being followed closely for metabolic management. He received intensive insulin therapy with an insulin drip infusion and vigorous IV hydration in the ICU, and since then, has been transferred yesterday to the telemetry to work for further and ongoing diabetic management. The patient is extremely reluctant to go home on insulin therapy at this time and is very insistent that he is not diabetic, and his glucose values at home have ranged from 120 to 130 mg/dL. However, his hemoglobin A1c is extremely elevated at 13.5%, which is indicative of extremely suboptimal metabolic control of his diabetic condition and clearly would need outpatient diabetic management. He agrees to go home on oral hypoglycemic drug therapy at this time. So for now because of the recent glycemic fluctuation, we will continue his NovoLog given as 20 units subcu t.i.d. before meals as modified today. We will also increase the basal insulin with Lantus to be given as 50 units subcu at bedtime daily to start tonight. We will continue the low dose correction scale using NovoLog insulin as ordered. The patient has agreed to go home on a combination of his previous oral hypoglycemic drug regimen with Onglyza given as 5 mg once daily and Invokamet which is a combination therapy and will give him the highest dose of 150/1000 mg b.i.d. as ordered. We will titrate incrementally as indicated to optimize metabolic control. He will follow with his medical doctors for outpatient diabetic and medical management. I am actually quite reluctant and hesitant on the Invokamet medication as there is a frequent predilection for diabetic ketoacidosis with this medication, especially in younger patients. However, the patient is extremely insistent that he prefers Invokamet as this was given by his previous medical doctor on the outpatient. The complications and potential predilection for DKA has been discussed with the patient and even the infrequent but morbid complications of potential amputations have also been discussed with the patient, and he is aware of these morbid complications thereof. He prefers oral agents instead of having to go home on a combination of insulin therapy as being given in the hospital. We will follow and advise accordingly. Torrie Leos MD [facility] # [phone]
[2018-01-12] MEDS: Sodium Chloride 0.9% 1,000 ML IV SCH ×2 (00:20→11:36)
[2018-01-12] MEDS: Albuterol-Ipratrop 3 mg / 0.5 (3 ml) UD INH SCH ×5 (01:10→16:20)
[2018-01-12] MEDS: Potassium & Sodium Phosphate PO SCH ×2 (06:00→13:14)
[2018-01-12] MEDS ORDERED: Levothyroxine 150 MCG TAB PO SCH (06:30)
--- NOTE | 2018-01-12 07:30 | CP.PCM.DIS ---
Provider - Provider Date of Admission: 01/06/18 18:53 Attending physician: Wong Leigh Jr, MD Primary care physician: PMD: Dr. Murray Consults: Electrical Engineering Professor: Dr Leos Pulmonary: Dr Gauthier Car Customizer: Dr Dena Sullivan Time Spent in preparation of Discharge (in minutes): 36 Hospital Course - Lab Results Lab Results: Micro Results 01/06/18 18:30 Blood Blood Culture - Preliminary NO GROWTH AFTER 4 DAYS 01/06/18 18:00 Blood Blood Culture - Preliminary NO GROWTH AFTER 4 DAYS 01/06/18 Unknown Urine,Clean Catch Urine Culture - Final Yeast Species Most Recent Lab Values WBC 8.4 K/uL (4.8-10.8) 01/11/18 14:19 RBC 4.65 Mil/uL (4.40-5.90) 01/11/18 14:19 Hgb 14.5 g/dL (12.0-18.0) 01/11/18 14:19 Hct 42.0 % (35.0-51.0) 01/11/18 14:19 MCV 90.4 fL (80.0-94.0) 01/11/18 14:19 MCH 31.2 pg (27.0-31.0) H 01/11/18 14:19 MCHC 34.6 g/dL (33.0-37.0) 01/11/18 14:19 RDW 13.7 % (11.5-14.5) 01/11/18 14:19 Plt Count 222 K/uL (130-400) 01/11/18 14:19 MPV 9.9 fL (7.2-11.7) 01/11/18 14:19 Neut % (Auto) 57.3 % (50.0-75.0) 01/11/18 14:19 Lymph % (Auto) 30.1 % (20.0-40.0) 01/11/18 14:19 Mcpherson % (Auto) 8.5 % (0.0-10.0) 01/11/18 14:19 Eos % (Auto) 3.8 % (0.0-4.0) 01/11/18 14:19 Baso % (Auto) 0.3 % (0.0-2.0) 01/11/18 14:19 Neut # (Auto) 4.8 K/uL (1.8-7.0) 01/11/18 14:19 Lymph # (Auto) 2.5 K/uL (1.0-4.3) 01/11/18 14:19 Mcpherson # (Auto) 0.7 K/uL (0.0-0.8) 01/11/18 14:19 Eos # (Auto) 0.3 K/uL (0.0-0.7) 01/11/18 14:19 Baso # (Auto) 0.0 K/uL (0.0-0.2) 01/11/18 14:19 PT 11.3 SECONDS (9.7-12.2) 01/06/18 18:10 INR 1.0 01/06/18 18:10 APTT 28 SECONDS (21-34) 01/06/18 18:10 Puncture Site Lra 01/06/18 18:15 pCO2 33 mm/Hg (35-45) L 01/06/18 18:15 pO2 137 mm/Hg (80-100) H 01/06/18 18:15 HCO3 22.2 mmol/L (21-28) 01/06/18 18:15 ABG pH 7.40 (7.35-7.45) 01/06/18 18:15 ABG Total CO2 21.4 mmol/L (22-28) L 01/06/18 18:15 ABG O2 Saturation 98.8 % (95-98) H 01/06/18 18:15 ABG Base Excess -3.6 mmol/L (-2.0-3.0) L 01/06/18 18:15 Kole Test Pos 01/06/18 18:15 ABG Potassium 3.3 mmol/L (3.6-5.2) L 01/06/18 18:15 A-a O2 Difference 78.0 mm/Hg 01/06/18 18:15 Respiratory Index 0.6 01/06/18 18:15 Sodium 132.0 mmol/l (132-148) 01/06/18 18:15 Chloride 96.0 mmol/L (98-107) L 01/06/18 18:15 Glucose 635 mg/dl (75-110) H* D 01/06/18 18:15 Lactate 1.0 mmol/L (0.7-2.1) 01/06/18 18:15 Liter Flow 4.0 01/06/18 18:15 FiO2 36.0 % 01/06/18 18:15 Crit Value Called To Dr handy 01/06/18 18:15 Crit Value Called By John escobar 01/06/18 18:15 Crit Value Read Back Y 01/06/18 18:15 Blood Gas Notified Time 1820 01/06/18 18:15 Sodium 132 mmol/L (132-148) 01/11/18 08:15 Potassium 4.3 mmol/L (3.6-5.2) 01/11/18 08:15 Chloride 92 mmol/L (98-107) L 01/11/18 08:15 Carbon Dioxide 27 mmol/L (22-30) 01/11/18 08:15 Anion Gap 17 (10-20) 01/11/18 08:15 BUN 16 mg/dL (9-20) 01/11/18 08:15 Creatinine 1.0 mg/dL (0.8-1.5) 01/11/18 08:15 Est GFR ( Amer) > 60 01/11/18 08:15 Est GFR (Non-Af Amer) > 60 01/11/18 08:15 POC Glucose (mg/dL) 281 mg/dL (65-110) H 01/12/18 06:04 Random Glucose 368 mg/dL (75-110) H 01/11/18 08:15 Hemoglobin A1c 13.5 % (4.2-6.5) H D 01/11/18 08:15 Calcium 9.4 mg/dl (8.6-10.4) 01/11/18 08:15 Phosphorus 4.9 mg/dL (2.5-4.5) H 01/11/18 08:15 Magnesium 1.9 mg/dL (1.6-2.3) 01/11/18 08:15 Total Bilirubin 0.7 mg/dL (0.2-1.3) 01/11/18 08:15 AST 27 U/L (17-59) 01/11/18 08:15 ALT 22 U/L (21-72) 01/11/18 08:15 Alkaline Phosphatase 51 U/L (38-126) 01/11/18 08:15 Troponin I < 0.0120 ng/mL (0.00-0.120) 01/06/18 18:10 NT-Pro-B Natriuret Pep < 11.1 pg/mL (0-450) 01/06/18 18:10 Total Protein 6.6 g/dL (6.3-8.3) 01/11/18 08:15 Albumin 3.9 g/dL (3.5-5.0) 01/11/18 08:15 Globulin 2.7 gm/dL (2.2-3.9) 01/11/18 08:15 Albumin/Globulin Ratio 1.4 (1.0-2.1) 01/11/18 08:15 Triglycerides 135 mg/dL (0-149) 01/08/18 04:45 Cholesterol 289 mg/dL (0-199) H 01/08/18 04:45 LDL Cholesterol Direct 220 mg/dL (0-129) H 01/08/18 04:45 HDL Cholesterol 43 mg/dL (30-70) 01/08/18 04:45 Free T4 0.64 ng/dL (0.78-2.19) L 01/11/18 08:15 Thyroxine (T4) 6.24 ug/dL (5.5-11.0) 01/11/18 08:15 Thyroglobulin, Quant 0.1 ng/mL (2.8-40.9) L 01/08/18 11:26 TSH 3rd Generation 112.00 mIU/L (0.46-4.68) H 01/11/18 08:15 Arterial Blood Potassium 3.3 mmol/L (3.6-5.2) L 01/06/18 18:15 Urine Color Straw (YELLOW) 01/06/18 18:49 Urine Clarity Clear (Clear) 01/06/18 18:49 Urine pH 5.0 (5.0-8.0) 01/06/18 18:49 Ur Specific [place] 1.030 (1.003-1.030) 01/06/18 18:49 Urine Protein 1+ mg/dL (NEGATIVE) H 01/06/18 18:49 Urine Glucose (UA) 3+ mg/dL (Normal) H 01/06/18 18:49 Urine Ketones 1+ mg/dL (NEGATIVE) H 01/06/18 18:49 Urine Blood Negative (NEGATIVE) 01/06/18 18:49 Urine Nitrate Negative (NEGATIVE) 01/06/18 18:49 Urine Bilirubin Negative (NEGATIVE) 01/06/18 18:49 Urine Urobilinogen Normal mg/dL (0.2-1.0) 01/06/18 18:49 Ur Leukocyte Esterase Trace Godfrey/uL (Negative) 01/06/18 18:49 Urine WBC (Auto) 10 /hpf (0-5) H 01/06/18 18:49 Urine RBC (Auto) 3 /hpf (0-3) 01/06/18 18:49 Ur Squamous Epith Cells 1 /hpf (0-5) 01/06/18 18:49 Urine Bacteria Occ (<OCC) H 01/06/18 18:49 Urine Yeast (Budding) Rare /hpf (NEGATIVE) H 01/06/18 18:49 Thyroglobulin Antibody <1 IU/mL (< OR = 1) 01/08/18 11:26 Influenza Typ A,B (EIA) Negative for flu a/b (NEGATIVE) 01/08/18 Unknown - Hospital Course Hospital Course: CC: asthma exacerbation, increased urination HPI: Patient is a 42y/o M with PMHx of DMII, asthma (9 intubations), TIA (2013) , PE (2015), follicular cell carcinoma of the thyroid in 2012, hypothyroidism who presents today for worsening asthma. Patient said the past few days his asthma has been getting worse because of the weather and today he had to use 6 nebulizer treatments and then came into the ED. Patient has had an extensive asthma history and has been intubated 9x, last time being in October for 4 days. Patient also admits to increase in urination. This started 10 days ago and he says he has pain during urination. The color of the urine has been yellow or clear. Patient has also been having nausea with no vomiting. Patient has been very thirsty and is drinking a lot of water everyday. Patient has had very high sugars in the past but says he "does not have diabetes, just his sugars go up when he takes steroids." Patient was recently prescribed a Medrol dose pack which he finished over the weekend. Patient says he checks his sugars about once a week. This past week he said his sugars were in the 200s. Patient says he is not taking any medications for his blood sugar at home. Patient has been hospitalized for sugars >1000 about 5 years ago. Patient also admits to chronic constipation. Patient denies headache, blurry vision, chest pain, abdominal pain. PMD: Dr. Sotelofor Endo: Dr. Leos Allergies: Aspirin- anaphylaxis PMHx: DMII, asthma (9 intubations), TIA (2013), PE (2016) Psurg: follicular cell carcinoma of thyroid in 2011, intubated 9x, trach in 2014 8 reconstructions of R knee, 2 L knee reconstructions PMHx: Grandmother-breast CA Social: denies tobacco, alcohol, or drugs. Lives alone. works as a senior financial consultant Home meds: asthma medications which he is unsure about including Albuterol, Symbicort, Flovent, Proventil takes Xarelto 20g daily and Levothyroxine 400mcg daily HOSPITAL COURSE: 42 year old male with PMHx of asthma (9 intubations) and uncontrolled TIIDM presented to hospital with worsening asthma. Patient was diagnosed with asthma exacerbation as well as uncontrolled diabetes. Early part of his admission was spent in the ICU due to him being in DKA. Insulin drip was started and anion gap closed appropriately. CXR showed poor inspiration w low lung volumes as well as crowded bronchovascular markings and mild bibasilar atelectasis. Dr. Gauthier from pulmonology was consulted and patient was treated with duonebs, advair and flonase. Patient was also found to have A1c of 13.5. Dr. Leos from endocrinology was consulted and patient was started on novolog, lantus, and januvia. His insulin regimen was adjusted daily to control his sugars. He also has hypothyroidism and was given synthryoid, also managed by Dr Leos. Patient also has a history of PE - he was given xarelto 20mg PO QD. Upon discharge after a 6 day hospital stay patients breathing had immensely improved and was ambulating without shortness of breath. Patient was educated about his diagnosis of diabetes, instructed to follow up with Dr. Leos and made aware of the consequences of poor compliance. At discharge, patient refused to take home insulin. He wanted oral medications for his diabetes. Please see discharge medication list (diabetes medications recommended by Dr Leos after discussing with patient the risks of not taking home insulin). Please see latest progress note for complete hospital management: Uncontrolled DM II Dr. Leos, Endo web consultant, help appreciated Pt admits not taking DM medications at home, states sugars "never above 150 at home" A1C 01/11/18: 13.5 * A1C 07/2017: 8.6 Lantus 40u sc HS Novolog 14 units ACTID Add Januvia 100mg QAM * pt refusing ISS-high accuchecks achs, 2 hrs post-meals NS @ 175cc/hr Lisinopril 20mg po daily Started Crestor 10mg PO HS * pt refusing Lipid Panel: TG 135, T Chol 289, LDL 220, HDL 43 Asthma Exacerbation CXR 01/06: showing no acute disease - repeat 01/07: Poor inspiration w low lung volumes. Crowded bronchovascular markings and mild bibasilar atelectasis Duonebs q4h ALON Advair diskus 500/50 1 puff INH rq12h Pulmonology on consult, Dr Gauthier, help appreciated Hypothyroidism TSH 183, free T4 1.92 Dr Leos, Endo web consultant, help appreciated Levothyroxine 500mcg IV daily DISCONTINUED Levothyoxine 500mcg PO QD UTI UA: Occasional bacteria, budding yeast, Urine Cx (01/06/18): Yeast species * F/U repeat Urine Cx Diflucan 150mg PO x 3 days (last dose 01/11/18) Discontinue Ceftriaxone 1gm Daily (01/08/18) HTN Above goal, but lower; will monitor Lisinopril 20mg po daily Hx PE continue Xarelto 20mg po daily Proteinuria Etiology: renal damage in setting of halfway DM UA: 1+ protein Lisinopril 20mg po daily DKA, resolved Pt admitted to ICU Off insulin drip, anion gap close Electrolyte Abnormalities Phos mildly elevated this AM, monitor AM Prophylaxis SCDs Pepcid 20 mg po daily No VTE indicated, pt ambulating Discharge Exam - Additional Findings Additional findings: - Constitutional Appears: No Acute Distress, Found on bipap - Head Exam Head Exam: ATRAUMATIC, NORMAL INSPECTION, NORMOCEPHALIC - Eye Exam Eye Exam: EOMI, Normal appearance - ENT Exam ENT Exam: Mucous Membranes Moist - Neck Exam Neck Exam: Full ROM. absent: Tenderness, Thyromegaly - Respiratory Exam Respiratory Exam: Clear to Ausculation Bilateral, NORMAL BREATHING PATTERN. absent: Accessory Muscle Use - Cardiovascular Exam Cardiovascular Exam: REGULAR RHYTHM, +S1, +S2 - GI/Abdominal Exam GI & Abdominal Exam: Soft. absent: Tenderness - Extremities Exam Extremities Exam: Full ROM, Normal Capillary Refill, Normal Inspection. absent : Pedal Edema - Back Exam Back Exam: Full ROM - Neurological Exam Neurological Exam: Awake, CN II-XII Intact - Psychiatric Exam Psychiatric exam: Normal Affect, Normal Mood - Skin Skin Exam: Dry, Intact, Normal Color, Warm Discharge Plan - Discharge Medications Prescriptions: Albuterol HFA [Ventolin HFA 90 mcg/actuation (8 g)] 2 puff IH Q4H PRN #1 inhaler PRN Reason: Shortness Of Breath Canagliflozin/Metformin HCl [Invokamet Xr 150-1,000 mg Tab] 1 each PO BID #60 tab.bp.24h Levothyroxine [Synthroid] 450 mcg PO 0630 #30 tab Mometasone [Asmanex Twisthaler 220 MCG] 220 mcg IH HS #1 inh Montelukast [Singulair] 10 mg PO HS #30 tab Rivaroxaban [Xarelto] 20 mg PO DAILY #30 tab Rosuvastatin Calcium [Crestor] 10 mg PO HS #30 tab Saxagliptin HCl [Onglyza] 5 mg PO DAILY #30 tablet - Follow Up Plan Condition: FAIR Disposition: HOME/ ROUTINE Instructions: Asthma in Adults, Rivaroxaban, Saxagliptin, Mometasone (Oral Inhalation), Hyperglycemia, Adult (DC), Avoiding Asthma Triggers, Hemoglobin A1C Tests, Albuterol, Asthma Action Plan, Levothyroxine, Montelukast, Rosuvastatin, Canagliflozin and Metformin, Exercise-Induced Asthma Additional Instructions: Patient is medically stable for discharge. The following medications should be taken as instructed. These prescriptions have been electronically sent over to your pharmacy ([facility] at [address] [place] [address]). To treat your asthma: 1. Ventolin inhaler 2 puff every 4 hours as needed for shortness of breath 2. Advair Diskus 500/50 1 puff every 12 hours 3. Singulair 10mg by mouth once a day at bedtime To treat your diabetes: 1. Onglyza 5mg by mouth once a day with breakfast 2. Invokamet Xr 150-1000mg by mouth once with breakfast and once with dinner 3. Crestor 10mg PO QD To treat your pulmonary embolism: 1. Xarelto 20mg by mouth once a day at bedtime To treat your hypothryoidism: 1. Synthroid 450mcg by mouth at breakfast We highly recommend you make an alarm in your phone so you know when to take these medications. Please follow-up with your Electrical Engineering Professor and Primary Medical Doctor in 1 week so they may make adjustments to these medications as necessary. The above listed medications are enough supply for only 1 month. Please follow- up with your corporate ethics officer and primary medical doctor so you may attain further re-fills. If symptoms return please go to your nearest emergency department. Referrals: Torrie Leos MD [Medical Doctor] -
[2018-01-12] MEDS: (Novolog) Insulin Aspart, Recombinant 100 u/ml 10 ml vial SC SCH ×6 (07:35→16:30)
[2018-01-12] MEDS ORDERED: Pneumococcal 23-Valent Vaccine IM ONE (07:44)
[2018-01-12 07:49] LABS: BASO # 0.1 K/uL (0.0-0.2); BASO % 0.8 % (0.0-2.0); EOS # 0.4 K/uL (0.0-0.7); EOS % 4.5 % (0.0-4.0); HEMOGLOBIN 13.8 g/dL (12.0-18.0); LYMPH # 2.9 K/uL (1.0-4.3); MEAN CELL VOLUME 90.4 fL (80.0-94.0); MEAN CORPUSCULAR HEMOGLOBIN 31.7 pg (27.0-31.0); MEAN PLATELET VOLUME 10.9 fL (7.2-11.7); MONO # 0.6 K/uL (0.0-0.8); MONO % 7.9 % (0.0-10.0); NEUT % 50.8 % (50.0-75.0); RBC 4.35 Mil/uL (4.40-5.90); RED CELL DISTRIBUTION WIDTH 13.6 % (11.5-14.5)
[2018-01-12 08:11] LABS: ALB/GLOB RATIO 1.3 (1.0-2.1); ALBUMIN 3.9 g/dL (3.5-5.0); ALT/SGPT 18 U/L (21-72); AST/SGOT 31 U/L (17-59); BLOOD UREA NITROGEN 15 mg/dL (9-20); CALCIUM 9.4 mg/dl (8.6-10.4); GFR AFRICAN-AMERICAN > 60; GFR NON-AFRICAN AMERICAN > 60
[2018-01-12] MEDS: Fluticasone-Salmeterol 500-50mcg Diskus INH SCH (08:55)
[2018-01-12] MEDS: Fluticasone Nasal 50 mcg/Spray NAS SCH (11:42)
[2018-01-12 16:08] VITALS: BP 105/70; PULSE 116; TEMP 98.1; O2SAT 98
--- NOTE | 2018-01-12 20:36 | PN ---
DATE: ENDO FOLLOWUP NOTE LOCATION: Room 371 SUBJECTIVE: This is a 42-year-old male with recent uncontrolled type 2 insulin requiring diabetes, now being followed closely for metabolic management. He presented today with acute exacerbation of asthmatic bronchitis with a significant history in the past of multiple endotracheal intubations with severe bronchospasm was noted thereof. His glucose values are fluctuated but improved and have ranged from 249 to 281 mg/dL overnight as noted. His latest chemistry showed a BUN of 15, sodium 133, potassium 4, chloride 91, CO2 of 28, glucose 293, and creatinine 0.9. His latest thyroid study showed a T4 of 6.24 with a TSH of 112, and a free T4 of 0.84 which have remarkably improved since the initial admitting thyroid studies which were extremely abnormal as noted and mentioned. He has been switched over now from IV or parenteral levothyroxine to oral levothyroxine, given 450 mcg once daily as ordered. His latest chemistry showed a BUN of 16, sodium 132, potassium 4.3, chloride 92, CO2 27, glucose 368, and creatinine 1. His glucose values have raised from 342 to 348 mg/dL. His A1c is extremely elevated at 13.5% as noted. The patient is extremely adamant and very insistent of not going home on any kind of insulin therapy despite the imperative need for insulin therapy to optimize his metabolic control. He has opted to go on a combination of oral hypoglycemic therapy with his previous medications given as Invokamet and Onglyza medications as mentioned under previous note. We will obtain serial chemistries and supplement accordingly as needed. We will follow with you. Torrie Leos MD
== END 2018-01-12 20:10 | disposition home or self-care (01) | DRG 96 ==
LOC: C.ER 17:18 → C.9E 18:53 → C.3T 19:56 → C.9I 01-07 10:56 → C.3T 01-10 02:38
PROVIDERS: ADMIT Internal Medicine; ATTEND Internal Medicine
DX: J45.901 Unspecified asthma with (acute) exacerbation (principal); N39.0 Urinary tract infection, site not specified; E11.10 Type 2 diabetes mellitus with ketoacidosis without coma; E11.65 Type 2 diabetes mellitus with hyperglycemia; J98.11 Atelectasis; E11.319 Type 2 diabetes mellitus with unspecified diabetic retinopathy without macular edema; E86.0 Dehydration; G47.30 Sleep apnea, unspecified; Z86.73 Personal history of transient ischemic attack (TIA), and cerebral infarction without residual deficits; M17.0 Bilateral primary osteoarthritis of knee; I10 Essential (primary) hypertension; Z79.4 Long term (current) use of insulin; E03.9 Hypothyroidism, unspecified; K59.09 Other constipation; Z85.850 Personal history of malignant neoplasm of thyroid; Z86.711 Personal history of pulmonary embolism

== ENCOUNTER 2018-07-14 01:49 | Inpatient (IN) | payer OTHER ==
[2018-07-14 01:49] VITALS: BMI 29.8
--- NOTE | 2018-07-14 02:08 | C.PDOC ---
History Of Present Illness Pt complaining of pins and needles in his left arm and hand for over 6 hours. Unable to sleep. Pt is on Xeralto, precluding him from being a tpa candidate. Pt states that he could not sleep. No trauma. Has a hx of PE, trach, hemiplegic migraine Time Seen by Provider: 07/14/18 02:07 Chief Complaint (Nursing): Medical Clearance History Per: Patient History/Exam Limitations: no limitations Onset/Duration Of Symptoms: Hrs (6), Gradual Current Symptoms Are (Timing): Still Present Severity: Mild Pain Scale Rating Of: 3 Reports Recently: Seen In ED, Treated By A Physician, Hospitalized Recent travel outside of the [place]: No Additional History Per: Patient Past Medical History Reviewed: Historical Data, Nursing Documentation, Vital Signs Vital Signs: Last Vital Signs Temp 98.6 F 07/14/18 02:02 Pulse 86 07/14/18 02:02 Resp 20 07/14/18 02:02 BP 132/81 07/14/18 02:02 Pulse Ox 96 07/14/18 02:21 - Medical History PMH: Asthma, Bronchitis, Fractures (9 ACL reconstructions), Hypothyroidism, Kidney Stones, Malignancy (Throat), Peripheral Edema (right leg), Pneumonia, Pulmonary Embolism, Seizures, Sleep Apnea (BIPAP HS), TIA Denies: Alzheimer's Disease, Anemia, Anxiety, Arthritis, Bipolar Disorder, Cardia Arrhythmia, CHF, COPD, Crohn's Disease, Dementia, Depression, Diverticulitis, Emphysema, Fibromyalgia, Gastrointestinal Ulcer, Gall Bladder Disease, HIV, HTN, Hypercholesterolemia, Migraine, Mitral Valve Prolapse, Osteoporosis, Pancreatitis, Paranoia, Parkinson's Disease, Post Traumatic Stress Disorder, Chronic Kidney Disease, Schizophrenia, Sexually Transmitted Disease Surgical History: Appendectomy, Cholecystectomy Denies: Coronary Stent, Pacemaker - [facility] Procedures ASSISTANCE WITH RESPIRATORY VENTILATION, >96 HRS, CPAP (02/05/17) CENTRAL VENOUS CATHETER PLACEMENT WITH GUIDANCE (06/27/15) INJECT/INFUSE NEC (05/01/15) INSERTION OF ENDOTRACHEAL AIRWAY INTO TRACHEA, VIA OPENING (04/13/17) INSERTION OF INFUSION DEV INTO SUP VENA CAVA, PERC APPROACH (01/06/18) INSPECTION OF LARYNX, ENDO (06/04/16) INSPECTION OF SINUS, PERCUTANEOUS ENDOSCOPIC APPROACH (02/05/17) INTRODUCTION OF ANTI-INFLAM INTO RESP TRACT, VIA OPENING (07/23/17) INTRODUCTION OF SERUM/TOX/VACCINE INTO MUSCLE, PERC APPROACH (07/23/17) NEBULIZER THERAPY (06/27/15) REMOVAL OF INFUSION DEV FROM GREAT VESSEL, WARE CLEANER APPROACH (11/07/16) REMOVAL OF INFUSION DEVICE FROM GREAT VESSEL, PERC APPROACH (02/05/17) RESPIRATORY VENTILATION, 24-96 CONSECUTIVE HOURS (04/13/17) Family History: States: Unknown Family Hx - Social History Hx Tobacco Use: No Hx Alcohol Use: Yes (Socially (Pt states about 4x a year)) Hx Substance Use: No (Patient denies) - Immunization History Hx Tetanus Toxoid Vaccination: No Hx Influenza Vaccination: No Hx Pneumococcal Vaccination: No Review Of Systems Constitutional: Negative for: Fever, Chills Eyes: Negative for: Vision Change ENT: Negative for: Throat Pain Cardiovascular: Negative for: Chest Pain Respiratory: Negative for: Shortness of Breath Gastrointestinal: Negative for: Nausea, Vomiting, Abdominal Pain Genitourinary: Negative for: Dysuria Musculoskeletal: Negative for: Back Pain Skin: Negative for: Rash Neurological: Positive for: Other (paresthisia left hand) Psych: Negative for: Anxiety Physical Exam - Physical Exam Appears: Non-toxic, No Acute Distress Skin: Warm, Dry Head: Normacephalic Eye(s): bilateral: Normal Inspection, PERRL, EOMI Oral Mucosa: Moist Tongue: Normal Appearing Lips: Normal Appearing Neck: Trachea Midline, Supple Chest: Symmetrical Cardiovascular: Rhythm Regular Respiratory: No Rales, No Rhonchi, No Wheezing Gastrointestinal/Abdominal: Soft, No Tenderness, No Distention Back: No CVA Tenderness Extremity: No Tenderness, No Pedal Edema, No Swelling Extremity: Bilateral: Atraumatic, Normal Color And Temperature, Normal ROM Pulses: Left Dorsalis Pedis: Normal, Right Dorsalis Pedis: Normal Neurological/Psych: Oriented x3, Normal Speech, Normal Cognition Gait: Steady Extremity: Left: Drift Before 10 Secs (arm, 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 NIHSS Stroke Scale - Date/Time Evaluation Performed Date Performed: 07/14/18 Time Performed: 02:02 When Was NIHSS Performed: Baseline - How Severe is the Stroke Level of Consciousness: 0=Alert LOC to Questions: 0=Both comments correct LOC to commands: 0=Obeys both correctly Best Gaze: 0=Normal Visual: 0=No visual loss Facial: 0=Normal Motor Arm - Left: 1=Drift noted before 10 sec Motor Arm - Right: 0=No drift Motor Leg - Left: 0=No drift Motor Leg - Right: 0=No drift Limb Ataxia: 0=Absent Sensory: 0=Normal Best Language: 0=No aphasia Dysarthia: 0=Normal articulation Extinction & Inattention (Neglect): 0=Normal, no object Score: 1 Disposition Discussed With : Rudy Pro Comment: accepted the pt on his service and took over the care at 3:19AM Counseled Patient/Family Regarding: Studies Performed, Diagnosis - Disposition Disposition: HOSPITALIZED Disposition Time: 02:07 Condition: GUARDED Forms: [facility] [facility] (I[place]ic) - POA Present On Arrival: Poor Glycemic Control - Clinical Impression Clinical Impression: TIA (transient ischemic attack), Paresthesias in left hand Decision To Admit - Pt Status Changed To: Hospital Disposition Of: Inpatient - Admit Certification Admit to Inpatient:: After my assessment, the patient will require hospitalization for at least two midnights. This is because of the severity of symptoms shown, intensity of services needed, and/or the medical risk in this patient being treated as an outpatient. - InPatient: Physician Admission Certification: I certify that this patient requires 2 or more midnights of care for the following reason:: After my assessment, the patient will require hospitalization for at least two midnights. This is because of the severity of symptoms shown, intensity of services needed, and/or the medical risk in this patient being treated as an outpatient. - . Bed Request Type: Telemetry Admitting Physician: Rudy Pro Patient Diagnosis: TIA (transient ischemic attack), Paresthesias in left hand
[2018-07-14] MEDS ORDERED: Iodixanol 320 MG/ML 100 ML BOTTLE IV ONE (02:21)
[2018-07-14 02:26] LABS: BASO % 0.3 % (0.0-2.0); EOS # 0.4 K/uL (0.0-0.7); EOS % 5.8 % (0.0-4.0); HEMOGLOBIN 13.8 g/dL (12.0-18.0); LYMPH # 2.8 K/uL (1.0-4.3); LYMPH % 38.7 % (20.0-40.0); MEAN CELL VOLUME 92.6 fL (80.0-94.0); MEAN CORPUSCULAR HEMOGLOBIN 31.7 pg (27.0-31.0); MEAN CORPUSCULAR HGB CONC 34.3 g/dL (33.0-37.0); MEAN PLATELET VOLUME 8.5 fL (7.2-11.7); MONO # 0.6 K/uL (0.0-0.8); MONO % 8.6 % (0.0-10.0); NEUT # 3.4 K/uL (1.8-7.0); NEUT % 46.6 % (50.0-75.0); NRBC % 0.1 % (0.0-2.0); RBC 4.35 Mil/uL (4.40-5.90); RED CELL DISTRIBUTION WIDTH 13.3 % (11.5-14.5); WHITE BLOOD COUNT 7.2 K/uL (4.8-10.8)
[2018-07-14 02:34] LABS: INR 1.1; PROTHROMBIN TIME 12.2 SECONDS (9.7-12.2)
[2018-07-14] MEDS: Sodium Chloride 0.9% 1,000 ML IV SCH ×2 (02:35→12:52)
[2018-07-14 02:38] LABS: ALB/GLOB RATIO 1.6 (1.0-2.1); ALT/SGPT 21 U/L (21-72); AST/SGOT 11 U/L (17-59); BLOOD UREA NITROGEN 7 mg/dL (9-20); CALCIUM 8.7 mg/dl (8.6-10.4); GFR NON-AFRICAN AMERICAN > 60; HDL CHOLESTEROL 42 mg/dL (30-70)
[2018-07-14 02:49] LABS: LDL CHOLESTEROL 119 mg/dL (0-129)
[2018-07-14 04:48] LABS: HDL CHOLESTEROL 35 mg/dL (30-70)
[2018-07-14 04:59] LABS: LDL CHOLESTEROL 104 mg/dL (0-129)
[2018-07-14] MEDS ORDERED: Levothyroxine 150 MCG TAB PO SCH (06:30)
[2018-07-14] MEDS: (Novolog) Insulin Aspart, Recombinant 100 u/ml 10 ml vial SC SCH ×4 (08:26→21:22)
[2018-07-14] MEDS ORDERED: (Novolog) Insulin Aspart, Recombinant 100 u/ml 10 ml vial ONE (08:27)
--- NOTE | 2018-07-14 08:44 | CT ---
Date of service: 07/14/2018 PROCEDURE: CT HEAD WITHOUT CONTRAST. HISTORY: Code Stroke COMPARISON: None available. TECHNIQUE: Axial computed tomography images were obtained through the head/brain without intravenous contrast. Radiation dose: Total exam DLP = 1267 mGy-cm. This CT exam was performed using one or more of the following dose reduction techniques: Automated exposure control, adjustment of the mA and/or kV according to patient size, and/or use of iterative reconstruction technique. FINDINGS: HEMORRHAGE: No intracranial hemorrhage. BRAIN: No mass effect or edema. No atrophy or chronic microvascular ischemic changes. VENTRICLES: Unremarkable. No hydrocephalus. CALVARIUM: Unremarkable. PARANASAL SINUSES: Unremarkable as visualized. No significant inflammatory changes. MASTOID AIR CELLS: Unremarkable as visualized. No inflammatory changes. OTHER FINDINGS: None. IMPRESSION: No acute intracranial abnormality. If there is persistent concern for acute ischemic change, consider correlation with MRI. These findings were preliminarily reported at 2:33 a.m. on 07/14/[address] Baudilio Nicole from [facility].
[2018-07-14] MEDS: Levothyroxine 125 MCG TAB PO SCH (10:47)
--- NOTE | 2018-07-14 10:58 | CP.PCM.CON ---
Past Patient History - Infectious Disease Hx of Infectious Diseases: None - Tetanus Immunizations Tetanus Immunization: Unknown - Past Medical History & Family History Past Medical History?: Yes - Past Social History Smoking Status: Never Smoked - CARDIAC Hx Cardia Arrhythmia: No Hx Congestive Heart Failure: No Hx Hypercholesterolemia: No Hx Hypertension: No Hx Mitral Valve Prolapse: No Hx Pacemaker: No Hx Peripheral Edema: Yes (right leg) - PULMONARY Hx Asthma: Yes Hx Bronchitis: Yes Hx Chronic Obstructive Pulmonary Disease (COPD): No Hx Emphysema: No Hx Pneumonia: Yes Hx Pulmonary Embolism: Yes Hx Sleep Apnea: Yes (BIPAP HS) - NEUROLOGICAL Hx Alzheimer's Disease: No Hx Dementia: No Hx Migraine: No Hx Parkinson's Disease: No Hx Seizures: Yes Hx Transient Ischemic Attacks (TIA): Yes - HEENT Hx HEENT Problems: No - RENAL Hx Chronic Kidney Disease: No Hx Kidney Stones: Yes - ENDOCRINE/METABOLIC Hx Hypothyroidism: Yes - HEMATOLOGICAL/ONCOLOGICAL Hx Anemia: No Hx Human Immunodeficiency Virus (HIV): No - INTEGUMENTARY Hx Dermatological Problems: No - MUSCULOSKELETAL/RHEUMATOLOGICAL Hx Arthritis: No Hx Fractures: Yes (9 ACL reconstructions) Hx Osteoporosis: No - GASTROINTESTINAL Hx Crohn's Disease: No Hx Diverticulitis: No Hx Gall Bladder Disease: No Hx Pancreatitis: No - GENITOURINARY/GYNECOLOGICAL Hx Sexually Transmitted Disorders: No - PSYCHIATRIC Hx Anxiety: No Hx Bipolar Disorder: No Hx Depression: No Hx Paranoia: No Hx Post Traumatic Stress Disorder: No Hx Schizophrenia: No Hx Substance Use: No (Patient denies) - SURGICAL HISTORY Hx Appendectomy: Yes Hx Cholecystectomy: Yes Hx Coronary Stent: No - ANESTHESIA Hx Anesthesia: Yes Hx Anesthesia Reactions: No Hx Malignant Hyperthermia: No Meds Allergies/Adverse Reactions: Allergies Allergy/AdvReac Type Severity Reaction Status Date / Time aspirin Allergy ANAPHYLAXIS Verified 07/14/18 01:57 - Medications Medications: Current Medications Sodium Chloride (Sodium Chloride 0.9%) 1,000 mls @ 100 mls/hr IV .Q10H ALON Last Admin: 07/14/18 02:35 Dose: 100 mls/hr Insulin Aspart (Novolog) 0 unit SC ACHS ALON; Protocol Last Admin: 07/14/18 08:26 Dose: Not Given Levothyroxine Sodium (Synthroid) 500 mcg PO 0630 ALON Last Admin: 07/14/18 10:47 Dose: 500 mcg Montelukast Sodium (Singulair) 10 mg PO HS ALON Rivaroxaban (Xarelto) 20 mg PO DAILY ALON Last Admin: 07/14/18 10:24 Dose: 20 mg Results - Vital Signs Recent Vital Signs: Last Vital Signs Temp 98 F 07/14/18 06:49 Pulse 78 07/14/18 10:50 Resp 18 07/14/18 10:50 BP 127/84 07/14/18 10:50 Pulse Ox 96 07/14/18 10:50 - Labs Result Diagrams: 07/14/18 02:23 07/14/18 02:23 Labs: Laboratory Results - last 24 hr 07/14/18 07/14/18 07/14/18 01:59 02:23 02:23 WBC 7.2 RBC 4.35 L Hgb 13.8 Hct 40.3 MCV 92.6 D MCH 31.7 H MCHC 34.3 RDW 13.3 Plt Count 267 D MPV 8.5 Neut % (Auto) 46.6 L Lymph % (Auto) 38.7 [place] % (Auto) 8.6 Eos % (Auto) 5.8 H Baso % (Auto) 0.3 Neut # (Auto) 3.4 Lymph # (Auto) 2.8 [place] # (Auto) 0.6 Eos # (Auto) 0.4 Baso # (Auto) 0.0 ESR PT 12.2 INR 1.1 APTT 32 Sodium Potassium Chloride Carbon Dioxide Anion Gap BUN Creatinine Est GFR ( Amer) Est GFR (Non-Af Amer) POC Glucose (mg/dL) 310 H Random Glucose Hemoglobin A1c Calcium Total Bilirubin AST ALT Alkaline Phosphatase Troponin I Total Protein Albumin Globulin Albumin/Globulin Ratio Triglycerides Cholesterol LDL Cholesterol Direct HDL Cholesterol Blood Type Antibody Screen 07/14/18 07/14/18 07/14/18 02:23 02:23 02:23 WBC RBC Hgb Hct MCV MCH MCHC RDW Plt Count MPV Neut % (Auto) Lymph % (Auto) [place] % (Auto) Eos % (Auto) Baso % (Auto) Neut # (Auto) Lymph # (Auto) [place] # (Auto) Eos # (Auto) Baso # (Auto) ESR PT INR APTT Sodium 138 Potassium 3.3 L Chloride 101 Carbon Dioxide 28 Anion Gap 13 BUN 7 L Creatinine 1.0 Est GFR ( Amer) > 60 Est GFR (Non-Af Amer) > 60 POC Glucose (mg/dL) Random Glucose 295 H Hemoglobin A1c 9.8 H Calcium 8.7 Total Bilirubin 0.5 AST 11 L D ALT 21 Alkaline Phosphatase 44 Troponin I < 0.0120 Total Protein 6.5 Albumin 4.0 Globulin 2.5 Albumin/Globulin Ratio 1.6 Triglycerides 200 H D Cholesterol 205 H LDL Cholesterol Direct 119 HDL Cholesterol 42 Blood Type A POSITIVE Antibody Screen Negative 07/14/18 07/14/18 07/14/18 04:21 04:21 04:21 WBC RBC Hgb Hct MCV MCH MCHC RDW Plt Count MPV Neut % (Auto) Lymph % (Auto) [place] % (Auto) Eos % (Auto) Baso % (Auto) Neut # (Auto) Lymph # (Auto) [place] # (Auto) Eos # (Auto) Baso # (Auto) ESR 5 PT INR APTT Sodium Potassium Chloride Carbon Dioxide Anion Gap BUN Creatinine Est GFR ( Amer) Est GFR (Non-Af Amer) POC Glucose (mg/dL) Random Glucose Hemoglobin A1c 9.9 H Calcium Total Bilirubin AST ALT Alkaline Phosphatase Troponin I Total Protein Albumin Globulin Albumin/Globulin Ratio Triglycerides 157 H D Cholesterol 172 LDL Cholesterol Direct 104 HDL Cholesterol 35 Blood Type Antibody Screen 07/14/18 07/14/18 06:41 08:21 WBC RBC Hgb Hct MCV MCH MCHC RDW Plt Count MPV Neut % (Auto) Lymph % (Auto) [place] % (Auto) Eos % (Auto) Baso % (Auto) Neut # (Auto) Lymph # (Auto) [place] # (Auto) Eos # (Auto) Baso # (Auto) ESR PT INR APTT Sodium Potassium Chloride Carbon Dioxide Anion Gap BUN Creatinine Est GFR ( Amer) Est GFR (Non-Af Amer) POC Glucose (mg/dL) 176 H 175 H Random Glucose Hemoglobin A1c Calcium Total Bilirubin AST ALT Alkaline Phosphatase Troponin I Total Protein Albumin Globulin Albumin/Globulin Ratio Triglycerides Cholesterol LDL Cholesterol Direct HDL Cholesterol Blood Type Antibody Screen
--- NOTE | 2018-07-14 11:01 | RAD ---
Date of service: 07/14/2018 HISTORY: Code Stroke COMPARISON: 01/07/2018. FINDINGS: LUNGS: No active pulmonary disease. PLEURA: No significant pleural effusion identified, no pneumothorax apparent. CARDIOVASCULAR: Normal. OSSEOUS STRUCTURES: No significant abnormalities. VISUALIZED UPPER ABDOMEN: Normal. OTHER FINDINGS: None. IMPRESSION: No active disease. No significant interval change compared to the prior examination(s).
--- NOTE | 2018-07-14 12:25 | CARD ---
APPROVED REPORT Date of service: 07/14/2018 EXAM: Two-dimensional and M-mode echocardiogram with Doppler and color Doppler. Other Information Quality : GoodRhythm : INDICATION CVA/TIA Chest Pain 2D DIMENSIONS IVSd0.9 (0.7-1.1cm)LVDd4.9 (3.9-5.9cm) PWd0.9 (0.7-1.1cm)LVDs3.5 (2.5-4.0cm) FS (%) 28.9 %LVEF (%)55.4 (>50%) M-Mode DIMENSIONS Left Atrium (MM)3.64 (2.5-4.0cm)IVSd0.88 (0.7-1.1cm) Aortic Root2.93 (2.2-3.7cm)LVDd4.98 (4.0-5.6cm) Aortic Cusp Exc.2.24 (1.5-2.0cm)PWd0.82 (0.7-1.1cm) Mitral Valve MV E Okrbxima10.4cm/sMV A Pegatkrv20.0cm/sE/A ratio1.8 TDI E/Lateral E'0.0E/Medial E'0.0 LEFT VENTRICLE The left ventricle is normal size. There is normal left ventricular wall thickness. The left ventricular function is normal. The left ventricular ejection fraction is within the normal range. No regional wall motion abnormalities noted. The left ventricular diastolic function is normal. No left ventricle thrombus noted on this study. There is no ventricular septal defect visualized. There is no left ventricular aneurysm. There is no mass noted in the left ventricle. RIGHT VENTRICLE The right ventricle is normal size. There is normal right ventricular wall thickness. The right ventricular systolic function is normal. ATRIA The left atrium size is normal. The right atrium size is normal. The interatrial septum is intact with no evidence for an atrial septal defect. AORTIC VALVE The aortic valve is normal in structure and function. No aortic regurgitation is present. There is no aortic valvular stenosis. There is no aortic valvular vegetation. MITRAL VALVE The mitral valve is normal in structure and function. There is no evidence of mitral valve prolapse. There is no mitral valve stenosis. There is no mitral valve regurgitation noted. TRICUSPID VALVE The tricuspid valve is normal in structure and function. There is no tricuspid valve regurgitation noted. There is no tricuspid valve prolapse or vegetation. There is no tricuspid valve stenosis. PULMONIC VALVE The pulmonary valve is normal in structure and function. There is no pulmonic valvular regurgitation. There is no pulmonic valvular stenosis. GREAT VESSELS The aortic root is normal in size. The ascending aorta is normal in size. The pulmonary artery is normal. The IVC is normal in size and collapses >50% with inspiration. PERICARDIAL EFFUSION The pericardium appears normal. There is no pleural effusion. <Conclusion> The left ventricular function is normal. The left ventricular ejection fraction is within the normal range. No regional wall motion abnormalities noted.
--- NOTE | 2018-07-14 13:05 | VASCLAB ---
Date of service: 07/14/2018 PROCEDURE: Carotid Duplex Exam. HISTORY: Code stroke COMPARISON: None available. TECHNIQUE: Grayscale and duplex Doppler evaluation of the cervical carotid and vertebral arteries were performed. The common carotid, carotid bifurcations and cervical Internal Carotid Artery (ICA) and proximal External Carotid Artery (ECA) were evaluated. The vertebral arteries were evaluated for gross patency and flow direction. Report prepared by MALATHI Irving FINDINGS: RIGHT CAROTID ARTERIES: 1. Common Carotid Artery: No significant focal plaque formation of the right common carotid artery. Maximum Peak Systolic velocity: 78 cm/sec: End-diastolic velocity 22 cm/sec. 2. Carotid Bifurcation: plaque formation. Maximum Peak Systolic velocity: 46 cm/sec: End-diastolic velocity 16 cm/sec. 3. Internal Carotid Artery: Plaque description: 3.1. Proximal Segment: Peak systolic velocity 49 cm/sec: End-diastolic velocity 18 cm/sec - % stenosis 0-15% 3.2. Middle Segment: Peak systolic velocity 40 cm/sec: End-diastolic velocity 21 cm/sec - % stenosis 0-15% 3.3. Distal Segment: Peak systolic velocity 52 cm/sec: End-diastolic velocity 22 cm/sec - % stenosis 0-15% 4. External Carotid Artery: No significant focal plaque formation. Peak systolic velocity 51 cm/sec 5. ICA/CCA Ratio: 0.7 LEFT CAROTID ARTERIES: 1. Common Carotid Artery: No significant focal plaque formation of the left common carotid artery. Maximum Peak Systolic velocity: 58 cm/sec: End-diastolic velocity 16 cm/sec. 2. Carotid Bifurcation: plaque formation. Maximum Peak Systolic velocity: 41 cm/sec: End-diastolic velocity 14 cm/sec. 3. Internal Carotid Artery: Plaque description: 3.1. Proximal Segment: Peak systolic velocity 64 cm/sec: End-diastolic velocity 26 cm/sec - % stenosis 0-15% 3.2. Middle Segment: Peak systolic velocity 42 cm/sec: End-diastolic velocity 22 cm/sec - % stenosis 0-15% 3.3. Distal Segment: Peak systolic velocity 57 cm/sec: End-diastolic velocity 28 cm/sec - % stenosis 0-15% 4. External Carotid Artery: No significant focal plaque formation. Peak systolic velocity 57 cm/sec 5. ICA/CCA Ratio: 1.3 VERTEBRAL ARTERIES: 1. Right Vertebral Artery: The right vertebral artery flow direction is antegrade. 2. Left Vertebral Artery: The left vertebral artery flow direction is antegrade. OTHER FINDINGS: None. IMPRESSION: RIGHT: Duplex scan does not suggest hemodynamically significant stenosis of the right extracranial carotid arteries. LEFT: Duplex scan does not suggest hemodynamically significant stenosis of the left extracranial carotid arteries.
[2018-07-14 21:49] LABS: HDL CHOLESTEROL 34 mg/dL (30-70)
[2018-07-14 22:01] LABS: LDL CHOLESTEROL 102 mg/dL (0-129)
--- NOTE | 2018-07-14 22:35 | CP.PCM.HP ---
Present on Admission - Present on Admission Any Indicators Present on Admission: No Past Patient History - Infectious Disease Hx of Infectious Diseases: None - Tetanus Immunizations Tetanus Immunization: Unknown - Past Medical History & Family History Past Medical History?: Yes - Past Social History Smoking Status: Never Smoked - CARDIAC Hx Cardia Arrhythmia: No Hx Congestive Heart Failure: No Hx Hypercholesterolemia: No Hx Hypertension: No Hx Mitral Valve Prolapse: No Hx Pacemaker: No Hx Peripheral Edema: Yes (right leg) - PULMONARY Hx Asthma: Yes Hx Bronchitis: Yes Hx Chronic Obstructive Pulmonary Disease (COPD): No Hx Emphysema: No Hx Pneumonia: Yes Hx Pulmonary Embolism: Yes Hx Sleep Apnea: Yes (BIPAP HS) - NEUROLOGICAL Hx Alzheimer's Disease: No Hx Dementia: No Hx Migraine: No Hx Parkinson's Disease: No Hx Seizures: Yes (2011) Hx Transient Ischemic Attacks (TIA): Yes (2011) - HEENT Hx HEENT Problems: No - RENAL Hx Chronic Kidney Disease: No Hx Kidney Stones: Yes - ENDOCRINE/METABOLIC Hx Hypothyroidism: Yes - HEMATOLOGICAL/ONCOLOGICAL Hx Anemia: No Hx Human Immunodeficiency Virus (HIV): No - INTEGUMENTARY Hx Dermatological Problems: No - MUSCULOSKELETAL/RHEUMATOLOGICAL Hx Arthritis: No Hx Falls: No Hx Fractures: Yes (9 ACL reconstructions) Hx Osteoporosis: No - GASTROINTESTINAL Hx Crohn's Disease: No Hx Diverticulitis: No Hx Gall Bladder Disease: No Hx Pancreatitis: No - GENITOURINARY/GYNECOLOGICAL Hx Sexually Transmitted Disorders: No - PSYCHIATRIC Hx Anxiety: No Hx Bipolar Disorder: No Hx Depression: No Hx Paranoia: No Hx Post Traumatic Stress Disorder: No Hx Schizophrenia: No Hx Substance Use: No (Patient denies) - SURGICAL HISTORY Hx Appendectomy: Yes Hx Cholecystectomy: Yes Hx Coronary Stent: No Hx Thyroidectomy: Yes - ANESTHESIA Hx Anesthesia: Yes Hx Anesthesia Reactions: No Hx Malignant Hyperthermia: No Meds Allergies/Adverse Reactions: Allergies Allergy/AdvReac Type Severity Reaction Status Date / Time aspirin Allergy ANAPHYLAXIS Verified 07/14/18 01:57 [email or web address] [From Mucinex] Allergy RASH Verified 07/19/18 11:56 Results - Vital Signs Recent Vital Signs: Last Vital Signs Temp 97.4 F L 07/14/18 15:00 Pulse 78 07/14/18 18:00 Resp 20 07/14/18 15:00 BP 127/80 07/14/18 15:00 Pulse Ox 96 07/14/18 15:00 - Labs Result Diagrams: 07/15/18 14:37 07/15/18 14:37 Labs: Laboratory Results - last 24 hr 07/14/18 07/14/18 07/14/18 01:59 02:23 02:23 WBC 7.2 RBC 4.35 L Hgb 13.8 Hct 40.3 MCV 92.6 D MCH 31.7 H MCHC 34.3 RDW 13.3 Plt Count 267 D MPV 8.5 Neut % (Auto) 46.6 L Lymph % (Auto) 38.7 [place] % (Auto) 8.6 Eos % (Auto) 5.8 H Baso % (Auto) 0.3 Neut # (Auto) 3.4 Lymph # (Auto) 2.8 [place] # (Auto) 0.6 Eos # (Auto) 0.4 Baso # (Auto) 0.0 ESR PT 12.2 INR 1.1 APTT 32 Sodium Potassium Chloride Carbon Dioxide Anion Gap BUN Creatinine Est GFR ( Amer) Est GFR (Non-Af Amer) POC Glucose (mg/dL) 310 H Random Glucose Hemoglobin A1c Calcium Total Bilirubin AST ALT Alkaline Phosphatase Troponin I Total Protein Albumin Globulin Albumin/Globulin Ratio Triglycerides Cholesterol LDL Cholesterol Direct HDL Cholesterol RPR Blood Type Antibody Screen 07/14/18 07/14/18 07/14/18 02:23 02:23 02:23 WBC RBC Hgb Hct MCV MCH MCHC RDW Plt Count MPV Neut % (Auto) Lymph % (Auto) [place] % (Auto) Eos % (Auto) Baso % (Auto) Neut # (Auto) Lymph # (Auto) [place] # (Auto) Eos # (Auto) Baso # (Auto) ESR PT INR APTT Sodium 138 Potassium 3.3 L Chloride 101 Carbon Dioxide 28 Anion Gap 13 BUN 7 L Creatinine 1.0 Est GFR ( Amer) > 60 Est GFR (Non-Af Amer) > 60 POC Glucose (mg/dL) Random Glucose 295 H Hemoglobin A1c 9.8 H Calcium 8.7 Total Bilirubin 0.5 AST 11 L D ALT 21 Alkaline Phosphatase 44 Troponin I < 0.0120 Total Protein 6.5 Albumin 4.0 Globulin 2.5 Albumin/Globulin Ratio 1.6 Triglycerides 200 H D Cholesterol 205 H LDL Cholesterol Direct 119 HDL Cholesterol 42 RPR Blood Type A POSITIVE Antibody Screen Negative 07/14/18 07/14/18 07/14/18 04:21 04:21 04:21 WBC RBC Hgb Hct MCV MCH MCHC RDW Plt Count MPV Neut % (Auto) Lymph % (Auto) [place] % (Auto) Eos % (Auto) Baso % (Auto) Neut # (Auto) Lymph # (Auto) [place] # (Auto) Eos # (Auto) Baso # (Auto) ESR 5 PT INR APTT Sodium Potassium Chloride Carbon Dioxide Anion Gap BUN Creatinine Est GFR ( Amer) Est GFR (Non-Af Amer) POC Glucose (mg/dL) Random Glucose Hemoglobin A1c 9.9 H Calcium Total Bilirubin AST ALT Alkaline Phosphatase Troponin I Total Protein Albumin Globulin Albumin/Globulin Ratio Triglycerides 157 H D Cholesterol 172 LDL Cholesterol Direct 104 HDL Cholesterol 35 RPR Blood Type Antibody Screen 07/14/18 07/14/18 07/14/18 04:21 06:41 08:21 WBC RBC Hgb Hct MCV MCH MCHC RDW Plt Count MPV Neut % (Auto) Lymph % (Auto) [place] % (Auto) Eos % (Auto) Baso % (Auto) Neut # (Auto) Lymph # (Auto) [place] # (Auto) Eos # (Auto) Baso # (Auto) ESR PT INR APTT Sodium Potassium Chloride Carbon Dioxide Anion Gap BUN Creatinine Est GFR ( Amer) Est GFR (Non-Af Amer) POC Glucose (mg/dL) 176 H 175 H Random Glucose Hemoglobin A1c Calcium Total Bilirubin AST ALT Alkaline Phosphatase Troponin I Total Protein Albumin Globulin Albumin/Globulin Ratio Triglycerides Cholesterol LDL Cholesterol Direct HDL Cholesterol RPR Nonreactive Blood Type Antibody Screen 07/14/18 07/14/18 07/14/18 11:40 16:21 21:10 WBC RBC Hgb Hct MCV MCH MCHC RDW Plt Count MPV Neut % (Auto) Lymph % (Auto) [place] % (Auto) Eos % (Auto) Baso % (Auto) Neut # (Auto) Lymph # (Auto) [place] # (Auto) Eos # (Auto) Baso # (Auto) ESR PT INR APTT Sodium Potassium Chloride Carbon Dioxide Anion Gap BUN Creatinine Est GFR ( Amer) Est GFR (Non-Af Amer) POC Glucose (mg/dL) 210 H 185 H 213 H Random Glucose Hemoglobin A1c Calcium Total Bilirubin AST ALT Alkaline Phosphatase Troponin I Total Protein Albumin Globulin Albumin/Globulin Ratio Triglycerides Cholesterol LDL Cholesterol Direct HDL Cholesterol RPR Blood Type Antibody Screen 07/14/18 07/14/18 21:24 21:24 WBC RBC Hgb Hct MCV MCH MCHC RDW Plt Count MPV Neut % (Auto) Lymph % (Auto) [place] % (Auto) Eos % (Auto) Baso % (Auto) Neut # (Auto) Lymph # (Auto) [place] # (Auto) Eos # (Auto) Baso # (Auto) ESR PT INR APTT Sodium Potassium Chloride Carbon Dioxide Anion Gap BUN Creatinine Est GFR ( Amer) Est GFR (Non-Af Amer) POC Glucose (mg/dL) Random Glucose Hemoglobin A1c 9.8 H Calcium Total Bilirubin AST ALT Alkaline Phosphatase Troponin I Total Protein Albumin Globulin Albumin/Globulin Ratio Triglycerides 159 H Cholesterol 168 LDL Cholesterol Direct 102 HDL Cholesterol 34 RPR Blood Type Antibody Screen
[2018-07-15] MEDS: Levothyroxine 125 MCG TAB PO SCH (05:51)
[2018-07-15] MEDS: (Novolog) Insulin Aspart, Recombinant 100 u/ml 10 ml vial SC SCH ×4 (06:44→21:47)
--- NOTE | 2018-07-15 08:52 | HP ---
CHIEF COMPLAINT: Tingling sensation in the left arm and dropping of left-sided eyelid for 6 hours prior to admission. HISTORY OF PRESENT ILLNESS: This is a 42-year-old male, morbidly obese with history of hypertension, two strokes in the past according to the patient, and according to the patient, yesterday while he was working, first he felt like his left eyelid has dropped down and he cannot lift it up. Then he started having pins and needles in the left arm with weakness and difficulty to move his left arm. The patient is not sure about his left leg because he had multiple surgeries on his left leg, and he always has pain in his left leg. The patient is on blood thinner. The patient was brought into the emergency room. He denies history of loss of consciousness or seizure-like activity. He has mixed sensation in the left arm. He denied any sensation in the face except for left eyelid drop. There is no fever, chills, rigors. No cough, sore throat, or runny nose. No skin rash. No history of polyuria, polydipsia, or polyphagia. According to him, he gets frequent attacks of asthma, and then he takes steroids, his sugar goes up. Otherwise, his sugar is normal. He denies any family history of premature stroke. He denies any history of valvular heart disease or any heart murmur from childhood. According to the patient, he does not use any drugs. He has extensive medical history. There is no history of rash. PAST MEDICAL HISTORY: Bronchial asthma, multiple left knee surgeries, hypothyroidism, kidney stones, seizures, and sleep apnea, on CPAP. SOCIAL HISTORY: Denies smoking or drinking. CURRENT MEDICATIONS AT HOME: He is on prednisone, Spiriva, Onglyza, Xarelto, Deltasone, Singulair, Asmanex, Synthroid, NovoLog FlexPen, Zithromax, and Ventolin HFA. PHYSICAL EXAMINATION: GENERAL: A middle-aged male in no acute distress. VITAL SIGNS: Blood pressure 127/84, pulse 68, respiratory rate 20, and temperature 97.4. SKIN: No rashes. No bruises. No purpura. He has multiple scars on left knee from surgery. HEENT: Atraumatic and normocephalic. Negative PERRLA. Negative jaundice. Extraocular movements are intact. NECK: Supple. No JVD. No lymph nodes. No thyromegaly. No carotid bruits. CHEST WALL: Bilateral symmetrical expansion. No tenderness. LUNGS: Bilaterally clear. No rales. No rhonchi. CVS: S1 and S2, regular. No heave. No thrill. No murmur. ABDOMEN: Soft and nontender. Bowel sounds are positive. RECTAL: No masses. No bleed. EXTREMITIES: No clubbing, cyanosis, or edema. INVESTIGATION LIEUTENANT: Awake, alert, and oriented x3. Cranial nerve II through XII are normal. Power 5/5 x3. The patient's left arm seems to be 4/5. It is not clear if it is due to pain or it is real weakness. ASSESSMENT: 1. Questionable cerebrovascular accident. 2. Diabetes. 3. Dyslipidemia. 4. Sleep apnea. PLAN: Admit. Neurology consult. MRI, echocardiogram, carotid Doppler. Monitor the patient. Rudy Pro MD
[2018-07-15] MEDS ORDERED: Potassium Chloride 20 mEq ER Tab PO ONE (10:00)
[2018-07-15] MEDS ORDERED: Potassium Chloride 20 mEq/15 ml LIQ UD PO ONE (10:15)
[2018-07-15 14:49] LABS: BASO % 0.4 % (0.0-2.0); EOS # 0.4 K/uL (0.0-0.7); EOS % 4.9 % (0.0-4.0); HEMOGLOBIN 13.2 g/dL (12.0-18.0); LYMPH # 2.5 K/uL (1.0-4.3); LYMPH % 32.3 % (20.0-40.0); MEAN CELL VOLUME 91.4 fL (80.0-94.0); MEAN CORPUSCULAR HEMOGLOBIN 31.8 pg (27.0-31.0); MEAN CORPUSCULAR HGB CONC 34.8 g/dL (33.0-37.0); MEAN PLATELET VOLUME 9.3 fL (7.2-11.7); MONO # 0.6 K/uL (0.0-0.8); MONO % 7.8 % (0.0-10.0); NEUT # 4.2 K/uL (1.8-7.0); NEUT % 54.6 % (50.0-75.0); RBC 4.15 Mil/uL (4.40-5.90); RED CELL DISTRIBUTION WIDTH 13.5 % (11.5-14.5); WHITE BLOOD COUNT 7.7 K/uL (4.8-10.8)
[2018-07-15 14:59] LABS: ALB/GLOB RATIO 1.3 (1.0-2.1)
[2018-07-15 15:02] LABS: ALBUMIN 3.2 g/dL (3.5-5.0); ALT/SGPT 21 U/L (21-72); AST/SGOT 12 U/L (17-59); BLOOD UREA NITROGEN 7 mg/dL (9-20); GFR NON-AFRICAN AMERICAN > 60
--- NOTE | 2018-07-15 22:16 | CP.PCM.CON ---
History of Present Illness - History of Present Illness History of Present Illness: Pt presented of pins and needles in his left arm and hand. Unable to sleep. Pt is on Xeralto, precluding him from being a tpa candidate. Pt states that he could not sleep. No trauma. Has a hx of PE, trach, hemiplegic migraine History Per: Patient History/Exam Limitations: no limitations Onset/Duration Of Symptoms: Hrs (6), Gradual Current Symptoms Are (Timing): Still Present Severity: Mild Pain Scale Rating Of: 3 Reports Recently: Seen In ED, Treated By A Physician, Hospitalized Recent travel outside of the [place]: No Additional History Per: Patient - Medical History PMH: Asthma, Bronchitis, Fractures (9 ACL reconstructions), Hypothyroidism, Kidney Stones, Malignancy (Throat), Peripheral Edema (right leg), Pneumonia, Pulmonary Embolism, Seizures, Sleep Apnea (BIPAP HS), TIA Denies: Alzheimer's Disease, Anemia, Anxiety, Arthritis, Bipolar Disorder, Cardia Arrhythmia, CHF, COPD, Crohn's Disease, Dementia, Depression, Diverticulitis, Emphysema, Fibromyalgia, Gastrointestinal Ulcer, Gall Bladder Disease, HIV, HTN, Hypercholesterolemia, Migraine, Mitral Valve Prolapse, Osteoporosis, Pancreatitis, Paranoia, Parkinson's Disease, Post Traumatic Stress Disorder, Chronic Kidney Disease, Schizophrenia, Sexually Transmitted Disease Surgical History: Appendectomy, Cholecystectomy Denies: Coronary Stent, Pacemaker - [facility] Procedures ASSISTANCE WITH RESPIRATORY VENTILATION, >96 HRS, CPAP (02/05/17) CENTRAL VENOUS CATHETER PLACEMENT WITH GUIDANCE (06/27/15) INJECT/INFUSE NEC (05/01/15) INSERTION OF ENDOTRACHEAL AIRWAY INTO TRACHEA, VIA OPENING (04/13/17) INSERTION OF INFUSION DEV INTO SUP VENA CAVA, PERC APPROACH (01/06/18) INSPECTION OF LARYNX, ENDO (06/04/16) INSPECTION OF SINUS, PERCUTANEOUS ENDOSCOPIC APPROACH (02/05/17) INTRODUCTION OF ANTI-INFLAM INTO RESP TRACT, VIA OPENING (07/23/17) INTRODUCTION OF SERUM/TOX/VACCINE INTO MUSCLE, PERC APPROACH (07/23/17) NEBULIZER THERAPY (06/27/15) REMOVAL OF INFUSION DEV FROM GREAT VESSEL, JIG BUILDER APPROACH (11/07/16) REMOVAL OF INFUSION DEVICE FROM GREAT VESSEL, PERC APPROACH (02/05/17) RESPIRATORY VENTILATION, 24-96 CONSECUTIVE HOURS (04/13/17) Family History: States: Unknown Family Hx - Social History Hx Tobacco Use: No Hx Alcohol Use: Yes (Socially (Pt states about 4x a year)) Hx Substance Use: No (Patient denies) - Immunization History Hx Tetanus Toxoid Vaccination: No Hx Influenza Vaccination: No Hx Pneumococcal Vaccination: No Review Of Systems Constitutional: Negative for: Fever, Chills Eyes: Negative for: Vision Change ENT: Negative for: Throat Pain Cardiovascular: Negative for: Chest Pain Respiratory: Negative for: Shortness of Breath Gastrointestinal: Negative for: Nausea, Vomiting, Abdominal Pain Genitourinary: Negative for: Dysuria Musculoskeletal: Negative for: Back Pain Skin: Negative for: Rash Neurological: Positive for: Other (paresthisia left hand) Psych: Negative for: Anxiety Physical Exam - Physical Exam Appears: Non-toxic, No Acute Distress Skin: Warm, Dry Head: Normacephalic Eye(s): bilateral: Normal Inspection, PERRL, EOMI Oral Mucosa: Moist Tongue: Normal Appearing Lips: Normal Appearing Neck: Trachea Midline, Supple Chest: Symmetrical Cardiovascular: Rhythm Regular Respiratory: No Rales, No Rhonchi, No Wheezing Gastrointestinal/Abdominal: Soft, No Tenderness, No Distention Back: No CVA Tenderness Extremity: No Tenderness, No Pedal Edema, No Swelling Extremity: Bilateral: Atraumatic, Normal Color And Temperature, Normal ROM Pulses: Left Dorsalis Pedis: Normal, Right Dorsalis Pedis: Normal Neurological/Psych: Oriented x3, Normal Speech, Normal Cognition Gait: Steady Extremity: Left: Drift Before 10 Secs (arm, decreased water proofer strength vs right) Past Patient History - Infectious Disease Hx of Infectious Diseases: None - Tetanus Immunizations Tetanus Immunization: Unknown - Past Medical History & Family History Past Medical History?: Yes - Past Social History Smoking Status: Never Smoked - CARDIAC Hx Congestive Heart Failure: No Hx Hypercholesterolemia: No Hx Hypertension: No - PULMONARY Hx Chronic Obstructive Pulmonary Disease (COPD): No - NEUROLOGICAL Hx Alzheimer's Disease: No Hx Dementia: No Hx Migraine: No Hx Parkinson's Disease: No Hx Seizures: Yes (2011) Hx Transient Ischemic Attacks (TIA): Yes (2011) - HEENT Hx HEENT Problems: No - RENAL Hx Chronic Kidney Disease: No Hx Kidney Stones: Yes - ENDOCRINE/METABOLIC Hx Hypothyroidism: Yes - HEMATOLOGICAL/ONCOLOGICAL Hx Anemia: No Hx Human Immunodeficiency Virus (HIV): No - INTEGUMENTARY Hx Dermatological Problems: No - MUSCULOSKELETAL/RHEUMATOLOGICAL Hx Arthritis: No - GASTROINTESTINAL Hx Crohn's Disease: No Hx Diverticulitis: No Hx Gall Bladder Disease: No Hx Pancreatitis: No - GENITOURINARY/GYNECOLOGICAL Hx Sexually Transmitted Disorders: No - PSYCHIATRIC Hx Anxiety: No Hx Bipolar Disorder: No Hx Depression: No Hx Paranoia: No Hx Post Traumatic Stress Disorder: No Hx Schizophrenia: No Hx Substance Use: No (Patient denies) - SURGICAL HISTORY Hx Appendectomy: Yes Hx Cholecystectomy: Yes Hx Coronary Stent: No Hx Thyroidectomy: Yes - ANESTHESIA Hx Anesthesia: Yes Hx Anesthesia Reactions: No Hx Malignant Hyperthermia: No Meds Allergies/Adverse Reactions: Allergies Allergy/AdvReac Type Severity Reaction Status Date / Time aspirin Allergy ANAPHYLAXIS Verified 07/14/18 01:57 - Medications Medications: Current Medications Gabapentin (Neurontin) 100 mg PO TID [facility] Last Admin: 07/15/18 18:11 Dose: 100 mg Insulin Aspart (Novolog) 0 unit SC ACHS [facility]; Protocol Last Admin: 07/15/18 21:47 Dose: Not Given Levothyroxine Sodium (Synthroid) 500 mcg PO 0630 [facility] Last Admin: 07/15/18 05:51 Dose: 500 mcg Montelukast Sodium (Singulair) 10 mg PO HS [facility] Last Admin: 07/15/18 21:45 Dose: 10 mg Rivaroxaban (Xarelto) 20 mg PO DAILY [facility] Rosuvastatin Calcium (Crestor) 20 mg PO HS [facility] Last Admin: 07/15/18 21:45 Dose: 20 mg Zolpidem Tartrate (Ambien) 5 mg PO HS PRN PRN Reason: Insomnia Last Admin: 07/14/18 21:26 Dose: 5 mg Results - Vital Signs Recent Vital Signs: Last Vital Signs Temp 98.3 F 07/15/18 15:00 Pulse 79 07/15/18 16:16 Resp 20 07/15/18 15:00 BP 139/97 H 07/15/18 15:00 Pulse Ox 100 07/15/18 15:00 - Labs Result Diagrams: 07/15/18 14:37 07/15/18 14:37 Labs: Laboratory Results - last 24 hr 07/15/18 07/15/18 07/15/18 11:06 14:37 14:37 WBC 7.7 RBC 4.15 L Hgb 13.2 Hct 37.9 MCV 91.4 MCH 31.8 H MCHC 34.8 RDW 13.5 Plt Count 272 MPV 9.3 Neut % (Auto) 54.6 Lymph % (Auto) 32.3 [place] % (Auto) 7.8 Eos % (Auto) 4.9 H Baso % (Auto) 0.4 Neut # (Auto) 4.2 Lymph # (Auto) 2.5 [place] # (Auto) 0.6 Eos # (Auto) 0.4 Baso # (Auto) 0.0 Sodium 142 Potassium 3.2 L Chloride 107 Carbon Dioxide 25 Anion Gap 13 BUN 7 L Creatinine 0.8 Est GFR ( Amer) > 60 Est GFR (Non-Af Amer) > 60 POC Glucose (mg/dL) 222 H Random Glucose 91 Calcium 8.0 L Total Bilirubin 0.4 AST 12 L ALT 21 Alkaline Phosphatase 38 Total Protein 5.6 L Albumin 3.2 L Globulin 2.4 Albumin/Globulin Ratio 1.3 07/15/18 16:41 WBC RBC Hgb Hct MCV MCH MCHC RDW Plt Count MPV Neut % (Auto) Lymph % (Auto) [place] % (Auto) Eos % (Auto) Baso % (Auto) Neut # (Auto) Lymph # (Auto) [place] # (Auto) Eos # (Auto) Baso # (Auto) Sodium Potassium Chloride Carbon Dioxide Anion Gap BUN Creatinine Est GFR ( Amer) Est GFR (Non-Af Amer) POC Glucose (mg/dL) 125 H Random Glucose Calcium Total Bilirubin AST ALT Alkaline Phosphatase Total Protein Albumin Globulin Albumin/Globulin Ratio Assessment & Plan - Assessment and Plan (Free Text) Assessment: Hx of PE Left arm pain with neck issues Non cardiac pain Pulm Consult with Dr. Gauthier
--- NOTE | 2018-07-15 23:50 | CP.PCM.CON ---
History of Present Illness - History of Present Illness History of Present Illness: 42 yr old male who was admitted for numbness and tingling of his left arm and hand for about 6 hour prior to presentation, not thought to be a tpa candidate. In addition, he is on xarelto for pe. THere is no weakness, no ataxia, no headache and no history of prior spells. ROS: insomnia, malaise, weakness. NIHSS: 3 PMH/PSH: PE, trach, migraine. FH/SH: noncontributory All: nkda. ON exam: Neurological examination is only significant for mild weakness and left drift, as well as decreased ft, pin in left arm and leg. Gait is normal, MMS: 30/30. +2 dtr ul and ll bl. toes downgoing no clonus. Past Patient History - Infectious Disease Hx of Infectious Diseases: None - Tetanus Immunizations Tetanus Immunization: Unknown - Past Medical History & Family History Past Medical History?: Yes - Past Social History Smoking Status: Never Smoked - CARDIAC Hx Congestive Heart Failure: No Hx Hypercholesterolemia: No Hx Hypertension: No - PULMONARY Hx Chronic Obstructive Pulmonary Disease (COPD): No - NEUROLOGICAL Hx Alzheimer's Disease: No Hx Dementia: No Hx Migraine: No Hx Parkinson's Disease: No Hx Seizures: Yes (2011) Hx Transient Ischemic Attacks (TIA): Yes (2011) - HEENT Hx HEENT Problems: No - RENAL Hx Chronic Kidney Disease: No Hx Kidney Stones: Yes - ENDOCRINE/METABOLIC Hx Hypothyroidism: Yes - HEMATOLOGICAL/ONCOLOGICAL Hx Anemia: No Hx Human Immunodeficiency Virus (HIV): No - INTEGUMENTARY Hx Dermatological Problems: No - MUSCULOSKELETAL/RHEUMATOLOGICAL Hx Arthritis: No - GASTROINTESTINAL Hx Crohn's Disease: No Hx Diverticulitis: No Hx Gall Bladder Disease: No Hx Pancreatitis: No - GENITOURINARY/GYNECOLOGICAL Hx Sexually Transmitted Disorders: No - PSYCHIATRIC Hx Anxiety: No Hx Bipolar Disorder: No Hx Depression: No Hx Paranoia: No Hx Post Traumatic Stress Disorder: No Hx Schizophrenia: No Hx Substance Use: No (Patient denies) - SURGICAL HISTORY Hx Appendectomy: Yes Hx Cholecystectomy: Yes Hx Coronary Stent: No Hx Thyroidectomy: Yes - ANESTHESIA Hx Anesthesia: Yes Hx Anesthesia Reactions: No Hx Malignant Hyperthermia: No Meds Allergies/Adverse Reactions: Allergies Allergy/AdvReac Type Severity Reaction Status Date / Time aspirin Allergy ANAPHYLAXIS Verified 07/14/18 01:57 - Medications Medications: Current Medications Gabapentin (Neurontin) 100 mg PO TID [facility] Last Admin: 07/15/18 18:11 Dose: 100 mg Insulin Aspart (Novolog) 0 unit SC ACHS [facility]; Protocol Last Admin: 07/15/18 21:47 Dose: Not Given Levothyroxine Sodium (Synthroid) 500 mcg PO 0630 [facility] Last Admin: 07/15/18 05:51 Dose: 500 mcg Montelukast Sodium (Singulair) 10 mg PO HS [facility] Last Admin: 07/15/18 21:45 Dose: 10 mg Rivaroxaban (Xarelto) 20 mg PO DAILY [facility] Rosuvastatin Calcium (Crestor) 20 mg PO HS [facility] Last Admin: 07/15/18 21:45 Dose: 20 mg Zolpidem Tartrate (Ambien) 5 mg PO HS PRN PRN Reason: Insomnia Last Admin: 07/14/18 21:26 Dose: 5 mg Results - Vital Signs Recent Vital Signs: Last Vital Signs Temp 98.3 F 07/15/18 15:00 Pulse 96 H 07/15/18 23:00 Resp 20 07/15/18 15:00 BP 139/97 H 07/15/18 15:00 Pulse Ox 100 07/15/18 15:00 - Labs Result Diagrams: 07/15/18 14:37 07/15/18 14:37 Labs: Laboratory Results - last 24 hr 07/15/18 07/15/18 07/15/18 11:06 14:37 14:37 WBC 7.7 RBC 4.15 L Hgb 13.2 Hct 37.9 MCV 91.4 MCH 31.8 H MCHC 34.8 RDW 13.5 Plt Count 272 MPV 9.3 Neut % (Auto) 54.6 Lymph % (Auto) 32.3 [place] % (Auto) 7.8 Eos % (Auto) 4.9 H Baso % (Auto) 0.4 Neut # (Auto) 4.2 Lymph # (Auto) 2.5 [place] # (Auto) 0.6 Eos # (Auto) 0.4 Baso # (Auto) 0.0 Sodium 142 Potassium 3.2 L Chloride 107 Carbon Dioxide 25 Anion Gap 13 BUN 7 L Creatinine 0.8 Est GFR ( Amer) > 60 Est GFR (Non-Af Amer) > 60 POC Glucose (mg/dL) 222 H Random Glucose 91 Calcium 8.0 L Total Bilirubin 0.4 AST 12 L ALT 21 Alkaline Phosphatase 38 Total Protein 5.6 L Albumin 3.2 L Globulin 2.4 Albumin/Globulin Ratio 1.3 07/15/18 16:41 WBC RBC Hgb Hct MCV MCH MCHC RDW Plt Count MPV Neut % (Auto) Lymph % (Auto) [place] % (Auto) Eos % (Auto) Baso % (Auto) Neut # (Auto) Lymph # (Auto) [place] # (Auto) Eos # (Auto) Baso # (Auto) Sodium Potassium Chloride Carbon Dioxide Anion Gap BUN Creatinine Est GFR ( Amer) Est GFR (Non-Af Amer) POC Glucose (mg/dL) 125 H Random Glucose Calcium Total Bilirubin AST ALT Alkaline Phosphatase Total Protein Albumin Globulin Albumin/Globulin Ratio Assessment & Plan - Assessment and Plan (Free Text) Assessment: Ct head: normal. A/P: 42 yr old male who may have had TIA, not likely, and is now stable. Plan: 1. Echo 2. aspirin 3. CTA head normal. Thank you Dr. hazel Neu[facility]
[2018-07-16] MEDS: Levothyroxine 125 MCG TAB PO SCH (05:43)
[2018-07-16] MEDS: (Novolog) Insulin Aspart, Recombinant 100 u/ml 10 ml vial SC SCH ×3 (08:03→16:19)
--- NOTE | 2018-07-16 12:05 | CT ---
Date of service: 07/16/2018 PROCEDURE: CT HEAD WITHOUT CONTRAST. HISTORY: cva COMPARISON: Comparison made with prior CT scan brain 07/14/2018. TECHNIQUE: Axial computed tomography images were obtained through the head/brain without intravenous contrast. Radiation dose: Total exam DLP = 2060.83 mGy-cm. This CT exam was performed using one or more of the following dose reduction techniques: Automated exposure control, adjustment of the mA and/or kV according to patient size, and/or use of iterative reconstruction technique. FINDINGS: This study is limited by motion artifact. HEMORRHAGE: No intracranial hemorrhage. BRAIN: There is slight indistinct appearance of the corticomedullary junction though this is likely due to motion artifact than not diffuse cerebral edema. Suspect minimal chronic periventricular low-attenuation changes; rule out mild chronic ischemia. Questionable small infarct anterior limb left internal capsule region. VENTRICLES: No obstructive hydrocephalus. CALVARIUM: No acute calvarial fractures PARANASAL SINUSES: Unremarkable as visualized. No significant inflammatory changes. MASTOID AIR CELLS: Unremarkable as visualized. No inflammatory changes. OTHER FINDINGS: None. IMPRESSION: No evidence of acute intracranial hemorrhage. There is indistinct appearance of the corticomedullary junction which is likely due to motion artifact. Possibility of a diffuse hypoxia less likely though not completely excluded. Clinical correlation recommended. Suspect minimal chronic periventricular white matter changes; rule out mild chronic ischemia.. Questionable tiny lacunar type infarct left basal ganglia.
--- NOTE | 2018-07-16 16:33 | CP.PCM.PN ---
Subjective - Date & Time of Evaluation Date of Evaluation: 07/16/18 Time of Evaluation: 16:30 - Subjective Subjective: Neurology Progress Note: PGY-2 Patient seen and examined at bedside. Per nursing no acute events occurred overnight. Patient reports the numbness on the left side of his body thats associated with painful purposeful movement. He denies any chest pain, fevers, chills ,nausea, vomiting, syncopal episodes ,or any other complaints. Objective - Vital Signs/Intake and Output Vital Signs (last 24 hours): Temp Pulse Resp BP Pulse Ox 98.1 F 83 20 151/93 H 96 07/16/18 15:55 07/16/18 15:55 07/16/18 15:55 07/16/18 15:55 07/16/18 15:55 - Medications Medications: Current Medications Gabapentin (Neurontin) 100 mg PO TID [facility] Last Admin: 07/16/18 13:49 Dose: 100 mg Insulin Aspart (Novolog) 0 unit SC [facility]; Protocol Last Admin: 07/16/18 16:19 Dose: Not Given Levothyroxine Sodium (Synthroid) 500 mcg PO 0630 [facility] Last Admin: 07/16/18 05:43 Dose: 500 mcg Montelukast Sodium (Singulair) 10 mg PO HS [facility] Last Admin: 07/15/18 21:45 Dose: 10 mg Rivaroxaban (Xarelto) 20 mg PO DAILY [facility] Last Admin: 07/16/18 09:16 Dose: 20 mg Rosuvastatin Calcium (Crestor) 20 mg PO HS [facility] Last Admin: 07/15/18 21:45 Dose: 20 mg Zolpidem Tartrate (Ambien) 5 mg PO HS PRN PRN Reason: Insomnia Last Admin: 07/14/18 21:26 Dose: 5 mg - Labs Labs: 07/15/18 14:37 07/15/18 14:37 PT 12.2 SECONDS (9.7-12.2) 07/14/18 02:23 INR 1.1 07/14/18 02:23 APTT 32 SECONDS (21-34) 07/14/18 02:23 - Head Exam Head Exam: NORMAL INSPECTION - Eye Exam Eye Exam: EOMI, Normal appearance Pupil Exam: NORMAL ACCOMODATION - ENT Exam ENT Exam: Mucous Membranes Moist, Normal Oropharynx - Respiratory Exam Respiratory Exam: Clear to Ausculation Bilateral, NORMAL BREATHING PATTERN. 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 TIA. Plan: 1.?TIA Initial head ct: No acute intracranail abnormality. If there is persistent concern for acute ischemic change, consider correlation with MRI Repeat CT(07/16/18): No evidence of intracranial abnormality. There is indistinct appearance of corticomedullary junction which is likely due to motion artifact. Possibly of a diffuse hypoxia less likely through not completely excluded. Suspect minimal chronic periventricular whitematter changes; rule out mild chronic ischemia. Questionable tiny lacunar type infarct left basal ganglia Echocardiogram: :EF: 55.4% :LV function is normal Carotid duplex: negative for significant stenosis Head ct with contrast ordered. Will follow up with results. Would also order Lumbar, head and cervical mri given his clinical presentation. However patient has history of multiple intubations in the past secondary to his asthma. Per patient he was intubated in April 2018 for asthma exacerbation after lying flat for the study. Patient is apprehensive at this time to have those studies done at this time. Plan discussed with Dr. Blackwell. Torrey Eugene, PGY-2
[2018-07-16] MEDS ORDERED: Iodixanol 320 MG/ML 100 ML BOTTLE IV ONE (17:02)
--- NOTE | 2018-07-16 17:56 | CT ---
Date of service: 07/16/2018 PROCEDURE: CT HEAD WITH CONTRAST HISTORY: persistent left sided weakness COMPARISON: Noncontrast CT head performed earlier the same day. TECHNIQUE: Axial computed tomography images were obtained through the head/brain with intravenous contrast. Contrast dose: 100 mL Omnipaque 350 Radiation dose: Total exam DLP = 1202.3 mGy-cm. This CT exam was performed using one or more of the following dose reduction techniques: Automated exposure control, adjustment of the mA and/or kV according to patient size, and/or use of iterative reconstruction technique. FINDINGS: HEMORRHAGE: No intracranial hemorrhage. BRAIN: No mass, mass effect or edema. No abnormal intracranial enhancement. No atrophy or chronic microvascular ischemic changes. VENTRICLES: Unremarkable. No hydrocephalus. CALVARIUM: Unremarkable. PARANASAL SINUSES: Unremarkable as visualized. No significant inflammatory changes. MASTOID AIR CELLS: Unremarkable as visualized. No mastoid effusion. OTHER FINDINGS: Questionable origin of the left [employer] WORK[employer]. IMPRESSION: Unremarkable enhanced CT of the head.
--- NOTE | 2018-07-16 21:49 | CP.PCM.PN ---
Objective - Vital Signs/Intake and Output Vital Signs (last 24 hours): Temp Pulse Resp BP Pulse Ox 98.1 F 83 20 151/93 H 96 07/16/18 15:55 07/16/18 15:55 07/16/18 15:55 07/16/18 15:55 07/16/18 15:55 - Medications Medications: Current Medications Gabapentin (Neurontin) 100 mg PO TID [facility] Last Admin: 07/16/18 17:48 Dose: 100 mg Insulin Aspart (Novolog) 0 unit SC ACHS [facility]; Protocol Last Admin: 07/16/18 16:19 Dose: Not Given Levothyroxine Sodium (Synthroid) 500 mcg PO 0630 [facility] Last Admin: 07/16/18 05:43 Dose: 500 mcg Montelukast Sodium (Singulair) 10 mg PO HS [facility] Last Admin: 07/16/18 21:07 Dose: 10 mg Rivaroxaban (Xarelto) 20 mg PO DAILY [facility] Last Admin: 07/16/18 09:16 Dose: 20 mg Rosuvastatin Calcium (Crestor) 20 mg PO HS [facility] Last Admin: 07/16/18 21:07 Dose: 20 mg Zolpidem Tartrate (Ambien) 5 mg PO HS PRN PRN Reason: Insomnia Last Admin: 07/14/18 21:26 Dose: 5 mg - Labs Labs: 07/15/18 14:37 07/15/18 14:37 PT 12.2 SECONDS (9.7-12.2) 07/14/18 02:23 INR 1.1 07/14/18 02:23 APTT 32 SECONDS (21-34) 07/14/18 02:23
--- NOTE | 2018-07-16 22:34 | CP.PCM.PN ---
Subjective - Date & Time of Evaluation Date of Evaluation: 07/16/18 Time of Evaluation: 10:20 - Subjective Subjective: Hx of PE Left arm pain with neck issues ECHO: Normal EF Non cardiac pain Pulm Consult with Dr. Gauthier Objective - Vital Signs/Intake and Output Vital Signs (last 24 hours): Temp Pulse Resp BP Pulse Ox 98.1 F 83 20 151/93 H 96 07/16/18 15:55 07/16/18 15:55 07/16/18 15:55 07/16/18 15:55 07/16/18 15:55 - Medications Medications: Current Medications Gabapentin (Neurontin) 100 mg PO TID [facility] Last Admin: 07/16/18 17:48 Dose: 100 mg Insulin Aspart (Novolog) 0 unit SC ACHS [facility]; Protocol Last Admin: 07/16/18 16:19 Dose: Not Given Levothyroxine Sodium (Synthroid) 500 mcg PO 0630 [facility] Last Admin: 07/16/18 05:43 Dose: 500 mcg Montelukast Sodium (Singulair) 10 mg PO HS [facility] Last Admin: 07/16/18 21:07 Dose: 10 mg Rivaroxaban (Xarelto) 20 mg PO DAILY [facility] Last Admin: 07/16/18 09:16 Dose: 20 mg Rosuvastatin Calcium (Crestor) 20 mg PO HS [facility] Last Admin: 07/16/18 21:07 Dose: 20 mg Zolpidem Tartrate (Ambien) 5 mg PO HS PRN PRN Reason: Insomnia Last Admin: 07/14/18 21:26 Dose: 5 mg - Labs Labs: 07/15/18 14:37 07/15/18 14:37 PT 12.2 SECONDS (9.7-12.2) 07/14/18 02:23 INR 1.1 07/14/18 02:23 APTT 32 SECONDS (21-34) 07/14/18 02:23
--- NOTE | 2018-07-17 04:31 | PN ---
DATE: 07/16/2018 SUBJECTIVE: He is still having let upper extremity pain. No nausea or vomiting. No shortness of breath. The patient could not lie flat, so his MRI was not done. The patient is requesting to have a CAT scan. The patient is on anticoagulation because of pulmonary embolism; however, he has left arm pain. There is no weakness. He is ambulating. PHYSICAL EXAMINATION: VITAL SIGNS: BP 113/72, pulse 62, respiratory rate 20, temperature 98.5. LUNGS: Clear. CARDIOVASCULAR SYSTEM: S1 and S2, regular. ABDOMEN: Soft. NEUROLOGIC: Power is same, 4/4 in all four extremities. ASSESSMENT: 1. Hypokalemia. 2. Left-sided weakness, radiculopathy, neuropathy. 3. Anxiety. PLAN: Physical therapy. Rehab. Neurology evaluation. Rudy Pro MD
[2018-07-17] MEDS: Levothyroxine 125 MCG TAB PO SCH (05:45)
--- NOTE | 2018-07-17 06:46 | PN ---
DATE: 07/16/2018 SUBJECTIVE: The patient has no changes. He is afebrile. No shortness of breath, no chest pain. No nausea, vomiting. PHYSICAL EXAMINATION: VITAL SIGNS: BP 151/93, pulse 83, respiratory rate 20, temperature 98.1. LUNGS: Clear. CVS: S1, S2 regular. ABDOMEN: Soft. EXTREMITIES: Left upper extremity weakness. ASSESSMENT: 1. Rule out cerebrovascular accident. 2. Hypertension. 3. Pulmonary embolism. PLAN: Medical management. Monitor the patient. Neurology eval. Monitor assessment by Neurology. Rudy Pro MD
[2018-07-17] MEDS: (Novolog) Insulin Aspart, Recombinant 100 u/ml 10 ml vial SC SCH ×4 (07:41→22:06)
--- NOTE | 2018-07-17 14:48 | CARD ---
APPROVED REPORT Date of service: 07/14/2018 EKG Measurement Heart [id number] <Conclusion> Normal sinus rhythm with sinus arrhythmia Normal ECG
--- NOTE | 2018-07-17 21:27 | CP.PCM.PN ---
Objective - Vital Signs/Intake and Output Vital Signs (last 24 hours): Temp Pulse Resp BP Pulse Ox 98.3 F 89 18 131/80 99 07/17/18 15:50 07/17/18 15:50 07/17/18 15:50 07/17/18 15:50 07/17/18 15:50 - Medications Medications: Current Medications Gabapentin (Neurontin) 100 mg PO TID REPLACED BY [facility] Last Admin: 07/17/18 17:44 Dose: 100 mg Insulin Aspart (Novolog) 0 unit SC [facility] REPLACED BY [facility]; Protocol Last Admin: 07/17/18 16:39 Dose: Not Given Levothyroxine Sodium (Synthroid) 500 mcg PO 0630 REPLACED BY [facility] Last Admin: 07/17/18 05:45 Dose: 500 mcg Metformin HCl (Glucophage) 850 mg PO BID REPLACED BY [facility] Last Admin: 07/17/18 17:44 Dose: Not Given Montelukast Sodium (Singulair) 10 mg PO HS REPLACED BY [facility] Last Admin: 07/16/18 21:07 Dose: 10 mg Rivaroxaban (Xarelto) 20 mg PO DAILY REPLACED BY [facility] Last Admin: 07/17/18 10:03 Dose: 20 mg Rosuvastatin Calcium (Crestor) 20 mg PO HS REPLACED BY [facility] Last Admin: 07/16/18 21:07 Dose: 20 mg Zolpidem Tartrate (Ambien) 5 mg PO HS PRN PRN Reason: Insomnia Last Admin: 07/14/18 21:26 Dose: 5 mg - Labs Labs: 07/15/18 14:37 07/15/18 14:37 PT 12.2 SECONDS (9.7-12.2) 07/14/18 02:23 INR 1.1 07/14/18 02:23 APTT 32 SECONDS (21-34) 07/14/18 02:23
[2018-07-17] MEDS ORDERED: Albuterol-Ipratrop 3 mg / 0.5 (3 ml) UD INH PRN (21:55)
[2018-07-18 00:08] VITALS: RESP 20
[2018-07-18] MEDS: Levothyroxine 125 MCG TAB PO SCH (06:04)
[2018-07-18] MEDS: (Novolog) Insulin Aspart, Recombinant 100 u/ml 10 ml vial SC SCH ×5 (09:00→22:27)
--- NOTE | 2018-07-18 09:01 | CP.PCM.PN ---
Subjective - Date & Time of Evaluation Date of Evaluation: 07/17/18 Time of Evaluation: 17:15 - Subjective Subjective: Patient seen and examined at bedside. No cardiac events noted Physical examination - Head Exam Head Exam: NORMAL INSPECTION - Eye Exam Eye Exam: EOMI, Normal appearance Pupil Exam: NORMAL ACCOMODATION - ENT Exam ENT Exam: Mucous Membranes Moist, Normal Oropharynx - Respiratory Exam Respiratory Exam: Clear to Ausculation Bilateral, NORMAL BREATHING PATTERN. absent: Respiratory Distress - Cardiovascular Exam Cardiovascular Exam: REGULAR RHYTHM, +S1, +S2 - GI/Abdominal Exam GI & Abdominal Exam: Soft, Normal Bowel Sounds - Neurological Exam Neuro motor strength exam: Left Upper Extremity: 2/1, Right Upper Extremity: 4, Left Lower Extremity: 2/1, Right Lower Extremity: 4 - Psychiatric Exam Psychiatric exam: Normal Affect, Normal Mood - Skin Skin Exam: Dry, Intact, Normal Color Assessment and Plan - Assessment and Plan (Free Text) Assessment: 42 year old male with a past medical history of asthma, who was admitted TIA. Plan: Echocardiogram: :EF: 55.4% :LV function is normal Carotid duplex: negative for significant stenosis No cardiac etiology found so far Will follow Objective - Vital Signs/Intake and Output Vital Signs (last 24 hours): Temp Pulse Resp BP Pulse Ox 98.1 F 100 H 20 94/61 L 96 07/18/18 00:00 07/18/18 00:00 07/18/18 00:00 07/18/18 00:00 07/18/18 00:00 Intake and Output: 07/18/18 07/18/18 06:59 18:59 Intake Total 500 Balance 500 - Medications Medications: Current Medications Albuterol/Ipratropium (Duoneb 3 Mg/0.5 Mg (3 Ml) Ud) 3 ml INH RQ6 PRN PRN Reason: Shortness of Breath Gabapentin (Neurontin) 100 mg PO TID [facility] Last Admin: 07/17/18 17:44 Dose: 100 mg Insulin Aspart (Novolog) 0 unit SC [facility]; Protocol Last Admin: 07/17/18 22:06 Dose: Not Given Levothyroxine Sodium (Synthroid) 500 mcg PO 0630 [facility] Last Admin: 07/18/18 06:04 Dose: Not Given Metformin HCl (Glucophage) 850 mg PO BID [facility] Last Admin: 07/17/18 17:44 Dose: Not Given Montelukast Sodium (Singulair) 10 mg PO HS [facility] Last Admin: 07/17/18 21:45 Dose: 10 mg Rivaroxaban (Xarelto) 20 mg PO DAILY [facility] Last Admin: 07/17/18 10:03 Dose: 20 mg Rosuvastatin Calcium (Crestor) 20 mg PO HS [facility] Last Admin: 07/17/18 21:45 Dose: 20 mg Zolpidem Tartrate (Ambien) 5 mg PO HS PRN PRN Reason: Insomnia Last Admin: 07/17/18 21:45 Dose: 5 mg - Labs Labs: 07/15/18 14:37 07/15/18 14:37 PT 12.2 SECONDS (9.7-12.2) 07/14/18 02:23 INR 1.1 07/14/18 02:23 APTT 32 SECONDS (21-34) 07/14/18 02:23
--- NOTE | 2018-07-18 09:32 | CT ---
Date of service: 07/18/2018 PROCEDURE: CT Lumbar Spine without contrast HISTORY: Disk disease COMPARISON: None available. TECHNIQUE: Axial computed tomography images were obtained of the lumbar spine without the use of intravenous contrast. Coronal and sagittal reformatted images were created and reviewed. Radiation dose: Total exam DLP = 1174.97 mGy-cm. This CT exam was performed using one or more of the following dose reduction techniques: Automated exposure control, adjustment of the mA and/or kV according to patient size, and/or use of iterative reconstruction technique. FINDINGS: VERTEBRAE: Unremarkable. No fracture. Normal alignment. DISCS/SPINAL CANAL/NEURAL FORAMINA: L1-2: Unremarkable. L2-3: Unremarkable. L3-4: Unremarkable. L4-5: Disc space height maintained. There is mild broad-based bulge of the posterior annulus right larger than left with resultant bilateral lateral recess narrowing right greater than left. There is a mild compression of the ventral surface of the thecal sac and apparent mild compression of the descending right-sided L5 nerve root.. Facet joints are slightly overall. Exit foramina adequate L5-S1: Disc space height is relatively maintained. Minimal broad-based bulge of the posterior annulus which does not result in any significant compressive effects on the ventral surface of the thecal sac or descending S1 nerve roots. The central canal appears adequate. Facets are slightly over grown grow right greater than left. Exit foramina adequate. PARASPINAL SOFT TISSUES: Unremarkable. OTHER FINDINGS: None. IMPRESSION: No acute fractures. Mild of broad-based disc bulging changes L4-L5 which results in mild compressive effects on the ventral surface of the thecal sac more so on the right side and mild compression of the right-sided L5 nerve root
--- NOTE | 2018-07-18 09:40 | CT ---
Date of service: 07/18/2018 PROCEDURE: CT Cervical Spine without contrast HISTORY: Radiculopathy COMPARISON: None available. TECHNIQUE: Axial computed tomography images were obtained of the cervical spine without the use of intravenous contrast. Coronal and sagittal reformatted images were created and reviewed. Radiation dose: Total exam DLP = 589.77 mGy-cm. This CT exam was performed using one or more of the following dose reduction techniques: Automated exposure control, adjustment of the mA and/or kV according to patient size, and/or use of iterative reconstruction technique. FINDINGS: VERTEBRAE: No acute compression fractures no retropulsed fragments. Vertebral bodies exhibit normal stature. Slight anterior subluxation C2 over C3. There is straightening of the normal cervical lordosis possibly due to patient positioning gantry however underlying element of muscle spasm may contribute. Note also made of either side bending of the head to the left side versus is a mild dextroscoliosis centered at the lower cervical region... The facet joints are adequately aligned. DISCS/SPINAL CANAL/NEURAL FORAMINA: No significant central canal or neural foraminal stenosis. Discs heights are grossly preserved. PARASPINAL SOFT TISSUES: Unremarkable. OTHER FINDINGS: None. IMPRESSION: No acute fractures. Slight anterior subluxation C2 over C3 straightening of the normal cervical lordosis as above. The side bending of the head to the left side versus mild dextroscoliosis centered at the lower cervical region
[2018-07-18] MEDS ORDERED: Levothyroxine 125 MCG TAB PO STA (10:54)
[2018-07-18 12:41] LABS: T4 5.54 ug/dL (5.5-11.0)
[2018-07-18 12:56] LABS: T3 0.397 nmol/L (1.49-2.60)
[2018-07-18] MEDS: Albuterol-Ipratrop 3 mg / 0.5 (3 ml) UD INH SCH ×2 (13:12→18:12)
[2018-07-18] MEDS ORDERED: guaiFENesin 200 mg/10 ml Syrup UD PO SCH (14:00)
[2018-07-18] MEDS ORDERED: guaiFENesin 600 mg ER Tab PO SCH (14:00)
[2018-07-18] MEDS: guaiFENesin 600 mg ER Tab PO SCH (17:58)
--- NOTE | 2018-07-18 20:31 | PN ---
DATE: 07/17/2018 SUBJECTIVE: The patient Liane is feeling some pain in left arm. He denies any weakness or dizziness. He is very anxious. He is afebrile. No shortness of breath. PHYSICAL EXAMINATION: VITAL SIGNS: Blood pressure is 131/80, pulse 89, respiratory rate is 18, temperature 98.3. LUNGS: Clear. CVS: S1 and S2, regular. ABDOMEN: Soft. ASSESSMENT: 1. Left arm pain and numbness, rule out cerebrovascular accident. So far, CAT scan repeatedly negative. The patient is seen by Neurology and pending CT of the neck and lumbar spine. 2. Multiple pulmonary embolism on Xarelto. 3. Obesity. PLAN: Continue current medication. Monitor patient. Rudy Pro MD
--- NOTE | 2018-07-18 20:54 | CP.PCM.PN ---
Objective - Vital Signs/Intake and Output Vital Signs (last 24 hours): Temp Pulse Resp BP Pulse Ox 99.5 F 95 H 20 97/61 L 98 07/18/18 15:56 07/18/18 15:56 07/18/18 15:56 07/18/18 15:56 07/18/18 15:56 Intake and Output: 07/18/18 07/19/18 18:59 06:59 Intake Total 720 Balance 720 - Medications Medications: Current Medications Albuterol/Ipratropium (Duoneb 3 Mg/0.5 Mg (3 Ml) Ud) 3 ml INH RQ6 PRN PRN Reason: Shortness of Breath Albuterol/Ipratropium (Duoneb 3 Mg/0.5 Mg (3 Ml) Ud) 3 ml INH Q6 [facility] Last Admin: 07/18/18 18:12 Dose: 3 ml Gabapentin (Neurontin) 100 mg PO TID [facility] Last Admin: 07/18/18 17:58 Dose: 100 mg Guaifenesin (Mucinex La) 600 mg PO BID [facility] Last Admin: 07/18/18 17:58 Dose: 600 mg Insulin Aspart (Novolog) 0 unit SC [facility]; Protocol Last Admin: 07/18/18 12:30 Dose: 3 units Levothyroxine Sodium (Synthroid) 500 mcg PO 30 [facility] Last Admin: 07/18/18 06:04 Dose: Not Given Metformin HCl (Glucophage) 850 mg PO BID [facility] Last Admin: 07/18/18 17:58 Dose: 850 mg Montelukast Sodium (Singulair) 10 mg PO HS [facility] Last Admin: 07/17/18 21:45 Dose: 10 mg Rivaroxaban (Xarelto) 20 mg PO DAILY [facility] Last Admin: 07/18/18 10:15 Dose: 20 mg Rosuvastatin Calcium (Crestor) 20 mg PO HS [facility] Last Admin: 07/17/18 21:45 Dose: 20 mg Zolpidem Tartrate (Ambien) 5 mg PO HS PRN PRN Reason: Insomnia Last Admin: 07/17/18 21:45 Dose: 5 mg - Labs Labs: 07/15/18 14:37 07/15/18 14:37 PT 12.2 SECONDS (9.7-12.2) 07/14/18 02:23 INR 1.1 07/14/18 02:23 APTT 32 SECONDS (21-34) 07/14/18 02:23
--- NOTE | 2018-07-18 22:16 | CP.PCM.PN ---
Subjective - Date & Time of Evaluation Date of Evaluation: 07/18/18 Time of Evaluation: 19:45 - Subjective Subjective: Patient seen and examined at bedside. No cardiac events noted Physical examination - Head Exam Head Exam: NORMAL INSPECTION - Eye Exam Eye Exam: EOMI, Normal appearance Pupil Exam: NORMAL ACCOMODATION - ENT Exam ENT Exam: Mucous Membranes Moist, Normal Oropharynx - Respiratory Exam Respiratory Exam: Clear to Ausculation Bilateral, NORMAL BREATHING PATTERN. absent: Respiratory Distress - Cardiovascular Exam Cardiovascular Exam: REGULAR RHYTHM, +S1, +S2 - GI/Abdominal Exam GI & Abdominal Exam: Soft, Normal Bowel Sounds - Neurological Exam Neuro motor strength exam: Left Upper Extremity: 2/1, Right Upper Extremity: 4, Left Lower Extremity: 2/1, Right Lower Extremity: 4 - Psychiatric Exam Psychiatric exam: Normal Affect, Normal Mood - Skin Skin Exam: Dry, Intact, Normal Color Assessment and Plan - Assessment and Plan (Free Text) Assessment: 42 year old male with a past medical history of asthma, who was admitted TIA. Plan: Echocardiogram: :EF: 55.4% :LV function is normal Carotid duplex: negative for significant stenosis No cardiac etiology found so far Will follow Objective - Vital Signs/Intake and Output Vital Signs (last 24 hours): Temp Pulse Resp BP Pulse Ox 99.5 F 95 H 20 97/61 L 98 07/18/18 15:56 07/18/18 15:56 07/18/18 15:56 07/18/18 15:56 07/18/18 15:56 Intake and Output: 07/18/18 07/19/18 18:59 06:59 Intake Total 720 Balance 720 - Medications Medications: Current Medications Albuterol/Ipratropium (Duoneb 3 Mg/0.5 Mg (3 Ml) Ud) 3 ml INH RQ6 PRN PRN Reason: Shortness of Breath Albuterol/Ipratropium (Duoneb 3 Mg/0.5 Mg (3 Ml) Ud) 3 ml INH Q6 [facility] Last Admin: 07/18/18 18:12 Dose: 3 ml Gabapentin (Neurontin) 100 mg PO TID [facility] Last Admin: 07/18/18 17:58 Dose: 100 mg Guaifenesin (Mucinex [place]) 600 mg PO BID [facility] Last Admin: 07/18/18 17:58 Dose: 600 mg Insulin Aspart (Novolog) 0 unit SC [facility]; Protocol Last Admin: 07/18/18 12:30 Dose: 3 units Levothyroxine Sodium (Synthroid) 500 mcg PO 30 [facility] Last Admin: 07/18/18 06:04 Dose: Not Given Metformin HCl (Glucophage) 850 mg PO BID [facility] Last Admin: 07/18/18 17:58 Dose: 850 mg Montelukast Sodium (Singulair) 10 mg PO HS [facility] Last Admin: 07/17/18 21:45 Dose: 10 mg Rivaroxaban (Xarelto) 20 mg PO DAILY [facility] Last Admin: 07/18/18 10:15 Dose: 20 mg Rosuvastatin Calcium (Crestor) 20 mg PO HS [facility] Last Admin: 07/17/18 21:45 Dose: 20 mg Zolpidem Tartrate (Ambien) 5 mg PO HS PRN PRN Reason: Insomnia Last Admin: 07/17/18 21:45 Dose: 5 mg - Labs Labs: 07/15/18 14:37 07/15/18 14:37 PT 12.2 SECONDS (9.7-12.2) 07/14/18 02:23 INR 1.1 07/14/18 02:23 APTT 32 SECONDS (21-34) 07/14/18 02:23
[2018-07-19] MEDS: Albuterol-Ipratrop 3 mg / 0.5 (3 ml) UD INH SCH ×4 (02:31→20:53)
--- NOTE | 2018-07-19 02:31 | PN ---
DATE: 07/18/2018 SUBJECTIVE: The patient had MRI of the lumbar cervical spine, and he has some changes in the lumbar area with compression of nerve root. The patient is anxious. The patient has low sodium. He is afebrile. No nausea or vomiting. No cough. PHYSICAL EXAMINATION: LUNGS: Bilateral rhonchi. CVS: S1, S2, regular. ABDOMEN: Soft. ASSESSMENT: 1. Exacerbation of bronchial asthma. 2. Hypokalemia. 3. Left upper extremity pain of unknown etiology. 4. Anxiety disorder. PLAN: Continue to monitor the patient. Rudy Pro MD
[2018-07-19] MEDS: Levothyroxine 125 MCG TAB PO SCH (05:47)
[2018-07-19] MEDS: (Novolog) Insulin Aspart, Recombinant 100 u/ml 10 ml vial SC SCH ×5 (07:15→22:09)
[2018-07-19] MEDS: guaiFENesin 600 mg ER Tab PO SCH (09:11)
[2018-07-19] MEDS ORDERED: MethylPREDNISolone 40 mg Vial IVP STA (10:47)
[2018-07-19] MEDS ORDERED: DiphenhydrAMINE 50 mg/ml Inj IVP STA (10:47)
--- NOTE | 2018-07-19 15:09 | CP.PCM.PN ---
<Torrey Eugene - Last Filed: 07/19/18 15:10> Subjective - Date & Time of Evaluation Date of Evaluation: 07/19/18 Time of Evaluation: 15:09 - Subjective Subjective: Neurology Progress Note: PGY-2 Patient seen and examined at bedside. Per nursing no acute events occurred overnight. Patient reports the numbness on the left side of his body thats associated with painful purposeful movement. He denies any chest pain, fevers, chills ,nausea, vomiting, syncopal episodes ,or any other complaints. Objective - Vital Signs/Intake and Output Vital Signs (last 24 hours): Temp Pulse Resp BP Pulse Ox 98.4 F 75 20 110/69 98 07/19/18 07:43 07/19/18 07:43 07/19/18 07:43 07/19/18 07:43 07/19/18 07:43 Intake and Output: 07/19/18 07/19/18 06:59 18:59 Intake Total 900 Balance 900 - Medications Medications: Current Medications Albuterol/Ipratropium (Duoneb 3 Mg/0.5 Mg (3 Ml) Ud) 3 ml INH RQ6 PRN PRN Reason: Shortness of Breath Albuterol/Ipratropium (Duoneb 3 Mg/0.5 Mg (3 Ml) Ud) 3 ml INH Q6 [facility] Last Admin: 07/19/18 13:14 Dose: 3 ml Gabapentin (Neurontin) 100 mg PO TID [facility] Last Admin: 07/19/18 13:50 Dose: 100 mg Insulin Aspart (Novolog) 0 unit SC [facility]; Protocol Last Admin: 07/19/18 12:06 Dose: 4 units Levothyroxine Sodium (Synthroid) 500 mcg PO 0630 [facility] Last Admin: 07/19/18 05:47 Dose: Not Given Metformin HCl (Glucophage) 850 mg PO BID [facility] Last Admin: 07/19/18 09:14 Dose: Not Given Montelukast Sodium (Singulair) 10 mg PO HS [facility] Last Admin: 07/18/18 22:26 Dose: 10 mg Rivaroxaban (Xarelto) 20 mg PO DAILY [facility] Rosuvastatin Calcium (Crestor) 20 mg PO HS [facility] Last Admin: 07/18/18 22:26 Dose: 20 mg Zolpidem Tartrate (Ambien) 5 mg PO HS PRN PRN Reason: Insomnia Last Admin: 07/17/18 21:45 Dose: 5 mg - Labs Labs: 07/15/18 14:37 07/15/18 14:37 PT 12.2 SECONDS (9.7-12.2) 07/14/18 02:23 INR 1.1 07/14/18 02:23 APTT 32 SECONDS (21-34) 07/14/18 02:23 - Head Exam Head Exam: NORMAL INSPECTION, NORMOCEPHALIC - Eye Exam Eye Exam: EOMI, Normal appearance, PERRL Pupil Exam: NORMAL ACCOMODATION - ENT Exam ENT Exam: Mucous Membranes Moist, Normal Oropharynx - Respiratory Exam Respiratory Exam: Clear to Ausculation Bilateral. absent: Prolonged Expiratory Phase, Respiratory Distress - Cardiovascular Exam Cardiovascular Exam: REGULAR RHYTHM, +S1, +S2 - GI/Abdominal Exam GI & Abdominal Exam: Soft, Normal Bowel Sounds - Extremities Exam Extremities Exam: absent: Pedal Edema - Neurological Exam Neurological Exam: Alert, Awake, CN II-XII Intact, Oriented x3 Neuro motor strength exam: Left Upper Extremity: 3, Right Upper Extremity: 4, Left Lower Extremity: 3, Right Lower Extremity: 4 - Psychiatric Exam Psychiatric exam: Normal Affect, Normal Mood - Skin Skin Exam: Dry, Intact Assessment and Plan - Assessment and Plan (Free Text) Plan: 42 year old male with a past medical history of asthma, follicular cell carcinoma and pulmonary embolus who was admitted ? TIA. Plan: 1.?TIA Initial head ct: No acute intracranail abnormality. If there is persistent concern for acute ischemic change, consider correlation with MRI Repeat CT(07/16/18): No evidence of intracranial abnormality. There is indistinct appearance of corticomedullary junction which is likely due to motion artifact. Possibly of a diffuse hypoxia less likely through not completely excluded. Suspect minimal chronic periventricular whitematter changes; rule out mild chronic ischemia. Questionable tiny lacunar type infarct left basal ganglia Echocardiogram: :EF: 55.4% :LV function is normal Carotid duplex: negative for significant stenosis Cervical CT: : Anterior subluxation C2 over C3 straightening of normal cervical lordosis, mild dextroscoloiosis Lumbar ct: :disc bulging L4-L5 :mildcompression of R side L5 nerve root Physical Therapy Neurosurgery consulted. help appreciated Plan discussed with Dr. Hazel. Torrey Eugene, PGY-2 <Kevin Hazel - Last Filed: 07/20/18 12:37> Objective - Vital Signs/Intake and Output Vital Signs (last 24 hours): Temp Pulse Resp BP Pulse Ox 97.6 F 84 20 150/91 H 96 07/20/18 07:30 07/20/18 07:30 07/20/18 07:30 07/20/18 07:30 07/20/18 07:30 Intake and Output: 07/20/18 07/20/18 06:59 18:59 Intake Total 500 500 Balance 500 500 - Medications Medications: Current Medications Albuterol/Ipratropium (Duoneb 3 Mg/0.5 Mg (3 Ml) Ud) 3 ml INH RQ6 PRN PRN Reason: Shortness of Breath Albuterol/Ipratropium (Duoneb 3 Mg/0.5 Mg (3 Ml) Ud) 3 ml INH Q6 [facility] Gabapentin (Neurontin) 100 mg PO TID [facility] Last Admin: 07/20/18 09:54 Dose: 100 mg Insulin Aspart (Novolog) 10 unit SC AC [facility] Last Admin: 07/20/18 11:59 Dose: 10 units Insulin Aspart (Novolog) 0 unit SC [facility]; Protocol Last Admin: 07/20/18 12:00 Dose: 4 units Insulin Glargine (Lantus) 30 unit SC HS [facility] Last Admin: 07/19/18 22:06 Dose: 30 units Levothyroxine Sodium (Synthroid) 500 mcg PO 0630 [facility] Last Admin: 07/20/18 06:07 Dose: 500 mcg Metformin HCl (Glucophage) 850 mg PO BID [facility] Last Admin: 07/20/18 09:55 Dose: 850 mg Montelukast Sodium (Singulair) 10 mg PO HS [facility] Last Admin: 07/19/18 21:25 Dose: 10 mg Rivaroxaban (Xarelto) 20 mg PO DAILY [facility] Last Admin: 07/20/18 09:55 Dose: 20 mg Rosuvastatin Calcium (Crestor) 20 mg PO HS [facility] Last Admin: 07/19/18 21:25 Dose: 20 mg Zolpidem Tartrate (Ambien) 5 mg PO HS PRN PRN Reason: Insomnia Last Admin: 07/17/18 21:45 Dose: 5 mg - Labs Labs: 07/20/18 06:55 10/02/18 06:55 PT 12.2 SECONDS (9.7-12.2) 07/14/18 02:23 INR 1.1 07/14/18 02:23 APTT 32 SECONDS (21-34) 07/14/18 02:23 Assessment and Plan - Assessment and Plan (Free Text) Assessment: All medical record entries made by the Resident were at my direction and personally dictated by me. I have reviewed the chart and agree that the record accurately reflects my personal performance of the history, physical exam, medical decision making, and the department course for this patient. I have also personally directed, reviewed, and agree with the discharge instructions and disposition. Patient has severe cervical radiculopathy, with weakness secondary to this pathology. He will benefit from neurosurgical evaluation and physical therapy. Thank you Dr. hazel
[2018-07-19] MEDS ORDERED: (Novolog) Insulin Aspart, Recombinant 100 u/ml 10 ml vial SC ONE ×2 (18:25→19:45)
[2018-07-19] MEDS ORDERED: (Lantus) Insulin Glargine, Recombinant SC SCH (22:00)
--- NOTE | 2018-07-19 22:13 | CP.PCM.PN ---
Objective - Vital Signs/Intake and Output Vital Signs (last 24 hours): Temp Pulse Resp BP Pulse Ox 98 F 89 20 116/76 97 07/19/18 16:08 07/19/18 16:08 07/19/18 16:08 07/19/18 16:08 07/19/18 16:08 Intake and Output: 07/19/18 07/20/18 18:59 06:59 Intake Total 900 Balance 900 - Medications Medications: Current Medications Albuterol/Ipratropium (Duoneb 3 Mg/0.5 Mg (3 Ml) Ud) 3 ml INH RQ6 PRN PRN Reason: Shortness of Breath Albuterol/Ipratropium (Duoneb 3 Mg/0.5 Mg (3 Ml) Ud) 3 ml INH Q6 [facility] Last Admin: 07/19/18 20:53 Dose: Not Given Gabapentin (Neurontin) 100 mg PO TID [facility] Last Admin: 07/19/18 17:05 Dose: 100 mg Insulin Aspart (Novolog) 10 unit SC [facility] Insulin Aspart (Novolog) 0 unit SC [facility]; Protocol Last Admin: 07/19/18 22:09 Dose: 2 units Insulin Glargine (Lantus) 30 unit SC HS [facility] Last Admin: 07/19/18 22:06 Dose: 30 units Levothyroxine Sodium (Synthroid) 500 mcg PO 0630 [facility] Last Admin: 07/19/18 05:47 Dose: Not Given Metformin HCl (Glucophage) 850 mg PO BID [facility] Last Admin: 07/19/18 17:13 Dose: Not Given Montelukast Sodium (Singulair) 10 mg PO HS [facility] Last Admin: 07/19/18 21:25 Dose: 10 mg Rivaroxaban (Xarelto) 20 mg PO DAILY [facility] Rosuvastatin Calcium (Crestor) 20 mg PO HS [facility] Last Admin: 07/19/18 21:25 Dose: 20 mg Zolpidem Tartrate (Ambien) 5 mg PO HS PRN PRN Reason: Insomnia Last Admin: 07/17/18 21:45 Dose: 5 mg - Labs Labs: 07/15/18 14:37 07/15/18 14:37 PT 12.2 SECONDS (9.7-12.2) 07/14/18 02:23 INR 1.1 07/14/18 02:23 APTT 32 SECONDS (21-34) 07/14/18 02:23
--- NOTE | 2018-07-20 00:21 | CP.PCM.PN ---
Subjective - Date & Time of Evaluation Date of Evaluation: 07/19/18 Time of Evaluation: 10:40 - Subjective Subjective: Patient seen and evaluated Denies chest pain and dyspnea Objective - Vital Signs/Intake and Output Vital Signs (last 24 hours): Temp Pulse Resp BP Pulse Ox 98.0 F 82 20 116/69 97 07/19/18 23:54 07/19/18 23:54 07/19/18 23:54 07/19/18 23:54 07/19/18 23:54 Intake and Output: 07/19/18 07/20/18 18:59 06:59 Intake Total 900 500 Balance 900 500 - Medications Medications: Current Medications Albuterol/Ipratropium (Duoneb 3 Mg/0.5 Mg (3 Ml) Ud) 3 ml INH RQ6 PRN PRN Reason: Shortness of Breath Albuterol/Ipratropium (Duoneb 3 Mg/0.5 Mg (3 Ml) Ud) 3 ml INH Q6 [facility] Last Admin: 07/19/18 20:53 Dose: Not Given Gabapentin (Neurontin) 100 mg PO TID [facility] Last Admin: 07/19/18 17:05 Dose: 100 mg Insulin Aspart (Novolog) 10 unit SC AC [facility] Insulin Aspart (Novolog) 0 unit SC [facility]; Protocol Last Admin: 07/19/18 22:09 Dose: 2 units Insulin Glargine (Lantus) 30 unit SC [facility] Last Admin: 07/19/18 22:06 Dose: 30 units Levothyroxine Sodium (Synthroid) 500 mcg PO 0630 [facility] Last Admin: 07/19/18 05:47 Dose: Not Given Metformin HCl (Glucophage) 850 mg PO BID [facility] Last Admin: 07/19/18 17:13 Dose: Not Given Montelukast Sodium (Singulair) 10 mg PO HS [facility] Last Admin: 07/19/18 21:25 Dose: 10 mg Rivaroxaban (Xarelto) 20 mg PO DAILY [facility] Rosuvastatin Calcium (Crestor) 20 mg PO HS [facility] Last Admin: 07/19/18 21:25 Dose: 20 mg Zolpidem Tartrate (Ambien) 5 mg PO HS PRN PRN Reason: Insomnia Last Admin: 07/17/18 21:45 Dose: 5 mg - Labs Labs: 07/15/18 14:37 07/15/18 14:37 PT 12.2 SECONDS (9.7-12.2) 07/14/18 02:23 INR 1.1 07/14/18 02:23 APTT 32 SECONDS (21-34) 07/14/18 02:23
--- NOTE | 2018-07-20 03:58 | PN ---
DATE: 07/19/2018 SUBJECTIVE: The patient's sugars are high. Sugar is over 423. He has some tingling and burning in the left arm. His MRIs are negative for brain for CVA. Cervical spine is negative, and he has some degenerative changes in the lumbar spine with some thecal space . No fever. He is ambulating with no neuro deficits. PHYSICAL EXAMINATION: VITAL SIGNS: BP 116/76, pulse 89, respiratory rate 20, and temperature 98. LUNGS: Clear. No rales. No rhonchi. CVS: S1 and S2, regular. ABDOMEN: Soft. ASSESSMENT: 1. Pain in the left arm. 2. New onset of diabetes which is combination of steroid-induced diabetes with patient's obesity. 3. Hypokalemia. 4. Hypothyroidism. PLAN: Continue current medications. Repeat labs. Endocrinology evaluation. Metformin. Monitor the patient. Rudy Pro MD
[2018-07-20] MEDS: Levothyroxine 125 MCG TAB PO SCH (06:07)
[2018-07-20] MEDS: (Novolog) Insulin Aspart, Recombinant 100 u/ml 10 ml vial SC SCH ×4 (06:38→12:00)
--- NOTE | 2018-07-20 06:38 | CON ---
DATE: 07/19/2018 HISTORY OF PRESENT ILLNESS: This is a 42-year-old male, very well known to me from previous hospital consults in [facility], presenting here with progressive shortness of breath and concomitant numbness and tingling in the left upper and lower extremities. PAST MEDICAL HISTORY: History of thyroid carcinoma with surgical hypothyroidism, and after, he underwent a total thyroidectomy and has been on a very high dose of levothyroxine given as 500 mcg once daily as noted; history of chronic obstructive lung disease with chronic bronchial asthma and previous multiple hospital readmissions for acute respiratory failure and multiple endotracheal intubation undertaken thereof; history of pulmonary embolism and currently on oral anticoagulation therapy; history of obstructive sleep apnea and currently uses a BiPAP at bedtime at home; history of seizure disorder and also TIA with no residual weakness; history of type 2 insulin-requiring diabetes with suboptimal metabolic control, and the patient is only taking oral hypoglycemic therapy very erratically and has refused insulin therapy for outpatient diabetic management; and history of lower extremity osteoarthritis with previous reconstruction surgery. FAMILY HISTORY: Positive for hypertension and heart disease. SOCIAL HISTORY: The patient has a supportive family. No known substance use. REVIEW OF SYSTEMS: As mentioned above. Admits to generalized body weakness with easy fatigability and tiredness and suboptimal energy level. No chest pains or palpitations, but admits to progressive shortness of breath especially on exertion. His oral intake is variable with nausea and dyspepsia and vague upper abdominal pains. Also admits to habitual constipation. Also admits to upper and lower extremity participation, especially on the left side of his body. PHYSICAL EXAMINATION: GENERAL: This is an average-built male in no apparent distress. VITAL SIGNS: Blood pressure of 140/80, pulse of 70 beats per minute and regular, temperature 98, respirations 20, height is 5 feet 10 inches, weight is 218 pounds. HEENT: Head, normocephalic. Eyes, anicteric with pink conjunctivae. Funduscopy not possible at this time. Ears, nose, and throat otherwise normal. NECK: Supple. Thyroid gland is normal in size. No carotid bruits or cervical adenopathy. CARDIOPULMONARY: Adynamic precordium. S1 and S2 are rapid and regular. LUNGS: Show scattered rhonchi. ABDOMEN: Flat and soft with positive bowel sounds. EXTREMITIES: No brief edema. Pulses are +2 bilaterally. LABORATORY DATA: Glucose levels range from 363 to 423 mg per dL. His latest chemistries: BUN of 7, sodium 142, potassium 3.2, chloride 107, CO2 of 25, glucose 91, and creatinine 6.8. ASSESSMENT: This is a 42-year-old male with uncontrolled and decompensated type 2 insulin-requiring diabetes with suboptimal metabolic control, presenting here with marked hyperglycemic accelerations as noted thereof. He also has significant surgical hypothyroidism with thyroid carcinoma historically as mentioned. PLAN OF MANAGEMENT: We will modify his current insulin regimen and switch him over to a more physiologic basal and bolus insulin drug combination, and detailed orders will be given. We will start him with Lantus given as 20 units subcutaneous at bedtime daily to start tonight. We will also add NovoLog given as 10 units subcutaneous t.i.d. before meals to start tomorrow morning as ordered. Hemoglobin A1c will be done to confirm his prior glycemic control, and baseline thyroid function studies will be ordered. We will obtain a quantitative thyroglobulin level as ordered. We will follow and advice accordingly. Torrie Leos MD
[2018-07-20 07:14] LABS: HEMOGLOBIN 14.8 g/dL (12.0-18.0); MEAN CELL VOLUME 91.7 fL (80.0-94.0); MEAN CORPUSCULAR HEMOGLOBIN 31.3 pg (27.0-31.0); MEAN CORPUSCULAR HGB CONC 34.1 g/dL (33.0-37.0); MEAN PLATELET VOLUME 8.9 fL (7.2-11.7); RBC 4.74 Mil/uL (4.40-5.90); RED CELL DISTRIBUTION WIDTH 13.3 % (11.5-14.5); WHITE BLOOD COUNT 9.6 K/uL (4.8-10.8)
[2018-07-20 07:33] VITALS: BP 150/91; PULSE 84; TEMP 97.6; O2SAT 96
[2018-07-20] MEDS ORDERED: Albuterol-Ipratrop 3 mg / 0.5 (3 ml) UD INH SCH (08:00)
[2018-07-20] MEDS ORDERED: Albuterol-Ipratrop 3 mg / 0.5 (3 ml) UD INH PRN (08:00)
[2018-07-20 08:10] LABS: GFR NON-AFRICAN AMERICAN > 60
[2018-07-20 08:35] LABS: BLOOD UREA NITROGEN 22 mg/dL (9-20); CALCIUM 10.5 mg/dl (8.6-10.4)
--- NOTE | 2018-07-20 16:35 | CP.PCM.PN ---
Subjective - Date & Time of Evaluation Date of Evaluation: 07/20/18 Time of Evaluation: 11:00 - Subjective Subjective: Alert and oriented x3, NAD. Objective - Vital Signs/Intake and Output Vital Signs (last 24 hours): Temp Pulse Resp BP Pulse Ox 97.6 F 84 20 150/91 H 96 07/20/18 07:30 07/20/18 07:30 07/20/18 07:30 07/20/18 07:30 07/20/18 07:30 Intake and Output: 07/20/18 07/20/18 06:59 18:59 Intake Total 500 1000 Balance 500 1000 - Labs Labs: 07/20/18 06:55 07/20/18 06:55 PT 12.2 SECONDS (9.7-12.2) 07/14/18 02:23 INR 1.1 07/14/18 02:23 APTT 32 SECONDS (21-34) 07/14/18 02:23 Assessment and Plan - Assessment and Plan (Free Text) Assessment: 42 year old male admitted with numbness and tingling to the left arm and face for few weeks , no improvement noted. Also has uncontrolled blood sugar. He was given lantus in the past but never started at home. Seen and examined. Alert and orientex3, ambulatory, NAD. Seen by neurologyst, will be following as outpatient because he is unable to stay still at the MRI. Needed MRI of the cervical spine as per vini Cortez patient is unable to do as outpatient. Advised to follow up with PMD in [address] Pro.
--- NOTE | 2018-07-20 21:21 | CP.PCM.PN ---
Subjective - Date & Time of Evaluation Date of Evaluation: 07/20/18 Time of Evaluation: 09:10 - Subjective Subjective: Patient seen and examined at bedside. No cardiac events noted Physical examination - Head Exam Head Exam: NORMAL INSPECTION - Eye Exam Eye Exam: EOMI, Normal appearance Pupil Exam: NORMAL ACCOMODATION - ENT Exam ENT Exam: Mucous Membranes Moist, Normal Oropharynx - Respiratory Exam Respiratory Exam: Clear to Ausculation Bilateral, NORMAL BREATHING PATTERN. absent: Respiratory Distress - Cardiovascular Exam Cardiovascular Exam: REGULAR RHYTHM, +S1, +S2 - GI/Abdominal Exam GI & Abdominal Exam: Soft, Normal Bowel Sounds - Neurological Exam Neuro motor strength exam: Left Upper Extremity: 2/1, Right Upper Extremity: 4, Left Lower Extremity: 2/1, Right Lower Extremity: 4 - Psychiatric Exam Psychiatric exam: Normal Affect, Normal Mood - Skin Skin Exam: Dry, Intact, Normal Color Assessment and Plan - Assessment and Plan (Free Text) Assessment: 42 year old male with a past medical history of asthma, who was admitted TIA. Plan: Echocardiogram: :EF: 55.4% :LV function is normal Carotid duplex: negative for significant stenosis No cardiac etiology found so far Will follow Objective - Vital Signs/Intake and Output Vital Signs (last 24 hours): Temp Pulse Resp BP Pulse Ox 97.6 F 84 20 150/91 H 96 07/20/18 07:30 07/20/18 07:30 07/20/18 07:30 07/20/18 07:30 07/20/18 07:30 Intake and Output: 07/20/18 07/21/18 18:59 06:59 Intake Total 1000 Balance 1000 - Labs Labs: 07/20/18 06:55 07/20/18 06:55 PT 12.2 SECONDS (9.7-12.2) 07/14/18 02:23 INR 1.1 07/14/18 02:23 APTT 32 SECONDS (21-34) 07/14/18 02:23
--- NOTE | 2018-07-20 22:21 | CP.PCM.DIS ---
Provider - Provider Date of Admission: 07/14/18 03:16 Attending physician: Rudy Pro MD Hospital Course - Lab Results Lab Results: Most Recent Lab Values WBC 9.6 K/uL (4.8-10.8) 07/20/18 06:55 RBC 4.74 Mil/uL (4.40-5.90) 07/20/18 06:55 Hgb 14.8 g/dL (12.0-18.0) 07/20/18 06:55 Hct 43.5 % (35.0-51.0) 07/20/18 06:55 MCV 91.7 fL (80.0-94.0) 07/20/18 06:55 MCH 31.3 pg (27.0-31.0) H 07/20/18 06:55 MCHC 34.1 g/dL (33.0-37.0) 07/20/18 06:55 RDW 13.3 % (11.5-14.5) 07/20/18 06:55 Plt Count 277 K/uL (130-400) 07/20/18 06:55 MPV 8.9 fL (7.2-11.7) 07/20/18 06:55 Neut % (Auto) 54.6 % (50.0-75.0) 07/15/18 14:37 Lymph % (Auto) 32.3 % (20.0-40.0) 07/15/18 14:37 Gosper % (Auto) 7.8 % (0.0-10.0) 07/15/18 14:37 Eos % (Auto) 4.9 % (0.0-4.0) H 07/15/18 14:37 Baso % (Auto) 0.4 % (0.0-2.0) 07/15/18 14:37 Neut # (Auto) 4.2 K/uL (1.8-7.0) 07/15/18 14:37 Lymph # (Auto) 2.5 K/uL (1.0-4.3) 07/15/18 14:37 Gosper # (Auto) 0.6 K/uL (0.0-0.8) 07/15/18 14:37 Eos # (Auto) 0.4 K/uL (0.0-0.7) 07/15/18 14:37 Baso # (Auto) 0.0 K/uL (0.0-0.2) 07/15/18 14:37 ESR 5 mm/hr (0-15) 07/14/18 04:21 PT 12.2 SECONDS (9.7-12.2) 07/14/18 02:23 INR 1.1 07/14/18 02:23 APTT 32 SECONDS (21-34) 07/14/18 02:23 Sodium 138 mmol/L (132-148) 07/20/18 06:55 Potassium 4.5 mmol/L (3.6-5.2) 07/20/18 06:55 Chloride 96 mmol/L (98-107) L 07/20/18 06:55 Carbon Dioxide 29 mmol/L (22-30) 07/20/18 06:55 Anion Gap 18 (10-20) 07/20/18 06:55 BUN 22 mg/dL (9-20) H 07/20/18 06:55 Creatinine 1.0 mg/dL (0.8-1.5) 07/20/18 06:55 Est GFR ( Amer) > 60 07/20/18 06:55 Est GFR (Non-Af Amer) > 60 07/20/18 06:55 POC Glucose (mg/dL) 330 mg/dL (65-110) H 07/20/18 10:59 Random Glucose 259 mg/dL (75-110) H 07/20/18 06:55 Hemoglobin A1c 9.8 % (4.2-6.5) H 07/14/18 21:24 Calcium 10.5 mg/dl (8.6-10.4) H 07/20/18 06:55 Magnesium 2.3 mg/dL (1.6-2.3) 07/20/18 06:55 Total Bilirubin 0.4 mg/dL (0.2-1.3) 07/15/18 14:37 AST 12 U/L (17-59) L 07/15/18 14:37 ALT 21 U/L (21-72) 07/15/18 14:37 Alkaline Phosphatase 38 U/L (38-126) 07/15/18 14:37 Troponin I < 0.0120 ng/mL (0.00-0.120) 07/14/18 02:23 Total Protein 5.6 g/dL (6.3-8.3) L 07/15/18 14:37 Albumin 3.2 g/dL (3.5-5.0) L 07/15/18 14:37 Globulin 2.4 gm/dL (2.2-3.9) 07/15/18 14:37 Albumin/Globulin Ratio 1.3 (1.0-2.1) 07/15/18 14:37 Triglycerides 159 mg/dL (0-149) H 07/14/18 21:24 Cholesterol 168 mg/dL (0-199) 07/14/18 21:24 LDL Cholesterol Direct 102 mg/dL (0-129) 07/14/18 21:24 HDL Cholesterol 34 mg/dL (30-70) 07/14/18 21:24 Thyroxine (T4) 5.54 ug/dL (5.5-11.0) 07/18/18 12:00 Total T3 0.397 nmol/L (1.49-2.60) L 07/18/18 12:00 TSH 3rd Generation 0.57 mIU/L (0.46-4.68) 07/18/18 12:00 RPR Nonreactive (NONREACTIVE) 07/14/18 04:21 Blood Type A POSITIVE 07/14/18 02:23 Antibody Screen Negative 07/14/18 02:23 Discharge Exam - Head Exam Head Exam: NORMAL INSPECTION, NORMOCEPHALIC Discharge Plan - Discharge Medications Prescriptions: MetFORMIN [glucoPHAGE] 1,000 mg PO BID #60 tab Gabapentin [Neurontin] 100 mg PO TID #30 cap Saxagliptin HCl [Onglyza] 5 mg PO DAILY #30 tablet - Follow Up Plan Condition: GUARDED Disposition: HOME/ ROUTINE Instructions: Type 2 Diabetes, Saxagliptin, Metformin, Pyridoxine Additional Instructions: Discharge home as per , follow up in the office in 1 week check blood sugar daily and bring to the office Referrals: Rudy Pro MD [Staff Provider] -
--- NOTE | 2018-07-21 03:17 | PN ---
DATE: 07/20/2018 SUBJECTIVE: The patient is feeling better. His sugars went down. He is afebrile. . No nausea or vomiting. Positive pain in the left arm. PHYSICAL EXAMINATION VITAL SIGNS: BP 150/91, pulse 84, respiratory rate 20, and temperature 97.6. LUNGS: Clear. No rales. No rhonchi. CVS: S1 and S2, regular. ABDOMEN: Soft. ASSESSMENT: 1. New onset diabetes mellitus. 2. Pain in left arm of unknown etiology. 3. Anxiety. 4. Hypothyroidism. PLAN: Accu-chek sliding scale. Monitor the patient. The patient is for discharge. He will be followed up as outpatient. Rudy Pro MD
--- NOTE | 2018-07-21 05:00 | PN ---
DATE: 07/20/2018 ENDO FOLLOWUP NOTE LOCATION: Room 352. SUBJECTIVE: This is a 42-year-old male with recent uncontrolled type 2 insulin-requiring diabetes, now being followed closely for metabolic management. His glycemic levels are fluctuating, but improved and the glucose values overnight have ranged from 208 to 330 mg/dL. LABORATORY DATA: His chemistry today showed a BUN of 22, sodium 138, potassium 4.5, chloride 96, CO2 of 29, glucose 259, and creatinine 1. ASSESSMENT: This is a 42-year-old male with uncontrolled and decompensated type 2 insulin-requiring diabetes with marked hyperglycemic accelerations related to a subtherapeutic insulin regimen as the patient is quite reluctant to go home on insulin therapy at this time and also with the previous admission at [facility]. He has been taking a combination of oral hypoglycemic therapy given by his other physicians. hypothyroidism, significant history of thyroid carcinoma, on a very high dose of levothyroxine replacement therapy. PLAN OF MANAGEMENT: We will continue the levothyroxine given as 100 mcg once daily and will titrate accordingly to optimize metabolic control. We will also continue the basal and bolus insulin regimen NovoLog given as 20 units subcu t.i.d. before meals to start today. We will also increase the Lantus to 40 units subcu at bedtime daily to start tonight. We will titrate incrementally as indicated to optimize metabolic control. We will follow and advise accordingly. Torrie Leos MD
== END 2018-07-20 15:00 | disposition home or self-care (01) | DRG 532 ==
LOC: C.ER 01:49 → C.9E 03:16 → C.9I 03:55 → C.5S 10:58 → C.3T 07-20 02:19 → UNDODISIN 07-20 11:30
PROVIDERS: ADMIT Internal Medicine; ATTEND Internal Medicine
DX: G45.9 Transient cerebral ischemic attack, unspecified (principal); I26.99 Other pulmonary embolism without acute cor pulmonale; I10 Essential (primary) hypertension; E87.6 Hypokalemia; J45.901 Unspecified asthma with (acute) exacerbation; E09.65 Drug or chemical induced diabetes mellitus with hyperglycemia; J44.9 Chronic obstructive pulmonary disease, unspecified; G40.909 Epilepsy, unspecified, not intractable, without status epilepticus; G47.33 Obstructive sleep apnea (adult) (pediatric); M47.816 Spondylosis without myelopathy or radiculopathy, lumbar region; M54.12 Radiculopathy, cervical region; T38.0X5A Adverse effect of glucocorticoids and synthetic analogues, initial encounter; F41.9 Anxiety disorder, unspecified; E89.0 Postprocedural hypothyroidism; E78.5 Hyperlipidemia, unspecified; E66.9 Obesity, unspecified; Z79.01 Long term (current) use of anticoagulants; Z85.850 Personal history of malignant neoplasm of thyroid; Z86.711 Personal history of pulmonary embolism; Z86.73 Personal history of transient ischemic attack (TIA), and cerebral infarction without residual deficits; Z87.01 Personal history of pneumonia (recurrent); Z87.442 Personal history of urinary calculi; Z90.49 Acquired absence of other specified parts of digestive tract; Z79.84 Long term (current) use of oral hypoglycemic drugs